=== PATIENT | male | born 1940 | race Caucasian/White ===

== ENCOUNTER 2017-12-05 06:29 | Inpatient (IN) ==
--- NOTE | 2017-12-05 07:31 | Emergency Department Note ---
Syncope HPI - General Chief Complaint: Syncope Stated Complaint: syncopal episode Time Seen by Provider: 12/05/17 07:30 Source: patient Mode of arrival: ambulatory Limitations: no limitations - History of Present Illness HPI Narrative: This patient is very hard to evaluate because he seems so sleepy. Apparently he is fallen at home a few times. He thought he may have hit his head. He is not on any blood thinners. - Related Data Home Medications Medication Instructions Recorded Confirmed FLUoxetine HCL [PROzac] 40 mg PO DAILY 08/05/15 09/21/17 Potassium Citrate [Potassium 40 meq PO TID 08/05/15 09/21/17 Citrate ER] Pramipexole [Mirapex] 1.5 mg PO HS 08/05/15 09/21/17 Albuterol Sulfate [Ventolin] 1 puff NEB Q4-6HP PRN 02/01/16 09/21/17 Fluticasone/Salmeterol [Advair 1 puff INH DAILY 03/17/16 09/21/17 100-50 Diskus] ipratropium-albuterol 0.5 mg-3 3 ml INHALATION BID ml 04/25/16 09/21/17 mg(2.5 mg base)/3 mL nebulization soln Gabapentin [Gralise] 600 mg PO TID 08/04/16 09/21/17 furosemide 20 mg tablet 20 mg PO DAILY tab 07/15/17 09/21/17 Previous Rx's Medication Instructions Recorded tamsulosin 0.4 mg capsule 0.4 mg PO BID #60 cap 10/15/15 [place] 1 each 5XD #1 each 08/08/16 finasteride 5 mg tablet 5 mg PO QDAY #30 tab 07/15/17 Docusate Sodium [Colace] 100 mg PO BID #30 cap 09/17/17 HYDROcodone/APAP 5/325MG [[place] 1 tab PO Q4HP PRN #20 tab 09/17/17 5/325Mg] Methocarbamol [Robaxin] 500 mg PO QIDP #30 tab 09/17/17 HYDROcodone/APAP 5/325MG [[place] 1 tab PO Q4HP PRN #10 tab 09/19/17 5/325Mg] Allergies Allergy/AdvReac Type Severity Reaction Status Date / Time No Known Drug Allergies Allergy Verified 09/21/17 09:46 Review of Systems All systems ED: reviewed and negative except as stated. Past Medical History - Past Medical History [facility] Narrative: Medical History (This Medical Record has been edited. Action required.) Weakness generalized (Acute) BPH loc w urin obs/LUTS (Acute) Rib contusion (Acute) Skin tear of left upper extremity (Acute) Closed head injury (Acute) Scalp contusion (Acute) Concussion without loss of consciousness (Acute) BPH (benign prostatic hyperplasia) (Acute) Fall (Acute) Contusion, knee (Acute) Rib fractures (Acute) Urethritis (Acute) Thoracic back pain (Acute) Knee pain, right (Acute) Constipation (Acute) Kidney stone (Acute) Vertigo (Acute) GERD (gastroesophageal reflux disease) (Acute) CHF exacerbation (Acute) Edema extremities (Acute) Vertigo (Acute) Bronchitis (Acute) Sinusitis (Acute) Rib contusion (Acute) Syncope (Acute) Primary atypical pneumonia (Acute) Acute exacerbation of chronic obstructive airways disease (Acute) NAJERA (dyspnea on exertion) (Acute) Venous (peripheral) insufficiency (Acute) Acute retention of urine (Acute) UTI (urinary tract infection) (Acute) [place] catheter problem (Acute) Cellulitis, penis (Acute) Urinary frequency (Chronic) Generalized polyneuropathy (Chronic) Obstructive sleep apnea (Chronic) Arthralgia of knee (Chronic) Hypokalemia (Chronic) Essential hypertension (Chronic) Diabetes mellitus type 2, uncontrolled (Chronic) Depression (Chronic) Congestive heart failure (Chronic) Advanced COPD (Chronic) Asthma (Chronic) Cellulitis (Chronic) Back pain (Chronic) Past Surgical History (This Medical Record has been edited. 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 Action required.) Unknown No family history of malignant neoplasm No family history of cardiovascular disease No history of endocrine disorder No history of gastrointestinal disorder No family history of bleeding disorder No family history of kidney disease - Social History smoking status: Never smoker Physical Exam Limitations: no limitations General appearance: lethargic Head: atraumatic, normocephalic Eye: Present: normal appearance ENT: normal exam Neck: Present: normal inspection Chest: Present: normal inspection Respiratory: Present: other (Scattered rhonchi) Cardiovascular: Present: regular rate, normal rhythm, normal heart sounds Abdominal: Present: soft, tenderness. Absent: distention, guarding, rebound, rigidity Abdominal tenderness: Present: diffuse, mild Neurological: Present: alert Psychiatric: Present: flat affect Skin: Present: warm, dry, intact, other (He does have stasis changes in his lower extremities with some slight erythema and swelling.) Course Vital Signs Temperature 96.9 F L 12/05/17 06:30 Pulse Rate 66 12/05/17 06:30 Respiratory Rate 20 12/05/17 06:30 Blood Pressure 93/67 12/05/17 06:30 Pulse Oximetry (%) 97 12/05/17 06:30 Temperature 96.9 F L 12/05/17 06:30 Pulse Rate 64 12/05/17 08:12 Respiratory Rate 14 12/05/17 08:19 Blood Pressure 121/69 12/05/17 08:16 Pulse Oximetry (%) 95 12/05/17 08:12 Syncope - Lab Data Result diagrams: 12/05/17 06:55 12/05/17 06:55 Lab Results 12/05/17 12/05/17 12/05/17 Range/Units 06:55 06:55 06:55 WBC 7.6 (4.5-11.0) K/mcL RBC 4.24 L (4.50-5.90) M/mcL Hgb 12.8 L (13.5-16.5) g/dL Hct 39.2 L (41.0-55.0) % MCV 92.3 (80.0-100.0) fL MCH 30.1 (26.0-34.0) pg MCHC 32.6 (31.0-36.0) g/dL RDW 14.7 H (11.5-14.5) % Plt Count 183 (140-440) K/mcL MPV 8.5 (7.4-10.4) fL Gran % 61.1 (38.0-78.0) % Lymph % (Auto) 18.0 (15.5-49.0) % [place] % (Auto) 12.4 H (1.0-12.0) % Eos % (Auto) 8.3 H (0.0-7.0) % Baso % (Auto) 0.2 (0.0-2.0) % Gran # 4.6 (1.8-8.0) K/mcL Lymph # (Auto) 1.4 L (1.5-4.8) K/mcL [place] # (Auto) 0.9 (0.1-0.9) K/mcL Eos # (Auto) 0.6 (0.0-0.7) K/mcL Baso # (Auto) 0 (0.0-0.3) K/mcL Sodium 139 (133-145) mmol/L Potassium 3.5 (3.3-5.1) mmol/L Chloride 99 (96-108) mmol/L Carbon Dioxide 26 (22-30) mmol/L Anion Gap 14.0 (8-16) BUN 12 (8-23) mg/dl Creatinine 0.8 (0.7-1.2) mg/dl GFR Calculation 85 Glucose 98 (70-105) mg/dL Calcium 8.8 (8.6-10.4) mg/dl Total Bilirubin 0.4 (0.0-1.0) mg/dL AST 16 (0-37) U/l ALT 15 (0-40) U/l Alkaline Phosphatase 87 (39-117) U/L Troponin T < 0.01 (0-0.03) ng/ml Total Protein 6.5 (5.9-8.4) gm/dL Albumin 3.6 (3.2-5.2) gm/dL Globulin 2.9 (2.2-3.7) gm/dL Albumin/Globulin Ratio 1.2 (1.0-2.3) Disposition Pt seen by SEED PELLETER/PA only: No Referrals: No,PCP [Referring] -
[2017-12-05] MEDS ORDERED: LACTATED RINGERS 1,000 ML IV ONE (07:41)
[2017-12-05 07:47] LABS: Basophils # (Auto) 0 K/mcL (0.0-0.3); Basophils % (Auto) 0.2 % (0.0-2.0); Eosinophils # (Auto) 0.6 K/mcL (0.0-0.7); Eosinophils % (Auto) 8.3 % (0.0-7.0); Granulocytes % (Auto) 61.1 % (38.0-78.0); Lymphocytes # (Auto) 1.4 K/mcL (1.5-4.8); Mean Cell Volume 92.3 fL (80.0-100.0); Mean Corpuscular HGB Conc 32.6 g/dL (31.0-36.0); Mean Corpuscular Hemoglobin 30.1 pg (26.0-34.0); Monocytes # (Auto) 0.9 K/mcL (0.1-0.9); Monocytes % (Auto) 12.4 % (1.0-12.0); Platelet Count 183 K/mcL (140-440); RBC 4.24 M/mcL (4.50-5.90); Red Cell Distribution Width 14.7 % (11.5-14.5)
[2017-12-05 08:07] LABS: ALT/SGPT 15 U/l (0-40); Albumin 3.6 gm/dL (3.2-5.2); Albumin/Globulin Ratio 1.2 (1.0-2.3); Alkaline Phosphatase 87 U/L (39-117); Blood Urea Nitrogen 12 mg/dl (8-23)
[2017-12-05] MEDS ORDERED: NALOXONE HCL 0.4 MG/ML VIAL ONE (08:52)
--- NOTE | 2017-12-05 08:52 | Cat Scan Report ---
CLINICAL INFORMATION: Head injury COMPARISON: None. TECHNIQUE: Axial noncontrast-enhanced images through the brain. FINDINGS: No acute intracranial hemorrhage. No subdural or epidural hematoma. No subarachnoid hemorrhage No intra-axial hematoma. No acute focal attenuation abnormality or localized mass effect. No midline shift. There is cerebral atrophy. There is white matter abnormality consistent with small vessel ischemic change. Brainstem and cerebellum are negative. No calvarial fracture. Inflammatory disease of the paranasal sinuses. The left globe is abnormal. There is increased density with in the left globe. This is in the posterior chamber. Appearance is not typical of a prosthetic globe. Etiology and chronicity not certain. Clinical correlation necessary. IMPRESSION: 1. No acute intracranial posttraumatic abnormality 2. Cerebral atrophy and white matter abnormality as above 3. Abnormal left globe The exam was performed using radiation dose optimization techniques including, but not limited to, automated exposure control, adjustment of the mA and/or kV according to patient size and use of iterative reconstruction technique. Interpreted and Authenticated by: Delfino Aguilar 12/05/17
[2017-12-05] MEDS: NALOXONE HCL 0.4 MG/ML VIAL IV PRN ×2 (08:54→08:56)
--- NOTE | 2017-12-05 08:56 | XRay Report ---
INDICATION: Fall. TECHNIQUE: AP chest x-ray,portable COMPARISON: None FINDINGS:Lungs are negative. No parenchymal infiltrate or mass. Heart size and vascularity are normal. Stacy and mediastinum are negative. No pleural fluid IMPRESSION: No acute abnormality. Interpreted and Authenticated by: Delfino Aguilar 12/05/17
[2017-12-05] MEDS ORDERED: IPRATROPIUM/ALBUTEROL 3 ML AMPUL.NEB NEB ONE ×2 (09:10)
[2017-12-05] MEDS ORDERED: methylPREDNISolone SOD SUCC 125 MG/2 ML VIAL IV ONE (09:10)
--- NOTE | 2017-12-05 09:11 | Emergency Department Note ---
Syncope HPI - General Chief Complaint: Syncope Stated Complaint: syncopal episode Time Seen by Provider: 12/05/17 07:30 Source: patient Mode of arrival: ambulatory Limitations: no limitations - Related Data Home Medications Medication Instructions Recorded Confirmed FLUoxetine HCL [PROzac] 40 mg PO DAILY 08/05/15 12/05/17 Pramipexole [Mirapex] 1.5 mg PO HS 08/05/15 12/05/17 Fluticasone/Salmeterol [Advair 1 puff INH DAILY 03/17/16 09/21/17 100-50 Diskus] ipratropium-albuterol 0.5 mg-3 3 ml INHALATION BID ml 04/25/16 09/21/17 mg(2.5 mg base)/3 mL nebulization soln Gabapentin [Gralise] 600 mg PO TID 08/04/16 12/05/17 furosemide 20 mg tablet 20 mg PO DAILY tab 07/15/17 12/05/17 Potassium Chloride [Kdur] 40 meq PO BIDCC 12/05/17 12/05/17 Previous Rx's Medication Instructions Recorded tamsulosin 0.4 mg capsule 0.4 mg PO BID #60 cap 10/15/15 finasteride 5 mg tablet 5 mg PO QDAY #30 tab 07/15/17 Docusate Sodium [Colace] 100 mg PO BID #30 cap 09/17/17 Allergies Allergy/AdvReac Type Severity Reaction Status Date / Time No Known Drug Allergies Allergy Verified 09/21/17 09:46 Past Medical History - Past Medical History Medical history: Reports: asthma, CHF, COPD, DM (With neuropathy), hypertension , kidney stones, other (ADA on CPAP, BPH) Psychiatric history: Reports: depression Surgical history ED: Reports: appendectomy, herniorrhaphy, knee replacement, orthopedic, other (Lumbar, right shoulder replacement) - Social History smoking status: Never smoker Alcohol use: Reports: Occasionally Drug use: Reports: none Physical Exam Limitations: no limitations General appearance: lethargic Course - Reevaluation(s) Reevaluation #1: Please see history and physical as dictated by Dr. peralta. On laboratory review his white blood cell count is normal, his flu test is negative. His chest x-ray is negative however he is still quite wheezy and retaining CO2. He is too weak to go home, he does have cellulitis to both lower extremities and urinalysis is pending at this time. We will try Solu-Medrol and breathing treatments for his respiratory wheezing and see if he improves that way. Vital Signs Temperature 96.9 F L 12/05/17 06:30 Pulse Rate 66 12/05/17 06:30 Respiratory Rate 20 12/05/17 06:30 Blood Pressure 93/67 12/05/17 06:30 Pulse Oximetry (%) 97 12/05/17 06:30 Temperature 97.9 F 12/05/17 09:18 Pulse Rate 69 12/05/17 10:24 Respiratory Rate 15 12/05/17 10:24 Blood Pressure 114/72 12/05/17 10:16 Pulse Oximetry (%) 99 12/05/17 10:24 Syncope - [facility] Narrative Medical decision making narrative: Labs reviewed, he still somnolent without apparent reason except that he has COPD exacerbation. Final diagnosis is COPD exacerbation with CO2 retention. Plan is hospital admission, discussed with our hospitalist - Lab Data Result diagrams: 12/05/17 06:55 12/05/17 06:55 Lab Results 12/05/17 12/05/17 12/05/17 Range/Units 06:55 06:55 06:55 WBC 7.6 (4.5-11.0) K/mcL RBC 4.24 L (4.50-5.90) M/mcL Hgb 12.8 L (13.5-16.5) g/dL Hct 39.2 L (41.0-55.0) % MCV 92.3 (80.0-100.0) fL MCH 30.1 (26.0-34.0) pg MCHC 32.6 (31.0-36.0) g/dL RDW 14.7 H (11.5-14.5) % Plt Count 183 (140-440) K/mcL MPV 8.5 (7.4-10.4) fL Gran % 61.1 (38.0-78.0) % Lymph % (Auto) 18.0 (15.5-49.0) % [place] % (Auto) 12.4 H (1.0-12.0) % Eos % (Auto) 8.3 H (0.0-7.0) % Baso % (Auto) 0.2 (0.0-2.0) % Gran # 4.6 (1.8-8.0) K/mcL Lymph # (Auto) 1.4 L (1.5-4.8) K/mcL [place] # (Auto) 0.9 (0.1-0.9) K/mcL Eos # (Auto) 0.6 (0.0-0.7) K/mcL Baso # (Auto) 0 (0.0-0.3) K/mcL ESR (0-15) mm/hr VBG Lactic Acid (0.5-2.2) mmol/L Carbon Monoxide Screen (0.0-1.5) % Sodium 139 (133-145) mmol/L Potassium 3.5 (3.3-5.1) mmol/L Chloride 99 (96-108) mmol/L Carbon Dioxide 26 (22-30) mmol/L Anion Gap 14.0 (8-16) BUN 12 (8-23) mg/dl Creatinine 0.8 (0.7-1.2) mg/dl GFR Calculation 85 Glucose 98 (70-105) mg/dL Calcium 8.8 (8.6-10.4) mg/dl Total Bilirubin 0.4 (0.0-1.0) mg/dL AST 16 (0-37) U/l ALT 15 (0-40) U/l Alkaline Phosphatase 87 (39-117) U/L Troponin T < 0.01 (0-0.03) ng/ml NT-Pro-B Natriuret Pep (0-450) pg/ml Total Protein 6.5 (5.9-8.4) gm/dL Albumin 3.6 (3.2-5.2) gm/dL Globulin 2.9 (2.2-3.7) gm/dL Albumin/Globulin Ratio 1.2 (1.0-2.3) TSH (0.27-5.01) uIU/ml Free T4 (0.7-1.7) ng/dl Urine Color Urine Appearance Urine pH (5.0-9.0) Ur Specific [place] (1.000-1.035) Urine Protein (NEG) mg/dL Urine Glucose (UA) (NEG) mg/dL Urine Ketones (NEG) mg/dL Urine Occult Blood (<0.03) mg/dL Urine Nitrate (NEG) Urine Bilirubin (NEG) mg/dL Urine Urobilinogen (NEG) mg/dL Ur Leukocyte Esterase (NEG) /uL Ur Culture Indicated? Urine Opiates Screen (NONDETECTED) Ur Oxycodone Screen (NONDETECTED) Urine Methadone Screen (NONDETECTED) Ur Barbiturates Screen (NONDETECTED) Ur Phencyclidine Scrn (NONDETECTED) Ur Amphetamines Screen (NONDETECTED) U Benzodiazepines Scrn (NONDETECTED) Urine Cocaine Screen (NONDETECTED) U Marijuana (THC) Screen (NONDETECTED) 12/05/17 12/05/17 12/05/17 Range/Units 06:55 06:55 06:55 WBC (4.5-11.0) K/mcL RBC (4.50-5.90) M/mcL Hgb (13.5-16.5) g/dL Hct (41.0-55.0) % MCV (80.0-100.0) fL MCH (26.0-34.0) pg MCHC (31.0-36.0) g/dL RDW (11.5-14.5) % Plt Count (140-440) K/mcL MPV (7.4-10.4) fL Gran % (38.0-78.0) % Lymph % (Auto) (15.5-49.0) % [place] % (Auto) (1.0-12.0) % Eos % (Auto) (0.0-7.0) % Baso % (Auto) (0.0-2.0) % Gran # (1.8-8.0) K/mcL Lymph # (Auto) (1.5-4.8) K/mcL [place] # (Auto) (0.1-0.9) K/mcL Eos # (Auto) (0.0-0.7) K/mcL Baso # (Auto) (0.0-0.3) K/mcL ESR 29 H (0-15) mm/hr VBG Lactic Acid (0.5-2.2) mmol/L Carbon Monoxide Screen 3.1 H (0.0-1.5) % Sodium (133-145) mmol/L Potassium (3.3-5.1) mmol/L Chloride (96-108) mmol/L Carbon Dioxide (22-30) mmol/L Anion Gap (8-16) BUN (8-23) mg/dl Creatinine (0.7-1.2) mg/dl GFR Calculation Glucose (70-105) mg/dL Calcium (8.6-10.4) mg/dl Total Bilirubin (0.0-1.0) mg/dL AST (0-37) U/l ALT (0-40) U/l Alkaline Phosphatase (39-117) U/L Troponin T (0-0.03) ng/ml NT-Pro-B Natriuret Pep 141.8 (0-450) pg/ml Total Protein (5.9-8.4) gm/dL Albumin (3.2-5.2) gm/dL Globulin (2.2-3.7) gm/dL Albumin/Globulin Ratio (1.0-2.3) TSH 1.87 (0.27-5.01) uIU/ml Free T4 1.49 (0.7-1.7) ng/dl Urine Color Urine Appearance Urine pH (5.0-9.0) Ur Specific [place] (1.000-1.035) Urine Protein (NEG) mg/dL Urine Glucose (UA) (NEG) mg/dL Urine Ketones (NEG) mg/dL Urine Occult Blood (<0.03) mg/dL Urine Nitrate (NEG) Urine Bilirubin (NEG) mg/dL Urine Urobilinogen (NEG) mg/dL Ur Leukocyte Esterase (NEG) /uL Ur Culture Indicated? Urine Opiates Screen (NONDETECTED) Ur Oxycodone Screen (NONDETECTED) Urine Methadone Screen (NONDETECTED) Ur Barbiturates Screen (NONDETECTED) Ur Phencyclidine Scrn (NONDETECTED) Ur Amphetamines Screen (NONDETECTED) U Benzodiazepines Scrn (NONDETECTED) Urine Cocaine Screen (NONDETECTED) U Marijuana (THC) Screen (NONDETECTED) 12/05/17 12/05/17 12/05/17 Range/Units 08:12 09:47 09:47 WBC (4.5-11.0) K/mcL RBC (4.50-5.90) M/mcL Hgb (13.5-16.5) g/dL Hct (41.0-55.0) % MCV (80.0-100.0) fL MCH (26.0-34.0) pg MCHC (31.0-36.0) g/dL RDW (11.5-14.5) % Plt Count (140-440) K/mcL MPV (7.4-10.4) fL Gran % (38.0-78.0) % Lymph % (Auto) (15.5-49.0) % [place] % (Auto) (1.0-12.0) % Eos % (Auto) (0.0-7.0) % Baso % (Auto) (0.0-2.0) % Gran # (1.8-8.0) K/mcL Lymph # (Auto) (1.5-4.8) K/mcL [place] # (Auto) (0.1-0.9) K/mcL Eos # (Auto) (0.0-0.7) K/mcL Baso # (Auto) (0.0-0.3) K/mcL ESR (0-15) mm/hr VBG Lactic Acid 1.0 (0.5-2.2) mmol/L Carbon Monoxide Screen (0.0-1.5) % Sodium (133-145) mmol/L Potassium (3.3-5.1) mmol/L Chloride (96-108) mmol/L Carbon Dioxide (22-30) mmol/L Anion Gap (8-16) BUN (8-23) mg/dl Creatinine (0.7-1.2) mg/dl GFR Calculation Glucose (70-105) mg/dL Calcium (8.6-10.4) mg/dl Total Bilirubin (0.0-1.0) mg/dL AST (0-37) U/l ALT (0-40) U/l Alkaline Phosphatase (39-117) U/L Troponin T (0-0.03) ng/ml NT-Pro-B Natriuret Pep (0-450) pg/ml Total Protein (5.9-8.4) gm/dL Albumin (3.2-5.2) gm/dL Globulin (2.2-3.7) gm/dL Albumin/Globulin Ratio (1.0-2.3) TSH (0.27-5.01) uIU/ml Free T4 (0.7-1.7) ng/dl Urine Color Yellow Urine Appearance Clear Urine pH 5.0 (5.0-9.0) Ur Specific [place] 1.009 (1.000-1.035) Urine Protein Neg (NEG) mg/dL Urine Glucose (UA) Negative (NEG) mg/dL Urine Ketones Neg (NEG) mg/dL Urine Occult Blood Neg (<0.03) mg/dL Urine Nitrate Neg (NEG) Urine Bilirubin Neg (NEG) mg/dL Urine Urobilinogen Neg (NEG) mg/dL Ur Leukocyte Esterase Neg (NEG) /uL Ur Culture Indicated? No Urine Opiates Screen None detected (NONDETECTED) Ur Oxycodone Screen None detected (NONDETECTED) Urine Methadone Screen None detected (NONDETECTED) Ur Barbiturates Screen None detected (NONDETECTED) Ur Phencyclidine Scrn None detected (NONDETECTED) Ur Amphetamines Screen None detected (NONDETECTED) U Benzodiazepines Scrn None detected (NONDETECTED) Urine Cocaine Screen None detected (NONDETECTED) U Marijuana (THC) Screen None detected (NONDETECTED) Disposition Pt seen by REEL WORKER/PA only: No Clinical Impression: COPD exacerbation Disposition: Xfer As Inpt ([facility]) Condition: Fair Referrals: No,PCP [Referring] -
[2017-12-05] MEDS ORDERED: 0.9 % SODIUM CHLORIDE 1,000 ML IV ONE (09:35)
[2017-12-05 09:45] LABS: Free T4 (Free Thyroxine) 1.49 ng/dl (0.7-1.7); proBNP 141.8 pg/ml (0-450)
[2017-12-05 10:31] LABS: Appearance,Urine CLEAR; Bilirubin,Urine NEG (NEG); Color,Urine YELLOW; Glucose,Urine (UA) NEGATIVE (NEG); Leukocyte Esterase,Urine NEG /uL (NEG); Nitrate,Urine NEG (NEG); Protein,Urine NEG (NEG); Specific Gravity,Urine 1.009 (1.000-1.035); Urine Blood NEG mg/dL (<0.03); Urobilinogen,Urine NEG (NEG)
[2017-12-05 10:34] LABS: Amphetamine Screen,Urine NONE DETECTED (NONDETECTED); Benzodiazepines Screen,Urine NONE DETECTED (NONDETECTED); Cocaine Screen,Urine NONE DETECTED (NONDETECTED); Opiate Screen,Urine NONE DETECTED (NONDETECTED); Oxycodone, Urine Screen NONE DETECTED (NONDETECTED)
--- NOTE | 2017-12-05 12:01 | Internal Med History&Physical ---
Medical - H&P: [facility] Patient information: Note initiated : 12/05/17 at 11:39 am Service Date, if different from initiated Date: [] Patient: Abelardo Chambers 77 y/o M admitted on for syncopal episode. Chief complaint: AMS History of present illness: Chief Complaint: 77-YEAR-OLD MALE, WITH MULTIPLE MEDICAL PROBLEMS, PRESENTED TO THE ED WITH AMS. HE WAS DESCRIBED OBTUNDED UPON ARRIVAL TO THE ED. PATIENT WAS FOUND ON THE FLOOR. HE APPARENTLY PRESSED THE [place]IFELINE BUTTON TO ALERT EMS. BY THE TIME, I SAW PATIENT, HE WAS AROUSABLE ON VERBAL STIMULI AND ABLE TO ANSWER SIMPLE QUESTIONS. STATED HE IS UNABLE TO REMEMBER WHAT HAPPENED. DENIED HEADACHE, CP, PALPITATIONS OR ANY PAIN. HE ALSO DENIED BEING SOB, BUT HAD AUDIBLE WHEEZING. ADMITTED TO HAVING COPD AND BEING A SMOKER IN REMOTE PAST. ED COURSE: NO EFFECT AFTER ADMINISTRATION OF NARCAN INSERTION OF GLASS CATH YIELDED 700 ML URINE HAD DUONEB FOR WHEEZING AND RHONCHI W/U INCLUDED CT-HEAD, LAB, CXR, CO LEVEL, TOX SCREEN: NO OBVIOUS ETIOLOGY FOR AMS ROS unobtainable: due to mental status Medical - H&P: PMH Medical history: Medical History (This Medical Record has been edited. Action required.) Weakness generalized (Acute) COPD exacerbation (Acute) BPH loc w urin obs/LUTS (Acute) Rib contusion (Acute) Skin tear of left upper extremity (Acute) Closed head injury (Acute) Scalp contusion (Acute) Concussion without loss of consciousness (Acute) BPH (benign prostatic hyperplasia) (Acute) Fall (Acute) Contusion, knee (Acute) Rib fractures (Acute) Urethritis (Acute) Thoracic back pain (Acute) Knee pain, right (Acute) Constipation (Acute) Kidney stone (Acute) Vertigo (Acute) GERD (gastroesophageal reflux disease) (Acute) CHF exacerbation (Acute) Edema extremities (Acute) Vertigo (Acute) Bronchitis (Acute) Sinusitis (Acute) Rib contusion (Acute) Syncope (Acute) Primary atypical pneumonia (Acute) Acute exacerbation of chronic obstructive airways disease (Acute) NAJERA (dyspnea on exertion) (Acute) Venous (peripheral) insufficiency (Acute) Acute retention of urine (Acute) UTI (urinary tract infection) (Acute) Glass catheter problem (Acute) Cellulitis, penis (Acute) Urinary frequency (Chronic) Generalized polyneuropathy (Chronic) Obstructive sleep apnea (Chronic) Arthralgia of knee (Chronic) Hypokalemia (Chronic) Essential hypertension (Chronic) Diabetes mellitus type 2, uncontrolled (Chronic) Depression (Chronic) Congestive heart failure (Chronic) Advanced COPD (Chronic) Asthma (Chronic) Cellulitis (Chronic) Back pain (Chronic) Surgical history: Past Surgical History (This Medical Record has been edited. 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) History of lumbar laminectomy (Chronic) Hx of arthroscopic knee surgery (Chronic) Hx of appendectomy (Chronic) History of hernia repair (Chronic 05/02/16) Smoking status: Former smoker Medical - H&P: Meds Home Medications Medication Instructions Recorded Confirmed Type FLUoxetine HCL [PROzac] 40 mg PO DAILY 08/05/15 12/05/17 History Pramipexole [Mirapex] 1.5 mg PO HS 08/05/15 12/05/17 History tamsulosin 0.4 mg capsule 0.4 mg PO BID #60 cap 10/15/15 12/05/17 Rx Fluticasone/Salmeterol [Advair 1 puff INH DAILY 03/17/16 09/21/17 History 100-50 Diskus] ipratropium-albuterol 0.5 mg-3 3 ml INHALATION BID ml 04/25/16 09/21/17 History mg(2.5 mg base)/3 mL nebulization soln Gabapentin [Gralise] 600 mg PO TID 08/04/16 12/05/17 History finasteride 5 mg tablet 5 mg PO QDAY #30 tab 07/15/17 12/05/17 Rx furosemide 20 mg tablet 20 mg PO DAILY tab 07/15/17 12/05/17 History Docusate Sodium [Colace] 100 mg PO BID #30 cap 09/17/17 09/21/17 Rx Potassium Chloride [Kdur] 40 meq PO BIDCC 12/05/17 12/05/17 History Allergies Allergy/AdvReac Type Severity Reaction Status Date / Time No Known Drug Allergies Allergy Verified 09/21/17 09:46 Medical - H&P: Exam - Constitutional Vitals: Temp Pulse Resp BP Pulse Ox 97.9 F 79 17 140/75 99 12/05/17 09:18 12/05/17 11:03 12/05/17 10:46 12/05/17 11:02 12/05/17 11:03 General appearance: average body habitus, mild distress - Head Head exam: Present: normal inspection - Eye Eye exam: Present: EOMI, PERRL - Respiratory Respiratory exam: Present: prolonged expiratory phase, rhonchi, wheezes - Cardiovascular Cardiovascular exam: Present: normal rate and rhythm, bradycardia - GI/Abdominal GI/Abdominal exam: Present: normal bowel sounds, soft - Extremities Exam Extremities exam: Present: pedal edema Additional comments: CHRONIC VENOUS STASIS DERMATITIS Medical - H&P: Reslt - Labs CBC & Chem 7: 12/05/17 06:55 12/05/17 06:55 Labs: Short CBC 12/05/17 Range/Units 06:55 WBC 7.6 (4.5-11.0) K/mcL Hgb 12.8 L (13.5-16.5) g/dL Hct 39.2 L (41.0-55.0) % Plt Count 183 (140-440) K/mcL BMP 12/05/17 06:55 Sodium 139 Potassium 3.5 Chloride 99 Carbon Dioxide 26 BUN 12 Creatinine 0.8 Glucose 98 Calcium 8.8 Cardiac Enzymes 12/05/17 Range/Units 06:55 Troponin T < 0.01 (0-0.03) ng/ml Liver Function 12/05/17 Range/Units 06:55 Total Bilirubin 0.4 (0.0-1.0) mg/dL AST 16 (0-37) U/l ALT 15 (0-40) U/l Alkaline Phosphatase 87 (39-117) U/L Albumin 3.6 (3.2-5.2) gm/dL Urine 12/05/17 Range/Units 09:47 Urine Color Yellow Urine Appearance Clear Urine pH 5.0 (5.0-9.0) Ur Specific [place] 1.009 (1.000-1.035) Urine Protein Neg (NEG) mg/dL Urine Glucose (UA) Negative (NEG) mg/dL - ABG Interpretation Interpretation: abnormal Medical - H&P: A/P - Narrative A/P Narrative: 77-YEAR-OLD MALE, WITH MULTIPLE MEDICAL PROBLEMS, PRESENTED TO THE ED WITH AMS. HE WAS DESCRIBED OBTUNDED UPON ARRIVAL TO THE ED. PATIENT WAS FOUND ON THE FLOOR. HE APPARENTLY PRESSED THE LIFELINE BUTTON TO [facility]. BY THE TIME, I SAW PATIENT, HE WAS AROUSABLE ON VERBAL STIMULI AND ABLE TO ANSWER SIMPLE QUESTIONS. STATED HE IS UNABLE TO REMEMBER WHAT HAPPENED. DENIED HEADACHE, CP, PALPITATIONS OR ANY PAIN. HE ALSO DENIED BEING SOB, BUT HAD AUDIBLE WHEEZING. ADMITTED TO HAVING COPD AND BEING A SMOKER IN REMOTE PAST. PROBLEMS: + AMS Obtunded upon arrival to ED, and overal several hours became more responsive. However, at time of H/P still unable to provide HPI. Unclear etiology: no response to Narcan, neg tox screen. W/U in ED non- revealing. 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
[2017-12-05] MEDS ORDERED: MAGNESIUM HYDROXIDE 30 ML ORAL.SUSP PO PRN (13:03)
[2017-12-05] MEDS ORDERED: ONDANSETRON 4 MG/2 ML VIAL IV PRN (13:03)
[2017-12-05] MEDS ORDERED: LEVALBUTEROL 0.63 MG/3 ML AMPUL.NEB NEB PRN (13:03)
[2017-12-05] MEDS ORDERED: ACETAMINOPHEN 325 MG TABLET PO PRN (13:03)
[2017-12-05] MEDS ORDERED: POTASSIUM CHLORIDE 40 MEQ in 0.9 % SODIUM CHLORIDE 500 ML IV ONE (13:30)
[2017-12-05] MEDS: IPRATROPIUM/ALBUTEROL 3 ML AMPUL.NEB NEB SCH ×2 (13:33→19:28)
[2017-12-05] MEDS: PRAMIPEXOLE 1 MG TABLET PO SCH (19:58)
[2017-12-05] MEDS: DOCUSATE SODIUM 100 MG CAPSULE PO SCH (19:58)
[2017-12-05] MEDS: TAMSULOSIN 0.4 MG CAPSULE PO SCH (19:58)
[2017-12-06] MEDS: IPRATROPIUM/ALBUTEROL 3 ML AMPUL.NEB NEB SCH ×4 (01:21→19:25)
[2017-12-06] MEDS: 0.9 % SODIUM CHLORIDE 10 ML SYRINGE IV SCH ×3 (05:52→22:00)
[2017-12-06 08:27] LABS: ALT/SGPT 13 U/l (0-40); Albumin 3.6 gm/dL (3.2-5.2); Albumin/Globulin Ratio 1.3 (1.0-2.3); Alkaline Phosphatase 83 U/L (39-117); Blood Urea Nitrogen 13 mg/dl (8-23)
--- NOTE | 2017-12-06 08:29 | Internal Med Progress Note ---
Medical - PN: Subj Patient information: Note initiated : 12/06/17 at 8:14 am Service Date, if different from initiated Date: [] Patient: Abelardo Chambers 77 y/o M admitted on 12/05/17 for AMS Chief Complaint: 77-YEAR-OLD MALE, WITH MULTIPLE MEDICAL PROBLEMS, PRESENTED TO THE ED WITH AMS. HE WAS DESCRIBED OBTUNDED UPON ARRIVAL TO THE ED. PATIENT WAS FOUND ON THE FLOOR. HE APPARENTLY PRESSED THE LIFELINE BUTTON TO ALERT EMS. BY THE TIME, I SAW PATIENT, HE WAS AROUSABLE ON VERBAL STIMULI AND ABLE TO ANSWER SIMPLE QUESTIONS. STATED HE IS UNABLE TO REMEMBER WHAT HAPPENED. DENIED HEADACHE, CP, PALPITATIONS OR ANY PAIN. HE ALSO DENIED BEING SOB, BUT HAD AUDIBLE WHEEZING. ADMITTED TO HAVING COPD AND BEING A SMOKER IN REMOTE PAST. ED COURSE: NO EFFECT AFTER ADMINISTRATION OF NARCAN INSERTION OF GLASS CATH YIELDED 700 ML URINE HAD DUONEB FOR WHEEZING AND RHONCHI W/U INCLUDED CT-HEAD, LAB, CXR, CO LEVEL, TOX SCREEN: NO OBVIOUS ETIOLOGY FOR AMS Interval history: 12/05: Admitted for history of passing out a/w falls. Yesterday, pressed the lifeline button. Was found obtunded by EMS. Remained altered/decreased mentation for several hours. In ICU was unresponsive upon arrival, but improved gradually. Cardiac monitoring: rate 60's. 12/06: This am alert and oriented. Has been up in chair since 3 am. States has been having episodes of 'passing out' and falling. Yesterday x 2. No prodromes. Has history of falling asleep while talking or at desk. Has ADA and has been using CPAP HS. Has had no neurology referral. On Neurontin XR 600 TID for many years. DD: narcolepsy, epilepsy, neurotin related Will change to short acting neurontin, CPAP tonight, trial with Modafinil - Constitutional Vitals: Vital Signs Temp Pulse Resp BP Pulse Ox 97.4 F 61 16 116/78 96 12/06/17 07:14 12/06/17 07:10 12/06/17 07:14 12/06/17 07:14 12/06/17 07:14 Period Temp Pulse Resp BP Sys/Aaron Pulse Ox Last 24 Hr 97.4 F-99.8 F 56-86 13-23 87-147/60-96 88-100 Intake and Output 12/05/17 12/06/17 12/06/17 21:59 05:59 13:59 Intake Total 1100 / 1100 230 / 230 180 / 180 Output Total 1625 / 1625 600 / 600 Balance -525 / -525 -370 / -370 180 / 180 Weight 237 lb 9.6 oz Intake & Output: Intake & Output 12/05/17 12/06/17 12/06/17 21:59 05:59 13:59 Intake Total 1100 / 1100 230 / 230 180 / 180 Output Total 1625 / 1625 600 / 600 Balance -525 / -525 -370 / -370 180 / 180 Weight 237 lb 9.6 oz Intake: IV 520 / 520 Potassium Chloride 40 Meq In 520 / 520 Sodium Chloride 0.9% 500 ml @ 130 mls/hr IV ONCE ONE Rx#: [id number] Oral 580 / 580 230 / 230 180 / 180 Output: Void Amount 1625 / 1625 600 / 600 Other: Meal Dinner Percent of Meal Consumed 100% Feeding Ability Independent # Bowel Movements 0 General appearance: no acute distress - Head Head exam: Present: normal inspection - Eye Eye exam: Present: EOMI, PERRL - Respiratory Respiratory exam: Present: normal respiratory exam - Cardiovascular Cardiovascular exam: Present: normal rate and rhythm - GI/Abdominal GI/Abdominal exam: Present: normal bowel sounds, soft - Extremities Exam Extremities exam: Present: normal inspection. Absent: pedal edema Medical - PN: Obj Da - Labs CBC & Chem 7: 12/05/17 06:55 12/05/17 06:55 Labs: Abnormal Lab Results 12/05/17 12/05/17 12/05/17 06:55 06:55 06:55 RBC 4.24 L Hgb 12.8 L Hct 39.2 L RDW 14.7 H [place] % (Auto) 12.4 H Eos % (Auto) 8.3 H Lymph # (Auto) 1.4 L ESR 29 H Carbon Monoxide Screen 3.1 H Meds: Medications Acetaminophen (Tylenol) 650 mg PO Q6HP PRN PRN Reason: PAIN/FEVER > 101 Albuterol/Ipratropium (Duoneb) 3 ml NEB Q6HRT [facility] Last Admin: 12/06/17 07:12 Dose: 3 ml Docusate Sodium (Colace) 100 mg PO BID [facility] Last Admin: 12/05/17 19:58 Dose: 100 mg Enoxaparin Sodium (Lovenox) 40 mg SQ DAILY [facility] Finasteride (Proscar) 5 mg PO QDAY [facility] Fluoxetine HCl (Prozac) 40 mg PO DAILY [facility] Gabapentin (Neurontin) 300 mg PO Q12 [facility] Levalbuterol HCl (Xopenex) 0.63 mg NEB Q4HP PRN PRN Reason: Wheezing Magnesium Hydroxide (Milk Of Magnesia) 30 ml PO DAILYP PRN PRN Reason: Constipation Modafinil (Provigil) 200 mg PO DAILY [facility] Stop: 12/13/17 09:01 Ondansetron HCl (Zofran) 4 mg IV Q4HP PRN PRN Reason: Nausea And Vomiting Pramipexole Dihydrochloride (Mirapex) 1.5 mg PO HS [facility] Last Admin: 12/05/17 19:58 Dose: 1.5 mg Fluticasone/Salmeterol (Advair 100-50 Diskus) 1 puff INH DAILY [facility] Sodium Chloride (Saline Flush) 10 ml IV Q8 [facility] Last Admin: 12/06/17 05:52 Dose: 10 ml Tamsulosin HCl (Flomax) 0.4 mg PO BID [facility] Last Admin: 12/05/17 19:58 Dose: 0.4 mg Medical - PN: A/P - Time Spent With Patient Total time spent is greater than 50% in coordination of care (as documented) at patient's floor/unit and/or counseling patient: 15 - 24 minutes - Narrative A/P Narrative: 77-YEAR-OLD MALE, WITH MULTIPLE MEDICAL PROBLEMS, PRESENTED TO THE ED WITH AMS. HE WAS DESCRIBED OBTUNDED UPON ARRIVAL TO THE ED. PATIENT WAS FOUND ON THE FLOOR. HE APPARENTLY PRESSED THE [employer]IFELINE BUTTON TO ALERT EMS. BY THE TIME, I SAW PATIENT, HE WAS AROUSABLE ON VERBAL STIMULI AND ABLE TO ANSWER SIMPLE QUESTIONS. STATED HE IS UNABLE TO REMEMBER WHAT HAPPENED. DENIED HEADACHE, CP, PALPITATIONS OR ANY PAIN. HE ALSO DENIED BEING SOB, BUT HAD AUDIBLE WHEEZING. ADMITTED TO HAVING COPD AND BEING A SMOKER IN REMOTE PAST. PROBLEMS: + AMS 12/05: Obtunded upon arrival to ED, at time of H/P still unable to provide HPI. Unclear etiology: no response to Narcan, neg tox screen. W/U in ED non- revealing. 12/06: resolved. A/O x 3 C/O of 'passing out' and falling. Hx of suddenly falling asleep. On Neurontin XR 600 mg TID Has known ADA, on CPAP DD: narcolepsy, seizure ds, adverse reaction to Neurontin Plan: CPAP for ADA, adjust Neurontin dosing, trial with Modafinil + COPD Exacerbation with wheezes and rhonchi ABG suggests chronic respiratory insufficiency: pH 7.4 pCO2 52 pO2 63 12/06: much improved BS. 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 Hx of suddenly falling asleep. On Neurontin XR 600 mg TID Has known ADA, on CPAP DD: narcolepsy, seizure ds, adverse reaction to Neurontin Plan: CPAP for ADA, adjust Neurontin dosing, trial with Modafinil Medical - PN: Qual - Stroke Symptom Onset Unknown: No - VTE Deep Vein Thrombosis/Pulmonary Embolism Present on Admission: No
[2017-12-06] MEDS: GABAPENTIN 300 MG CAPSULE PO SCH ×3 (08:43→23:31)
[2017-12-06] MEDS: FLUoxetine HCL 20 MG CAPSULE PO SCH (08:43)
[2017-12-06] MEDS: TAMSULOSIN 0.4 MG CAPSULE PO SCH ×3 (08:44→21:00)
[2017-12-06] MEDS: FINASTERIDE 5 MG TABLET PO SCH (08:44)
[2017-12-06] MEDS: DOCUSATE SODIUM 100 MG CAPSULE PO SCH ×3 (08:44→21:00)
[2017-12-06] MEDS: ENOXAPARIN 40 MG/0.4 ML SYRINGE SQ SCH (08:44)
[2017-12-06] MEDS: FLUTICASONE/SALMETEROL 50/100 INHALER #14 INH SCH (10:09)
[2017-12-06] MEDS: MODAFINIL 200 MG TABLET PO SCH (11:16)
[2017-12-06] MEDS: PRAMIPEXOLE 1 MG TABLET PO SCH ×2 (18:54→21:00)
[2017-12-06] MEDS ORDERED: traZODone HCL 50 MG TABLET ONE (23:52)
[2017-12-07] MEDS: IPRATROPIUM/ALBUTEROL 3 ML AMPUL.NEB NEB SCH ×4 (01:33→19:24)
[2017-12-07] MEDS ORDERED: LORazepam 2 MG/ML VIAL IV ONE (02:38)
[2017-12-07] MEDS ORDERED: LORazepam 2 MG/ML VIAL ONE (02:50)
[2017-12-07 06:02] LABS: Basophils # (Auto) 0 K/mcL (0.0-0.3); Basophils % (Auto) 0.3 % (0.0-2.0); Eosinophils # (Auto) 0.4 K/mcL (0.0-0.7); Eosinophils % (Auto) 5.6 % (0.0-7.0); Granulocytes % (Auto) 62.2 % (38.0-78.0); Lymphocytes # (Auto) 1.4 K/mcL (1.5-4.8); Lymphocytes % (Auto) 19.1 % (15.5-49.0); Mean Cell Volume 91.1 fL (80.0-100.0); Mean Corpuscular HGB Conc 33.1 g/dL (31.0-36.0); Mean Corpuscular Hemoglobin 30.2 pg (26.0-34.0); Monocytes # (Auto) 0.9 K/mcL (0.1-0.9); Monocytes % (Auto) 12.8 % (1.0-12.0); Platelet Count 184 K/mcL (140-440); RBC 3.93 M/mcL (4.50-5.90); Red Cell Distribution Width 14.8 % (11.5-14.5)
[2017-12-07 06:41] LABS: ALT/SGPT 11 U/l (0-40); Albumin 3.6 gm/dL (3.2-5.2); Albumin/Globulin Ratio 1.6 (1.0-2.3); Alkaline Phosphatase 75 U/L (39-117); Bilirubin,Direct < 0.2 mg/dL (0.0-0.3); Blood Urea Nitrogen 17 mg/dl (8-23); Gamma Glutamyl Transpeptidase 11 U/L (8-61); Uric Acid 3.9 mg/dL (2.5-8.0)
[2017-12-07] MEDS: 0.9 % SODIUM CHLORIDE 10 ML SYRINGE IV SCH ×3 (07:57→22:00)
--- NOTE | 2017-12-07 11:11 | Internal Med Progress Note ---
Medical - PN: Subj Patient information: Note initiated : 12/07/17 at 10:46 am Service Date, if different from initiated Date: [] Patient: Abelardo Chambers 77 y/o M admitted on 12/05/17 for syncopal episode. Chief Complaint: [] Interval history: 12/05: Admitted for history of passing out a/w falls. Yesterday, pressed the lifeline button. Was found obtunded by EMS. Remained altered/decreased mentation for several hours. In ICU was unresponsive upon arrival, but improved gradually. Cardiac monitoring: rate 60's. 12/06: This am alert and oriented. Has been up in chair since 3 am. States has been having episodes of 'passing out' and falling. Yesterday x 2. No prodromes. Has history of falling asleep while talking or at desk. Has ADA and has been using CPAP HS. Has had no neurology referral. On Neurontin XR 600 TID for many years. DD: narcolepsy, epilepsy, neurotin related Will change to short acting neurontin, CPAP tonight, trial with Modafinil 12/07- patient had a horrible nightwith anxiety hallucination and psychosis likely secondary to lack of sleep. Eventually slept wrong 5 this morning 60ohafter receiving trazodone/Ativan/morphine to counter agitation. however no fever. goals for today would be to continue physical therapy/MRI brain - Constitutional Vitals: Vital Signs Temp Pulse Resp BP Pulse Ox 98.6 F 76 16 102/62 95 12/07/17 08:00 12/07/17 07:38 12/07/17 10:00 12/07/17 10:00 12/07/17 10:00 Period Temp Pulse Resp BP Sys/Aaron Pulse Ox Last 24 Hr 97.8 F-99.1 F 76-99 16-20 102-126/57-68 88-95 Intake and Output 12/06/17 12/07/17 12/07/17 21:59 05:59 13:59 Intake Total 700 / 700 100 / 100 Output Total 2000 1450 / 1450 325 / 325 Balance -1301 / -1301 -1350 / -1350 -325 / -325 Weight 240 lb 1.6 oz Intake & Output: Intake & Output 12/06/17 12/07/17 12/07/17 21:59 05:59 13:59 Intake Total 700 / 700 100 / 100 Output Total 2000 1450 / 1450 325 / 325 Balance -1301 / -1301 -1350 / -1350 -325 / -325 Weight 240 lb 1.6 oz Intake: Oral 700 / 700 100 / 100 Output: Void Amount 1999 1450 / 1450 325 / 325 # of times incontinent of urine Other: Meal Dinner Percent of Meal Consumed 100% Feeding Ability Independent # Bowel Movements 1 Exam: Resting comfortably nonlabored breathing no telemetry events nondistended abdomen Medical - PN: Obj Da - Labs CBC & Chem 7: 12/07/17 05:00 12/07/17 05:00 Labs: Abnormal Lab Results 12/07/17 12/07/17 12/06/17 05:00 05:00 03:40 RBC 3.93 L Hgb 11.9 L Hct 35.8 L RDW 14.8 H [place] % (Auto) 12.8 H Eos % (Auto) Lymph # (Auto) 1.4 L ESR Carbon Monoxide Screen Glucose 106 H Calcium 8.4 L 12/05/17 12/05/17 12/05/17 06:55 06:55 06:55 RBC 4.24 L Hgb 12.8 L Hct 39.2 L RDW 14.7 H [place] % (Auto) 12.4 H Eos % (Auto) 8.3 H Lymph # (Auto) 1.4 L ESR 29 H Carbon Monoxide Screen 3.1 H Glucose Calcium Meds: Medications Acetaminophen (Tylenol) 650 mg PO Q6HP PRN PRN Reason: PAIN/FEVER > 101 Albuterol/Ipratropium (Duoneb) 3 ml NEB Q6HRT [facility] Last Admin: 12/07/17 07:00 Dose: Not Given Docusate Sodium (Colace) 100 mg PO BID [facility] Last Admin: 12/06/17 21:00 Dose: Not Given Enoxaparin Sodium (Lovenox) 40 mg SQ DAILY [facility] Last Admin: 12/06/17 08:44 Dose: 40 mg Finasteride (Proscar) 5 mg PO QDAY [facility] Last Admin: 12/06/17 08:44 Dose: 5 mg Fluoxetine HCl (Prozac) 40 mg PO DAILY [facility] Last Admin: 12/06/17 08:43 Dose: 40 mg Gabapentin (Neurontin) 300 mg PO Q12 [facility] Last Admin: 12/06/17 23:31 Dose: Not Given Levalbuterol HCl (Xopenex) 0.63 mg NEB Q4HP PRN PRN Reason: Wheezing Magnesium Hydroxide (Milk Of Magnesia) 30 ml PO DAILYP PRN PRN Reason: Constipation Modafinil (Provigil) 200 mg PO DAILY [facility] Stop: 12/13/17 09:01 Last Admin: 12/06/17 11:16 Dose: Not Given Ondansetron HCl (Zofran) 4 mg IV Q4HP PRN PRN Reason: Nausea And Vomiting Pramipexole Dihydrochloride (Mirapex) 1.5 mg PO HS [facility] Last Admin: 12/06/17 21:00 Dose: Not Given Fluticasone/Salmeterol (Advair 100-50 Diskus) 1 puff INH DAILY [facility] Last Admin: 12/06/17 10:09 Dose: Not Given Sodium Chloride (Saline Flush) 10 ml IV Q8 [facility] Last Admin: 12/07/17 07:57 Dose: 10 ml Tamsulosin HCl (Flomax) 0.4 mg PO BID [facility] Last Admin: 12/06/17 21:00 Dose: Not Given Trazodone HCl (Desyrel) 100 mg PO [facility] Medical - PN: A/P - Time Spent With Patient Total time spent is greater than 50% in coordination of care (as documented) at patient's floor/unit and/or counseling patient: 15 - 24 minutes - Narrative A/P Narrative: 77-YEAR-OLD MALE, WITH MULTIPLE MEDICAL PROBLEMS, PRESENTED TO THE ED WITH AMS. HE WAS DESCRIBED OBTUNDED UPON ARRIVAL TO THE ED. PATIENT WAS FOUND ON THE FLOOR. HE APPARENTLY PRESSED THE [employer]IFELINE BUTTON TO ALERT EMS. * acute change in mental status- clinically improved however sundowning noted last night. * history of COPD continue bronchodilators * history of BPH-follows up with Dr. Wood. continue tamsulosin * restless leg syndrome and pramipexole * \Anxiety disorder on paroxetine * neuropathy on gabapentin * Hyperlipemia and statin * DVT prophylaxis on Lovenox * history of vertigo/syncope/falls-Neurontin dose adjustment/PT OT and gait training plan * Case management to arrange discharge planning/SNF * close monitoring Medical - PN: Qual - Stroke Symptom Onset Unknown: No - VTE Deep Vein Thrombosis/Pulmonary Embolism Present on Admission: No
[2017-12-07] MEDS: FLUoxetine HCL 20 MG CAPSULE PO SCH (11:29)
[2017-12-07] MEDS: TAMSULOSIN 0.4 MG CAPSULE PO SCH ×2 (11:29→19:01)
[2017-12-07] MEDS: DOCUSATE SODIUM 100 MG CAPSULE PO SCH ×2 (11:29→19:01)
[2017-12-07] MEDS: GABAPENTIN 300 MG CAPSULE PO SCH ×3 (11:29→19:29)
[2017-12-07] MEDS: MODAFINIL 200 MG TABLET PO SCH (11:30)
[2017-12-07] MEDS: ENOXAPARIN 40 MG/0.4 ML SYRINGE SQ SCH (11:30)
[2017-12-07] MEDS: FINASTERIDE 5 MG TABLET PO SCH (11:33)
[2017-12-07] MEDS: FLUTICASONE/SALMETEROL 50/100 INHALER #14 INH SCH (11:37)
[2017-12-07] MEDS: traZODone HCL 50 MG TABLET PO SCH ×2 (18:53→20:20)
[2017-12-07] MEDS: PRAMIPEXOLE 1 MG TABLET PO SCH (19:00)
--- NOTE | 2017-12-07 19:14 | Magnetic Resonance Report ---
CLINICAL INFORMATION: Altered mental status. Syncope. TECHNIQUE: Sagittal, axial, coronal images. Scans performed before and after intravenous contrast administration. 10 mL gadolinium administered COMPARISON: Previous MRI scan dated [address]. Previous CT scan dated 12/05/2017 FINDINGS: Suboptimal evaluation due to patient motion. No restricted diffusion. No acute infarction. Susceptibility images are negative. No hemorrhagic abnormality. There is cerebral atrophy with enlarged official subarachnoid spaces and ventricles. There is white matter abnormality. Findings are most consistent with small vessel ischemic change in this 77-year-old patient. No well-defined focal intra-axial signal abnormality. No localized mass effect. No pathologic contrast enhancement. Brainstem is abnormal. There is white matter signal abnormality in the emilia. This is also consistent with small vessel ischemic change. Cerebellum is negative. No extra-axial, intracranial abnormalities. Normal flow void within vessels at the base of the brain. No pathologic leptomeningeal or dural enhancement There is sinusitis. There is fluid within the right maxillary sinus and mild mucosal thickening in the left maxillary sinus. There is signal abnormality within the mastoid air cells bilaterally. Patient has a history of chronic left retinal detachment. IMPRESSION: 1. No restricted diffusion. No acute infarction. 2. No enhancing lesions 3. Cerebral atrophy and extensive white matter abnormality. White matter disease is most consistent with small vessel ischemic change Interpreted and Authenticated by: Delfino Aguilar 12/07/17
[2017-12-07] MEDS ORDERED: LORazepam 2 MG/ML VIAL IV PRN (19:24)
[2017-12-08] MEDS: IPRATROPIUM/ALBUTEROL 3 ML AMPUL.NEB NEB SCH ×4 (01:23→19:33)
[2017-12-08] MEDS: 0.9 % SODIUM CHLORIDE 10 ML SYRINGE IV SCH ×3 (05:27→20:31)
[2017-12-08 06:12] LABS: Basophils # (Auto) 0 K/mcL (0.0-0.3); Basophils % (Auto) 0.4 % (0.0-2.0); Eosinophils # (Auto) 0.6 K/mcL (0.0-0.7); Eosinophils % (Auto) 10.8 % (0.0-7.0); Granulocytes % (Auto) 47.1 % (38.0-78.0); Lymphocytes # (Auto) 1.5 K/mcL (1.5-4.8); Lymphocytes % (Auto) 27.7 % (15.5-49.0); Mean Cell Volume 92.4 fL (80.0-100.0); Mean Corpuscular HGB Conc 32.9 g/dL (31.0-36.0); Mean Corpuscular Hemoglobin 30.4 pg (26.0-34.0); Monocytes # (Auto) 0.8 K/mcL (0.1-0.9); Platelet Count 176 K/mcL (140-440); RBC 3.76 M/mcL (4.50-5.90)
[2017-12-08 06:37] LABS: ALT/SGPT 9 U/l (0-40); Albumin 3.1 gm/dL (3.2-5.2); Albumin/Globulin Ratio 1.3 (1.0-2.3); Alkaline Phosphatase 71 U/L (39-117); Bilirubin,Direct < 0.2 mg/dL (0.0-0.3); Blood Urea Nitrogen 17 mg/dl (8-23); Gamma Glutamyl Transpeptidase 10 U/L (8-61); Magnesium 2.1 mg/dL (1.6-2.5); Uric Acid 4.1 mg/dL (2.5-8.0)
[2017-12-08] MEDS: FINASTERIDE 5 MG TABLET PO SCH (10:25)
[2017-12-08] MEDS: DOCUSATE SODIUM 100 MG CAPSULE PO SCH ×2 (10:25→20:25)
[2017-12-08] MEDS: TAMSULOSIN 0.4 MG CAPSULE PO SCH ×2 (10:25→20:25)
[2017-12-08] MEDS: GABAPENTIN 300 MG CAPSULE PO SCH ×2 (10:25→20:25)
[2017-12-08] MEDS: FLUoxetine HCL 20 MG CAPSULE PO SCH (10:25)
[2017-12-08] MEDS: ENOXAPARIN 40 MG/0.4 ML SYRINGE SQ SCH (10:25)
[2017-12-08] MEDS: MODAFINIL 200 MG TABLET PO SCH (10:30)
[2017-12-08] MEDS ORDERED: LEVALBUTEROL 0.63 MG/3 ML AMPUL.NEB NEB PRN (10:36)
[2017-12-08] MEDS ORDERED: ACETAMINOPHEN 325 MG TABLET PO PRN (10:36)
[2017-12-08] MEDS ORDERED: MAGNESIUM HYDROXIDE 30 ML ORAL.SUSP PO PRN (10:36)
[2017-12-08] MEDS ORDERED: ONDANSETRON 4 MG/2 ML VIAL IV PRN (10:36)
[2017-12-08] MEDS ORDERED: LORazepam 2 MG/ML VIAL IV PRN (10:36)
--- NOTE | 2017-12-08 13:47 | Internal Med Progress Note ---
Medical - PN: Subj Patient information: Note initiated : 12/08/17 at 1:39 pm Service Date, if different from initiated Date: [] Patient: Abelardo Chambers 77 y/o M admitted on 12/05/17 for syncopal episode. Chief Complaint: [] Interval history: 12/05: Admitted for history of passing out a/w falls. Yesterday, pressed the lifeline button. Was found obtunded by EMS. Remained altered/decreased mentation for several hours. In ICU was unresponsive upon arrival, but improved gradually. Cardiac monitoring: rate 60's. 12/06: This am alert and oriented. Has been up in chair since 3 am. States has been having episodes of 'passing out' and falling. Yesterday x 2. No prodromes. Has history of falling asleep while talking or at desk. Has ADA and has been using CPAP HS. Has had no neurology referral. On Neurontin XR 600 TID for many years. DD: narcolepsy, epilepsy, neurotin related Will change to short acting neurontin, CPAP tonight, trial with Modafinil 12/07- patient had a horrible night with anxiety hallucination and psychosis likely secondary to lack of sleep. Eventually slept around 5 this morning after receiving trazodone/Ativan/morphine to counter agitation. however no fever. goals for today would be to continue physical therapy/MRI brain 12/08- MRI brain age appropriate with no acute process. Delirium fully resolved. Patient hemodynamic stable. No further episodes of syncope. Ambulating tolerating diet ongoing physical therapy. anticipate [facility] 24 hours f clinically improved. no overnight fever chills chest pain or shortness of breath. - Constitutional Vitals: Vital Signs Temp Pulse Resp BP Pulse Ox 98.4 F 54 L 16 118/73 97 12/08/17 12:00 12/08/17 07:50 12/08/17 12:00 12/08/17 12:00 12/08/17 12:00 Period Temp Pulse Resp BP Sys/Aaron Pulse Ox Last 24 Hr 97.4 F-98.4 F 54-78 14-20 102-136/58-77 93-98 Intake and Output 12/07/17 12/08/17 12/08/17 21:59 05:59 13:59 Intake Total 1200 / 1200 0 / 0 Output Total 851 / 851 Balance 349 / 349 0 / 0 Weight 234 lb 1.6 oz Intake & Output: Intake & Output 12/07/17 12/08/17 12/08/17 21:59 05:59 13:59 Intake Total 1200 / 1200 0 / 0 Output Total 851 / 851 Balance 349 / 349 0 / 0 Weight 234 lb 1.6 oz Intake: Oral 1200 / 1200 0 / 0 Output: Void Amount 850 / 850 # of times incontinent of urine Other: Meal Dinner Breakfast Percent of Meal Consumed 100% 100% Feeding Ability Independent # Voids 1 General appearance: no acute distress, obese Exam: Nonlabored breathing alert but weak and lethargic ondistended abdomen,Colostomy drainingmelenic stool Able to transfer to chair no telemetry events Medical - PN: Obj Da - Labs CBC & Chem 7: 12/08/17 04:22 12/08/17 04:22 Labs: Abnormal Lab Results 12/08/17 12/08/17 12/07/17 04:22 04:22 05:00 RBC 3.76 L 3.93 L Hgb 11.4 L 11.9 L Hct 34.8 L 35.8 L RDW 15.0 H 14.8 H [place] % (Auto) 14.0 H 12.8 H Eos % (Auto) 10.8 H Lymph # (Auto) 1.4 L Glucose Calcium 8.3 L Total Protein 5.4 L Albumin 3.1 L 12/07/17 12/06/17 05:00 03:40 RBC Hgb Hct RDW [place] % (Auto) Eos % (Auto) Lymph # (Auto) Glucose 106 H Calcium 8.4 L Total Protein Albumin Meds: Medications Acetaminophen (Tylenol) 650 mg PO Q6HP PRN PRN Reason: PAIN/FEVER > 101 Albuterol/Ipratropium (Duoneb) 3 ml NEB Q6HRT [facility] Docusate Sodium (Colace) 100 mg PO BID [facility] Enoxaparin Sodium (Lovenox) 40 mg SQ DAILY [facility] Finasteride (Proscar) 5 mg PO QDAY [facility] Fluoxetine HCl (Prozac) 40 mg PO DAILY [facility] Gabapentin (Neurontin) 300 mg PO Q12 [facility] Levalbuterol HCl (Xopenex) 0.63 mg NEB Q4HP PRN PRN Reason: Wheezing Lorazepam (Ativan) 0.5 mg IV Q4-6HP PRN PRN Reason: ANXIETY/SEDATION Magnesium Hydroxide (Milk Of Magnesia) 30 ml PO DAILYP PRN PRN Reason: Constipation Modafinil (Provigil) 200 mg PO DAILY [facility] Stop: 12/11/17 09:01 Morphine Sulfate (Morphine) 2 mg IV Q4HP PRN PRN Reason: PAIN LEVEL > 6 Ondansetron HCl (Zofran) 4 mg IV Q4HP PRN PRN Reason: Nausea And Vomiting Pramipexole Dihydrochloride (Mirapex) 1.5 mg PO HS [facility] Fluticasone/Salmeterol (Advair 100-50 Diskus) 1 puff INH DAILY [facility] Sodium Chloride (Saline Flush) 10 ml IV Q8 [facility] Tamsulosin HCl (Flomax) 0.4 mg PO BID [facility] Trazodone HCl (Desyrel) 100 mg PO HS [facility] Medical - PN: A/P - Time Spent With Patient Total time spent is greater than 50% in coordination of care (as documented) at patient's floor/unit and/or counseling patient: 15 - 24 minutes - Narrative A/P Narrative: 77-YEAR-OLD MALE, WITH MULTIPLE MEDICAL PROBLEMS, PRESENTED TO THE ED WITH AMS. HE WAS DESCRIBED OBTUNDED UPON ARRIVAL TO THE ED. PATIENT WAS FOUND ON THE FLOOR. HE APPARENTLY PRESSED THE LIFELINE BUTTON TO ALERT EMS. * Acute change in mental status- clinically resolved. * history of COPD continue bronchodilators.stable * history of BPH-follows up with Dr. Wood. continue tamsulosin * restless leg syndrome and pramipexole * Anxiety disorder on paroxetine * neuropathy stable on gabapentin * Hyperlipemia on statin * DVT prophylaxis on Lovenox * history of vertigo/syncope/falls-no further syncopal episode.Neurontin dose adjustment/PT OT and gait training plan * SNF transfer in a.m. * physical therapy * pre-existing medical condition management as above Medical - PN: Qual - Stroke Symptom Onset Unknown: No - VTE Deep Vein Thrombosis/Pulmonary Embolism Present on Admission: No
[2017-12-08] MEDS: FLUTICASONE/SALMETEROL 50/100 INHALER #14 INH SCH (18:31)
[2017-12-08] MEDS ORDERED: traZODone HCL 50 MG TABLET PO SCH (21:00)
[2017-12-08] MEDS ORDERED: PRAMIPEXOLE 1 MG TABLET PO SCH (21:00)
[2017-12-09] MEDS: IPRATROPIUM/ALBUTEROL 3 ML AMPUL.NEB NEB SCH ×2 (01:21→07:18)
[2017-12-09] MEDS: 0.9 % SODIUM CHLORIDE 10 ML SYRINGE IV SCH (04:48)
[2017-12-09] MEDS ORDERED: FLUTICASONE/SALMETEROL 50/100 INHALER #14 INH SCH (09:00)
[2017-12-09] MEDS ORDERED: ENOXAPARIN 40 MG/0.4 ML SYRINGE SQ SCH (09:00)
[2017-12-09] MEDS ORDERED: MODAFINIL 200 MG TABLET PO SCH (09:00)
[2017-12-09] MEDS ORDERED: FINASTERIDE 5 MG TABLET PO SCH (09:00)
[2017-12-09] MEDS ORDERED: FLUoxetine HCL 20 MG CAPSULE PO SCH (09:00)
[2017-12-09] MEDS: GABAPENTIN 300 MG CAPSULE PO SCH (10:08)
[2017-12-09] MEDS: TAMSULOSIN 0.4 MG CAPSULE PO SCH (10:08)
[2017-12-09] MEDS: DOCUSATE SODIUM 100 MG CAPSULE PO SCH (10:08)
--- NOTE | 2017-12-09 10:08 | Discharge Summary ---
Medical - DS: Prov Patient information: Note initiated : 12/09/17 at 10:05 am Service Date, if different from initiated Date: [] Patient: Abelardo Chambers 77 y/o M admitted on 12/05/17 for syncopal episode. Chief Complaint: [] Date of admission: 12/05/17 12:30 Discharge date: 12/09/17 Consults: 12/05/17 10:29 Consult to Physician [CONS] Stat Comment: Consulting Provider: Gabriela Woods Reason For Exam: Physician to Consult Medical - DS: Meds - Discharge Medications Active and Home Medications: Home Medications FLUoxetine HCL [Prozac] 40 mg PO DAILY 08/05/15 [History Confirmed 12/05/17 Last Taken Unknown] Pramipexole [Mirapex] 1.5 mg PO HS 08/05/15 [History Confirmed 12/05/17 Last Taken 06/22/17] tamsulosin 0.4 mg capsule 0.4 mg PO BID #60 cap 10/15/15 [Rx Confirmed 12/05/17 Last Taken 06/23/17] Fluticasone/Salmeterol [Advair 100-50 Diskus] 1 puff INH DAILY 03/17/16 [ History Confirmed 12/05/17 Last Taken 12/03/17 06:00] ipratropium-albuterol 0.5 mg-3 mg(2.5 mg base)/3 mL nebulization soln 3 ml INHALATION BID ml 04/25/16 [History Confirmed 12/05/17 Last Taken 12/03/17 06: 00] Gabapentin [Gralise] 600 mg PO TID 08/04/16 [History Confirmed 12/05/17 Last Taken Unknown] finasteride 5 mg tablet 5 mg PO QDAY #30 tab 07/15/17 [Rx Confirmed 12/05/17 Last Taken Unknown] furosemide 20 mg tablet 20 mg PO DAILY tab 07/15/17 [History Confirmed Last Taken Unknown] Docusate Sodium [Colace] 100 mg PO BID #30 cap 09/17/17 [Rx Confirmed 12/05/17 Last Taken 11/28/17 06:00] Potassium Chloride [Kdur] 40 meq PO BIDCC 12/05/17 [History Confirmed 12/05/17 Last Taken Unknown] Medical - DS: Hosp Hospital course: DISCHARGE DIAGNOSIS 77-YEAR-OLD MALE, WITH MULTIPLE MEDICAL PROBLEMS, PRESENTED TO THE ED WITH AMS. HE WAS DESCRIBED OBTUNDED UPON ARRIVAL TO THE ED. PATIENT WAS FOUND ON THE FLOOR. HE APPARENTLY PRESSED THE [place] BUTTON TO ALERT EMS. * Acute change in mental status- clinically resolved. * history of COPD continue bronchodilators.stable * history of BPH-follows up with Dr. Wood. continue tamsulosin * restless leg syndrome and pramipexole * Anxiety disorder on paroxetine * neuropathy stable on gabapentin * Hyperlipemia on statin * DVT prophylaxis on Lovenox * history of vertigo/syncope/falls-no further syncopal episode.Neurontin dose adjustment/PT OT and gait training BRIEF HOSPITAL COURSE 12/05: Admitted for history of passing out a/w falls. Yesterday, pressed the lifeline button. Was found obtunded by EMS. Remained altered/decreased mentation for several hours. In ICU was unresponsive upon arrival, but improved gradually. Cardiac monitoring: rate 60's. 12/06: This am alert and oriented. Has been up in chair since 3 am. States has been having episodes of 'passing out' and falling. Yesterday x 2. No prodromes. Has history of falling asleep while talking or at desk. Has ADA and has been using CPAP HS. Has had no neurology referral. On Neurontin XR 600 TID for many years. 12/07- patient had a horrible night with anxiety hallucination and psychosis likely secondary to lack of sleep. Eventually slept around 5 this morning after receiving trazodone/Ativan/morphine to counter agitation. however no fever. goals for today would be to continue physical therapy/MRI brain 12/08- MRI brain age appropriate with no acute process. Delirium fully resolved. Patient hemodynamic stable. No further episodes of syncope. Ambulating tolerating diet ongoing physical therapy. anticipate discharge to [facility] emergency department in 24 hours f clinically improved. no overnight fever chills chest pain or shortness of breath. 12/09- patient doing well. No overnight events. No concerns per staff. No fever chills nausea vomiting or mental status change. Discharging today to SNF. Continue physical therapy. Discharge diagnosis: . - Time Spent with Patient Total time spent providing and/or coordinating discharge services: Medical - DS: Exam - Constitutional Vitals: Vital Signs Temp Pulse Pulse Resp BP BP Pulse Ox 12/09/17 08:30 74 16 93 12/09/17 08:28 76 16 12/09/17 07:04 97.7 F 18 102/66 98 12/09/17 03:51 97.7 F 88 18 125/74 95 12/08/17 22:44 97.5 F 80 16 146/80 91 12/08/17 19:37 93 H 16 12/08/17 19:20 97.5 F 91 H 18 104/65 93 12/08/17 13:58 86 16 12/08/17 13:54 97 12/08/17 12:00 98.4 F 16 118/73 97 Intake and Output 12/08/17 12/09/17 12/09/17 21:59 05:59 13:59 Intake Total 675 / 675 Output Total 800 / 800 1030 / 1030 Balance -800 / -800 -355 / -355 Intake: Oral 675 / 675 Output: Void Amount 800 / 800 1030 / 1030 Other: Meal Lunch Percent of Meal Consumed 100% # Voids 1 Weight 231 lb 8 oz Medical - DS: A/P - Patient/Caregiver Discharge Instructions Activity: as per physical therapy, increase activity as tolerated, other (CPAP) Diet: Regular Diet Additional Instructions: Follow-up PCP in 5 days I recommend SNF physician to check CBC BMP UA as a posthospital follow-up CPAP at home settings Continue fall precautions Continue aggressive PT OT evaluation and treatment at SNF. ST eval and treatment if indicated All meals on chair sitting upright at 90 degrees to prevent aspiration Return to ER if worsening fever chills shortness of breath, yncopal episodes Continue diet and activity as advised Discussed importance of medication adherence Please review medication list with patient prior to discharge Please schedule follow-up with PCP/Providers prior to discharge and provide printouts Portions of this chart may have been created with [employer] voice recognition software. Occasional wrong-word or ?sound-like? substitutions may have occurred due to the inherent limitations of voice recognition software. Please read the chart carefully and recognize, using context, where the substitutions have occurred. CC- PCP - Follow up Plan Follow up with: No,PCP [Referring] - Disposition: [facility] Prognosis: Fair Rehab Potential: Fair I certify that the patient requires SNF services: Yes Overall status at discharge: patient is progressing back to baseline Medical - DS: Qual - VTE Deep Vein Thrombosis/Pulmonary Embolism Present on Admission: No
== END 2017-12-09 11:12 | DRG 948 ==
LOC: MERGE 06:29 → ED 06:29 → ICU 12:30 → MEDSUR 12-08 09:39
PROVIDERS: ADMIT Specialist; ATTEND Internal Medicine

== ENCOUNTER 2017-12-17 18:54 | Observation (INO) ==
[2017-12-17] MEDS ORDERED: 0.9 % SODIUM CHLORIDE 1,000 ML IV ONE (19:13)
[2017-12-17] MEDS ORDERED: IPRATROPIUM/ALBUTEROL 3 ML AMPUL.NEB NEB ONE ×3 (19:15→20:09)
--- NOTE | 2017-12-17 19:23 | Emergency Department Note ---
SOB HPI - General Chief Complaint: Shortness of Breath/Dyspnea Stated Complaint: shortness of breath Time Seen by Provider: 12/17/17 19:02 Source: patient Mode of arrival: EMS Limitations: no limitations - History of Present Illness Complaining of increased shortness of breath with wheezing. Does have a history of severe COPD. Has been running temperatures temperatures 100.8. His influenza test is negative at this time. Was recently admitted on 12/05/17 for similar problem prior he was obtunded and audible wheezing at that time. Has CPAP at home CPAP dependent.Discharge on 12/09. A history of heavy tobacco usage in the past but has quit as any chest pain sore throat or nasal congestion patient states c-pap ok but DNI. - Related Data Home Medications Medication Instructions Recorded Confirmed FLUoxetine HCL [Prozac] 40 mg PO DAILY 08/05/15 12/17/17 Pramipexole [Mirapex] 1.5 mg PO HS 08/05/15 12/17/17 Fluticasone/Salmeterol [Advair 1 puff INH DAILY 03/17/16 12/17/17 100-50 Diskus] ipratropium-albuterol 0.5 mg-3 3 ml INHALATION BID ml 04/25/16 12/17/17 mg(2.5 mg base)/3 mL nebulization soln Gabapentin [Gralise] 600 mg PO TID 08/04/16 12/17/17 furosemide 20 mg tablet 20 mg PO DAILY tab 07/15/17 12/17/17 Potassium Chloride [Kdur] 40 meq PO BIDCC 12/05/17 12/17/17 Gabapentin [Neurontin] 2 tab PO TID 12/17/17 12/17/17 Nystatin [Nyata] 100,000 unit TOPICAL BID 12/17/17 12/17/17 Sulfamethoxazole/Trimethoprim 1 tab PO BID 12/17/17 12/17/17 [Bactrim Ds] Previous Rx's Medication Instructions Recorded tamsulosin 0.4 mg capsule 0.4 mg PO BID #60 cap 10/15/15 finasteride 5 mg tablet 5 mg PO QDAY #30 tab 07/15/17 Docusate Sodium [Colace] 100 mg PO BID #30 cap 09/17/17 Allergies Allergy/AdvReac Type Severity Reaction Status Date / Time No Known Drug Allergies Allergy Verified 12/10/17 15:11 Review of Systems All systems ED: reviewed and negative except as stated. Constitutional: Reports: fever, chills Eyes: Denies: eye pain ENT ED: Denies: ear pain, throat pain Cardiovascular: Reports: chest pain. Denies: palpitations Respiratory: Reports: as per HPI, shortness of breath, cough, wheezes Gastrointestinal: Reports: abdominal pain Genitourinary: Reports: dysuria, frequency Musculoskeletal: Reports: back pain, joint swelling Integumentary: Reports: rash, lesions Neurological: Reports: headache, weakness Psychiatric: Reports: anxiety, depression Endocrine: Reports: fatigue Hematological/Lymphatic: Reports: easy bleeding Allergic/Immunologic: Reports: facial swelling Past Medical History - Past Medical History Medical history: Reports: asthma, CHF, COPD, DM (With neuropathy), hypertension , kidney stones, other (ADA on CPAP, BPH) Psychiatric history: Reports: depression Surgical history ED: Reports: appendectomy, herniorrhaphy, knee replacement, orthopedic, other (Lumbar, right shoulder replacement) - Social History smoking status: Former smoker Alcohol use: Reports: Occasionally Drug use: Reports: none Physical Exam Limitations: no limitations General appearance: lethargic Head: atraumatic Eye: Present: normal appearance, PERRL ENT: normal exam, normal oropharynx, mucous membranes moist Neck: Present: normal inspection, full ROM Chest: Present: normal inspection, symmetric chest wall rise Respiratory: Present: wheezes. Absent: stridor Cardiovascular: Present: regular rate, normal rhythm Abdominal: Present: soft, distention, tenderness Extremities: Present: normal inspection, full ROM. Absent: tenderness Back: Present: normal inspection, full ROM. Absent: tenderness, CVA tenderness (R), CVA tenderness (L) Neurological: Present: alert, oriented X3, CN II-XII intact Psychiatric: Present: normal affect, normal mood Skin: Present: warm, dry, intact Course Vital Signs Temperature 100.8 F H 12/17/17 18:56 Pulse Rate 100 H 12/17/17 18:56 Respiratory Rate 32 H 12/17/17 18:56 Pulse Oximetry (%) 91 12/17/17 18:56 Temperature 99.0 F H 12/17/17 21:53 Pulse Rate 82 12/17/17 21:53 Respiratory Rate 16 12/17/17 21:53 Blood Pressure 105/60 12/17/17 21:53 Pulse Oximetry (%) 91 12/17/17 21:53 Shortness of Breath/Dyspnea - [facility] Narrative Medical decision making narrative: Given Tylenol suppository 650 mg per rectum high fever. Given 2 DuoNeb's ABGs on room air reveal a CO2 of only 58 the lactic was 0.6 - Lab Data Result diagrams: 12/17/17 19:30 Lab Results 12/17/17 12/17/17 12/17/17 Range/Units 19:30 19:30 19:30 WBC 6.9 (4.5-11.0) K/mcL RBC 4.01 L (4.50-5.90) M/mcL Hgb 12.1 L (13.5-16.5) g/dL Hct 36.5 L (41.0-55.0) % POC Hct 35.0 L (41.0-55.0) % MCV 91.1 (80.0-100.0) fL MCH 30.0 (26.0-34.0) pg MCHC 33.0 (31.0-36.0) g/dL RDW 13.9 (11.5-14.5) % Plt Count 298 (140-440) K/mcL MPV 7.8 (7.4-10.4) fL Gran % 68.5 (38.0-78.0) % Lymph % (Auto) 14.5 L (15.5-49.0) % [place] % (Auto) 11.7 (1.0-12.0) % Eos % (Auto) 4.9 (0.0-7.0) % Baso % (Auto) 0.4 (0.0-2.0) % Gran # 4.7 (1.8-8.0) K/mcL Lymph # (Auto) 1.0 L (1.5-4.8) K/mcL [place] # (Auto) 0.8 (0.1-0.9) K/mcL Eos # (Auto) 0.3 (0.0-0.7) K/mcL Baso # (Auto) 0 (0.0-0.3) K/mcL Total Counted 100 Seg Neutrophils % 59 (38-78) % Band Neutrophils % 2 (0-10) % Lymphocytes % 20 (15-49) % Monocytes % (Manual) 14 H (1-12) % Eosinophils % (Manual) 5 (0-7) % Platelet Estimate Normal (NORMAL) RBC Morphology Normal (NORMAL) VBG Lactic Acid 0.9 (0.5-2.2) mmol/L POC Sodium 139 (133-145) mmol/L POC Potassium 4.3 (3.3-5.1) mmol/L POC Chloride 99 (96-108) mmol/L POC Total CO2 28 (22-30) mmol/L POC BUN 15 (8-23) mg/dl POC Creatinine 1.2 (0.7-1.2) mg/dl POC Glucose 132 H (70-105) mg/dL POC WB Ioniz Calcium 1.10 L (1.16-1.32) mmol/L Urine Color Urine Appearance Urine pH (5.0-9.0) Ur Specific [place] (1.000-1.035) Urine Protein (NEG) mg/dL Urine Glucose (UA) (NEG) mg/dL Urine Ketones (NEG) mg/dL Urine Occult Blood (<0.03) mg/dL Urine Nitrate (NEG) Urine Bilirubin (NEG) mg/dL Urine Urobilinogen (NEG) mg/dL Ur Leukocyte Esterase (NEG) /uL Urine RBC (0-1) /hpf Urine WBC (0-4) /hpf Ur Squamous Epith Cells (0-4) /hpf Ur Transition Epith Cell (0-2) /hpf Urine Bacteria (0) /hpf Hyaline Casts (0-2) /lpf Urine Mucus (0) /hpf Ur Culture Indicated? Urine Opiates Screen (NONDETECTED) Ur Oxycodone Screen (NONDETECTED) Urine Methadone Screen (NONDETECTED) Ur Barbiturates Screen (NONDETECTED) Ur Phencyclidine Scrn (NONDETECTED) Ur Amphetamines Screen (NONDETECTED) U Benzodiazepines Scrn (NONDETECTED) Urine Cocaine Screen (NONDETECTED) U Marijuana (THC) Screen (NONDETECTED) 12/17/17 12/17/17 Range/Units 20:42 20:42 WBC (4.5-11.0) K/mcL RBC (4.50-5.90) M/mcL Hgb (13.5-16.5) g/dL Hct (41.0-55.0) % POC Hct (41.0-55.0) % MCV (80.0-100.0) fL MCH (26.0-34.0) pg MCHC (31.0-36.0) g/dL RDW (11.5-14.5) % Plt Count (140-440) K/mcL MPV (7.4-10.4) fL Gran % (38.0-78.0) % Lymph % (Auto) (15.5-49.0) % [place] % (Auto) (1.0-12.0) % Eos % (Auto) (0.0-7.0) % Baso % (Auto) (0.0-2.0) % Gran # (1.8-8.0) K/mcL Lymph # (Auto) (1.5-4.8) K/mcL [place] # (Auto) (0.1-0.9) K/mcL Eos # (Auto) (0.0-0.7) K/mcL Baso # (Auto) (0.0-0.3) K/mcL Total Counted Seg Neutrophils % (38-78) % Band Neutrophils % (0-10) % Lymphocytes % (15-49) % Monocytes % (Manual) (1-12) % Eosinophils % (Manual) (0-7) % Platelet Estimate (NORMAL) RBC Morphology (NORMAL) VBG Lactic Acid (0.5-2.2) mmol/L POC Sodium (133-145) mmol/L POC Potassium (3.3-5.1) mmol/L POC Chloride (96-108) mmol/L POC Total CO2 (22-30) mmol/L POC BUN (8-23) mg/dl POC Creatinine (0.7-1.2) mg/dl POC Glucose (70-105) mg/dL POC WB Ioniz Calcium (1.16-1.32) mmol/L Urine Color Yellow Urine Appearance Clear Urine pH 5.0 (5.0-9.0) Ur Specific [place] 1.016 (1.000-1.035) Urine Protein Neg (NEG) mg/dL Urine Glucose (UA) Negative (NEG) mg/dL Urine Ketones Neg (NEG) mg/dL Urine Occult Blood Neg (<0.03) mg/dL Urine Nitrate Neg (NEG) Urine Bilirubin Neg (NEG) mg/dL Urine Urobilinogen Neg (NEG) mg/dL Ur Leukocyte Esterase Neg (NEG) /uL Urine RBC 1 (0-1) /hpf Urine WBC 2 (0-4) /hpf Ur Squamous Epith Cells 0 (0-4) /hpf Ur Transition Epith Cell < 1 (0-2) /hpf Urine Bacteria 0 (0) /hpf Hyaline Casts 2 (0-2) /lpf Urine Mucus Few (0) /hpf Ur Culture Indicated? No Urine Opiates Screen None detected (NONDETECTED) Ur Oxycodone Screen None detected (NONDETECTED) Urine Methadone Screen None detected (NONDETECTED) Ur Barbiturates Screen None detected (NONDETECTED) Ur Phencyclidine Scrn None detected (NONDETECTED) Ur Amphetamines Screen None detected (NONDETECTED) U Benzodiazepines Scrn None detected (NONDETECTED) Urine Cocaine Screen None detected (NONDETECTED) U Marijuana (THC) Screen None detected (NONDETECTED) Disposition Pt seen by RHEOLOGIST/PA only: No Clinical Impression: Pneumonia Disposition: Xfer As Inpt ([facility]) Condition: Fair
[2017-12-17] MEDS ORDERED: methylPREDNISolone SOD SUCC 125 MG/2 ML VIAL IV ONE (19:24)
[2017-12-17] MEDS ORDERED: LEVOFLOXACIN 500 MG/100 ML BAG IV ONE (19:50)
[2017-12-17] MEDS ORDERED: cefTRIAXone 1 GM VIAL IV ONE (19:51)
[2017-12-17] MEDS ORDERED: ACETAMINOPHEN 650 MG SUPP.RECT ONE (20:09)
[2017-12-17 20:13] LABS: Basophils # (Auto) 0 K/mcL (0.0-0.3); Basophils % (Auto) 0.4 % (0.0-2.0); Eosinophils # (Auto) 0.3 K/mcL (0.0-0.7); Eosinophils % (Auto) 4.9 % (0.0-7.0); Granulocytes % (Auto) 68.5 % (38.0-78.0); Lymphocytes % (Auto) 14.5 % (15.5-49.0); Mean Cell Volume 91.1 fL (80.0-100.0); Monocytes # (Auto) 0.8 K/mcL (0.1-0.9); Monocytes % (Auto) 11.7 % (1.0-12.0); Platelet Count 298 K/mcL (140-440); RBC 4.01 M/mcL (4.50-5.90); Red Cell Distribution Width 13.9 % (11.5-14.5)
[2017-12-17] MEDS ORDERED: ACETAMINOPHEN 650 MG SUPP.RECT PR ONE (20:23)
[2017-12-17 20:43] LABS: Band Neutrophils % 2 % (0-10); Eosinophils % (Manual) 5 % (0-7); Lymphocytes % 20 % (15-49); Monocytes % (Manual) 14 % (1-12); Platelet Estimate NORMAL (NORMAL); RBC Morphology NORMAL (NORMAL); Segmented Neutrophils % 59 % (38-78)
[2017-12-17] MEDS ORDERED: CEFEPIME 1 GM VIAL IV ONE (20:52)
[2017-12-17] MEDS ORDERED: VANCOMYCIN 1,000 MG in 0.9 % SODIUM CHLORIDE 250 ML IV ONE (20:52)
[2017-12-17 21:15] LABS: Appearance,Urine CLEAR; Bacteria,Urine 0 /hpf (0); Bilirubin,Urine NEG (NEG); Color,Urine YELLOW; Glucose,Urine (UA) NEGATIVE (NEG); Leukocyte Esterase,Urine NEG /uL (NEG); Mucus,Urine FEW /hpf (0); Protein,Urine NEG (NEG); Specific Gravity,Urine 1.016 (1.000-1.035); Urine Blood NEG mg/dL (<0.03); Urine Hyaline Cast 2 /lpf (0-2); Urine RBC 1 /hpf (0-1); Urine Squamous Epithelial Cell 0 /hpf (0-4); Urine Transitional Epi Cells < 1 /hpf (0-2); Urine WBC 2 /hpf (0-4); Urobilinogen,Urine NEG (NEG)
[2017-12-17] MEDS ORDERED: CEFEPIME 1 GM VIAL ONE (21:28)
[2017-12-17] MEDS ORDERED: BUDESONIDE 0.5 MG/2 ML AMPUL.NEB NEB SCH (23:24)
[2017-12-17] MEDS ORDERED: ONDANSETRON 4 MG/2 ML VIAL IV PRN (23:24)
[2017-12-17] MEDS ORDERED: IPRATROPIUM/ALBUTEROL 3 ML AMPUL.NEB NEB PRN (23:24)
[2017-12-17] MEDS ORDERED: SENNOSIDES/DOCUSATE SODIUM 1 TAB TABLET PO SCH (23:24)
[2017-12-17] MEDS ORDERED: CEFEPIME 2 GM in DEXTROSE 5% IN WATER 50 ML IV SCH (23:24)
[2017-12-17] MEDS ORDERED: 0.9 % SODIUM CHLORIDE 1,000 ML IV SCH (23:24)
[2017-12-17] MEDS ORDERED: VANCOMYCIN PER PHARMACY IV ONE (23:24)
[2017-12-17] MEDS ORDERED: MAGNESIUM SULFATE 2 GM/50 ML BAG IV PRN (23:24)
[2017-12-17] MEDS ORDERED: ACETAMINOPHEN 325 MG TABLET PO PRN (23:24)
--- NOTE | 2017-12-18 | History and Physical Report ---
DATE OF ADMISSION: 12/17/2017 DATE OF ADMISSION: 12/17/2017 REASON FOR ADMISSION: Shortness of breath. HISTORY OF CHIEF COMPLAINT: The patient is a 77-year-old who was recently discharged on the ; after he was admitted with mental status change, confusion, and no clear etiology was ever defined; however, patient did show improvement in his mental status after 3 days of hospitalization. He was subsequently discharged to a snf home. He was directed to the ER today after he was found minimally responsive, short of breath, along with fever of 101, confused and agitated. Most of the history was obtained from review of medical records as the patient is a near obtunded state. No review of systems could be performed. Initial workup was significant for chest imaging with interstitial infiltrates. The patient was tachycardic along with fever of 100.8. Minimally responsive. Initial flu swab was negative. Given recent hospitalization, the patient was started on empiric nosocomial pathogen coverage with cefepime, vancomycin, and subsequently Hospitalist Service was consulted. At the time of examination, the patient is totally unresponsive. No family members are present. Most of the history was obtained from review of medical records, prior admission, ER physician, and clinic notes. PAST MEDICAL HISTORY: 1. History of COPD. 2. Recent hip fracture from multiple falls. 3. BPH. 4. History of congestive heart failure. 5. Neuropathy. 6. Anxiety disorder. PAST SURGICAL HISTORY: 1. Appendectomy. 2. Arthroscopic knee surgery. 3. Lumbar laminectomy. 4. History of right shoulder replacement. 5. Hernia repair. CURRENT MEDICATIONS: 1. Fluoxetine 40 mg. 2. Pramipexole 1.5 at bedtime. 3. Tamsulosin 0.4 twice a day. 4. Advair inhaled daily. 5. DuoNeb inhaled twice a day. 6. Gabapentin 600 3 times a day. 7. Finasteride 5 every day. 8. Furosemide 20 daily. 9. Docusate 100 mg twice a day. 10. Potassium 40. ALLERGIES: NONE SIGNIFICANT. SOCIAL HISTORY: Currently residing at care center. Former smoker. No history of alcoholism. PHYSICAL EXAMINATION: GENERAL: The patient is unresponsive. BMI 36. Height 5 feet 8 inches. VITAL SIGNS: Blood pressure 104/55, respiration rate 70, temperature 100.8, pulse 88, sats 91 percent on 2 liters of oxygen. HEENT: Pupils symmetric, sluggish response. Eye movements could not be checked. Doll's eye positive. Oral cavity dry. Head is normocephalic. NECK: No lymphadenopathy. HEART: S1, S2, occasionally irregular, systolic murmur grade 1. CHEST: Diminished breath sounds at bases with bilateral late inspiratory crackles and coarse expiratory rhonchi. ABDOMEN: Soft and nontender. LOWER EXTREMITIES: Areas of bruising but no cyanosis or clubbing. Minimal lymphedema, no joint swelling or erythema. SKIN: No suspicious lesions. PSYCHIATRIC: Unresponsive state, but no agitation. NEURO: Could not be performed. Moves all 4 extremities to sternal rub and pain stimulus. LABS AND IMAGING: White count 6.9, hemoglobin 12.1, platelets 298. Lactic acid 0.9. Sodium 139, potassium 4.3, creatinine 1.2, BUN 15. UA unremarkable. X-ray chest: Bilateral infiltrates /pulmonary congestion/CHF. ASSESSMENT AND PLAN: A 77-year-old admitted with altered mental status, fever, likely influenza; however, high probability nosocomial pneumonia given recent hospitalization. 1. Likely nosocomial pneumonia. Continue empiric antibiotic coverage. Await cultures. Continue pulmonary toilet. 2. Mental status change. CURB-65 score of 3 with likely etiology pneumonia and possible underlying viral component even though patient's influenza swab is negative. Continue with close monitoring. Check B12. Recent neuro imaging unremarkable. Also polypharmacy might be contributing. At this time we will hold all home medication including gabapentin and avoid sedatives, hypnotics, and opioids. 3. Mild CHF on chest imaging. no clinical signs of acute decompensation. 4. Other prior medical issues. All existing medications will be held until patient is more lucid and following commands and hemodynamically stable. At this time we will admit patient in telemetry. PLAN FOR TONIGHT: 1. Admit as inpatient. 2. Telemetry monitoring. 3. B12 level. 4. Neuro imaging if persistent mental status change. 5. Nosocomial pathogen coverage. Overall high complexity admit, meriting at least a minimum of 2 midnight stay. AA:toro Job ID: [id number] Doc ID: [id number] Reginaldo JESUS
[2017-12-18 00:08] LABS: Amphetamine Screen,Urine NONE DETECTED (NONDETECTED); Benzodiazepines Screen,Urine NONE DETECTED (NONDETECTED); Cocaine Screen,Urine NONE DETECTED (NONDETECTED); Opiate Screen,Urine NONE DETECTED (NONDETECTED); Oxycodone, Urine Screen NONE DETECTED (NONDETECTED)
[2017-12-18] MEDS: 0.9 % SODIUM CHLORIDE 10 ML SYRINGE IV SCH ×2 (00:15→05:49)
[2017-12-18] MEDS ORDERED: VANCOMYCIN 500 MG in 0.9 % SODIUM CHLORIDE 100 ML IV ONE (00:25)
[2017-12-18] MEDS ORDERED: CEFEPIME 1 GM VIAL ONE (00:27)
[2017-12-18] MEDS: DOCUSATE SODIUM 100 MG CAPSULE PO SCH ×2 (00:38→09:48)
[2017-12-18 00:39] LABS: C-Reactive Protein 1.2 mg/dl (0.0-0.8)
[2017-12-18] MEDS ORDERED: HEPARIN 5,000 UNIT/ML VIAL ONE (00:53)
[2017-12-18] MEDS ORDERED: BUDESONIDE 0.5 MG/2 ML AMPUL.NEB NEB ONE (00:53)
[2017-12-18] MEDS: HEPARIN 5,000 UNIT/ML VIAL SQ SCH ×2 (01:03→09:48)
--- NOTE | 2017-12-18 05:56 | XRay Report ---
CLINICAL INFORMATION: Shortness of breath COMPARISON: 12/10/2017 and 11/11/2017 baseline study FINDINGS: The heart is markedly enlarged - slightly increased. Mediastinum is accentuated by right rotation and within normal limits. Pulmonary vessels are mildly distended and there is interstitial edema throughout both lungs. Small bilateral pleural effusions noted IMPRESSION: Moderate CHF Interpreted and Authenticated by: Delfino Simmons 12/18/17
[2017-12-18 06:00] LABS: ALT/SGPT 20 U/l (0-40); Albumin 3.4 gm/dL (3.2-5.2); Albumin/Globulin Ratio 1.4 (1.0-2.3); Alkaline Phosphatase 80 U/L (39-117); Bilirubin,Direct < 0.2 mg/dL (0.0-0.3); Blood Urea Nitrogen 15 mg/dl (8-23); Gamma Glutamyl Transpeptidase 11 U/L (8-61); Uric Acid 3.2 mg/dL (2.5-8.0)
[2017-12-18] MEDS ORDERED: VANCOMYCIN PER PHARMACY IV SCH (06:45)
[2017-12-18] MEDS ORDERED: THIAMINE 100 MG in 0.9 % SODIUM CHLORIDE 50 ML IV SCH (09:00)
[2017-12-18] MEDS ORDERED: MULTIVIT,THER IRON,CA,FA & MIN 1 TABLET PO SCH (09:00)
[2017-12-18] MEDS ORDERED: FINASTERIDE 5 MG TABLET PO SCH (09:00)
[2017-12-18] MEDS ORDERED: CEFEPIME 2 GM VIAL IV SCH (09:00)
[2017-12-18] MEDS ORDERED: FLUTICASONE/SALMETEROL 50/100 INHALER #14 INH SCH (09:00)
[2017-12-18] MEDS ORDERED: TAMSULOSIN 0.4 MG CAPSULE PO SCH (09:00)
[2017-12-18] MEDS ORDERED: NYSTATIN POWDER BOTTLE 15GM TOPICAL SCH (09:00)
[2017-12-18] MEDS ORDERED: VANCOMYCIN 1,500 MG in 0.9 % SODIUM CHLORIDE 500 ML IV SCH (10:00)
--- NOTE | 2017-12-18 10:14 | Discharge Summary ---
Medical - DS: Prov Patient information: Note initiated : 12/18/17 at 10:11 am Service Date, if different from initiated Date: [] Patient: Abelardo Chambers 77 y/o M admitted on 12/17/17 for SOB/Altered Mental Status, Pneumonia. Chief Complaint: [] Date of admission: 12/17/17 23:10 Discharge date: 12/18/17 Primary care physician: Conrad Matson Medical - DS: Meds - Discharge Medications Prescriptions: Gabapentin [Neurontin] 1 tab PO TID #30 cap Active and Home Medications: Home Medications FLUoxetine HCL [Prozac] 40 mg PO DAILY 08/05/15 [History Confirmed 12/17/17 Last Taken Unknown] Pramipexole [Mirapex] 1.5 mg PO HS 08/05/15 [History Confirmed 12/17/17 Last Taken 06/22/17] tamsulosin 0.4 mg capsule 0.4 mg PO BID #60 cap 10/15/15 [Rx Confirmed 12/17/17 Last Taken 06/23/17] Fluticasone/Salmeterol [Advair 100-50 Diskus] 1 puff INH DAILY 03/17/16 [ History Confirmed 12/17/17 Last Taken 12/03/17 06:00] ipratropium-albuterol 0.5 mg-3 mg(2.5 mg base)/3 mL nebulization soln 3 ml INHALATION BID ml 04/25/16 [History Confirmed 12/17/17 Last Taken 12/03/17 06: 00] finasteride 5 mg tablet 5 mg PO QDAY #30 tab 07/15/17 [Rx Confirmed 12/17/17 Last Taken Unknown] furosemide 20 mg tablet 20 mg PO DAILY tab 07/15/17 [History Confirmed Last Taken Unknown] Docusate Sodium [Colace] 100 mg PO BID #30 cap 09/17/17 [Rx Confirmed 12/17/17 Last Taken 11/28/17 06:00] Potassium Chloride [Kdur] 40 meq PO BIDCC 12/05/17 [History Confirmed 12/17/17 Last Taken Unknown] Gabapentin [Neurontin] 1 tab PO TID 12/17/17 [History Confirmed 12/17/17 Last Taken Unknown] Nystatin [Nyata] 100,000 unit TOPICAL BID 12/17/17 [History Confirmed 12/17/17 Last Taken Unknown] Medical - DS: Hosp Hospital course: Discharge diagnosis * acute change in mental status-possibly from polypharmacy. During overnight stay patient became remarkably better and back to baseline by morning. Gabapentin dose reduced from 600 3 times a day to 300 3 times a day. * Mild CHF on chest imaging. Clinically no signs of decompensation * Mild infiltrates but no evidence of pneumonia. Initially empirically started on nosocomial coverage which was discontinued within 24 hours. Patient discharging back to SNF * Pre-existing medical conditions includinghistory of BPH/CHF/COPD/anxiety. Managed on home medications including DuoNeb/Advair/tamsulosin/finasteride/ pramipexole/fluoxetine. BRIEF HOSPITAL COURSE Mr. Chambers is a 77 year old M as admitted with acute mental status change likely secondary to polypharmacy. Initially managed on antibiotics for presumed nosocomial pneumonia coverage however patient dramatically improved within 12 hours of hospitalization back to his baseline. Please discharge in stable state. Antibiotics were discontinued. Gabapentin dose was reduced from 600 3 times a day to 300 3 times a day. SNF physician to continue follow-up. Instructions as below Discharge diagnosis: . - Time Spent with Patient Total time spent providing and/or coordinating discharge services: Greater than 30 minutes Medical - DS: Exam - Constitutional Vitals: Vital Signs Temp Pulse Pulse Resp BP BP Pulse Ox 12/18/17 07:54 96.7 F L 125/81 96 12/18/17 06:02 96.8 F L 64 113/69 97 12/18/17 05:02 97.1 F 72 104/64 95 12/18/17 04:02 97.3 F 67 102/65 96 12/18/17 03:02 97.4 F 78 114/75 95 12/18/17 02:02 97.6 F 73 117/73 96 12/18/17 01:17 97.9 F 75 121/70 98 12/18/17 01:05 97.9 F 77 123/73 94 12/17/17 23:24 98.2 F 91 H 24 H 108/66 91 12/17/17 23:20 104/59 12/17/17 23:02 98.5 F 78 17 104/59 92 12/17/17 22:32 98.7 F 80 17 113/58 92 12/17/17 22:02 98.9 F 81 18 107/59 91 12/17/17 21:53 99.0 F H 82 16 105/60 91 12/17/17 21:32 99.2 F H 84 16 105/60 91 12/17/17 21:02 99.5 F H 86 16 107/59 91 12/17/17 20:32 99.7 F H 88 17 104/55 91 12/17/17 20:24 100.8 F H 12/17/17 19:35 98 H 25 H 133/70 95 12/17/17 18:56 100.8 F H 100 H 32 H 91 Intake and Output 12/17/17 12/18/17 12/18/17 21:59 05:59 13:59 Intake Total 100 / 100 1350 / 1350 Output Total 750 / 750 Balance 100 / 100 1350 / 1350 -750 / -750 Intake: IV 100 / 100 1350 / 1350 Sodium Chloride 0.9% 1,000 ml @ 1000 / 1000 Wide Open IV BOLUS ONE Rx#: [id number] Vancomycin 500 mg In Sodium 100 / 100 Chloride 0.9% 100 ml @ 100 mls/ hr IV ONCE ONE Rx#:[id number] Vancomycin 1,000 mg In Sodium 250 / 250 Chloride 0.9% 250 ml @ 250 mls/ hr IV ONCE ONE Rx#:[id number] Output: Urine Catheter Amount 750 / 750 Other: Weight 240 lb 231 lb 1.6 oz Medical - DS: Data Labs on day of discharge: Labs from last 24 hours 12/18/17 12/17/17 12/17/17 03:55 23:35 23:35 WBC RBC Hgb Hct POC Hct MCV MCH MCHC RDW Plt Count MPV Gran % Lymph % (Auto) [place] % (Auto) Eos % (Auto) Baso % (Auto) Gran # Lymph # (Auto) [place] # (Auto) Eos # (Auto) Baso # (Auto) Total Counted Seg Neutrophils % Band Neutrophils % Lymphocytes % Monocytes % (Manual) Eosinophils % (Manual) Platelet Estimate RBC Morphology ESR 35 H VBG Lactic Acid POC Sodium Sodium 138 POC Potassium Potassium 4.4 POC Chloride Chloride 103 Carbon Dioxide 24 POC Total CO2 Anion Gap 11.0 POC BUN BUN 15 Creatinine 0.9 POC Creatinine GFR Calculation 81 Glucose 175 H POC Glucose Uric Acid 3.2 Calcium 8.0 L POC WB Ioniz Calcium Phosphorus 4.3 Magnesium 2.2 Total Bilirubin 0.2 Direct Bilirubin < 0.2 GGT 11 AST 14 ALT 20 Alkaline Phosphatase 80 Lactate Dehydrogenase 216 C-Reactive Protein 1.2 H Total Protein 5.8 L Albumin 3.4 Globulin 2.4 Albumin/Globulin Ratio 1.4 Triglycerides 38 Procalcitonin Urine Color Urine Appearance Urine pH Ur Specific [place] Urine Protein Urine Glucose (UA) Urine Ketones Urine Occult Blood Urine Nitrate Urine Bilirubin Urine Urobilinogen Ur Leukocyte Esterase Urine RBC Urine WBC Ur Squamous Epith Cells Ur Transition Epith Cell Urine Bacteria Hyaline Casts Urine Mucus Ur Culture Indicated? Urine Opiates Screen Ur Opiates Confirm Ur Oxycodone Screen Urine Methadone Screen Ur Methadone Confirm Ur Barbiturates Screen Ur Barbiturate Confirm Ur Phencyclidine Scrn Urine PCP Confirm Ur Amphetamines Screen U Methamphetamin GC/MS U Methamphetamin-MDMA Ur MDA Confirmation Urine MDEA U Benzodiazepines Scrn U Benzodiazepine Confm Urine Cocaine Screen Urine Cocaine Confirm U Cannabinoids Confirm U Marijuana (THC) Screen Confirmation (GC/MS) 12/17/17 12/17/17 12/17/17 23:35 20:42 20:42 WBC RBC Hgb Hct POC Hct MCV MCH MCHC RDW Plt Count MPV Gran % Lymph % (Auto) [place] % (Auto) Eos % (Auto) Baso % (Auto) Gran # Lymph # (Auto) [place] # (Auto) Eos # (Auto) Baso # (Auto) Total Counted Seg Neutrophils % Band Neutrophils % Lymphocytes % Monocytes % (Manual) Eosinophils % (Manual) Platelet Estimate RBC Morphology ESR VBG Lactic Acid POC Sodium Sodium POC Potassium Potassium POC Chloride Chloride Carbon Dioxide POC Total CO2 Anion Gap POC BUN BUN Creatinine POC Creatinine GFR Calculation Glucose POC Glucose Uric Acid Calcium POC WB Ioniz Calcium Phosphorus Magnesium Total Bilirubin Direct Bilirubin GGT AST ALT Alkaline Phosphatase Lactate Dehydrogenase C-Reactive Protein Total Protein Albumin Globulin Albumin/Globulin Ratio Triglycerides Procalcitonin < 0.05 Urine Color Yellow Urine Appearance Clear Urine pH 5.0 Ur Specific [place] 1.016 Urine Protein Neg Urine Glucose (UA) Negative Urine Ketones Neg Urine Occult Blood Neg Urine Nitrate Neg Urine Bilirubin Neg Urine Urobilinogen Neg Ur Leukocyte Esterase Neg Urine RBC 1 Urine WBC 2 Ur Squamous Epith Cells 0 Ur Transition Epith Cell < 1 Urine Bacteria 0 Hyaline Casts 2 Urine Mucus Few Ur Culture Indicated? No Urine Opiates Screen None detected Ur Opiates Confirm Not Reportable Ur Oxycodone Screen None detected Urine Methadone Screen None detected Ur Methadone Confirm Not Reportable Ur Barbiturates Screen None detected Ur Barbiturate Confirm Not Reportable Ur Phencyclidine Scrn None detected Urine PCP Confirm Not Reportable Ur Amphetamines Screen None detected U Methamphetamin GC/MS Pending U Methamphetamin-MDMA Pending Ur MDA Confirmation Pending Urine MDEA Pending U Benzodiazepines Scrn None detected U Benzodiazepine Confm Not Reportable Urine Cocaine Screen None detected Urine Cocaine Confirm Not Reportable U Cannabinoids Confirm Not Reportable U Marijuana (THC) Screen None detected Confirmation (GC/MS) Pending 12/17/17 12/17/17 12/17/17 19:30 19:30 19:30 WBC 6.9 RBC 4.01 L Hgb 12.1 L Hct 36.5 L POC Hct 35.0 L MCV 91.1 MCH 30.0 MCHC 33.0 RDW 13.9 Plt Count 298 MPV 7.8 Gran % 68.5 Lymph % (Auto) 14.5 L [place] % (Auto) 11.7 Eos % (Auto) 4.9 Baso % (Auto) 0.4 Gran # 4.7 Lymph # (Auto) 1.0 L [place] # (Auto) 0.8 Eos # (Auto) 0.3 Baso # (Auto) 0 Total Counted 100 Seg Neutrophils % 59 Band Neutrophils % 2 Lymphocytes % 20 Monocytes % (Manual) 14 H Eosinophils % (Manual) 5 Platelet Estimate Normal RBC Morphology Normal ESR VBG Lactic Acid 0.9 POC Sodium 139 Sodium POC Potassium 4.3 Potassium POC Chloride 99 Chloride Carbon Dioxide POC Total CO2 28 Anion Gap POC BUN 15 BUN Creatinine POC Creatinine 1.2 GFR Calculation Glucose POC Glucose 132 H Uric Acid Calcium POC WB Ioniz Calcium 1.10 L Phosphorus Magnesium Total Bilirubin Direct Bilirubin GGT AST ALT Alkaline Phosphatase Lactate Dehydrogenase C-Reactive Protein Total Protein Albumin Globulin Albumin/Globulin Ratio Triglycerides Procalcitonin Urine Color Urine Appearance Urine pH Ur Specific [place] Urine Protein Urine Glucose (UA) Urine Ketones Urine Occult Blood Urine Nitrate Urine Bilirubin Urine Urobilinogen Ur Leukocyte Esterase Urine RBC Urine WBC Ur Squamous Epith Cells Ur Transition Epith Cell Urine Bacteria Hyaline Casts Urine Mucus Ur Culture Indicated? Urine Opiates Screen Ur Opiates Confirm Ur Oxycodone Screen Urine Methadone Screen Ur Methadone Confirm Ur Barbiturates Screen Ur Barbiturate Confirm Ur Phencyclidine Scrn Urine PCP Confirm Ur Amphetamines Screen U Methamphetamin GC/MS U Methamphetamin-MDMA Ur MDA Confirmation Urine MDEA U Benzodiazepines Scrn U Benzodiazepine Confm Urine Cocaine Screen Urine Cocaine Confirm U Cannabinoids Confirm U Marijuana (THC) Screen Confirmation (GC/MS) Medical - DS: A/P - Patient/Caregiver Discharge Instructions Activity: as per physical therapy, increase activity as tolerated Diet: Regular Diet Additional Instructions: Follow-up PCP in 5 days I recommend SNF physician to check CBC BMP UA as a posthospital follow-up and Chest x-ray in 1 week. Continue aggressive bowel regimen to prevent constipation Continue fall precautions Lower gabapentin dose to 300 3 times a day in light of recurrent mental status change and possible gabapentin toxicity Continue aggressive PT OT evaluation and treatment at SNF. ST eval and treatment if indicated All meals on chair sitting upright at 90 degrees to prevent aspiration Return to ER if worsening mental status change Continue diet and activity as advised Discussed importance of medication adherence Please review medication list with patient prior to discharge Please schedule follow-up with PCP/Providers prior to discharge and provide printouts Portions of this chart may have been created with [employer] voice recognition software. Occasional wrong-word or ?sound-like? substitutions may have occurred due to the inherent limitations of voice recognition software. Please read the chart carefully and recognize, using context, where the substitutions have occurred. CC- PCP Prescriptions: Gabapentin [Neurontin] 1 tab PO TID #30 cap - Follow up Plan Follow up with: Conrad Matson MD [Primary Care Provider] - Disposition: Xfer [facility] Prognosis: Fair Rehab Potential: Fair I certify that the patient requires SNF services: Yes Overall status at discharge: patient is progressing back to baseline Medical - DS: Qual - VTE Deep Vein Thrombosis/Pulmonary Embolism Present on Admission: No
[2017-12-18] MEDS ORDERED: PRAMIPEXOLE 1 MG TABLET PO SCH (21:00)
== END 2017-12-18 13:10 ==
LOC: ED 18:54 → INTOOBSV 23:10 → MEDSUR 23:10 → ICU 12-18 00:53
PROVIDERS: ADMIT Internal Medicine; ATTEND Internal Medicine

== ENCOUNTER 2018-11-08 03:52 | Inpatient (IN) ==
[2018-11-08] MEDS ORDERED: IPRATROPIUM/ALBUTEROL 3 ML AMPUL.NEB NEB ONE (04:24)
[2018-11-08] MEDS ORDERED: LEVOFLOXACIN 750 MG/150 ML BAG IV ONE (04:32)
[2018-11-08] MEDS ORDERED: cefTRIAXone 1 GM VIAL IV ONE (04:32)
[2018-11-08 04:41] LABS: Mean Corpuscular Hemoglobin 30.4 pg (26.0-34.0); Platelet Count 200 K/mcL (140-440); RBC 4.47 M/mcL (4.50-5.90); Red Cell Distribution Width 13.3 % (11.5-14.5)
[2018-11-08 04:54] LABS: ALT/SGPT 12 U/l (0-40); Albumin 3.9 gm/dL (3.2-5.2); Albumin/Globulin Ratio 1.5 (1.0-2.3); Alkaline Phosphatase 77 U/L (39-117); Blood Urea Nitrogen 12 mg/dl (8-23)
[2018-11-08 05:21] LABS: Appearance,Urine CLEAR; Bacteria,Urine 0 /hpf (0); Bilirubin,Urine NEG (NEG); Color,Urine YELLOW; Glucose,Urine (UA) NEGATIVE (NEG); Leukocyte Esterase,Urine NEG /uL (NEG); Mucus,Urine FEW /hpf (0); Protein,Urine NEG (NEG); Specific Gravity,Urine 1.017 (1.000-1.035); Urine Blood NEG mg/dL (<0.03); Urine RBC 2 /hpf (0-1); Urine Squamous Epithelial Cell 0 /hpf (0-4); Urine WBC 3 /hpf (0-4); Urobilinogen,Urine NEG (NEG)
[2018-11-08 05:27] LABS: Lymphocytes % 11 % (15-49); Monocytes % (Manual) 9 % (1-12); Platelet Estimate NORMAL (NORMAL); RBC Morphology NORMAL (NORMAL); Segmented Neutrophils % 80 % (38-78)
[2018-11-08] MEDS: 0.9 % SODIUM CHLORIDE 1,000 ML IV SCH ×4 (05:30→20:01)
--- NOTE | 2018-11-08 05:50 | XRay Report ---
INDICATION: Fever. Smoking history. TECHNIQUE: AP chest x-ray, portable semiupright COMPARISON: 04/26/0802/29/2020 04/01/2018, 03/02/2018. FINDINGS: Focal right basilar infiltrate consistent with pneumonia. Follow-up radiographs recommended. There is mild cardiomegaly. Pulmonary vascularity is prominent consistent with pulmonary congestion. No definite pulmonary edema. Clinical correlation follow-up radiograph is recommended. Patient has undergone previous right total shoulder arthroplasty. IMPRESSION: 1. Right basilar infiltrate consistent with pneumonia 2. Appearance consistent with pulmonary congestion. No definite pulmonary edema Interpreted and Authenticated by: Dlefino Aguilar 11/08/18
--- NOTE | 2018-11-08 06:36 | Emergency Department Note ---
General Adult HPI - General Chief complaint: Weakness Stated complaint: weakness Time Seen by Provider: 11/08/18 04:31 Source: patient Mode of arrival: ambulatory Limitations: no limitations - History of Present Illness HPI Narrative: This patient lives at [facility] and was brought in today because he was coughing weak and could not get out of bed. O2 saturation is 88% with EMS. He was given a DuoNeb treatment here in the emergency room and feels better. However he has a right-sided pneumonia on his chest x-ray. This patient does take Zithromax 250 mg daily since April and is not entirely clear why. - Related Data Home Medications Medication Instructions Recorded Confirmed FLUoxetine HCL [Prozac] 20 mg PO DAILY 08/05/15 11/08/18 furosemide 20 mg tablet 20 mg PO DAILY tab 07/15/17 11/08/18 Potassium Chloride [Kdur] 20 meq PO BIDCC 12/05/17 11/08/18 Nystatin [Nyata] 100,000 unit TOPICAL BID 12/17/17 11/08/18 Acetaminophen [Tylenol] 325 mg PO Q6HP PRN 11/08/18 11/08/18 Albuterol Sulfate 0.63 mg INH Q6 11/08/18 11/08/18 Albuterol Sulfate [Ventolin] 90 mcg INH Q4 PRN 11/08/18 11/08/18 Azithromycin [Zithromax] 250 mg PO DAILY 11/08/18 11/08/18 Dorzolamide HCl/Timolol Maleat 0.15 gtt BOTH EYES BID 11/08/18 11/08/18 [Cosopt Eye Drops] Glycopyrrolate/Formoterol Fum 4.8 mcg BID 11/08/18 11/08/18 [Bevespi Aerosphere Inhaler] Pramipexole [Mirapex] 0.5 mg PO HS 11/08/18 11/08/18 Qvar 40 80 mcg INH BID 11/08/18 11/08/18 Previous Rx's Medication Instructions Recorded tamsulosin 0.4 mg capsule 0.4 mg PO BID #60 cap 10/15/15 finasteride 5 mg tablet 5 mg PO QDAY #30 tab 07/15/17 Docusate Sodium [Colace] 100 mg PO BID #30 cap 09/17/17 Allergies Allergy/AdvReac Type Severity Reaction Status Date / Time No Known Drug Allergies Allergy Verified 12/10/17 15:11 Review of Systems All systems ED: reviewed and negative except as stated. Past Medical History - Past Medical History [facility] Narrative: Medical History (This Medical Record has been edited. Action required.) Rib contusion (Acute) Vertigo (Acute) GERD (gastroesophageal reflux disease) (Acute) CHF exacerbation (Acute) Edema extremities (Acute) Vertigo (Acute) Bronchitis (Acute) Sinusitis (Acute) Rib contusion (Acute) Syncope (Acute) Primary atypical pneumonia (Acute) Acute exacerbation of chronic obstructive airways disease (Acute) NAJERA (dyspnea on exertion) (Acute) Venous (peripheral) insufficiency (Acute) Acute retention of urine (Acute) UTI (urinary tract infection) (Acute) Batista catheter problem (Acute) Cellulitis, penis (Acute) Urinary frequency (Chronic) Generalized polyneuropathy (Chronic) Obstructive sleep apnea (Chronic) Arthralgia of knee (Chronic) Hypokalemia (Chronic) Essential hypertension (Chronic) Diabetes mellitus type 2, uncontrolled (Chronic) Depression (Chronic) Congestive heart failure (Chronic) Advanced COPD (Chronic) Asthma (Chronic) Cellulitis (Chronic) Back pain (Chronic) Past Surgical History (This Medical Record has been edited. 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 Action required.) Unknown No family history of malignant neoplasm No family history of cardiovascular disease No history of endocrine disorder No history of gastrointestinal disorder No family history of bleeding disorder No family history of kidney disease Medical history: Reports: asthma, CHF, COPD, DM (With neuropathy), hypertension , kidney stones, other (ADA on CPAP, BPH) Psychiatric history: Reports: depression Surgical history ED: Reports: appendectomy, herniorrhaphy, knee replacement, orthopedic, other (Lumbar, right shoulder replacement) - Social History smoking status: Former smoker Alcohol use: Reports: Occasionally Drug use: Reports: none Physical Exam Limitations: no limitations General appearance: alert Head: atraumatic Eye: Present: normal appearance ENT: normal exam Neck: Present: normal inspection Chest: Present: normal inspection Respiratory: Present: rales/crackles, wheezes Cardiovascular: Present: regular rate, normal rhythm, normal heart sounds Abdominal: Present: soft. Absent: distention, tenderness Neurological: Present: alert Psychiatric: Present: normal affect, normal mood Skin: Present: warm, dry Course Vital Signs Temperature 99.2 F H 11/08/18 03:53 Pulse Rate 79 11/08/18 03:53 Respiratory Rate 20 11/08/18 03:53 Blood Pressure 112/65 11/08/18 03:53 Pulse Oximetry (%) 94 11/08/18 03:53 Temperature 99.2 F H 11/08/18 03:53 Pulse Rate 75 11/08/18 06:31 Respiratory Rate 20 11/08/18 06:08 Blood Pressure 99/68 11/08/18 06:31 Pulse Oximetry (%) 92 11/08/18 06:31 Medical Decision Making - MDM Narrative Medical decision making narrative: This patient has a right-sided pneumonia and will be admitted by the hospitalist service Dr. Paredes. - Lab Data Lab results reviewed: Yes I reviewed the patient's lab results. Result diagrams: 11/08/18 04:05 11/08/18 04:05 Lab Results 11/08/18 11/08/18 11/08/18 Range/Units 04:05 04:05 04:10 WBC 12.3 H (4.5-11.0) K/mcL RBC 4.47 L (4.50-5.90) M/mcL Hgb 13.6 (13.5-16.5) g/dL Hct 41.1 (41.0-55.0) % MCV 92.0 (80.0-100.0) fL MCH 30.4 (26.0-34.0) pg MCHC 33.0 (31.0-36.0) g/dL RDW 13.3 (11.5-14.5) % Plt Count 200 (140-440) K/mcL MPV 8.3 (7.4-10.4) fL Total Counted 100 Seg Neutrophils % 80 H (38-78) % Band Neutrophils % Not Reportable Lymphocytes % 11 L (15-49) % Monocytes % (Manual) 9 (1-12) % Platelet Estimate Normal (NORMAL) RBC Morphology Normal (NORMAL) VBG Lactic Acid 1.1 (0.5-2.0) mmol/L Sodium 138 (133-145) mmol/L Potassium 3.8 (3.3-5.1) mmol/L Chloride 99 (96-108) mmol/L Carbon Dioxide 26 (22-30) mmol/L Anion Gap 13.0 (8-16) BUN 12 (8-23) mg/dl Creatinine 0.8 (0.7-1.2) mg/dl GFR Calculation 84 Glucose 127 H (70-105) mg/dL Calcium 8.7 (8.6-10.4) mg/dl Total Bilirubin 0.7 (0.0-1.0) mg/dL AST 14 (0-37) U/l ALT 12 (0-40) U/l Alkaline Phosphatase 77 (39-117) U/L Total Protein 6.5 (5.9-8.4) gm/dL Albumin 3.9 (3.2-5.2) gm/dL Globulin 2.6 (2.2-3.7) gm/dL Albumin/Globulin Ratio 1.5 (1.0-2.3) Urine Color Urine Appearance Urine pH (5.0-9.0) Ur Specific [place] (1.000-1.035) Urine Protein (NEG) mg/dL Urine Glucose (UA) (NEG) mg/dL Urine Ketones (NEG) mg/dL Urine Occult Blood (<0.03) mg/dL Urine Nitrate (NEG) Urine Bilirubin (NEG) mg/dL Urine Urobilinogen (NEG) mg/dL Ur Leukocyte Esterase (NEG) /uL Urine RBC (0-1) /hpf Urine WBC (0-4) /hpf Ur Squamous Epith Cells (0-4) /hpf Urine Bacteria (0) /hpf Urine Mucus (0) /hpf Ur Culture Indicated? 11/08/18 Range/Units 04:50 WBC (4.5-11.0) K/mcL RBC (4.50-5.90) M/mcL Hgb (13.5-16.5) g/dL Hct (41.0-55.0) % MCV (80.0-100.0) fL MCH (26.0-34.0) pg MCHC (31.0-36.0) g/dL RDW (11.5-14.5) % Plt Count (140-440) K/mcL MPV (7.4-10.4) fL Total Counted Seg Neutrophils % (38-78) % Band Neutrophils % Lymphocytes % (15-49) % Monocytes % (Manual) (1-12) % Platelet Estimate (NORMAL) RBC Morphology (NORMAL) VBG Lactic Acid (0.5-2.0) mmol/L Sodium (133-145) mmol/L Potassium (3.3-5.1) mmol/L Chloride (96-108) mmol/L Carbon Dioxide (22-30) mmol/L Anion Gap (8-16) BUN (8-23) mg/dl Creatinine (0.7-1.2) mg/dl GFR Calculation Glucose (70-105) mg/dL Calcium (8.6-10.4) mg/dl Total Bilirubin (0.0-1.0) mg/dL AST (0-37) U/l ALT (0-40) U/l Alkaline Phosphatase (39-117) U/L Total Protein (5.9-8.4) gm/dL Albumin (3.2-5.2) gm/dL Globulin (2.2-3.7) gm/dL Albumin/Globulin Ratio (1.0-2.3) Urine Color Yellow Urine Appearance Clear Urine pH 7.0 (5.0-9.0) Ur Specific [place] 1.017 (1.000-1.035) Urine Protein Neg (NEG) mg/dL Urine Glucose (UA) Negative (NEG) mg/dL Urine Ketones Neg (NEG) mg/dL Urine Occult Blood Neg (<0.03) mg/dL Urine Nitrate Neg (NEG) Urine Bilirubin Neg (NEG) mg/dL Urine Urobilinogen Neg (NEG) mg/dL Ur Leukocyte Esterase Neg (NEG) /uL Urine RBC 2 H (0-1) /hpf Urine WBC 3 (0-4) /hpf Ur Squamous Epith Cells 0 (0-4) /hpf Urine Bacteria 0 (0) /hpf Urine Mucus Few (0) /hpf Ur Culture Indicated? No - Radiology Data Radiology results reviewed: Yes I reviewed the patient's radiology results. Disposition Pt seen by [employer] [facility]/PA only: No Clinical Impression: Pneumonia Disposition: Xfer As Inpt ([facility]) Condition: Fair Referrals: Lakeshia Martin MD [Primary Care Provider] - Time of Disposition: 06:50
[2018-11-08] MEDS ORDERED: ONDANSETRON 4 MG/2 ML VIAL IV PRN (10:16)
[2018-11-08] MEDS ORDERED: ACETAMINOPHEN 325 MG TABLET PO PRN (10:16)
[2018-11-08] MEDS ORDERED: IPRATROPIUM/ALBUTEROL 3 ML AMPUL.NEB NEB PRN (10:16)
--- NOTE | 2018-11-08 10:25 | Internal Med History&Physical ---
Medical - H&P: HPI Patient information: Note initiated : 11/08/18 at 10:22 am Service Date, if different from initiated Date: [] Patient: Abelardo Chambers 78 y/o M admitted on 11/08/18 for Weakness. Chief Complaint: [] History of present illness: Mr. Chambers is a 78 year old M Who was brought in from [facility] after feeling very weak this morning. He did have acute on chronic back pain which is better now. When evaluated by EMS he was found to have a fever and oxygen saturations at 88% on room air. Speak with the patient he does admit to fever and chills. He does feel that his chronic cough is little worse lately with more production of a white clear sometimes brown in the morning. Says the shortness of breath is normal not particularly worse. Denies any chest pain. Does admit to coughing some with food and drink which he states is worse than a year ago. In the ER was evaluated and found to have right lower lobe pneumonia mild leukocytosis diagnosed. He was also given a breathing treatment in the ER with some improvement. Review of Systems: Worsening of chronic cough. Productive cough. Chronic shortness of breath. Fever chills. Denies headache/nausea/vomiting/chest or abdominal pain/ diarrhea. Remaining 10 point review of systems reviewed negative Medical - H&P: PMH Medical history: Medical History (This Medical Record has been edited. Action required.) Rib contusion (Acute) Vertigo (Acute) GERD (gastroesophageal reflux disease) (Acute) CHF exacerbation (Acute) Edema extremities (Acute) Vertigo (Acute) Bronchitis (Acute) Sinusitis (Acute) Rib contusion (Acute) Syncope (Acute) Primary atypical pneumonia (Acute) Acute exacerbation of chronic obstructive airways disease (Acute) NAJERA (dyspnea on exertion) (Acute) Venous (peripheral) insufficiency (Acute) Acute retention of urine (Acute) UTI (urinary tract infection) (Acute) Batista catheter problem (Acute) Cellulitis, penis (Acute) Urinary frequency (Chronic) Generalized polyneuropathy (Chronic) Obstructive sleep apnea (Chronic) Arthralgia of knee (Chronic) Hypokalemia (Chronic) Essential hypertension (Chronic) Diabetes mellitus type 2, uncontrolled (Chronic) Depression (Chronic) Congestive heart failure (Chronic) Advanced COPD (Chronic) Asthma (Chronic) Cellulitis (Chronic) Back pain (Chronic) Past Surgical History (This Medical Record has been edited. 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 Action required.) Unknown No family history of malignant neoplasm No family history of cardiovascular disease No history of endocrine disorder No history of gastrointestinal disorder No family history of bleeding disorder No family history of kidney disease States parents are both healthy Social History (This Medical Record has been edited. Action required.) Patient quit smoking 95 Drinks alcohol rarely Embolus with a cane Resides at [facility] Medical - H&P: Meds Home Medications Medication Instructions Recorded Confirmed Type FLUoxetine HCL [Prozac] 20 mg PO DAILY 08/05/15 11/08/18 History tamsulosin 0.4 mg capsule 0.4 mg PO BID #60 cap 10/15/15 11/08/18 Rx finasteride 5 mg tablet 5 mg PO QDAY #30 tab 07/15/17 11/08/18 Rx furosemide 20 mg tablet 20 mg PO DAILY tab 07/15/17 11/08/18 History Docusate Sodium [Colace] 100 mg PO BID #30 cap 09/17/17 11/08/18 Rx Potassium Chloride [Kdur] 20 meq PO BIDCC 12/05/17 11/08/18 History Nystatin [Nyata] 100,000 unit TOPICAL BID 12/17/17 11/08/18 History Acetaminophen [Tylenol] 325 mg PO Q6HP PRN 11/08/18 11/08/18 History Albuterol Sulfate 0.63 mg INH Q6 18 11/08/18 History Albuterol Sulfate [Ventolin] 90 mcg INH Q4 PRN 11/08/18 11/08/18 History Azithromycin [Zithromax] 250 mg PO DAILY 11/08/18 11/08/18 History Dorzolamide HCl/Timolol Maleat 0.15 gtt BOTH EYES BID 11/08/18 11/08/18 History [Cosopt Eye Drops] Glycopyrrolate/Formoterol Fum 4.8 mcg BID 11/08/18 11/08/18 History [Bevespi Aerosphere Inhaler] Pramipexole [Mirapex] 0.5 mg PO HS 11/08/18 11/08/18 History Qvar 40 80 mcg INH BID 11/08/18 11/08/18 History Allergies Allergy/AdvReac Type Severity Reaction Status Date / Time No Known Drug Allergies Allergy Verified 12/10/17 15:11 Medical - H&P: Exam - Constitutional Vitals: Temp Pulse Resp BP Pulse Ox 98.6 F 68 20 112/70 98 11/08/18 07:51 11/08/18 07:51 11/08/18 07:51 11/08/18 07:51 11/08/18 07:51 Exam: General: Alert, Awake, No acute Distress, obese Eyes/N/T: EOMI, PEERL, DMM Head/Neck: neck supple, normocephalic atraumatic CV: RRR, No murmurs, normal s1/s2 Pulm: b/l rhonchi, no wheezes at this time Abd: soft, nontender, +BS x4 Ext: no clubbing/cyanosis, 2+ chronic b/l LE edema Neuro: Alert, no focal deficits, moves all extremities, CN 2-12 grossly intact, symmetrical strength b/l upper/lower, sensations intact b/l upper/lower Skin: warm/dry Medical - H&P: Reslt - Labs CBC & Chem 7: 11/08/18 04:05 11/08/18 04:05 Labs: Short CBC 11/08/18 Range/Units 04:05 WBC 12.3 H (4.5-11.0) K/mcL Hgb 13.6 (13.5-16.5) g/dL Hct 41.1 (41.0-55.0) % Plt Count 200 (140-440) K/mcL [facility] 11/08/18 04:05 Sodium 138 Potassium 3.8 Chloride 99 Carbon Dioxide 26 BUN 12 Creatinine 0.8 Glucose 127 H Calcium 8.7 Liver Function 11/08/18 Range/Units 04:05 Total Bilirubin 0.7 (0.0-1.0) mg/dL AST 14 (0-37) U/l ALT 12 (0-40) U/l Alkaline Phosphatase 77 (39-117) U/L Albumin 3.9 (3.2-5.2) gm/dL Urine 11/08/18 Range/Units 04:50 Urine Color Yellow Urine Appearance Clear Urine pH 7.0 (5.0-9.0) Ur Specific [place] 1.017 (1.000-1.035) Urine Protein Neg (NEG) mg/dL Urine Glucose (UA) Negative (NEG) mg/dL - Impressions Chest x-ray with right lower lobe infiltrate urinalysis unremarkable Medical - H&P: A/P - Narrative A/P Narrative: A: *Pneumonia: Suspect aspiration and also risk for gram-negative bacillus given [facility] patient *Hypoxic respiratory failure acute: *COPD with possible mild exacerbation (not on home O2): *Depression * * P: -Zosyn -Pending blood and sputum cultures -Speech therapy evaluation -Prednisone 40mg x5 days -Respiratory panel -IS/Acapella/RT -pt/ot - -ppx: lovenox Medical - H&P: Qual - Stroke Symptom Onset Unknown: No - VTE Deep Vein Thrombosis/Pulmonary Embolism Present on Admission: No
[2018-11-08] MEDS: predniSONE 20 MG TABLET PO SCH (10:57)
[2018-11-08] MEDS: PIPERACILLIN SODIUM/TAZOBACTAM 3.375 GM in DEXTROSE 5% IN WATER 50 ML IV SCH ×2 (12:31→17:42)
[2018-11-08] MEDS: 0.9 % SODIUM CHLORIDE 10 ML SYRINGE IV SCH ×2 (13:45→21:08)
[2018-11-08] MEDS: IPRATROPIUM/ALBUTEROL 3 ML AMPUL.NEB NEB SCH ×2 (13:52→19:10)
[2018-11-08] MEDS: FAMOTIDINE 20 MG TABLET PO SCH (21:07)
[2018-11-08] MEDS: DOCUSATE SODIUM 100 MG CAPSULE PO SCH (21:07)
[2018-11-08] MEDS: PRAMIPEXOLE 0.25 MG TABLET PO SCH (21:08)
[2018-11-08] MEDS: SENNOSIDES 1 TABLET PO SCH (21:08)
[2018-11-09] MEDS: PIPERACILLIN SODIUM/TAZOBACTAM 3.375 GM in DEXTROSE 5% IN WATER 50 ML IV SCH ×5 (00:04→23:51)
[2018-11-09] MEDS: 0.9 % SODIUM CHLORIDE 1,000 ML IV SCH (02:52)
[2018-11-09] MEDS: IPRATROPIUM/ALBUTEROL 3 ML AMPUL.NEB NEB SCH ×5 (03:22→23:51)
[2018-11-09] MEDS: 0.9 % SODIUM CHLORIDE 10 ML SYRINGE IV SCH ×3 (06:09→22:00)
[2018-11-09 06:51] LABS: Basophils # (Auto) 0 K/mcL (0.0-0.3); Basophils % (Auto) 0.2 % (0.0-2.0); Eosinophils # (Auto) 0.1 K/mcL (0.0-0.7); Eosinophils % (Auto) 1.5 % (0.0-7.0); Granulocytes % (Auto) 64.6 % (38.0-78.0); Lymphocytes # (Auto) 1.6 K/mcL (1.5-4.8); Lymphocytes % (Auto) 21.8 % (15.5-49.0); Mean Cell Volume 93.6 fL (80.0-100.0); Mean Corpuscular HGB Conc 33.1 g/dL (31.0-36.0); Monocytes # (Auto) 0.9 K/mcL (0.1-0.9); Monocytes % (Auto) 11.9 % (1.0-12.0); Platelet Count 172 K/mcL (140-440); RBC 3.98 M/mcL (4.50-5.90); Red Cell Distribution Width 13.2 % (11.5-14.5)
[2018-11-09 07:14] LABS: ALT/SGPT 12 U/l (0-40); Albumin 3.2 gm/dL (3.2-5.2); Albumin/Globulin Ratio 1.2 (1.0-2.3); Alkaline Phosphatase 62 U/L (39-117); Bilirubin,Direct < 0.2 mg/dL (0.0-0.3); Blood Urea Nitrogen 12 mg/dl (8-23); Gamma Glutamyl Transpeptidase 8 U/L (8-61); Uric Acid 2.3 mg/dL (2.5-8.0)
--- NOTE | 2018-11-09 07:38 | Internal Med Progress Note ---
Medical - PN: Subj Patient information: Note initiated : 11/09/18 at 7:35 am Service Date, if different from initiated Date: [] Patient: Abelardo Chambers 78 y/o M admitted on 11/08/18 for Weakness. Chief Complaint: [] Interval history: Mr. Chambers is a 78 year old M Who [facility] after feeling very weak this morning. He did have acute on chronic back pain which is better now. When evaluated by EMS he was found to have a fever and oxygen saturations at 88% on room air. Speak with the patient he does admit to fever and chills. He does feel that his chronic cough is little worse lately with more production of a white clear sometimes brown in the morning. Says the shortness of breath is normal not particularly worse. Denies any chest pain. Does admit to coughing some with food and drink which he states is worse than a year ago. In the ER was evaluated and found to have right lower lobe pneumonia mild leukocytosis diagnosed. He was also given a breathing treatment in the ER with some improvement. 11/09 Continues to feel better. Coughing is less productive. And breathing is much easier. Tolerating dysphagia diet. Review of Systems: denies headache/fever/chills/nausea/vomiting/chest or abdominal pain/diarrhea. Otherwise see above. - Constitutional Vitals: Vital Signs Temp Pulse Resp BP Pulse Ox 97.2 F 67 16 138/80 90 11/09/18 07:03 11/09/18 07:03 11/09/18 07:03 11/09/18 07:03 11/09/18 07:03 Period Temp Pulse Resp BP Sys/Aaron Pulse Ox Last 24 Hr 97.2 F-98.8 F 63-78 16-20 108-138/62-80 90-98 Intake and Output 11/08/18 11/09/18 11/09/18 21:59 05:59 13:59 Intake Total 333 / 333 580 / 580 Balance 333 / 333 580 / 580 Weight 109.769 kg Intake & Output: Intake & Output 11/08/18 11/09/18 11/09/18 21:59 05:59 13:59 Intake Total 333 / 333 580 / 580 Balance 333 / 333 580 / 580 Weight 109.769 kg Intake: IV 333 / 333 100 / 100 Sodium Chloride 0.9% 1,000 ml @ 283 / 283 0 / 0 250 mls/hr IV .Q4H [facility] Rx#: [id number] Zosyn 3.375 gm In Dextrose 5% 50 / 50 100 / 100 in Water 50 ml @ 100 mls/hr IV Q6H [facility] Rx#:[id number] Oral 480 / 480 Other: Meal Lunch Percent of Meal Consumed 75% Feeding Ability Independent Stool Size Small Stool Color Brown Stool Consistency Soft # Voids 1 1 Exam: General: Alert, Awake, No acute Distress, obese Eyes/N/T: EOMI, Head/Neck: neck supple, CV: RRR, 1/6 SM, normal s1/s2 Pulm: decreasing b/l rhonchi, no wheezes at this time Abd: soft, nontender, +BS x4 Ext: no clubbing/cyanosis, 2+ chronic b/l LE edema Neuro: Alert, no focal deficits, moves all extremities, Skin: warm/dry Medical - PN: Obj Da - Labs CBC & Chem 7: 11/09/18 04:36 11/09/18 04:36 Labs: Abnormal Lab Results 11/09/18 11/09/18 11/08/18 04:36 04:36 04:50 WBC RBC 3.98 L Hgb 12.3 L Hct 37.2 L Seg Neutrophils % Lymphocytes % Glucose Uric Acid 2.3 L Calcium 8.4 L Lactate Dehydrogenase 260 H Urine RBC 2 H 11/08/18 11/08/18 04:05 04:05 WBC 12.3 H RBC 4.47 L Hgb Hct Seg Neutrophils % 80 H Lymphocytes % 11 L Glucose 127 H Uric Acid Calcium Lactate Dehydrogenase Urine RBC Meds: Medications Acetaminophen (Tylenol) 650 mg PO Q6HP PRN PRN Reason: PAIN/FEVER > 101 Last Admin: 11/08/18 13:35 Dose: 650 mg Albuterol/Ipratropium (Duoneb) 3 ml NEB Q6HRT [facility] Last Admin: 11/09/18 03:22 Dose: 3 ml Albuterol/Ipratropium (Duoneb) 3 ml NEB Q6HRT PRN PRN Reason: Bronchospasm Docusate Sodium (Colace) 100 mg PO BID [facility] Last Admin: 11/08/18 21:07 Dose: 100 mg Enoxaparin Sodium (Lovenox) 40 mg SQ DAILY [facility] Famotidine (Pepcid) 20 mg PO BID [facility] Last Admin: 11/08/18 21:07 Dose: 20 mg Piperacillin Sod/Tazobactam (Sod 3.375 gm/ Dextrose) 50 mls @ 100 mls/hr IV Q6H [facility] Last Admin: 11/09/18 05:45 Dose: 100 mls/hr Ondansetron HCl (Zofran) 4 mg IV Q6HP PRN PRN Reason: Nausea And Vomiting Pramipexole Dihydrochloride (Mirapex) 1.5 mg PO [facility] Last Admin: 11/08/18 21:08 Dose: 1.5 mg Prednisone (Prednisone) 40 mg PO [facility] Stop: 11/12/18 08:01 Last Admin: 11/08/18 10:57 Dose: 40 mg Senna (Senokot) 2 tab PO [facility] Last Admin: 11/08/18 21:08 Dose: 2 tab Sodium Chloride (Saline Flush) 10 ml IV Q8 [facility] Last Admin: 11/09/18 06:09 Dose: 10 ml Medical - PN: A/P - Time Spent With Patient Total time spent is greater than 50% in coordination of care (as documented) at patient's floor/unit and/or counseling patient: - Narrative A/P Narrative: A: *Pneumonia: Suspect aspiration and also risk for gram-negative bacillus given senior care patient -leukocytosis resolved *Hypoxic respiratory failure acute: 2/2 above -no on room air *COPD w/ mild exacerbation (not on home O2): *Depression *Mild Oropharyngeal dysphagia P: -Zosyn -Pending blood and sputum cultures -Prednisone 40mg x5 days -IS/Acapella/RT -pt/ot -diet per ST -ppx: lovenox Medical - PN: Qual - Stroke Symptom Onset Unknown: No - VTE Deep Vein Thrombosis/Pulmonary Embolism Present on Admission: No
--- NOTE | 2018-11-09 08:10 | XRay Report ---
INDICATION: Follow-up, probable pneumonia TECHNIQUE: PA and lateral upright chest x-ray COMPARISON: Previous examination dated 11/08/2018. Prior examinations dated 04/26/2018, 04/01/2018 FINDINGS:Pulmonary vascularity is improved. No definite pulmonary edema. Bibasilar parenchymal infiltrates are also improved. Findings may be due to benign volume loss. Improving pneumonia is possible. No significant pleural effusion. There is a mid thoracic compression deformity. This is unchanged since 04/01/2018 IMPRESSION: 1. Improved pulmonary vascularity 2. Mild bibasilar parenchymal density. Appearance is consistent with improved pneumonia or bilateral volume loss Interpreted and Authenticated by: Delfino Aguilar 11/09/18
[2018-11-09] MEDS: predniSONE 20 MG TABLET PO SCH (08:19)
[2018-11-09] MEDS: ENOXAPARIN 40 MG/0.4 ML SYRINGE SQ SCH (08:20)
[2018-11-09] MEDS: DOCUSATE SODIUM 100 MG CAPSULE PO SCH ×2 (08:20→19:13)
[2018-11-09] MEDS: FAMOTIDINE 20 MG TABLET PO SCH ×2 (08:20→19:14)
--- NOTE | 2018-11-09 10:35 | Discharge Summary ---
Medical - DS: Prov Patient information: Note initiated : 11/09/18 at 10:32 am Service Date, if different from initiated Date: [] Patient: Abelardo Chambers 78 y/o M admitted on 11/08/18 for Weakness. Chief Complaint: [] Date of admission: 11/08/18 07:51 Discharge date: 11/11/18 Primary care physician: Lakeshia Maritn Medical - DS: Meds - Discharge Medications Prescriptions: Amoxicillin/Potassium Clav [Augmentin] 875 mg PO BIDCC #8 tab predniSONE [Prednisone] 40 mg PO QAMCC #3 tab Active and Home Medications: Home Medications FLUoxetine HCL [Prozac] 20 mg PO DAILY 08/05/15 [History Confirmed 11/08/18 Last Taken 11/07/18 07:30] tamsulosin 0.4 mg capsule 0.4 mg PO BID #60 cap 10/15/15 [Rx Confirmed 11/08/18 Last Taken 11/07/18 17:00] finasteride 5 mg tablet 5 mg PO QDAY #30 tab 07/15/17 [Rx Confirmed 11/08/18 Last Taken 11/07/18 07:30] furosemide 20 mg tablet 40 mg PO DAILY tab 07/15/17 [History Confirmed Last Taken 11/07/18 07:30] Docusate Sodium [Colace] 100 mg PO BID #30 cap 09/17/17 [Rx Confirmed 11/08/18 Last Taken 11/07/18 16:00] Potassium Chloride [Kdur] 20 meq PO BIDCC 12/05/17 [History Confirmed 11/08/18 Last Taken 11/07/18 07:30] Nystatin [Nyata] 100,000 unit TOPICAL BID 12/17/17 [History Confirmed 11/08/18 Last Taken 11/06/18 21:15] Acetaminophen [Tylenol] 325 mg PO Q6HP PRN 11/08/18 [History Confirmed 11/08/18 Last Taken 11/08/18 01:00] Albuterol Sulfate 0.63 mg INH Q6 11/08/18 [History Confirmed 11/08/18 Last Taken 11/07/18 16:00] Albuterol Sulfate [Ventolin] 90 mcg INH Q4 PRN 11/08/18 [History Confirmed 11/08 Last Taken 10/13/18] Azithromycin [Zithromax] 250 mg PO DAILY 11/08/18 [History Confirmed 11/08/18 Last Taken 11/07/18 16:00] Brimonidine 0.15%-Dorzolam 2% 1 gtt LEFT EYE BID 11/08/18 [History Confirmed Last Taken Unknown] Dorzolamide HCl/Timolol Maleat [Cosopt Eye Drops] 0.15 gtt BOTH EYES BID [History Confirmed 11/08/18 Last Taken 11/07/18 16:00] Glycopyrrolate/Formoterol Fum [Bevespi Aerosphere Inhaler] 4.8 mcg BID 11/08/18 [History Confirmed 11/08/18 Last Taken 11/07/18 16:00] Pramipexole [Mirapex] 1.5 mg PO HS 11/08/18 [History Confirmed 11/08/18 Last Taken 11/06/18 20:00] Qvar 40 80 mcg INH BID 11/08/18 [History Confirmed 11/08/18 Last Taken 11/07/18 16:00] Home Medications FLUoxetine HCL [Prozac] 20 mg PO DAILY 08/05/15 [History Confirmed 11/08/18 Last Taken 11/07/18 07:30] tamsulosin 0.4 mg capsule 0.4 mg PO BID #60 cap 10/15/15 [Rx Confirmed 11/08/18 Last Taken 11/07/18 17:00] finasteride 5 mg tablet 5 mg PO QDAY #30 tab 07/15/17 [Rx Confirmed 11/08/18 Last Taken 11/07/18 07:30] furosemide 20 mg tablet 40 mg PO DAILY tab 07/15/17 [History Confirmed Last Taken 11/07/18 07:30] Docusate Sodium [Colace] 100 mg PO BID #30 cap 09/17/17 [Rx Confirmed 11/08/18 Last Taken 11/07/18 16:00] Potassium Chloride [Kdur] 20 meq PO BIDCC 12/05/17 [History Confirmed 11/08/18 Last Taken 11/07/18 07:30] Nystatin [Nyata] 100,000 unit TOPICAL BID 12/17/17 [History Confirmed 11/08/18 Last Taken 11/06/18 21:15] Acetaminophen [Tylenol] 325 mg PO Q6HP PRN 11/08/18 [History Confirmed 11/08/18 Last Taken 11/08/18 01:00] Albuterol Sulfate 0.63 mg INH Q6 11/08/18 [History Confirmed 11/08/18 Last Taken 11/07/18 16:00] Albuterol Sulfate [Ventolin] 90 mcg INH Q4 PRN 11/08/18 [History Confirmed 11/08 Last Taken 10/13/18] Azithromycin [Zithromax] 250 mg PO DAILY 11/08/18 [History Confirmed 11/08/18 Last Taken 11/07/18 16:00] Brimonidine 0.15%-Dorzolam 2% 1 gtt LEFT EYE BID 11/08/18 [History Confirmed Last Taken Unknown] Dorzolamide HCl/Timolol Maleat [Cosopt Eye Drops] 0.15 gtt BOTH EYES BID [History Confirmed 11/08/18 Last Taken 11/07/18 16:00] Glycopyrrolate/Formoterol Fum [Bevespi Aerosphere Inhaler] 4.8 mcg BID 11/08/18 [History Confirmed 11/08/18 Last Taken 11/07/18 16:00] Pramipexole [Mirapex] 1.5 mg PO HS 11/08/18 [History Confirmed 11/08/18 Last Taken 11/06/18 20:00] Qvar 40 80 mcg INH BID 11/08/18 [History Confirmed 11/08/18 Last Taken 11/07/18 16:00] predniSONE [Prednisone] 40 mg PO QAMCC #3 tab 11/09/18 [Rx Last Taken Unknown] Amoxicillin/Potassium Clav [Augmentin] 875 mg PO BIDCC #8 tab 11/11/18 [Rx Last Taken Unknown] Medical - DS: Hosp Hospital course: Mr. Chambers is a 78 year old M Mr. Chambers is a 78 year old M Who was brought in from [facility] after feeling very weak this morning. He did have acute on chronic back pain which is better now. When evaluated by EMS he was found to have a fever and oxygen saturations at 88% on room air. Speak with the patient he does admit to fever and chills. He does feel that his chronic cough is little worse lately with more production of a white clear sometimes brown in the morning. Says the shortness of breath is normal not particularly worse. Denies any chest pain. Does admit to coughing some with food and drink which he states is worse than a year ago. In the ER was evaluated and found to have right lower lobe pneumonia mild leukocytosis diagnosed. He was also given a breathing treatment in the ER with some improvement. 11/09 Continues to feel better. Coughing is less productive. And breathing is much easier. Tolerating dysphagia diet. 11/10 continues to improve. Coughing is less. Breathing is almost back to normal. No overnight events 11/11 Overnight events doing well. Stable for discharge Discharge diagnosis: Aspirate pneumonitis pneumonia hypoxic respiratory failure COPD dysphasia - Time Spent with Patient Total time spent providing and/or coordinating discharge services: Greater than 30 minutes Medical - DS: Exam - Constitutional Vitals: Vital Signs Temp Pulse Pulse Resp BP Pulse Ox 11/09/18 07:44 60 18 11/09/18 07:03 97.2 F 67 16 138/80 90 11/09/18 04:00 97.5 F 63 18 128/76 91 11/09/18 00:00 98.2 F 67 18 110/64 95 11/08/18 19:36 98.1 F 68 20 108/62 94 11/08/18 19:00 78 18 11/08/18 16:00 98.8 F 20 127/69 94 11/08/18 14:55 70 93 11/08/18 13:38 63 96 11/08/18 13:30 72 18 11/08/18 13:26 98.6 F 11/08/18 12:45 68 97 Intake and Output 11/08/18 11/09/18 11/09/18 21:59 05:59 13:59 Intake Total 333 / 333 580 / 580 410 / 410 Balance 333 / 333 580 / 580 410 / 410 Intake: IV 333 / 333 100 / 100 50 / 50 Sodium Chloride 0.9% 1,000 ml @ 283 / 283 0 / 0 250 mls/hr IV .Q4H [facility] Rx#: [id number] Zosyn 3.375 gm In Dextrose 5% 50 / 50 100 / 100 50 / 50 in Water 50 ml @ 100 mls/hr IV Q6H [facility] Rx#:[id number] Oral 480 / 480 360 / 360 Other: Meal Lunch Breakfast Percent of Meal Consumed 75% 100% Feeding Ability Independent Assist with Tray Set Up Stool Size Small Stool Color Brown Stool Consistency Soft # Voids 1 1 Weight 109.769 kg Medical - DS: Data Labs on day of discharge: Labs from last 24 hours 11/09/18 11/09/18 04:36 04:36 WBC 7.4 RBC 3.98 L Hgb 12.3 L Hct 37.2 L MCV 93.6 MCH 31.0 MCHC 33.1 RDW 13.2 Plt Count 172 MPV 8.4 Gran % 64.6 Lymph % (Auto) 21.8 Haines % (Auto) 11.9 Eos % (Auto) 1.5 Baso % (Auto) 0.2 Gran # 4.8 Lymph # (Auto) 1.6 [place] # (Auto) 0.9 Eos # (Auto) 0.1 Baso # (Auto) 0 Sodium 139 Potassium 3.7 Chloride 104 Carbon Dioxide 23 Anion Gap 12.0 BUN 12 Creatinine 0.8 GFR Calculation 84 Glucose 93 Uric Acid 2.3 L Calcium 8.4 L Phosphorus 3.2 Magnesium 2.1 Total Bilirubin 0.5 Direct Bilirubin < 0.2 GGT 8 AST 18 ALT 12 Alkaline Phosphatase 62 Lactate Dehydrogenase 260 H Total Protein 5.9 Albumin 3.2 Globulin 2.7 Albumin/Globulin Ratio 1.2 Triglycerides 38 Preliminary micro results at discharge 11/08/18 05:00 Blood Culture - Preliminary Blood 11/08/18 04:50 Blood Culture - Preliminary Blood Medical - DS: A/P - Patient/Caregiver Discharge Instructions Activity: increase activity as tolerated Diet: Dysphagia Advanced Prescriptions: Amoxicillin/Potassium Clav [Augmentin] 875 mg PO BIDCC #8 tab predniSONE [Prednisone] 40 mg PO QAMCC #3 tab - Follow up Plan Follow up with: Lakeshia Martin MD [Primary Care Provider] - Disposition: Xfer SNF Prognosis: Fair Rehab Potential: Fair I certify that the patient requires SNF services: Yes Overall status at discharge: patient is back to baseline Medical - DS: Qual - VTE Deep Vein Thrombosis/Pulmonary Embolism Present on Admission: No
[2018-11-09] MEDS: PRAMIPEXOLE 0.25 MG TABLET PO SCH (19:12)
[2018-11-09] MEDS: SENNOSIDES 1 TABLET PO SCH (19:13)
[2018-11-10] MEDS: PIPERACILLIN SODIUM/TAZOBACTAM 3.375 GM in DEXTROSE 5% IN WATER 50 ML IV SCH ×2 (05:45→11:45)
[2018-11-10] MEDS: 0.9 % SODIUM CHLORIDE 10 ML SYRINGE IV SCH ×3 (06:20→20:38)
[2018-11-10] MEDS: IPRATROPIUM/ALBUTEROL 3 ML AMPUL.NEB NEB SCH ×3 (07:00→18:37)
--- NOTE | 2018-11-10 07:25 | Internal Med Progress Note ---
Medical - PN: Subj Patient information: Note initiated : 11/10/18 at 7:23 am Service Date, if different from initiated Date: [] Patient: Abelardo hCambers 78 y/o M admitted on 11/08/18 for Weakness. Chief Complaint: [] Interval history: Mr. Chambers is a 78 year old M Who was brought in from [facility] after feeling very weak this morning. He did have acute on chronic back pain which is better now. When evaluated by EMS he was found to have a fever and oxygen saturations at 88% on room air. Speak with the patient he does admit to fever and chills. He does feel that his chronic cough is little worse lately with more production of a white clear sometimes brown in the morning. Says the shortness of breath is normal not particularly worse. Denies any chest pain. Does admit to coughing some with food and drink which he states is worse than a year ago. In the ER was evaluated and found to have right lower lobe pneumonia mild leukocytosis diagnosed. He was also given a breathing treatment in the ER with some improvement. 11/09 Continues to feel better. Coughing is less productive. And breathing is much easier. Tolerating dysphagia diet. 11/10 Tinged improved. Cough eating less. Breathing is almost back to normal. No overnight events Review of Systems: denies headache/fever/chills/nausea/vomiting/chest or abdominal pain/diarrhea. Otherwise see above. - Constitutional Vitals: Vital Signs Temp Pulse Resp BP Pulse Ox 97.6 F 76 16 150/90 94 11/10/18 03:18 11/10/18 07:00 11/10/18 07:00 11/10/18 03:18 11/10/18 07:03 Period Temp Pulse Resp BP Sys/Aaron Pulse Ox Last 24 Hr 97.4 F-97.8 F 60-76 16-18 126-150/72-90 91-94 Intake and Output 11/09/18 11/10/18 11/10/18 21:59 05:59 13:59 Intake Total 290 / 290 290 / 290 50 / 50 Balance 290 / 290 290 / 290 50 / 50 Weight 111.13 kg Intake & Output: Intake & Output 11/09/18 11/10/18 11/10/18 21:59 05:59 13:59 Intake Total 290 / 290 290 / 290 50 / 50 Balance 290 / 290 290 / 290 50 / 50 Weight 111.13 kg Intake: IV 50 / 50 50 / 50 50 / 50 Zosyn 3.375 gm In Dextrose 5% 50 / 50 50 / 50 50 / 50 in Water 50 ml @ 100 mls/hr IV Q6H [facility] Rx#:[id number] Oral 240 / 240 240 / 240 Other: Meal Dinner Percent of Meal Consumed 90 Feeding Ability Independent # Voids 1 Exam: General: Alert, Awake, No acute Distress, obese Eyes/N/T: EOMI, Head/Neck: neck supple, CV: RRR, 1/6 SM, normal s1/s2 Pulm: minimal b/l rhonchi, occasional exp wheezes Abd: soft, nontender, +BS x4 Ext: no clubbing/cyanosis, 2+ chronic b/l LE edema Neuro: Alert, no focal deficits, moves all extremities, Skin: warm/dry Medical - PN: Obj Da - Labs CBC & Chem 7: 11/09/18 04:36 11/09/18 04:36 Labs: Abnormal Lab Results 11/09/18 11/09/18 11/08/18 04:36 04:36 04:50 WBC RBC 3.98 L Hgb 12.3 L Hct 37.2 L Seg Neutrophils % Lymphocytes % Glucose Uric Acid 2.3 L Calcium 8.4 L Lactate Dehydrogenase 260 H Urine RBC 2 H 11/08/18 11/08/18 04:05 04:05 WBC 12.3 H RBC 4.47 L Hgb Hct Seg Neutrophils % 80 H Lymphocytes % 11 L Glucose 127 H Uric Acid Calcium Lactate Dehydrogenase Urine RBC Meds: Medications Acetaminophen (Tylenol) 650 mg PO Q6HP PRN PRN Reason: PAIN/FEVER > 101 Last Admin: 11/08/18 13:35 Dose: 650 mg Albuterol/Ipratropium (Duoneb) 3 ml NEB Q6HRT [facility] Last Admin: 11/10/18 07:00 Dose: 3 ml Albuterol/Ipratropium (Duoneb) 3 ml NEB Q6HRT PRN PRN Reason: Bronchospasm Docusate Sodium (Colace) 100 mg PO BID [facility] Last Admin: 11/09/18 19:13 Dose: 100 mg Enoxaparin Sodium (Lovenox) 40 mg SQ DAILY [facility] Last Admin: 11/09/18 08:20 Dose: 40 mg Famotidine (Pepcid) 20 mg PO BID [facility] Last Admin: 11/09/18 19:14 Dose: 20 mg Piperacillin Sod/Tazobactam (Sod 3.375 gm/ Dextrose) 50 mls @ 100 mls/hr IV Q6H [facility] Last Infusion: 11/10/18 06:42 Dose: Infused Ondansetron HCl (Zofran) 4 mg IV Q6HP PRN PRN Reason: Nausea And Vomiting Pramipexole Dihydrochloride (Mirapex) 1.5 mg PO HS [facility] Last Admin: 11/09/18 19:12 Dose: 1.5 mg Prednisone (Prednisone) 40 mg PO [facility] Stop: 11/12/18 08:01 Last Admin: 11/09/18 08:19 Dose: 40 mg Senna (Senokot) 2 tab PO HS [facility] Last Admin: 11/09/18 19:13 Dose: 2 tab Sodium Chloride (Saline Flush) 10 ml IV Q8 [facility] Last Admin: 11/10/18 06:20 Dose: 10 ml Medical - PN: A/P - Time Spent With Patient Total time spent is greater than 50% in coordination of care (as documented) at patient's floor/unit and/or counseling patient: - Narrative A/P Narrative: A: *Aspiration Pneumonitis/PNA: also risk for gram-negative bacillus given long-term patient -leukocytosis resolved, resp panel neg, BC neg *Hypoxic respiratory failure acute: 2/2 above -no on room air *COPD w/ mild exacerbation (not on home O2): *Depression *Mild Oropharyngeal dysphagia P: -Zosyn deescalate -Prednisone 40mg x5 days -nebs -IS/Acapella/RT -pt/ot -diet per ST -ppx: lovenox d/c planning in AM back to SNF Medical - PN: Qual - Stroke Symptom Onset Unknown: No - VTE Deep Vein Thrombosis/Pulmonary Embolism Present on Admission: No
[2018-11-10] MEDS: predniSONE 20 MG TABLET PO SCH (08:00)
[2018-11-10] MEDS: FAMOTIDINE 20 MG TABLET PO SCH ×2 (08:56→20:35)
[2018-11-10] MEDS: ENOXAPARIN 40 MG/0.4 ML SYRINGE SQ SCH (08:56)
[2018-11-10] MEDS: DOCUSATE SODIUM 100 MG CAPSULE PO SCH ×2 (08:56→20:37)
[2018-11-10] MEDS ORDERED: POLYETHYLENE GLYCOL 3350 17 GM PACKET PO ONE (09:09)
[2018-11-10] MEDS: AMOXICILLIN/POTASSIUM CLAV 875 MG TABLET PO SCH (17:16)
[2018-11-10] MEDS: PRAMIPEXOLE 0.25 MG TABLET PO SCH (20:33)
[2018-11-10] MEDS: SENNOSIDES 1 TABLET PO SCH (20:37)
[2018-11-11] MEDS: IPRATROPIUM/ALBUTEROL 3 ML AMPUL.NEB NEB SCH ×2 (01:27→08:16)
[2018-11-11] MEDS: AMOXICILLIN/POTASSIUM CLAV 875 MG TABLET PO SCH (07:43)
[2018-11-11] MEDS: predniSONE 20 MG TABLET PO SCH (07:43)
[2018-11-11] MEDS: FAMOTIDINE 20 MG TABLET PO SCH (07:44)
[2018-11-11] MEDS: DOCUSATE SODIUM 100 MG CAPSULE PO SCH (07:44)
[2018-11-11] MEDS: ENOXAPARIN 40 MG/0.4 ML SYRINGE SQ SCH (07:44)
== END 2018-11-11 10:40 | DRG 177 ==
LOC: ED 03:52 → MEDSUR 07:51
PROVIDERS: ADMIT Internal Medicine; ATTEND Internal Medicine
CPT/HCPCS: 84145; 87632; 97161; 97167; 99231; G8996; G8997; G8998; J0696; J1650; J1956; J2543; J7030; J7060; J7620; J7620-GY

== ENCOUNTER 2019-03-09 20:57 | Inpatient (IN) ==
[2019-03-09] MEDS ORDERED: PIPERACILLIN SODIUM/TAZOBACTAM 3.375 GM in DEXTROSE 5% IN WATER 50 ML IV ONE (21:09)
--- NOTE | 2019-03-09 21:11 | Emergency Department Note ---
SOB HPI - General Chief Complaint: Shortness of Breath/Dyspnea Stated Complaint: Shortness of breath Time Seen by Provider: 03/09/19 21:00 Source: EMS Mode of arrival: EMS Limitations: no limitations - History of Present Illness Patient brought in by EMT from [facility] which patient was more obtunded than normal and having low saturations this evening. Patient was admitted on by the hospitalist and treated for aspiration pneumonia. He was treated with Zosyn at the time. Treated outpatient with Augmentin.His current vital signs currently temperature is 98.3 the pulse is 94 respirations are 18 blood pressure 117/64 he is on 4 L l of oxygen by nasal cannula. Patient is a DNR and DNI and comfort care. when questioned however he states that antibiotics and IV fluids would be okay. Patient denies any chest pain. He said no fevers or chills. No nasal congestion or sore throat. - Related Data Home Medications Medication Instructions Recorded Confirmed FLUoxetine HCL [Prozac] 20 mg PO DAILY 08/05/15 11/08/18 furosemide 20 mg tablet 40 mg PO DAILY tab 07/15/17 11/08/18 Potassium Chloride [Kdur] 20 meq PO BIDCC 12/05/17 11/08/18 Nystatin [Nyata] 100,000 unit TOPICAL BID 12/17/17 11/08/18 Acetaminophen [Tylenol] 325 mg PO Q6HP PRN 11/08/18 11/08/18 Albuterol Sulfate 0.63 mg INH Q6 11/08/18 11/08/18 Albuterol Sulfate [Ventolin] 90 mcg INH Q4 PRN 11/08/18 11/08/18 Azithromycin [Zithromax] 250 mg PO DAILY 11/08/18 11/08/18 Brimonidine 0.15%-Dorzolam 2% 1 gtt LEFT EYE BID 11/08/18 11/08/18 Dorzolamide HCl/Timolol Maleat 0.15 gtt BOTH EYES BID 11/08/18 11/08/18 [Cosopt Eye Drops] Glycopyrrolate/Formoterol Fum 4.8 mcg BID 11/08/18 11/08/18 [Bevespi Aerosphere Inhaler] Pramipexole [Mirapex] 1.5 mg PO HS 12/17/18 12/17/18 Qvar 40 80 mcg INH BID 11/08/18 11/08/18 Previous Rx's Medication Instructions Recorded tamsulosin 0.4 mg capsule 0.4 mg PO BID #60 cap 10/15/15 finasteride 5 mg tablet 5 mg PO QDAY #30 tab 07/15/17 Docusate Sodium [Colace] 100 mg PO BID #30 cap 09/17/17 predniSONE [Prednisone] 40 mg PO QAC #3 tab 11/09/18 Amoxicillin/Potassium Clav 875 mg PO BIDCC #8 tab 11/11/18 [Augmentin] predniSONE [Prednisone] 20 mg PO DAILY #23 tab 02/22/19 Allergies Allergy/AdvReac Type Severity Reaction Status Date / Time No Known Drug Allergies Allergy Verified 02/22/19 21:49 Review of Systems All systems ED: reviewed and negative except as stated. Constitutional: Denies: fever, chills Respiratory: Reports: shortness of breath, cough. Denies: wheezes Gastrointestinal: Denies: abdominal pain Past Medical History - Past Medical History PMFSH Narrative: All Active Problems (This Medical Record has been edited. Action required.) Weakness generalized (Acute) COPD exacerbation (Acute) Stasis dermatitis (Acute) Pneumonia (Acute) Confusion (Acute) Confusion state (Acute) Acute bronchitis (Acute) Conjunctivitis (Acute) Hypernatremia (Acute) BPH loc w urin obs/LUTS (Acute) Rib contusion (Acute) Skin tear of left upper extremity (Acute) Closed head injury (Acute) Scalp contusion (Acute) Concussion without loss of consciousness (Acute) BPH (benign prostatic hyperplasia) (Acute) Fall (Acute) Contusion, knee (Acute) Rib fractures (Acute) Urethritis (Acute) Thoracic back pain (Acute) Knee pain, right (Acute) Constipation (Acute) Kidney stone (Acute) Vertigo (Acute) GERD (gastroesophageal reflux disease) (Acute) CHF exacerbation (Acute) Edema extremities (Acute) Vertigo (Acute) Bronchitis (Acute) Sinusitis (Acute) Rib contusion (Acute) Syncope (Acute) Primary atypical pneumonia (Acute) Acute exacerbation of chronic obstructive airways disease (Acute) NAJERA (dyspnea on exertion) (Acute) Venous (peripheral) insufficiency (Acute) Acute retention of urine (Acute) UTI (urinary tract infection) (Acute) Batista catheter problem (Acute) Cellulitis, penis (Acute) 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 Action required.) Unknown No family history of malignant neoplasm No family history of cardiovascular disease No history of endocrine disorder No history of gastrointestinal disorder No family history of bleeding disorder No family history of kidney disease Medical history: Reports: asthma, CHF, COPD, DM (With neuropathy), hypertension, kidney stones, other (ADA on CPAP, BPH) Psychiatric history: Reports: depression Surgical history ED: Reports: appendectomy, herniorrhaphy, knee replacement, orthopedic, other (Lumbar, right shoulder replacement) - Social History smoking status: Former smoker Alcohol use: Reports: Occasionally Drug use: Reports: none Physical Exam Limitations: no limitations Head: atraumatic, normocephalic Eye: Present: normal appearance ENT: normal exam Neck: Present: normal inspection, full ROM Chest: Present: normal inspection Respiratory: Present: wheezes Cardiovascular: Present: regular rate, normal rhythm Abdominal: Present: soft, normal bowel sounds. Absent: distention, tenderness, guarding, rebound, rigidity Extremities: Present: normal inspection, full ROM. Absent: tenderness Back: Present: normal inspection, full ROM. Absent: tenderness Neurological: Present: alert, oriented X3, CN II-XII intact Course Vital Signs Temperature 98.3 F 03/09/19 20:58 Pulse Rate 94 H 03/09/19 20:58 Respiratory Rate 18 03/09/19 20:58 Blood Pressure 117/64 03/09/19 20:58 Pulse Oximetry (%) 94 03/09/19 20:58 Temperature 98.3 F 03/09/19 20:58 Pulse Rate 74 03/09/19 23:31 Respiratory Rate 17 03/09/19 23:16 Blood Pressure 106/73 03/09/19 23:31 Pulse Oximetry (%) 95 03/09/19 23:31 Shortness of Breath/Dyspnea - [facility] Narrative Medical decision making narrative: ABG showed a pH of 7.25, PCO2 of 80, PO2 of 72.WBC is 6700 to hemoglobin 12.7 hematocrit 39.2 lactic is 1.2 sodium is 141 potassium 3.7 CO2 is 32 glucose is 180 troponin less than 0.01 BNP is 99.8. Patient is a DNR/DNI/however patient states that CPAP is okay to use as well as antibiotics and IV fluids as necessary. Chest x-ray reveals right infiltrate. Dr Paredes consulted and pt to be admitted to PCU on Bipap - Lab Data Result diagrams: 03/09/19 21:00 Lab Results 03/09/19 03/09/19 03/09/19 Range/Units 21:00 21:00 21:00 WBC 6.7 (4.5-11.0) K/mcL RBC 4.33 L (4.50-5.90) M/mcL Hgb 12.7 L (13.5-16.5) g/dL Hct 39.2 L (41.0-55.0) % POC Hct 40.0 L (41.0-55.0) % MCV 90.6 (80.0-100.0) fL MCH 29.4 (26.0-34.0) pg MCHC 32.5 (31.0-36.0) g/dL RDW 13.1 (11.5-14.5) % Plt Count 231 (140-440) K/mcL MPV 8.3 (7.4-10.4) fL Gran % 67.2 (38.0-78.0) % Lymph % (Auto) 17.0 (15.5-49.0) % Bullitt % (Auto) 11.2 (1.0-12.0) % Eos % (Auto) 4.2 (0.0-7.0) % Baso % (Auto) 0.4 (0.0-2.0) % Gran # 4.5 (1.8-8.0) K/mcL Lymph # (Auto) 1.1 L (1.5-4.8) K/mcL Bullitt # (Auto) 0.8 (0.1-0.9) K/mcL Eos # (Auto) 0.3 (0.0-0.7) K/mcL Baso # (Auto) 0 (0.0-0.3) K/mcL VBG Lactic Acid 1.2 (0.5-2.0) mmol/L POC Sodium 141 (133-145) mmol/L POC Potassium 3.7 (3.3-5.1) mmol/L POC Chloride 98 (96-108) mmol/L POC Total CO2 32 H (22-30) mmol/L POC BUN 15 (8-23) mg/dl POC Creatinine 0.8 (0.7-1.2) mg/dl POC Glucose 180 H (70-105) mg/dL POC WB Ioniz Calcium 1.12 L (1.16-1.32) mmol/L Total Creatine Kinase 53 (24-195) IU/L CK-MB (CK-2) 1.8 (0-4.9) ng/ml Troponin T (0-0.03) ng/ml NT-Pro-B Natriuret Pep 99.8 (0-450) pg/ml 03/09/19 Range/Units 21:00 WBC (4.5-11.0) K/mcL RBC (4.50-5.90) M/mcL Hgb (13.5-16.5) g/dL Hct (41.0-55.0) % POC Hct (41.0-55.0) % MCV (80.0-100.0) fL MCH (26.0-34.0) pg MCHC (31.0-36.0) g/dL RDW (11.5-14.5) % Plt Count (140-440) K/mcL MPV (7.4-10.4) fL Gran % (38.0-78.0) % Lymph % (Auto) (15.5-49.0) % Bullitt % (Auto) (1.0-12.0) % Eos % (Auto) (0.0-7.0) % Baso % (Auto) (0.0-2.0) % Gran # (1.8-8.0) K/mcL Lymph # (Auto) (1.5-4.8) K/mcL Bullitt # (Auto) (0.1-0.9) K/mcL Eos # (Auto) (0.0-0.7) K/mcL Baso # (Auto) (0.0-0.3) K/mcL VBG Lactic Acid (0.5-2.0) mmol/L POC Sodium (133-145) mmol/L POC Potassium (3.3-5.1) mmol/L POC Chloride (96-108) mmol/L POC Total CO2 (22-30) mmol/L POC BUN (8-23) mg/dl POC Creatinine (0.7-1.2) mg/dl POC Glucose (70-105) mg/dL POC WB Ioniz Calcium (1.16-1.32) mmol/L Total Creatine Kinase (24-195) IU/L CK-MB (CK-2) (0-4.9) ng/ml Troponin T < 0.01 (0-0.03) ng/ml NT-Pro-B Natriuret Pep (0-450) pg/ml Disposition Pt seen by [employer]/PA only: No Clinical Impression: Aspiration pneumonia Qualifiers: Aspiration pneumonia type: unspecified Laterality: right Disposition: Xfer As Inpt ([facility]) Condition: Fair Referrals: Lakeshia Martin MD [Primary Care Provider] -
[2019-03-09] MEDS ORDERED: 0.9 % SODIUM CHLORIDE 1,000 ML IV ONE (21:22)
[2019-03-09] MEDS ORDERED: IPRATROPIUM/ALBUTEROL 3 ML AMPUL.NEB NEB ONE (21:23)
[2019-03-09 22:01] LABS: Basophils # (Auto) 0 K/mcL (0.0-0.3); Basophils % (Auto) 0.4 % (0.0-2.0); Eosinophils # (Auto) 0.3 K/mcL (0.0-0.7); Eosinophils % (Auto) 4.2 % (0.0-7.0); Granulocytes % (Auto) 67.2 % (38.0-78.0); Lymphocytes # (Auto) 1.1 K/mcL (1.5-4.8); Mean Cell Volume 90.6 fL (80.0-100.0); Mean Corpuscular HGB Conc 32.5 g/dL (31.0-36.0); Monocytes # (Auto) 0.8 K/mcL (0.1-0.9); Monocytes % (Auto) 11.2 % (1.0-12.0); Platelet Count 231 K/mcL (140-440); RBC 4.33 M/mcL (4.50-5.90); Red Cell Distribution Width 13.1 % (11.5-14.5)
[2019-03-09 22:13] LABS: Creatine Kinase 53 IU/L (24-195); Creatine Kinase MB 1.8 ng/ml (0-4.9); proBNP 99.8 pg/ml (0-450)
[2019-03-09] MEDS ORDERED: 0.9 % SODIUM CHLORIDE 1,000 ML IV SCH (23:45)
--- NOTE | 2019-03-10 04:28 | XRay Report ---
CLINICAL INFORMATION: dyspnea COMPARISON: 02/22/2019 FINDINGS: Cardiomediastinal silhouette is accentuated right rotation and suboptimal inspiratory respiratory result. Ectatic thoracic aorta seen - as before. Pulmonary vessels are normal. Minimal stranding airspace disease in the right mid and both lung bases should represent subsegmental atelectasis. No definite effusions IMPRESSION: Mild bilateral subsegmental atelectasis Moderate stable cardiomegaly - no evidence of CHF Interpreted and Authenticated by: Delfino Simmons 03/10/19
[2019-03-10] MEDS: PIPERACILLIN SODIUM/TAZOBACTAM 3.375 GM in DEXTROSE 5% IN WATER 50 ML IV SCH ×4 (05:47→17:45)
--- NOTE | 2019-03-10 07:53 | Internal Med History&Physical ---
Medical - H&P: [facility] Patient information: Note initiated : 03/10/19 at 7:48 am Service Date, if different from initiated Date: [] Patient: Abelardo Chambers 78 y/o M admitted on 03/10/19 for Shortness of breath. Chief Complaint: [] History of present illness: Mr. Chambers is a 78 year old M Resents from custodial facility with shortness of breath and decreased LOC the patient was alert and oriented in the ED. he was found to have low saturations at the facility as well. He was recently admitted in October for aspiration pneumonia at that time. States he was feeling fine yesterday morning. Does not remember much last night other than being helped up into a chair. Trying to ascertain if this was after dinner or later in the evening. Has bit of a headache had some shortness of breath last night but but better today is his chronic cough. No chest pain In the ED he was hypercapnic and acidotic and was placed on BiPAP given steroids. Review of Systems: Pertinent positives as above. Denies fever/chills/nausea/vomiting/chest or abdominal pain/diarrhea. Remaining 10 point review of systems reviewed negative Medical - H&P: PMH Medical history: Medical History (This Medical Record has been edited. Action required.) Rib contusion (Acute) Vertigo (Acute) GERD (gastroesophageal reflux disease) (Acute) CHF exacerbation (Acute) Edema extremities (Acute) Vertigo (Acute) Bronchitis (Acute) Sinusitis (Acute) Rib contusion (Acute) Syncope (Acute) Primary atypical pneumonia (Acute) Acute exacerbation of chronic obstructive airways disease (Acute) NAJERA (dyspnea on exertion) (Acute) Venous (peripheral) insufficiency (Acute) Acute retention of urine (Acute) UTI (urinary tract infection) (Acute) Batista catheter problem (Acute) Cellulitis, penis (Acute) Urinary frequency (Chronic) Generalized polyneuropathy (Chronic) Obstructive sleep apnea (Chronic) Arthralgia of knee (Chronic) Hypokalemia (Chronic) Essential hypertension (Chronic) Diabetes mellitus type 2, uncontrolled (Chronic) Depression (Chronic) Congestive heart failure (Chronic) Advanced COPD (Chronic) Asthma (Chronic) Cellulitis (Chronic) Back pain (Chronic) Past Surgical History (This Medical Record has been edited. 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 Action required.) Unknown No family history of malignant neoplasm No family history of cardiovascular disease No history of endocrine disorder No history of gastrointestinal disorder No family history of bleeding disorder No family history of kidney disease Social History (This Medical Record has been edited. Action required.) Patient quit smoking 95 Drinks alcohol rarely Ambulates with a cane Resides at [facility] Medical - H&P: Meds Home Medications Medication Instructions Recorded Confirmed Type tamsulosin 0.4 mg capsule 0.4 mg PO BID #60 cap 10/15/15 03/10/19 Rx finasteride 5 mg tablet 5 mg PO QDAY #30 tab 07/15/17 03/10/19 Rx furosemide 20 mg tablet 40 mg PO DAILY tab 07/15/17 03/10/19 History Docusate Sodium [Colace] 100 mg PO BID #30 cap 09/17/17 03/10/19 Rx Potassium Chloride [Kdur] 20 meq PO DAILY 12/05/17 03/10/19 History Nystatin [Nyata] 100,000 unit TOPICAL BID 12/17/17 03/10/19 History Acetaminophen [Tylenol] 325 mg PO Q6HP PRN 11/08/18 03/10/19 History Albuterol Sulfate 0.63 mg INH Q6 11/08/18 03/10/19 History Albuterol Sulfate [Ventolin] 90 mcg INH Q4 PRN 11/08/18 03/10/19 History Brimonidine 0.15%-Dorzolam 2% 1 gtt LEFT EYE BID 11/08/18 03/10/19 History Dorzolamide HCl/Timolol Maleat 1 gtt LEFT EYE BID 11/08/18 03/10/19 History [Cosopt Eye Drops] Glycopyrrolate/Formoterol Fum 1 each PO BID 11/08/18 03/10/19 History [Bevespi Aerosphere Inhaler] Pramipexole [Mirapex] 1.5 mg PO HS 11/08/18 03/10/19 History Qvar 40 80 mcg INH BID 11/08/18 03/10/19 History Gabapentin [Neurontin] 100 mg PO BID 03/10/19 03/10/19 History Ondansetron [Zofran ODT] 4 mg SL Q4HP PRN 03/10/19 03/10/19 History Sertraline [Zoloft] 25 mg PO DAILY 03/10/19 03/10/19 History Allergies Allergy/AdvReac Type Severity Reaction Status Date / Time No Known Drug Allergies Allergy Verified 02/22/19 21:49 Medical - H&P: Exam - Constitutional Vitals: Temp Pulse Resp BP Pulse Ox 98.6 F 72 17 110/68 98 03/10/19 07:41 03/10/19 07:41 03/10/19 07:41 03/10/19 07:01 03/10/19 07:41 Exam: General: Alert, Awake, No acute Distress, obese Eyes/N/T: EOMI, PEERL, Head/Neck: neck supple, normocephalic atraumatic CV: RRR, No murmurs, normal s1/s2 Pulm: Diminished bilaterally, expiratory wheezing bilaterally abd: soft, nontender, +BS x4 Ext: no clubbing/cyanosis, 3+ bilateral lower extremity edema Neuro: Alert, no focal deficits, moves all extremities, CN 2-12 grossly intact, symmetrical strength b/l upper/lower, sensations intact b/l upper/lower Skin: warm/dry Medical - H&P: Reslt - Labs CBC & Chem 7: 03/09/19 21:00 Labs: Short CBC 03/09/19 Range/Units 21:00 WBC 6.7 (4.5-11.0) K/mcL Hgb 12.7 L (13.5-16.5) g/dL Hct 39.2 L (41.0-55.0) % Plt Count 231 (140-440) K/mcL Cardiac Enzymes 03/09/19 03/09/19 Range/Units 21:00 21:00 Total Creatine Kinase 53 (24-195) IU/L CK-MB (CK-2) 1.8 (0-4.9) ng/ml Troponin T < 0.01 (0-0.03) ng/ml Medical - H&P: A/P - Narrative A/P Narrative: A: *Acute on chronic hypoxic/hypercapnic respiratory failure: -Requiring BiPAP *AECOPD(does not use oxygen at home): 2/2 above *?Aspiration pneumonitis: *Chronic back pain: *Depression: *Obesity: * P: -Wean off BiPAP, follow-up ABG -Zosyn -Pending SC/BC -Steroids (wean) -Nebs, IS/Acapella -ST eval and dysphagia diet -Respiratory viral panel -lymph wraps, lasix - -PT/OT -ppx: Lovenox No code Medical - H&P: Qual - VTE Deep Vein Thrombosis/Pulmonary Embolism Present on Admission: No
[2019-03-10] MEDS ORDERED: ALBUMIN HUMAN 12.5 GM/50 ML BAG IV ONE ×2 (08:19→08:37)
[2019-03-10] MEDS ORDERED: FUROSEMIDE 40 MG/4 ML VIAL IV ONE ×2 (08:19→08:37)
[2019-03-10] MEDS ORDERED: LACTULOSE 20 GM/30 ML ORAL.SOL PO PRN (08:37)
[2019-03-10] MEDS ORDERED: ONDANSETRON 4 MG/2 ML VIAL IV PRN (08:37)
[2019-03-10] MEDS ORDERED: POLYETHYLENE GLYCOL 3350 17 GM PACKET PO PRN (08:37)
[2019-03-10] MEDS ORDERED: MAGNESIUM SULFATE 2 GM/50 ML BAG IV PRN (08:37)
[2019-03-10] MEDS ORDERED: POTASSIUM CHLORIDE 40 MEQ in DEXTROSE 5% IN WATER 500 ML IV PRN (08:37)
[2019-03-10] MEDS ORDERED: SENNOSIDES 1 TABLET PO PRN (08:37)
[2019-03-10] MEDS ORDERED: PROMETHAZINE 25 MG TABLET PO PRN (08:37)
[2019-03-10] MEDS ORDERED: POTASSIUM CHLORIDE 20 MEQ TABLET PO PRN ×2 (08:37)
[2019-03-10] MEDS ORDERED: methylPREDNISolone SOD SUCC 125 MG/2 ML VIAL IV ONE (08:37)
[2019-03-10] MEDS ORDERED: ONDANSETRON 4 MG ODT TABLET SL PRN (08:37)
[2019-03-10] MEDS ORDERED: DOCUSATE SODIUM 100 MG CAPSULE PO SCH (09:00)
[2019-03-10] MEDS: IPRATROPIUM/ALBUTEROL 3 ML AMPUL.NEB NEB SCH ×3 (09:19→18:53)
--- NOTE | 2019-03-10 09:19 | XRay Report ---
CLINICAL INFORMATION: COPD COMPARISON: 03/09/2019 FINDINGS: Moderate cardiomegaly is unchanged. Mediastinum is unremarkable. Pulmonary vessels are mildly distended. No definite edema. Minor bibasilar atelectasis noted IMPRESSION: Mild CHF Interpreted and Authenticated by: Delfino Simmons 03/10/19
[2019-03-10 09:33] LABS: Mean Cell Volume 93.3 fL (80.0-100.0); Mean Corpuscular HGB Conc 32.3 g/dL (31.0-36.0); Platelet Count 192 K/mcL (140-440)
[2019-03-10] MEDS: DORZOLAMIDE 2% LEFT EYE SCH ×2 (09:48→19:38)
[2019-03-10] MEDS: BECLOMETHASONE DIPROPIONATE 80MCG INHALER INH SCH ×2 (09:48→19:38)
[2019-03-10] MEDS: BRIMONIDINE 0.15% LEFT EYE SCH ×2 (09:48→19:38)
[2019-03-10] MEDS: TIMOLOL LEFT EYE SCH ×2 (09:49→19:38)
[2019-03-10] MEDS: FORMOTEROL FUM INH SCH ×2 (09:49→19:39)
[2019-03-10] MEDS: DORZOLAMIDE LEFT EYE SCH ×2 (09:49→19:38)
[2019-03-10] MEDS: GLYCOPYRROLATE INH SCH ×2 (09:49→19:39)
[2019-03-10 09:54] LABS: ALT/SGPT 21 U/l (0-40); Albumin 3.3 gm/dL (3.2-5.2); Albumin/Globulin Ratio 1.3 (1.0-2.3); Alkaline Phosphatase 64 U/L (39-117); Bilirubin,Direct < 0.2 mg/dL (0.0-0.3); Blood Urea Nitrogen 12 mg/dl (8-23); Gamma Glutamyl Transpeptidase 10 U/L (8-61); Uric Acid 2.3 mg/dL (2.5-8.0)
[2019-03-10] MEDS: ACETAMINOPHEN 325 MG TABLET PO PRN ×2 (10:08→20:22)
[2019-03-10] MEDS: TAMSULOSIN 0.4 MG CAPSULE PO SCH ×2 (10:09→19:37)
[2019-03-10] MEDS: SERTRALINE 50 MG TABLET PO SCH (10:10)
[2019-03-10] MEDS: GABAPENTIN 100 MG CAPSULE PO SCH ×2 (10:10→19:37)
[2019-03-10] MEDS: DOCUSATE SODIUM 100 MG CAPSULE PO SCH ×2 (10:10→19:37)
[2019-03-10] MEDS: POTASSIUM CHLORIDE 20 MEQ TABLET PO SCH (10:11)
[2019-03-10] MEDS: ENOXAPARIN 40 MG/0.4 ML SYRINGE SQ SCH (10:11)
[2019-03-10] MEDS: NYSTATIN POWDER BOTTLE 15GM TOPICAL SCH ×2 (10:12→19:37)
[2019-03-10] MEDS: FINASTERIDE 5 MG TABLET PO SCH (10:15)
[2019-03-10 10:19] LABS: Eosinophils % (Manual) 2 % (0-7); Lymphocytes % 8 % (15-49); Monocytes % (Manual) 6 % (1-12); Platelet Estimate NORMAL (NORMAL); RBC Morphology NORMAL (NORMAL); Segmented Neutrophils % 84 % (38-78)
[2019-03-10 11:48] LABS: Appearance,Urine HAZY; Bilirubin,Urine NEG (NEG); Color,Urine YELLOW; Glucose,Urine (UA) NEGATIVE (NEG); Leukocyte Esterase,Urine NEG /uL (NEG); Protein,Urine NEG (NEG); Specific Gravity,Urine 1.021 (1.000-1.035); Urine Blood NEG mg/dL (<0.03); Urobilinogen,Urine NEG (NEG)
[2019-03-10] MEDS ORDERED: OSELTAMIVIR PHOSPHATE 75 MG CAPSULE PO ONE (14:00)
[2019-03-10] MEDS: 0.9 % SODIUM CHLORIDE 10 ML SYRINGE IV SCH ×2 (14:37→21:32)
[2019-03-10] MEDS: methylPREDNISolone SOD SUCC 40 MG/ML VIAL IV SCH ×2 (14:37→21:32)
[2019-03-10] MEDS ORDERED: PRAMIPEXOLE 1 MG TABLET PO SCH (21:00)
[2019-03-11] MEDS: PIPERACILLIN SODIUM/TAZOBACTAM 3.375 GM in DEXTROSE 5% IN WATER 50 ML IV SCH ×3 (00:03→11:44)
[2019-03-11] MEDS: IPRATROPIUM/ALBUTEROL 3 ML AMPUL.NEB NEB SCH ×3 (00:37→13:34)
[2019-03-11] MEDS: 0.9 % SODIUM CHLORIDE 10 ML SYRINGE IV SCH (05:42)
[2019-03-11] MEDS: methylPREDNISolone SOD SUCC 40 MG/ML VIAL IV SCH (05:42)
[2019-03-11 06:04] LABS: Basophils # (Auto) 0 K/mcL (0.0-0.3); Basophils % (Auto) 0 % (0.0-2.0); Eosinophils # (Auto) 0 K/mcL (0.0-0.7); Eosinophils % (Auto) 0 % (0.0-7.0); Granulocytes % (Auto) 91.2 % (38.0-78.0); Lymphocytes # (Auto) 0.7 K/mcL (1.5-4.8); Lymphocytes % (Auto) 6.8 % (15.5-49.0); Mean Cell Volume 93.2 fL (80.0-100.0); Mean Corpuscular HGB Conc 32.3 g/dL (31.0-36.0); Monocytes # (Auto) 0.2 K/mcL (0.1-0.9); Platelet Count 198 K/mcL (140-440); RBC 4.07 M/mcL (4.50-5.90); Red Cell Distribution Width 13.5 % (11.5-14.5)
[2019-03-11 06:08] LABS: ALT/SGPT 19 U/l (0-40); Albumin 3.3 gm/dL (3.2-5.2); Albumin/Globulin Ratio 1.2 (1.0-2.3); Alkaline Phosphatase 59 U/L (39-117); Bilirubin,Direct < 0.2 mg/dL (0.0-0.3); Blood Urea Nitrogen 16 mg/dl (8-23); Gamma Glutamyl Transpeptidase 9 U/L (8-61)
--- NOTE | 2019-03-11 07:29 | Internal Med Progress Note ---
Medical - PN: Subj Patient information: Note initiated : 03/11/19 at 7:24 am Service Date, if different from initiated Date: [] Patient: Abelardo Chambers 78 y/o M admitted on 03/10/19 for Shortness of breath. Chief Complaint: [] Interval history: Mr. Chambers is a 78 year old M Resents from alf facility with shortness of breath and decreased LOC the patient was alert and oriented in the ED. he was found to have low saturations at the facility as well. He was recently admitted in October for aspiration pneumonia at that time. States he was feeling fine yesterday morning. Does not remember much last night other than being helped up into a chair. Trying to ascertain if this was after dinner or later in the evening. Has bit of a headache had some shortness of breath last night but but better tod ay is his chronic cough. No chest pain In the ED he was hypercapnic and acidotic and was placed on BiPAP given steroids. 03/11 No overnight events. Patient doing well. Has productive cough still white sputum. Some shortness of breath but much improved. Review of Systems: denies headache/fever/chills/nausea/vomiting/chest or abdominal pain/diarrhea. Otherwise see above. - Constitutional Vitals: Vital Signs Temp Pulse Resp BP Pulse Ox 98.2 F 57 L 16 96/65 99 03/11/19 07:01 03/11/19 07:19 03/11/19 07:19 03/11/19 07:01 03/11/19 07:19 Period Temp Pulse Resp BP Sys/Aaron Pulse Ox Last 24 Hr 97.7 F-98.6 F 53-97 12-27 96-137/58-106 91-99 Intake and Output 03/10/19 03/11/19 03/11/19 21:59 05:59 13:59 Intake Total 450 370 50 Output Total 275 851 Balance 175 -481 50 Weight 117.254 kg Intake & Output: Intake & Output 03/10/19 03/11/19 03/11/19 21:59 05:59 13:59 Intake Total 450 370 50 Output Total 275 851 Balance 175 -481 50 Weight 117.254 kg Intake: IV 200 50 50 Zosyn 3.375 gm In Dextrose 5% 100 50 50 in Water 50 ml @ 100 mls/hr IV Q6H [facility] Rx#:[id number] Oral 250 320 Output: Void Amount 275 850 # of times incontinent of urine 1 Other: Urine Appearance Clear Urine Color Pale Dark Yellow Urine Odor Strong # Voids 1 Exam: General: Alert, Awake, No acute Distress, obese Eyes/N/T: EOMI, Head/Neck: neck supple, CV: RRR, No murmurs, Pulm: Mildly diminished much better aeration, no wheezing abd: soft, nontender, +BS x4 Ext: no clubbing/cyanosis, 1-2+ bilateral lower extremity edema improved Neuro: Alert, no focal deficits, moves all extremities, Skin: warm/dry Medical - PN: Obj Da - Labs CBC & Chem 7: 03/11/19 03:50 03/11/19 03:50 Labs: Abnormal Lab Results 03/11/19 03/11/19 03/10/19 03:50 03:50 09:00 RBC 4.07 L Hgb 12.3 L Hct 37.9 L POC Hct Gran % 91.2 H Lymph % (Auto) 6.8 L Gran # 9.2 H Lymph # (Auto) 0.7 L Seg Neutrophils % Lymphocytes % POC Total CO2 Glucose 168 H POC Glucose Uric Acid 2.0 L 2.3 L Calcium 8.2 L 8.0 L POC WB Ioniz Calcium 03/10/19 03/09/19 03/09/19 09:00 21:00 21:00 RBC 4.20 L 4.33 L Hgb 12.6 L 12.7 L Hct 39.2 L 39.2 L POC Hct 40.0 L Gran % Lymph % (Auto) Gran # Lymph # (Auto) 1.1 L Seg Neutrophils % 84 H Lymphocytes % 8 L POC Total CO2 32 H Glucose POC Glucose 180 H Uric Acid Calcium POC WB Ioniz Calcium 1.12 L Meds: Medications Acetaminophen (Tylenol) 650 mg PO Q6HP PRN PRN Reason: PAIN/FEVER > 101 Last Admin: 03/10/19 20:22 Dose: 650 mg Documented by: Albuterol/Ipratropium (Duoneb) 3 ml NEB Q6HRT [facility] Last Admin: 03/11/19 07:09 Dose: 3 ml Documented by: Docusate Sodium (Colace) 100 mg PO BID [facility] Last Admin: 04/18/19 19:37 Dose: Not Given Documented by: Enoxaparin Sodium (Lovenox) 40 mg SQ DAILY [facility] Last Admin: 03/10/19 10:11 Dose: 40 mg Documented by: Finasteride (Proscar) 5 mg PO QDAY [facility] Last Admin: 03/10/19 10:15 Dose: 5 mg Documented by: Gabapentin (Neurontin) 100 mg PO BID [facility] Last Admin: 03/10/19 19:37 Dose: 100 mg Documented by: Piperacillin Sod/Tazobactam (Sod 3.375 gm/ Dextrose) 50 mls @ 100 mls/hr IV Q6H [facility]; Protocol Last Infusion: 03/11/19 06:20 Dose: Infused Documented by: Potassium Chloride 40 meq/ (Dextrose) 520 mls @ 130 mls/hr IV UD PRN PRN Reason: Potassium < 3 Magnesium Sulfate (Magnesium Sulfate) 2 gm in 50 mls @ 50 mls/hr IV UD PRN PRN Reason: Magnesium </= 1.6 Lactulose (Cephulac) 10 gm PO DAILYP PRN PRN Reason: Constipation Methylprednisolone Sodium Succinate (Solu-Medrol) 40 mg IV Q8 [facility] Last Admin: 03/11/19 05:42 Dose: 40 mg Documented by: Nystatin (Nystatin) 1 dose TOPICAL BID [facility] Last Admin: 03/10/19 19:37 Dose: 1 dose Documented by: Ondansetron HCl (Zofran Odt) 4 mg SL Q4HP PRN PRN Reason: Nausea And Vomiting Ondansetron HCl (Zofran) 4 mg IV Q4HP PRN PRN Reason: Nausea And Vomiting Oseltamivir Phosphate (Tamiflu) 75 mg PO BID [facility] Brimonidine 0.15%- Dorzolam 2% Eye Drops 1 dose LEFT EYE BID [facility] Last Admin: 03/10/19 19:38 Dose: Not Given Documented by: Dorzolamide Hcl/Timolol Maleat [ Cosopt] Eye Drops 1 dose LEFT EYE BID [facility] Last Admin: 03/10/19 19:38 Dose: Not Given Documented by: Glycopyrrolate/Formoterol Fum [ Bevespi Aerosphere] Inhaler 1 dose INH BID [facility] Last Admin: 03/10/19 19:39 Dose: Not Given Documented by: Beclomethasone Dipropionate 80mcg Inhaler 1 dose INH BID [facility] Last Admin: 03/10/19 19:38 Dose: Not Given Documented by: Polyethylene Glycol (Miralax) 17 gm PO DAILYP PRN PRN Reason: Constipation Potassium Chloride (Kdur) 20 meq PO DAILY [facility] Last Admin: 03/10/19 10:11 Dose: 20 meq Documented by: Potassium Chloride (Kdur) 40 meq PO UD PRN PRN Reason: Potssium is 3-3.5 Potassium Chloride (Kdur) 40 meq PO UD PRN PRN Reason: Potassium < 3 Pramipexole Dihydrochloride (Mirapex) 1.5 mg PO HS [facility] Last Admin: 03/10/19 19:36 Dose: 1.5 mg Documented by: Promethazine HCl (Phenergan) 0 mg PO Q6HP PRN PRN Reason: Nausea And Vomiting Senna (Senokot) 2 tab PO HSP PRN PRN Reason: Constipation Sertraline HCl (Zoloft) 25 mg PO DAILY [facility] Last Admin: 03/10/19 10:10 Dose: 25 mg Documented by: Sodium Chloride (Saline Flush) 10 ml IV Q8 [facility] Last Admin: 03/11/19 05:42 Dose: 10 ml Documented by: Tamsulosin HCl (Flomax) 0.4 mg PO BID [facility] Last Admin: 03/10/19 19:37 Dose: 0.4 mg Documented by: Medical - PN: A/P - Time Spent With Patient Total time spent is greater than 50% in coordination of care (as documented) at patient's floor/unit and/or counseling patient: - Narrative A/P Narrative: A: *Influenza A PNA: *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
[2019-03-11] MEDS ORDERED: FUROSEMIDE 40 MG/4 ML VIAL IV ONE (08:21)
[2019-03-11] MEDS: TAMSULOSIN 0.4 MG CAPSULE PO SCH (08:26)
[2019-03-11] MEDS: FINASTERIDE 5 MG TABLET PO SCH (08:27)
[2019-03-11] MEDS: POTASSIUM CHLORIDE 20 MEQ TABLET PO SCH (08:28)
[2019-03-11] MEDS: DOCUSATE SODIUM 100 MG CAPSULE PO SCH (08:28)
[2019-03-11] MEDS: NYSTATIN POWDER BOTTLE 15GM TOPICAL SCH (08:29)
[2019-03-11] MEDS: ENOXAPARIN 40 MG/0.4 ML SYRINGE SQ SCH (08:29)
[2019-03-11] MEDS: SERTRALINE 50 MG TABLET PO SCH (08:30)
[2019-03-11] MEDS: GLYCOPYRROLATE INH SCH (08:30)
[2019-03-11] MEDS: DORZOLAMIDE LEFT EYE SCH (08:30)
[2019-03-11] MEDS: BECLOMETHASONE DIPROPIONATE 80MCG INHALER INH SCH (08:30)
[2019-03-11] MEDS: BRIMONIDINE 0.15% LEFT EYE SCH (08:30)
[2019-03-11] MEDS: TIMOLOL LEFT EYE SCH (08:30)
[2019-03-11] MEDS: FORMOTEROL FUM INH SCH (08:30)
[2019-03-11] MEDS: DORZOLAMIDE 2% LEFT EYE SCH (08:30)
[2019-03-11] MEDS ORDERED: OSELTAMIVIR PHOSPHATE 75 MG CAPSULE PO SCH (09:00)
--- NOTE | 2019-03-11 09:17 | Discharge Summary ---
Medical - DS: Prov Patient information: Note initiated : 03/11/19 at 9:13 am Service Date, if different from initiated Date: [] Patient: Abelardo Chambers 78 y/o M admitted on 03/10/19 for Shortness of breath. Chief Complaint: [] Date of admission: 03/10/19 00:35 Discharge date: 03/12/19 Primary care physician: Lakeshia Martin Consults: 03/09/19 Consult to Physician [CONS] Stat Comment: Consulting Provider: Daryl Paredes Reason For Exam: Physician to Consult Medical - DS: Meds - Discharge Medications Prescriptions: Oseltamivir Phosphate [Tamiflu] 75 mg PO BID #6 cap predniSONE [Prednisone] 40 mg PO ONCE #1 tab Active and Home Medications: Home Medications tamsulosin 0.4 mg capsule 0.4 mg PO BID #60 cap 10/15/15 [Rx Confirmed 03/10/19 Last Taken 03/09/19 17:00] finasteride 5 mg tablet 5 mg PO QDAY #30 tab 07/15/17 [Rx Confirmed 03/10/19 Last Taken 03/09/19 12:00] furosemide 20 mg tablet 40 mg PO DAILY tab 07/15/17 [History Confirmed 03/10/19 Last Taken 03/09/19 12:00] Docusate Sodium [Colace] 100 mg PO BID #30 cap 09/17/17 [Rx Confirmed 03/10/19 Last Taken 03/09/19 17:00] Potassium Chloride [Kdur] 20 meq PO DAILY 12/05/17 [History Confirmed 03/10/19 Last Taken 03/09/19 12:00] Nystatin [Nyata] 100,000 unit TOPICAL BID 12/17/17 [History Confirmed 03/10/19 Last Taken 03/09/19 18:10] Acetaminophen [Tylenol] 325 mg PO Q6HP PRN 11/08/18 [History Confirmed 03/10/19 Last Taken 03/07/19 09:40] Albuterol Sulfate 0.63 mg INH Q6 11/08/18 [History Confirmed 03/10/19 Last Taken 03/09/19 19:25] Albuterol Sulfate [Ventolin] 90 mcg INH Q4 PRN 11/08/18 [History Confirmed 03/10/19 Last Taken 02/22/19 20:00] Brimonidine 0.15%-Dorzolam 2% 1 gtt LEFT EYE BID 11/08/18 [History Confirmed 03/10/19 Last Taken 03/09/19 17:00] Dorzolamide HCl/Timolol Maleat [Cosopt Eye Drops] 1 gtt LEFT EYE BID 11/08/18 [History Confirmed 03/10/19 Last Taken 03/09/19 17:00] Glycopyrrolate/Formoterol Fum [Bevespi Aerosphere Inhaler] 1 each PO BID 11/08/18 [History Confirmed 03/10/19 Last Taken 03/09/19 17:00] Pramipexole [Mirapex] 1.5 mg PO HS 11/08/18 [History Confirmed 03/10/19 Last Taken 03/09/19 17:30] Qvar 40 80 mcg INH BID 11/08/18 [History Confirmed 03/10/19 Last Taken 03/09/19 17:00] Gabapentin [Neurontin] 100 mg PO BID 03/10/19 [History Confirmed 03/10/19 Last Taken 03/09/19 17:00] Ondansetron [Zofran ODT] 4 mg SL Q4HP PRN 03/10/19 [History Confirmed 03/10/19 Last Taken 03/07/19 07:30] Sertraline [Zoloft] 25 mg PO DAILY 03/10/19 [History Confirmed 03/10/19 Last Taken 03/09/19 12:00] Medical - DS: Hosp Hospital course: Mr. Chambers is a 78 year old M Mr. Chambers is a 78 year old M Resents from group home facility with shortness of breath and decreased LOC the patient was alert and oriented in the ED. he was found to have low saturations at the facility as well. He was recently admitted in October for aspiration pneumonia at that time. States he was feeling fine yesterday morning. Does not remember much last night other than being helped up into a chair. Trying to ascertain if this was after dinner or later in the evening. Has bit of a headache had some shortness of breath last night but but better today is his chronic cough. No chest pain In the ED he was hypercapnic and acidotic and was placed on BiPAP given steroids. 03/11 No overnight events. Patient doing well. Has productive cough still white sputum. Some shortness of breath but much improved. Possible discharge in the morning pending oxygen requirement, hopefully wean off today. Discharge diagnosis: Influenza A pneumonia acute exacerbation COPD hypoxic resp failure Secondary discharge diagnosis: Chronic back pain depression obesity mild oral pharyngeal dysphasia - Time Spent with Patient Total time spent providing and/or coordinating discharge services: Greater than 30 minutes Medical - DS: Exam - Constitutional Vitals: Vital Signs Temp Pulse Resp BP Pulse Ox 03/11/19 07:27 65 14 03/11/19 07:19 57 L 16 99 03/11/19 07:01 98.2 F 53 L 24 H 96/65 94 03/11/19 06:02 61 20 95 03/11/19 06:01 59 L 19 112/74 95 03/11/19 05:11 60 16 94 03/11/19 05:01 57 L 17 103/67 95 03/11/19 04:04 54 L 19 92 03/11/19 04:02 98.1 F 55 L 16 103/71 93 03/11/19 03:05 63 20 94 03/11/19 03:00 63 14 128/79 96 03/11/19 02:14 58 L 16 93 03/11/19 02:01 64 14 113/71 94 03/11/19 02:00 93 03/11/19 01:39 65 14 91 03/11/19 01:06 69 15 115/68 95 03/11/19 00:16 59 L 16 93 03/11/19 00:01 98.2 F 82 22 127/58 92 03/10/19 23:06 58 L 15 91 03/10/19 23:01 53 L 14 103/76 94 03/10/19 22:10 66 21 95 03/10/19 22:01 74 14 115/71 94 03/10/19 21:30 73 17 94 03/10/19 21:01 77 15 116/70 95 03/10/19 20:09 75 16 94 03/10/19 20:01 82 17 135/77 96 03/10/19 20:00 95 03/10/19 19:01 86 15 118/68 98 03/10/19 18:55 86 18 03/10/19 18:08 97 H 18 92 03/10/19 18:01 93 H 16 118/61 92 03/10/19 17:36 26 H 03/10/19 17:01 88 13 122/80 92 03/10/19 16:24 87 21 91 03/10/19 16:01 90 19 118/74 92 03/10/19 15:25 90 15 137/73 94 03/10/19 15:01 89 22 119/106 94 03/10/19 14:08 85 19 93 03/10/19 14:01 86 20 135/73 93 03/10/19 14:00 96 03/10/19 13:26 14 128/74 03/10/19 13:24 27 H 03/10/19 12:21 72 15 92 03/10/19 12:01 76 12 123/80 95 03/10/19 12:00 97.7 F 03/10/19 11:13 69 16 94 03/10/19 11:01 17 116/69 03/10/19 10:01 66 17 115/75 93 03/10/19 09:20 76 19 Intake and Output 03/10/19 03/11/19 03/11/19 21:59 05:59 13:59 Intake Total 450 370 50 Output Total 275 851 Balance 175 -481 50 Intake: IV 200 50 50 Zosyn 3.375 gm In Dextrose 5% 100 50 50 in Water 50 ml @ 100 mls/hr IV Q6H [facility] Rx#:[id number] Oral 250 320 Output: Void Amount 275 850 # of times incontinent of urine 1 Other: Urine Appearance Clear Urine Color Pale Dark Yellow Urine Odor Strong # Voids 1 Weight 117.254 kg Medical - DS: Data Labs on day of discharge: Labs from last 24 hours 03/11/19 03/11/19 03/10/19 03:50 03:50 09:00 WBC 10.1 RBC 4.07 L Hgb 12.3 L Hct 37.9 L MCV 93.2 MCH 30.1 MCHC 32.3 RDW 13.5 Plt Count 198 MPV 8.4 Gran % 91.2 H Lymph % (Auto) 6.8 L Dodge % (Auto) 2.0 Eos % (Auto) 0 Baso % (Auto) 0 Gran # 9.2 H Lymph # (Auto) 0.7 L Dodge # (Auto) 0.2 Eos # (Auto) 0 Baso # (Auto) 0 Total Counted Seg Neutrophils % Lymphocytes % Monocytes % (Manual) Eosinophils % (Manual) Platelet Estimate RBC Morphology Sodium 142 142 Potassium 4.0 4.0 Chloride 102 105 Carbon Dioxide 28 29 Anion Gap 12.0 8.0 BUN 16 12 Creatinine 0.7 0.7 GFR Calculation 89 89 Glucose 168 H 100 Uric Acid 2.0 L 2.3 L Calcium 8.2 L 8.0 L Phosphorus 2.8 3.1 Magnesium 2.1 2.1 Total Bilirubin 0.3 0.5 Direct Bilirubin < 0.2 < 0.2 GGT 9 10 AST 12 11 ALT 19 21 Alkaline Phosphatase 59 64 Lactate Dehydrogenase 238 191 Total Protein 6.0 5.9 Albumin 3.3 3.3 Globulin 2.7 2.6 Albumin/Globulin Ratio 1.2 1.3 Triglycerides 70 35 Urine Color Urine Appearance Urine pH Ur Specific [place] Urine Protein Urine Glucose (UA) Urine Ketones Urine Occult Blood Urine Nitrate Urine Bilirubin Urine Urobilinogen Ur Leukocyte Esterase Ur Culture Indicated? 03/10/19 03/09/19 09:00 11:05 WBC 10.3 RBC 4.20 L Hgb 12.6 L Hct 39.2 L MCV 93.3 MCH 30.1 MCHC 32.3 RDW 14.0 Plt Count 192 MPV 7.8 Gran % Lymph % (Auto) Dodge % (Auto) Eos % (Auto) Baso % (Auto) Gran # Lymph # (Auto) Dodge # (Auto) Eos # (Auto) Baso # (Auto) Total Counted 100 Seg Neutrophils % 84 H Lymphocytes % 8 L Monocytes % (Manual) 6 Eosinophils % (Manual) 2 Platelet Estimate Normal RBC Morphology Normal Sodium Potassium Chloride Carbon Dioxide Anion Gap BUN Creatinine GFR Calculation Glucose Uric Acid Calcium Phosphorus Magnesium Total Bilirubin Direct Bilirubin GGT AST ALT Alkaline Phosphatase Lactate Dehydrogenase Total Protein Albumin Globulin Albumin/Globulin Ratio Triglycerides Urine Color Yellow Urine Appearance Hazy Urine pH 5.0 Ur Specific [place] 1.021 Urine Protein Neg Urine Glucose (UA) Negative Urine Ketones Neg Urine Occult Blood Neg Urine Nitrate Neg Urine Bilirubin Neg Urine Urobilinogen Neg Ur Leukocyte Esterase Neg Ur Culture Indicated? No Preliminary micro results at discharge 03/09/19 21:00 Blood Culture - Preliminary Blood 03/09/19 21:05 Blood Culture - Preliminary Blood Medical - DS: A/P - Patient/Caregiver Discharge Instructions Activity: increase activity as tolerated Diet: Cardiac - Follow up Plan Follow up with: Lakeshia Martin MD [Primary Care Provider] - Disposition: Xfer SNF Prognosis: Fair Rehab Potential: Fair I certify that the patient requires SNF services: Yes Overall status at discharge: patient is progressing back to baseline Medical - DS: Qual - VTE Deep Vein Thrombosis/Pulmonary Embolism Present on Admission: No
[2019-03-11] MEDS ORDERED: predniSONE 20 MG TABLET PO SCH (17:30)
[2019-03-11] MEDS ORDERED: PRAMIPEXOLE 1 MG TABLET PO SCH (18:00)
[2019-03-11] MEDS ORDERED: GABAPENTIN 100 MG CAPSULE PO SCH (18:00)
[2019-03-12] MEDS ORDERED: FUROSEMIDE 40 MG TABLET PO SCH (09:00)
== END 2019-03-11 14:41 | DRG 193 ==
LOC: ED 20:57 → ICU 03-10 00:35
PROVIDERS: ADMIT Internal Medicine; ATTEND Internal Medicine

== ENCOUNTER 2019-05-06 01:32 | Inpatient (IN) ==
[2019-05-06] MEDS ORDERED: PIPERACILLIN SODIUM/TAZOBACTAM 3.375 GM in DEXTROSE 5% IN WATER 50 ML IV ONE (02:09)
[2019-05-06] MEDS ORDERED: IPRATROPIUM/ALBUTEROL 3 ML AMPUL.NEB NEB ONE (02:10)
[2019-05-06] MEDS ORDERED: VANCOMYCIN 1,000 MG in 0.9 % SODIUM CHLORIDE 250 ML IV ONE (02:10)
[2019-05-06] MEDS ORDERED: FUROSEMIDE 20 MG/2 ML VIAL IV ONE (02:10)
--- NOTE | 2019-05-06 02:11 | Emergency Department Note ---
SOB HPI - General Chief Complaint: Shortness of Breath/Dyspnea Stated Complaint: shortness of breah, dizziness Time Seen by Provider: 05/06/19 01:44 Source: patient, EMS Mode of arrival: EMS Limitations: no limitations - History of Present Illness this 79-year-old male lives at [facility] over this last 1+ year where he has had to be because of weakness and falling. He is sent here via EMS because of shortness of breath, temperature, saturations recorded at 66% there. He has had somewhat of a wet cough. He is felt dizzy for a couple of days. He feels like this is similar to previous pneumonia. He has had some chills but no sweats. REVIEW OF SYSTEMS: No chest pain. Some wheezing and phlegm worse than usual. No abdominal pain or vomiting but some nausea and recent diarrhea. Headache this morning as well as some dizziness. - Related Data Home Medications Medication Instructions Recorded Confirmed furosemide 20 mg tablet 120 mg PO DAILY tab 07/15/17 05/06/19 Potassium Chloride [Kdur] 20 meq PO QID 12/05/17 05/06/19 Acetaminophen [Tylenol] 325 mg PO Q6HP PRN 11/08/18 05/06/19 Albuterol Sulfate 0.63 mg INH Q6 11/08/18 05/06/19 Albuterol Sulfate [Ventolin] 90 mcg INH Q4 PRN 11/08/18 05/06/19 Brimonidine 0.15%-Dorzolam 2% 1 gtt LEFT EYE BID 11/08/18 05/06/19 Dorzolamide HCl/Timolol Maleat 1 gtt LEFT EYE BID 11/08/18 05/06/19 [Cosopt Eye Drops] Glycopyrrolate/Formoterol Fum 1 each PO BID 11/08/18 05/06/19 [Bevespi Aerosphere Inhaler] Pramipexole [Mirapex] 1.5 mg PO HS 11/08/18 05/06/19 Qvar 40 80 mcg INH BID 11/08/18 05/06/19 Gabapentin [Neurontin] 200 mg PO BID 03/10/19 05/06/19 Ondansetron [Zofran ODT] 4 mg SL Q4HP PRN 03/10/19 05/06/19 Sertraline [Zoloft] 25 mg PO DAILY 03/10/19 05/06/19 Budesonide [Pulmicort] 0.5 mg NEB BID 05/06/19 05/06/19 FLUoxetine HCL [PROzac] 20 mg PO DAILY 05/06/19 05/06/19 Glucagon,Human Recombinant 1 mg IJ PRN PRN 05/06/19 05/06/19 [Glucagon Emergency Kit] Ipratropium/Albuterol [Duoneb] 3 ml NEB DAILY 05/06/19 05/06/19 LORazepam [Ativan] 0.5 mg PO Q8HP PRN 05/06/19 05/06/19 Loperamide HCl [Loperamide] 4 mg PO PRN PRN 05/06/19 05/06/19 Magnesium Hydroxide [Milk of 400 mg PO PRN PRN 05/06/19 05/06/19 Magnesia] Metolazone [Zaroxolyn] 2.5 mg PO WEEKLY 05/06/19 05/06/19 Polyethylene Glycol 3350 [Miralax] 17 gm PO DAILY 05/06/19 05/06/19 Spironolactone [Aldactone] 12.5 mg PO ONCE 05/06/19 05/06/19 morphine 5 mg PO Q4HP PRN 05/06/19 05/06/19 Previous Rx's Medication Instructions Recorded tamsulosin 0.4 mg capsule 0.4 mg PO BID #60 cap 10/15/15 finasteride 5 mg tablet 5 mg PO QDAY #30 tab 07/15/17 Docusate Sodium [Colace] 100 mg PO BID #30 cap 09/17/17 Allergies Allergy/AdvReac Type Severity Reaction Status Date / Time No Known Drug Allergies Allergy Verified 05/06/19 01:38 Past Medical History - Past Medical History [facility]LY [facility] Narrative: Medical History (This Medical Record has been edited. Action required.) Diabetes mellitus type 2, uncontrolled (Chronic) Congestive heart failure (Chronic) Essential hypertension (Chronic) Obstructive sleep apnea (Chronic) Advanced COPD (Chronic) Stasis dermatitis (Chronic) Aspiration pneumonia (Resolved) BPH loc w urin obs/LUTS (Chronic) BPH (benign prostatic hyperplasia) (Chronic) GERD (gastroesophageal reflux disease) (Chronic) Edema extremities (Chronic) Syncope (Resolved) Venous (peripheral) insufficiency (Chronic) Urinary frequency (Chronic) Generalized polyneuropathy (Chronic) Arthralgia of knee (Chronic) Depression (Chronic) Asthma (Chronic) Back pain (Chronic) Acute exacerbation of chronic obstructive airways disease (Resolved) Acute retention of urine (Resolved) Bronchitis (Resolved) CHF exacerbation (Resolved) COPD exacerbation (Resolved) Cellulitis (Resolved) Cellulitis, penis (Resolved) Closed head injury (Resolved) Concussion without loss of consciousness (Resolved) Confusion (Resolved) Confusion state (Resolved) NAJERA (dyspnea on exertion) (Resolved) Fall (Resolved) Batista catheter problem (Resolved) Hypernatremia (Resolved) Hypokalemia (Resolved) Kidney stone (Resolved) Knee pain, right (Resolved) Mild congestive heart failure (Resolved) Pneumonia (Resolved) Primary atypical pneumonia (Resolved) Rib contusion (Resolved) Rib fractures (Resolved) Shortness of breath (Resolved) Sinusitis (Resolved) Thoracic back pain (Resolved) UTI (urinary tract infection) (Resolved) Urethritis (Resolved) Vertigo (Resolved) Vertigo (Resolved) Past Surgical History (This Medical Record has been edited. 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 Action required.) Unknown No family history of malignant neoplasm No family history of cardiovascular disease No history of endocrine disorder No history of gastrointestinal disorder No family history of bleeding disorder No family history of kidney disease Medical history: Reports: asthma, CHF, COPD, DM (With neuropathy), hypertension, kidney stones, other (ADA on CPAP, BPH). Denies: myocardial infarction Psychiatric history: Reports: depression Surgical history ED: Reports: appendectomy, herniorrhaphy, knee replacement, orthopedic, other (Lumbar, right shoulder replacement) - Social History smoking status: Former smoker Alcohol use: Reports: Occasionally Drug use: Reports: none Physical Exam Initial vitals included respiratory rate 26 and 87% on room air. Pulse was 107 and temperature was 100.0. Limitations: no limitations General appearance: alert, in no apparent distress, malaise (mild), sleepy Head: atraumatic, normocephalic Eye: Present: EOMI Neck: Present: trachea midline. Absent: lymphadenopathy, thyromegaly Chest: Present: symmetric chest wall rise Respiratory: Present: normal lung sounds bilaterally, wheezes (Mild expiratory heard throughout the posterior corcoran in expiration.). Absent: respiratory distress, stridor, accessory muscle use, prolonged expiratory phase Cardiovascular: Present: regular rate, normal rhythm, tachycardia. Absent: systolic murmur, diastolic murmur Abdominal: Present: soft. Absent: distention, tenderness, guarding, rebound, rigidity, organomegaly, mass Extremities: Present: pedal edema, pretibial edema (Pitting to/for all the way up into the thighs bilaterally.), other (Severe color change to brownness and purple and red, stasis dermatitis, and markedly warm and inflamed from most of the way between the knees and the.). Absent: calf tenderness Neurological: Present: alert, CN II-XII intact Psychiatric: Present: normal affect, serious Skin: Present: warm, dry Course Vital Signs Temperature 100.0 F H 05/06/19 01:33 Pulse Rate 107 H 05/06/19 01:33 Respiratory Rate 26 H 05/06/19 01:33 Blood Pressure 133/70 05/06/19 01:33 Pulse Oximetry (%) 87 L 05/06/19 01:33 Temperature 98.0 F 05/06/19 05:38 Pulse Rate 77 05/06/19 11:03 Respiratory Rate 15 05/06/19 11:03 Blood Pressure 109/71 05/06/19 11:03 Pulse Oximetry (%) 98 05/06/19 11:03 Shortness of Breath/Dyspnea - [facility] Narrative Medical decision making narrative: This pleasant gentleman comes in by EMS with a history of multiple pneumonias of the past with low-grade fever and possible low saturations although we did not get nearly at low (87%) We will do multiple labs, chest x-ray, EKG, cardiac work-up, pneumonia work-up. After cultures were drawn, antibiotics (Zosyn, vancomycin)were started right away because of above and because of the hot red appearance of both lower extremity areas. Labs returned with a normal white count, mild anemia fairly unremarkable CMP. Lactic acid was only 1.6. Procalcitonin was less than 0.05. Chest x-ray: Furosemide 20 mg was given around 2:30 AM - with limited output of 350 approximately cc on the bladder scan. Patient given an additional dose of 40 mg. 7 AM - patient has had 1100 cc out with just even recent urination after the 40 mg. 7:20 AM - describes some discomfort and pain to the left ear asking for Tylenol. Will do an EKG and repeat troponin. Saturations are dipping frequently into the 85 to 87% range on room air. We will add back oxygen via nasal cannula. 7:30 AM - repeat EKG again without any acute ACS findings. - Lab Data Lab results reviewed: Yes I reviewed the patient's lab results. Result diagrams: 05/06/19 01:50 05/06/19 01:50 Lab Results 05/06/19 05/06/19 05/06/19 Range/Units 01:50 01:50 01:50 WBC 6.8 (4.5-11.0) K/mcL RBC 4.19 L (4.50-5.90) M/mcL Hgb 12.4 L (13.5-16.5) g/dL Hct 38.7 L (41.0-55.0) % MCV 92.3 (80.0-100.0) fL MCH 29.6 (26.0-34.0) pg MCHC 32.1 (31.0-36.0) g/dL RDW 13.7 (11.5-14.5) % Plt Count 245 (140-440) K/mcL MPV 8.1 (7.4-10.4) fL Gran % 75.9 (38.0-78.0) % Lymph % (Auto) 12.9 L (15.5-49.0) % [place] % (Auto) 9.0 (1.0-12.0) % Eos % (Auto) 2.1 (0.0-7.0) % Baso % (Auto) 0.1 (0.0-2.0) % Gran # 5.2 (1.8-8.0) K/mcL Lymph # (Auto) 0.9 L (1.5-4.8) K/mcL [place] # (Auto) 0.6 (0.1-0.9) K/mcL Eos # (Auto) 0.1 (0.0-0.7) K/mcL Baso # (Auto) 0 (0.0-0.3) K/mcL Band Neutrophils % VBG Lactic Acid 1.6 (0.5-2.0) mmol/L Sodium 140 (133-145) mmol/L Potassium 5.0 (3.3-5.1) mmol/L Chloride 99 (96-108) mmol/L Carbon Dioxide 30 (22-30) mmol/L Anion Gap 11.0 (8-16) BUN 16 (8-23) mg/dl Creatinine 1.0 (0.7-1.2) mg/dl GFR Calculation 70 Glucose 118 H (70-105) mg/dL Calcium 8.5 L (8.6-10.4) mg/dl Total Bilirubin 0.3 (0.0-1.0) mg/dL AST 13 (0-37) U/l ALT 13 (0-40) U/l Alkaline Phosphatase 80 (39-117) U/L Troponin T (0-0.03) ng/ml NT-Pro-B Natriuret Pep (0-450) pg/ml Total Protein 6.4 (5.9-8.4) gm/dL Albumin 3.7 (3.2-5.2) gm/dL Globulin 2.7 (2.2-3.7) gm/dL Albumin/Globulin Ratio 1.4 (1.0-2.3) Procalcitonin (<0.10) ng/mL 05/06/19 05/06/19 05/06/19 Range/Units 01:50 01:50 01:50 WBC (4.5-11.0) K/mcL RBC (4.50-5.90) M/mcL Hgb (13.5-16.5) g/dL Hct (41.0-55.0) % MCV (80.0-100.0) fL MCH (26.0-34.0) pg MCHC (31.0-36.0) g/dL RDW (11.5-14.5) % Plt Count (140-440) K/mcL MPV (7.4-10.4) fL Gran % (38.0-78.0) % Lymph % (Auto) (15.5-49.0) % [place] % (Auto) (1.0-12.0) % Eos % (Auto) (0.0-7.0) % Baso % (Auto) (0.0-2.0) % Gran # (1.8-8.0) K/mcL Lymph # (Auto) (1.5-4.8) K/mcL [place] # (Auto) (0.1-0.9) K/mcL Eos # (Auto) (0.0-0.7) K/mcL Baso # (Auto) (0.0-0.3) K/mcL Band Neutrophils % VBG Lactic Acid (0.5-2.0) mmol/L Sodium (133-145) mmol/L Potassium (3.3-5.1) mmol/L Chloride (96-108) mmol/L Carbon Dioxide (22-30) mmol/L Anion Gap (8-16) BUN (8-23) mg/dl Creatinine (0.7-1.2) mg/dl GFR Calculation Glucose (70-105) mg/dL Calcium (8.6-10.4) mg/dl Total Bilirubin (0.0-1.0) mg/dL AST (0-37) U/l ALT (0-40) U/l Alkaline Phosphatase (39-117) U/L Troponin T < 0.01 (0-0.03) ng/ml NT-Pro-B Natriuret Pep 153.7 (0-450) pg/ml Total Protein (5.9-8.4) gm/dL Albumin (3.2-5.2) gm/dL Globulin (2.2-3.7) gm/dL Albumin/Globulin Ratio (1.0-2.3) Procalcitonin < 0.05 (<0.10) ng/mL 05/06/19 05/06/19 Range/Units 01:50 07:42 WBC (4.5-11.0) K/mcL RBC (4.50-5.90) M/mcL Hgb (13.5-16.5) g/dL Hct (41.0-55.0) % MCV (80.0-100.0) fL MCH (26.0-34.0) pg MCHC (31.0-36.0) g/dL RDW (11.5-14.5) % Plt Count (140-440) K/mcL MPV (7.4-10.4) fL Gran % (38.0-78.0) % Lymph % (Auto) (15.5-49.0) % [place] % (Auto) (1.0-12.0) % Eos % (Auto) (0.0-7.0) % Baso % (Auto) (0.0-2.0) % Gran # (1.8-8.0) K/mcL Lymph # (Auto) (1.5-4.8) K/mcL [place] # (Auto) (0.1-0.9) K/mcL Eos # (Auto) (0.0-0.7) K/mcL Baso # (Auto) (0.0-0.3) K/mcL Band Neutrophils % Not Reportable VBG Lactic Acid (0.5-2.0) mmol/L Sodium (133-145) mmol/L Potassium (3.3-5.1) mmol/L Chloride (96-108) mmol/L Carbon Dioxide (22-30) mmol/L Anion Gap (8-16) BUN (8-23) mg/dl Creatinine (0.7-1.2) mg/dl GFR Calculation Glucose (70-105) mg/dL Calcium (8.6-10.4) mg/dl Total Bilirubin (0.0-1.0) mg/dL AST (0-37) U/l ALT (0-40) U/l Alkaline Phosphatase (39-117) U/L Troponin T < 0.01 (0-0.03) ng/ml NT-Pro-B Natriuret Pep (0-450) pg/ml Total Protein (5.9-8.4) gm/dL Albumin (3.2-5.2) gm/dL Globulin (2.2-3.7) gm/dL Albumin/Globulin Ratio (1.0-2.3) Procalcitonin (<0.10) ng/mL - Radiology Data Radiology results reviewed: Yes I reviewed the patient's radiology results. - EKG Data EKG results narrative: No acute coronary syndrome findings. This ECG will be read by a funeral home makeup artist. Disposition Pt seen by AGENT TELEGRAPHER/PA only: No Clinical Impression: Hypoxia, Cellulitis of both lower extremities CHF, acute on chronic Qualifiers: Heart failure type: unspecified Qualified Code(s): I50.9 - Heart failure, unspecified Summary: Because of his hypoxia, probable CHF component with the severe edema and chest x-ray appearance, and hardly inflamed anterior tibial areas, I felt that hospitalization was appropriate and warranted. I discussed his care with Dr. Daryl Paredes, hospitalist, who kindly accepted his care. Disposition: Xfer As Inpt ([facility]) Condition: Fair Referrals: Conrad Matson MD [Primary Care Provider] -
[2019-05-06 02:50] LABS: Basophils # (Auto) 0 K/mcL (0.0-0.3); Basophils % (Auto) 0.1 % (0.0-2.0); Eosinophils # (Auto) 0.1 K/mcL (0.0-0.7); Eosinophils % (Auto) 2.1 % (0.0-7.0); Granulocytes % (Auto) 75.9 % (38.0-78.0); Hematocrit 38.7 % (41.0-55.0); Hemoglobin 12.4 g/dL (13.5-16.5); Lymphocytes # (Auto) 0.9 K/mcL (1.5-4.8); Lymphocytes % (Auto) 12.9 % (15.5-49.0); Mean Cell Volume 92.3 fL (80.0-100.0); Mean Corpuscular HGB Conc 32.1 g/dL (31.0-36.0); Mean Platelet Volume 8.1 fL (7.4-10.4); Monocytes # (Auto) 0.6 K/mcL (0.1-0.9); Platelet Count 245 K/mcL (140-440); RBC 4.19 M/mcL (4.50-5.90); Red Cell Distribution Width 13.7 % (11.5-14.5); WBC 6.8 K/mcL (4.5-11.0)
[2019-05-06 03:06] LABS: ALT/SGPT 13 U/l (0-40); AST/SGOT 13 U/l (0-37); Albumin 3.7 gm/dL (3.2-5.2); Albumin/Globulin Ratio 1.4 (1.0-2.3); Alkaline Phosphatase 80 U/L (39-117); Bilirubin,Total 0.3 mg/dL (0.0-1.0); Blood Urea Nitrogen 16 mg/dl (8-23); Calcium 8.5 mg/dl (8.6-10.4); Carbon Dioxide 30 mmol/L (22-30); Chloride 99 mmol/L (96-108); Globulin 2.7 gm/dL (2.2-3.7); Glomerular Filtration Rate 70; Glucose 118 mg/dL (70-105); Sodium 140 mmol/L (133-145)
[2019-05-06] MEDS ORDERED: FUROSEMIDE 40 MG/4 ML VIAL IV ONE (03:47)
--- NOTE | 2019-05-06 05:39 | XRay Report ---
CLINICAL INFORMATION: SOB COMPARISON: 04/28/2019 FINDINGS: Film taken with suboptimal inspiratory result, right rotation, lordotic positioning and portable technique accentuates the heart which is only mildly enlarged. Mediastinum is unremarkable. Pulmonary vessels are slightly distended. Mild bibasilar airspace disease is likely atelectasis. No effusions. IMPRESSION: Mild CHF. Mild bibasilar airspace disease - likely atelectasis. If patient can tolerate, suggest two view upright chest x-ray for better evaluation Interpreted and Authenticated by: Delfino Simmons 05/06/19
[2019-05-06] MEDS ORDERED: ACETAMINOPHEN 325 MG TABLET PO ONE (08:02)
--- NOTE | 2019-05-06 10:41 | Internal Med History&Physical ---
Medical - H&P: [facility] Patient information: Note initiated : 05/06/19 at 10:38 am Service Date, if different from initiated Date: [] Patient: Abelardo Chambers 79 y/o M admitted on for shortness of breah, dizziness. Chief Complaint: [] History of present illness: Mr. Chambers is a 79 year old M Who was sent in from [facility] for weakness. Is reported the nursing facility had oxygen saturation of 66%, however in the ED was 87%. But he did have some sats 85%. Patient reports that he does have productive cough of clear sputum but this is normal for him and his cough has not changed. He did note some shortness of breath this morning, however, he has shortness of breath on occasion and this was not abnormal for him. Did feel little fevers this morning as well as having a headache and some nausea. Denies chest pain or stomach pain to me. Does feel wheezy but that is normal for him again. He also reports swelling in his legs for the past month or 2. They are mildly tender to walk on but fine when he is resting. In the ER was given breathing treatments as well as Lasix with a good urine output. Chest x-ray with some mildly distended pulmonary vessels and some bibasilar airspace disease thought to be atelectasis, with some mild CHF. Patient patient improved oxygenation but still desaturating on room air and thus admission requested. Review of Systems: Pertinent positives as above. Denies chills/vomiting/chest or abdominal pain/cough/dyspnea/diarrhea. Remaining 10 point review of system reviewed negative Medical - H&P: H Medical history: Medical History (This Medical Record has been edited. Action required.) Rib contusion (Acute) Vertigo (Acute) GERD (gastroesophageal reflux disease) (Acute) CHF exacerbation (Acute) Edema extremities (Acute) Vertigo (Acute) Bronchitis (Acute) Sinusitis (Acute) Rib contusion (Acute) Syncope (Acute) Primary atypical pneumonia (Acute) Acute exacerbation of chronic obstructive airways disease (Acute) NAJERA (dyspnea on exertion) (Acute) Venous (peripheral) insufficiency (Acute) Acute retention of urine (Acute) UTI (urinary tract infection) (Acute) Batista catheter problem (Acute) Cellulitis, penis (Acute) Urinary frequency (Chronic) Generalized polyneuropathy (Chronic) Obstructive sleep apnea (Chronic) Arthralgia of knee (Chronic) Hypokalemia (Chronic) Essential hypertension (Chronic) Diabetes mellitus type 2, uncontrolled (Chronic) Depression (Chronic) Congestive heart failure (Chronic) Advanced COPD (Chronic) Asthma (Chronic) Cellulitis (Chronic) Back pain (Chronic) Past Surgical History (This Medical Record has been edited. 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 Action required.) Unknown No family history of malignant neoplasm No family history of cardiovascular disease No history of endocrine disorder No history of gastrointestinal disorder No family history of bleeding disorder No family history of kidney disease Social History (This Medical Record has been edited. Action required.) Patient quit smoking 95 Drinks alcohol rarely Ambulates with a cane Resides at [facility] Medical - H&P: Meds Home Medications Medication Instructions Recorded Confirmed Type tamsulosin 0.4 mg capsule 0.4 mg PO BID #60 cap 10/15/15 05/06/19 Rx finasteride 5 mg tablet 5 mg PO QDAY #30 tab 07/15/17 05/06/19 Rx furosemide 20 mg tablet 120 mg PO DAILY tab 07/15/17 05/06/19 History Docusate Sodium [Colace] 100 mg PO BID #30 cap 09/17/17 05/06/19 Rx Potassium Chloride [Kdur] 20 meq PO QID 12/05/17 05/06/19 History Acetaminophen [Tylenol] 325 mg PO Q6HP PRN 11/08/18 05/06/19 History Albuterol Sulfate 0.63 mg INH Q6 11/08/18 05/06/19 History Albuterol Sulfate [Ventolin] 90 mcg INH Q4 PRN 11/08/18 05/06/19 History Brimonidine 0.15%-Dorzolam 2% 1 gtt LEFT EYE BID 11/08/18 05/06/19 History Dorzolamide HCl/Timolol Maleat 1 gtt LEFT EYE BID 11/08/18 05/06/19 History [Cosopt Eye Drops] Glycopyrrolate/Formoterol Fum 1 each PO BID 11/08/18 05/06/19 History [Bevespi Aerosphere Inhaler] Pramipexole [Mirapex] 1.5 mg PO HS 11/08/18 05/06/19 History Qvar 40 80 mcg INH BID 11/08/18 05/06/19 History Gabapentin [Neurontin] 200 mg PO BID 03/10/19 05/06/19 History Ondansetron [Zofran ODT] 4 mg SL Q4HP PRN 03/10/19 05/06/19 History Sertraline [Zoloft] 25 mg PO DAILY 03/10/19 05/06/19 History Budesonide [Pulmicort] 0.5 mg NEB BID 05/06/19 05/06/19 History FLUoxetine HCL [PROzac] 20 mg PO DAILY 05/06/19 05/06/19 History Glucagon,Human Recombinant 1 mg IJ PRN PRN 05/06/19 05/06/19 History [Glucagon Emergency Kit] Ipratropium/Albuterol [Duoneb] 3 ml NEB DAILY 05/06/19 05/06/19 History LORazepam [Ativan] 0.5 mg PO Q8HP PRN 05/06/19 05/06/19 History Loperamide HCl [Loperamide] 4 mg PO PRN PRN 05/06/19 05/06/19 History Magnesium Hydroxide [Milk of 400 mg PO PRN PRN 05/06/19 05/06/19 History Magnesia] Metolazone [Zaroxolyn] 2.5 mg PO WEEKLY 05/06/19 05/06/19 History Polyethylene Glycol 3350 [Miralax] 17 gm PO DAILY 05/06/19 05/06/19 History Spironolactone [Aldactone] 12.5 mg PO ONCE 05/06/19 05/06/19 History morphine 5 mg PO Q4HP PRN 05/06/19 05/06/19 History Allergies Allergy/AdvReac Type Severity Reaction Status Date / Time No Known Drug Allergies Allergy Verified 05/06/19 01:38 Medical - H&P: Exam - Constitutional Vitals: Temp Pulse Resp BP Pulse Ox 98.0 F 78 19 102/76 100 05/06/19 05:38 05/06/19 10:26 05/06/19 10:26 05/06/19 10:15 05/06/19 10:26 Exam: General: Alert, Awake, No acute Distress, obese Eyes/N/T: EOMI, PEERL, DMM Head/Neck: neck supple, normocephalic atraumatic CV: RRR, No murmurs, normal s1/s2 Pulm: Diminished bilaterally, expiratory wheezing bilaterally mild abd: soft, nontender, +BS x4 Ext: no clubbing/cyanosis, 2-3+ bilateral lower extremity edema chronic, venous stasis dermatitis Neuro: Alert, no focal deficits, moves all extremities, CN 2-12 grossly intact, symmetrical strength b/l upper/lower, sensations intact b/l upper/lower Skin: warm/dry Medical - H&P: Reslt - Labs CBC & Chem 7: 05/06/19 01:50 05/06/19 01:50 Labs: Short CBC 05/06/19 Range/Units 01:50 WBC 6.8 (4.5-11.0) K/mcL Hgb 12.4 L (13.5-16.5) g/dL Hct 38.7 L (41.0-55.0) % Plt Count 245 (140-440) K/mcL BMP 05/06/19 01:50 Sodium 140 Potassium 5.0 Chloride 99 Carbon Dioxide 30 BUN 16 Creatinine 1.0 Glucose 118 H Calcium 8.5 L Cardiac Enzymes 05/06/19 05/06/19 Range/Units 01:50 07:42 Troponin T < 0.01 < 0.01 (0-0.03) ng/ml Liver Function 05/06/19 Range/Units 01:50 Total Bilirubin 0.3 (0.0-1.0) mg/dL AST 13 (0-37) U/l ALT 13 (0-40) U/l Alkaline Phosphatase 80 (39-117) U/L Albumin 3.7 (3.2-5.2) gm/dL - Impressions Chest x-ray with mild edema atelectasis Medical - H&P: A/P - Narrative A/P Narrative: A: *Acute on chronic hypoxic respiratory failure: -on 2L NC *AECOPD(does not use oxygen at home): 2/2 above *?Aspiration pneumonitis: *?cardiac component *Venous stasis dermatitis: *Chronic back pain: *Depression/Anxiety: *Obesity: * P: -Supplemental oxygen and wean -check follow-up AB -[facility] -Steroids (wean) -Nebs, IS/Acapella -ST eval and dysphagia diet -echo -lymph wraps, lasix - -PT/OT -ppx: Lovenox No code
[2019-05-06] MEDS ORDERED: predniSONE 20 MG TABLET PO ONE ×2 (10:46→12:46)
[2019-05-06] MEDS ORDERED: AZITHROMYCIN 500 MG in DEXTROSE 5% IN WATER 250 ML IV SCH (11:00)
[2019-05-06 11:42] LABS: Band Neutrophils % 1 % (0-10); Eosinophils % (Manual) 5 % (0-7); Lymphocytes % 15 % (15-49); Monocytes % (Manual) 7 % (1-12); Ovalocytes OCC (NONE SEEN); Platelet Estimate NORMAL (NORMAL); Polychromasia 1+ (NONE SEEN); RBC Morphology ABNORM (NORMAL); Reactive Lymphocytes 1 % (0-2); Segmented Neutrophils % 71 % (38-78)
[2019-05-06] MEDS ORDERED: ONDANSETRON 4 MG/2 ML VIAL IV PRN (12:46)
[2019-05-06] MEDS ORDERED: MAGNESIUM HYDROXIDE 30 ML ORAL.SUSP PO PRN (12:46)
[2019-05-06] MEDS ORDERED: ACETAMINOPHEN 325 MG TABLET PO PRN (12:46)
[2019-05-06] MEDS ORDERED: LORazepam 0.5 MG TABLET PO PRN (12:46)
[2019-05-06] MEDS ORDERED: FLEETS ADULT ENEMA PR PRN (12:46)
[2019-05-06] MEDS ORDERED: morphine 20 MG/ML ORAL.CONC PO PRN (12:46)
[2019-05-06] MEDS ORDERED: LOPERAMIDE 2 MG CAPSULE PO PRN (12:55)
[2019-05-06] MEDS: IPRATROPIUM/ALBUTEROL 3 ML AMPUL.NEB NEB SCH ×2 (12:58→19:32)
[2019-05-06] MEDS: AZITHROMYCIN 500 MG in DEXTROSE 5% IN WATER 250 ML IV SCH (13:52)
[2019-05-06] MEDS: 0.9 % SODIUM CHLORIDE 10 ML SYRINGE IV SCH ×2 (15:00→21:32)
[2019-05-06] MEDS ORDERED: HYDROCHLOROTHIAZIDE 12.5 MG CAPSULE PO ONE ×2 (16:00)
[2019-05-06] MEDS: FUROSEMIDE 40 MG/4 ML VIAL IV SCH (16:40)
[2019-05-06] MEDS: POTASSIUM CHLORIDE 20 MEQ TABLET PO SCH ×2 (17:50→20:42)
[2019-05-06] MEDS: predniSONE 20 MG TABLET PO SCH (17:50)
[2019-05-06] MEDS: BUDESONIDE 0.5 MG/2 ML AMPUL.NEB NEB SCH (19:32)
[2019-05-06] MEDS: DOCUSATE SODIUM 100 MG CAPSULE PO SCH (20:42)
[2019-05-06] MEDS: GABAPENTIN 100 MG CAPSULE PO SCH (20:42)
[2019-05-06] MEDS: TAMSULOSIN 0.4 MG CAPSULE PO SCH (20:43)
[2019-05-06] MEDS: GLYCOPYRROLATE PO SCH (20:47)
[2019-05-06] MEDS: BECLOMETHASONE DIPROPIONATE 40MCG INHALER INH SCH (20:47)
[2019-05-06] MEDS: Dorzolamide Hcl/Timolol Maleat [Cosopt Eye Drops] LEFT EYE SCH (20:47)
[2019-05-06] MEDS: FORMOTEROL FUM PO SCH (20:47)
[2019-05-06] MEDS ORDERED: PRAMIPEXOLE 1 MG TABLET PO SCH (21:00)
[2019-05-07] MEDS: IPRATROPIUM/ALBUTEROL 3 ML AMPUL.NEB NEB SCH ×4 (01:03→20:58)
[2019-05-07 06:23] LABS: Basophils # (Auto) 0 K/mcL (0.0-0.3); Basophils % (Auto) 0.2 % (0.0-2.0); Eosinophils # (Auto) 0 K/mcL (0.0-0.7); Eosinophils % (Auto) 0 % (0.0-7.0); Granulocytes % (Auto) 80.7 % (38.0-78.0); Hematocrit 37.2 % (41.0-55.0); Hemoglobin 12.3 g/dL (13.5-16.5); Lymphocytes # (Auto) 0.8 K/mcL (1.5-4.8); Lymphocytes % (Auto) 12.1 % (15.5-49.0); Mean Cell Volume 91.4 fL (80.0-100.0); Mean Platelet Volume 8.1 fL (7.4-10.4); Monocytes # (Auto) 0.5 K/mcL (0.1-0.9); Platelet Count 233 K/mcL (140-440); RBC 4.06 M/mcL (4.50-5.90); Red Cell Distribution Width 13.2 % (11.5-14.5); WBC 6.7 K/mcL (4.5-11.0)
[2019-05-07 07:11] LABS: ALT/SGPT 12 U/l (0-40); AST/SGOT 14 U/l (0-37); Albumin 3.6 gm/dL (3.2-5.2); Albumin/Globulin Ratio 1.3 (1.0-2.3); Alkaline Phosphatase 74 U/L (39-117); Bilirubin,Direct < 0.2 mg/dL (0.0-0.3); Bilirubin,Total 0.2 mg/dL (0.0-1.0); Blood Urea Nitrogen 21 mg/dl (8-23); Calcium 8.4 mg/dl (8.6-10.4); Carbon Dioxide 29 mmol/L (22-30); Chloride 95 mmol/L (96-108); Globulin 2.8 gm/dL (2.2-3.7); Glomerular Filtration Rate 84; Glucose 124 mg/dL (70-105); Lactate Dehydrogenase 259 U/L (94-250); Magnesium 2.4 mg/dL (1.6-2.5); Phosphorous 2.7 mg/dL (2.7-4.5); Potassium 4.2 mmol/L (3.3-5.1); Sodium 138 mmol/L (133-145); Triglycerides 46 mg/dl (<150); Uric Acid 4.4 mg/dL (2.5-8.0)
[2019-05-07] MEDS: BUDESONIDE 0.5 MG/2 ML AMPUL.NEB NEB SCH ×2 (07:15→20:59)
--- NOTE | 2019-05-07 07:26 | Internal Med Progress Note ---
Medical - PN: Subj Patient information: Note initiated : 05/07/19 at 7:23 am Service Date, if different from initiated Date: [] Patient: Abelardo Chambers 79 y/o M admitted on 05/06/19 for shortness of breah, dizziness. Chief Complaint: [] Interval history: Mr. Chambers is a 79 year old M Who was sent in from [facility] for weakness. Is reported the nursing facility had oxygen saturation of 66%, however in the ED was 87%. But he did have some sats 85%. Patient reports that he does have productive cough of clear sputum but this is normal for him and his cough has not changed. He did note some shortness of breath this morning, however, he has shortness of breath on occasion and this was not abnormal for him. Did feel little fevers this morning as well as having a headache and some nausea. Denies chest pain or stomach pain to me. Does feel wheezy but that is normal for him again. He also reports swelling in his legs for the past month or 2. They are mildly tender to walk on but fine when he is resting. In the ER was given breathing treatments as well as Lasix with a good urine output. Chest x-ray with some mildly distended pulmonary vessels and some bibasilar airspace disease thought to be atelectasis, with some mild CHF. Patient patient improved oxygenation but still desaturating on room air and thus admission requested. 05/07 For sleep since he did not get his restless leg medication. But otherwise feeling better and doing better. He is oxygenating well on room air at rest. His swelling in his legs is improving. On IV Lasix did have some dysuria last night but no dysuria this morning. Review of Systems: denies headache/fever/chills/nausea/vomiting/chest or abdominal pain/cough/dyspnea/. Otherwise see above. - Constitutional Vitals: Vital Signs Temp Pulse Resp BP Pulse Ox 99 F 77 24 H 112/60 100 05/07/19 06:55 05/07/19 03:21 05/07/19 06:55 05/07/19 06:55 05/07/19 06:55 Period Temp Pulse Resp BP Sys/Aaron Pulse Ox Last 24 Hr 97.2 F-99 F 64-83 15-24 94-134/58-79 90-100 Intake and Output 05/06/19 05/07/19 05/07/19 21:59 05:59 13:59 Intake Total 730 760 Output Total 800 325 Balance -70 435 Weight 117.48 kg Intake & Output: Intake & Output 05/06/19 05/07/19 05/07/19 21:59 05:59 13:59 Intake Total 730 760 Output Total 800 325 Balance -70 435 Weight 117.48 kg Intake: IV 250 Zithromax 500 mg In Dextrose 5% 250 in Water 250 ml @ 250 mls/hr IV Q24H [facility] Rx#:[id number] Oral 480 760 Output: Void Amount 800 325 Other: Meal Dinner Percent of Meal Consumed 100% Feeding Ability Independent Urine Appearance Clear Urine Color Light Lety Stool Size Large Stool Color Brown Stool Consistency Formed # Bowel Movements 1 Exam: General: Alert, Awake, No acute Distress, obese Eyes/N/T: EOMI, Head/Neck: neck supple, CV: RRR, No murmurs, Pulm: Diminished bilaterally but improved from yesterday, no wheezing abd: soft, nontender, +BS x4 Ext: no clubbing/cyanosis, 2+ bilateral lower extremity edema chronic, venous stasis dermatitis Neuro: Alert, no focal deficits, moves all extremities, Skin: warm/dry Medical - PN: Obj Da - Labs CBC & Chem 7: 05/07/19 04:15 05/07/19 04:15 Labs: Abnormal Lab Results 05/07/19 05/07/19 05/06/19 04:15 04:15 01:50 RBC 4.06 L Hgb 12.3 L Hct 37.2 L Gran % 80.7 H Lymph % (Auto) 12.1 L Lymph # (Auto) 0.8 L RBC Morphology Abnorm A Polychromasia 1+ A Ovalocytes Occ A Chloride 95 L Glucose 124 H Calcium 8.4 L Lactate Dehydrogenase 259 H 05/06/19 05/06/19 01:50 01:50 RBC 4.19 L Hgb 12.4 L Hct 38.7 L Gran % Lymph % (Auto) 12.9 L Lymph # (Auto) 0.9 L RBC Morphology Polychromasia Ovalocytes Chloride Glucose 118 H Calcium 8.5 L Lactate Dehydrogenase Meds: Medications Acetaminophen (Tylenol) 650 mg PO Q6HP PRN PRN Reason: PAIN/FEVER > 101 Last Admin: 05/06/19 20:43 Dose: 650 mg Documented by: Albuterol/Ipratropium (Duoneb) 3 ml NEB Q6HRT [facility] Last Admin: 05/07/19 07:15 Dose: 3 ml Documented by: Beclomethasone Dipropionate (Qvar 40) 1 puff INH BID [facility] Last Admin: 05/06/19 20:47 Dose: Not Given Documented by: Budesonide (Pulmicort) 0.5 mg NEB BID [facility] Last Admin: 05/07/19 07:15 Dose: 0.5 mg Documented by: Docusate Sodium (Colace) 100 mg PO BID [facility] Last Admin: 05/06/19 20:42 Dose: 100 mg Documented by: Enoxaparin Sodium (Lovenox) 40 mg SQ DAILY [facility] Finasteride (Proscar) 5 mg PO QDAY [facility] Fluoxetine HCl (Prozac) 20 mg PO DAILY [facility] Furosemide (Lasix) 40 mg IV BIDD [facility] Last Admin: 05/06/19 16:40 Dose: 40 mg Documented by: Gabapentin (Neurontin) 200 mg PO BID [facility] Last Admin: 05/06/19 20:42 Dose: 200 mg Documented by: Azithromycin 500 mg/ Dextrose 250 mls @ 250 mls/hr IV Q24H [facility]; Protocol Stop: 05/08/19 14:29 Last Infusion: 05/06/19 15:00 Dose: Infused Documented by: Loperamide HCl (Imodium) 2 mg PO UD PRN PRN Reason: Diarrhea Lorazepam (Ativan) 0.5 mg PO Q8HP PRN PRN Reason: anxiety Last Admin: 05/06/19 23:48 Dose: 0.5 mg Documented by: Magnesium Hydroxide (Milk Of Magnesia) 30 ml PO DAILYP PRN PRN Reason: Constipation Last Admin: 05/06/19 20:43 Dose: 30 ml Documented by: Morphine Sulfate (Morphine) 5 mg PO Q4HP PRN PRN Reason: dyspena Last Admin: 05/07/19 01:02 Dose: 5 mg Documented by: Ondansetron HCl (Zofran) 4 mg IV Q6HP PRN PRN Reason: Nausea And Vomiting Brimonidine 0.15%- Dorzolam 2% Eye Drops 1 dose LEFT EYE BID [facility] Last Admin: 05/06/19 20:47 Dose: Not Given Documented by: Dorzolamide Hcl/Timolol Maleat [ Cosopt Eye Drops] 1 dose LEFT EYE BID [facility] Last Admin: 05/06/19 20:47 Dose: Not Given Documented by: Glycopyrrolate/Formoterol Fum [ Bevespi Aerosphere] Inhaler 1 dose PO BID [facility] Last Admin: 05/06/19 20:47 Dose: Not Given Documented by: Polyethylene Glycol (Miralax) 17 gm PO DAILY [facility] Potassium Chloride (Kdur) 20 meq PO CCHS [facility] Last Admin: 05/06/19 20:42 Dose: 20 meq Documented by: Pramipexole Dihydrochloride (Mirapex) 1.5 mg PO HS [facility] Last Admin: 05/06/19 20:46 Dose: Not Given Documented by: Prednisone (Prednisone) 40 mg PO BIDCC [facility] Last Admin: 05/06/19 17:50 Dose: 40 mg Documented by: Sertraline HCl (Zoloft) 25 mg PO DAILY [facility] Sodium Biphosphate/Sodium Phosphate (Fleets Adult) 1 dose HI Q3-4DAYS PRN PRN Reason: Constipation Sodium Chloride (Saline Flush) 10 ml IV Q8 [facility] Last Admin: 05/06/19 21:32 Dose: 10 ml Documented by: Spironolactone (Aldactone) 12.5 mg PO DAILY [facility] Tamsulosin HCl (Flomax) 0.4 mg PO BID [facility] Last Admin: 05/06/19 20:43 Dose: 0.4 mg Documented by: Medical - PN: A/P - Time Spent With Patient Total time spent is greater than 50% in coordination of care (as documented) at patient's floor/unit and/or counseling patient: - Narrative A/P Narrative: A: *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
[2019-05-07] MEDS: 0.9 % SODIUM CHLORIDE 10 ML SYRINGE IV SCH ×3 (07:30→23:30)
--- NOTE | 2019-05-07 07:59 | XRay Report ---
CLINICAL INFORMATION: ?edema or scarring, copd COMPARISON: 05/06/2019 FINDINGS: Heart is decreased in size now only mildly enlarged. Mediastinum is unremarkable. The pulmonary vessels remain slightly distended compared with baseline study 01/20/2018. Mild interstitial disease throughout both lungs is likely fibrosis seen on multiple previous study. No definite edema or effusion IMPRESSION: Borderline CHF has improved. COPD changes and interstitial fibrosis. Interpreted and Authenticated by: Delfino Simmons 05/07/19
[2019-05-07] MEDS: predniSONE 20 MG TABLET PO SCH ×2 (08:23→17:50)
[2019-05-07] MEDS: POTASSIUM CHLORIDE 20 MEQ TABLET PO SCH ×4 (08:23→23:29)
[2019-05-07] MEDS: FUROSEMIDE 40 MG/4 ML VIAL IV SCH ×2 (08:23→16:18)
[2019-05-07] MEDS: FINASTERIDE 5 MG TABLET PO SCH (08:35)
[2019-05-07] MEDS: SPIRONOLACTONE 25 MG TABLET PO SCH (08:35)
[2019-05-07] MEDS: FLUoxetine HCL 20 MG CAPSULE PO SCH (08:35)
[2019-05-07] MEDS: GABAPENTIN 100 MG CAPSULE PO SCH ×2 (08:36→23:29)
[2019-05-07] MEDS: TAMSULOSIN 0.4 MG CAPSULE PO SCH ×2 (08:36→23:29)
[2019-05-07] MEDS: SERTRALINE 50 MG TABLET PO SCH (08:36)
[2019-05-07] MEDS: POLYETHYLENE GLYCOL 3350 17 GM PACKET PO SCH (08:46)
[2019-05-07] MEDS: DOCUSATE SODIUM 100 MG CAPSULE PO SCH (08:46)
[2019-05-07] MEDS: ENOXAPARIN 40 MG/0.4 ML SYRINGE SQ SCH (08:46)
[2019-05-07] MEDS: AZITHROMYCIN 500 MG in DEXTROSE 5% IN WATER 250 ML IV SCH (08:47)
[2019-05-07] MEDS ORDERED: diphenhydrAMINE 25 MG CAPSULE PO ONE (09:41)
--- NOTE | 2019-05-07 10:15 | Discharge Summary ---
Medical - DS: Prov Patient information: Note initiated : 05/07/19 at 10:12 am Service Date, if different from initiated Date: [] Patient: Abelardo Chambers 79 y/o M admitted on 05/06/19 for shortness of breah, dizziness. Chief Complaint: [] Date of admission: 05/06/19 12:03 Discharge date: 05/09/19 Primary care physician: Conrad Matson Consults: 05/06/19 Consult to Physician [CONS] Stat Comment: Consulting Provider: Daryl Paredes Reason For Exam: Physician to Consult Medical - DS: Meds - Discharge Medications Prescriptions: predniSONE [Prednisone] 30 mg PO [facility] #1 tab Active and Home Medications: Home Medications tamsulosin 0.4 mg capsule 0.4 mg PO BID #60 cap 10/15/15 [Rx Confirmed 05/06/19 Last Taken 03/09/19 17:00] finasteride 5 mg tablet 5 mg PO QDAY #30 tab 07/15/17 [Rx Confirmed 05/06/19 Last Taken 05/05/19 09:00] furosemide 20 mg tablet mg PO DAILY tab 07/15/17 [History Confirmed 03/10/19 Last Taken 04/22/19 07:30] Docusate Sodium [Colace] 100 mg PO BID #30 cap 09/17/17 [Rx Confirmed 05/06/19 Last Taken 05/05/19 16:00] Potassium Chloride [Kdur] 20 meq PO QID 12/05/17 [History Confirmed 05/06/19 Last Taken 05/05/19 19:00] Acetaminophen [Tylenol] 325 mg PO Q6HP PRN 11/08/18 [History Confirmed 05/06/19 Last Taken 05/03/19 08:15] Albuterol Sulfate 0.63 mg INH Q6 11/08/18 [History Confirmed 05/06/19 Last Taken 05/02/19 16:30] Albuterol Sulfate [Ventolin] 90 mcg INH Q4 PRN 11/08/18 [History Confirmed 05/06/19 Last Taken 05/04/19 20:00] Brimonidine 0.15%-Dorzolam 2% 1 gtt LEFT EYE BID 11/08/18 [History Confirmed 05/06/19 Last Taken 04/20/19 17:30] Dorzolamide HCl/Timolol Maleat [Cosopt Eye Drops] 1 gtt LEFT EYE BID 11/08/18 [History Confirmed 05/06/19 Last Taken 03/09/19 17:00] Glycopyrrolate/Formoterol Fum [Bevespi Aerosphere Inhaler] 1 each INH BID 11/08/18 [History Confirmed 05/06/19 Last Taken 05/01/19 15:20] Pramipexole [Mirapex] 1.5 mg PO HS 11/08/18 [History Confirmed 05/06/19 Last Taken 05/05/19 17:40] Qvar 40 80 mcg INH BID 11/08/18 [History Confirmed 05/06/19 Last Taken 04/14/19 09:30] Gabapentin [Neurontin] 200 mg PO BID 03/10/19 [History Confirmed 05/06/19 Last Taken 05/05/19 16:00] Ondansetron [Zofran ODT] 4 mg SL Q4HP PRN 03/10/19 [History Confirmed 05/06/19 Last Taken 05/05/19 14:00] Sertraline [Zoloft] 25 mg PO DAILY 03/10/19 [History Confirmed 05/06/19 Last Taken 04/20/19 07:30] Budesonide [Pulmicort] 0.5 mg NEB BID 05/06/19 [History Confirmed 05/06/19 Last Taken 05/05/19 16:00] FLUoxetine HCL [PROzac] 20 mg PO DAILY 05/06/19 [History Confirmed 05/06/19 Last Taken 05/05/19 09:00] Glucagon,Human Recombinant [Glucagon Emergency Kit] 1 mg IJ PRN PRN 05/06/19 [History Confirmed 05/06/19 Last Taken Unknown] Ipratropium/Albuterol [Duoneb] 3 ml NEB 5XD 05/06/19 [History Confirmed 05/06/19 Last Taken 05/05/19 23:30] LORazepam [Ativan] 0.5 mg PO Q8HP PRN 05/06/19 [History Confirmed 05/06/19 Last Taken Unknown] Loperamide HCl [Loperamide] 4 mg PO PRN PRN 05/06/19 [History Confirmed 05/06/19 Last Taken Unknown] Magnesium Hydroxide [Milk of Magnesia] 400 mg PO PRN PRN 05/06/19 [History Confirmed 05/06/19 Last Taken Unknown] Metolazone [Zaroxolyn] 2.5 mg PO WEEKLY 05/06/19 [History Confirmed 05/06/19 Last Taken Unknown] Polyethylene Glycol 3350 [Miralax] 17 gm PO DAILY 05/06/19 [History Confirmed 05/06/19 Last Taken 05/05/19 09:20] Spironolactone [Aldactone] 12.5 mg PO ONCE 05/06/19 [History Confirmed 05/06/19 Last Taken 05/05/19 09:00] morphine 5 mg PO Q4HP PRN 05/06/19 [History Confirmed 05/06/19 Last Taken Unknown] Medical - DS: Hosp Hospital course: Mr. Chambers is a 79 year old M Mr. Chambers is a 79 year old M Who was sent in from [facility] for weakness. Is reported the nursing facility had oxygen saturation of 66%, however in the ED was 87%. But he did have some sats 85%. Patient reports that he does have productive cough of clear sputum but this is normal for him and his cough has not changed. He did note some shortness of breath this morning, however, he has shortness of breath on occasion and this was not abnormal for him. Did feel little fevers this morning as well as having a headache and some nausea. Denies chest pain or stomach pain to me. Does feel wheezy but that is normal for him again. He also reports swelling in his legs for the past month or 2. They are mildly tender to walk on but fine when he is resting. In the ER was given breathing treatments as well as Lasix with a good urine output. Chest x-ray with some mildly distended pulmonary vessels and some bibasilar airspace disease thought to be atelectasis, with some mild CHF. Patient patient improved oxygenation but still desaturating on room air and thus admission requested. 05/07 For sleep since he did not get his restless leg medication. But otherwise feeling better and doing better. He is oxygenating well on room air at rest. His swelling in his legs is improving. On IV Lasix did have some dysuria last night but no dysuria this morning. 05/08 No overnight events. Feeling better. Slept well. Swelling in legs improving. 05/09 Patient doing well and stable for discharge. Discharge diagnosis: AECOPD venous stasis dermatitis aspiration - Time Spent with Patient Total time spent providing and/or coordinating discharge services: Greater than 30 minutes Medical - DS: Exam - Constitutional Vitals: Vital Signs Temp Pulse Pulse Resp BP BP Pulse Ox 05/07/19 07:32 72 16 05/07/19 06:55 99 F 24 H 112/60 100 05/07/19 03:21 98.0 F 77 22 123/67 91 05/07/19 01:09 80 20 05/06/19 23:27 98.2 F 80 20 114/66 91 05/06/19 21:58 70 20 91 05/06/19 20:00 97.2 F 78 20 112/74 90 05/06/19 19:35 69 20 05/06/19 16:00 98.1 F 20 134/78 94 05/06/19 13:20 71 20 97 05/06/19 13:16 74 20 05/06/19 12:24 98.5 F 16 116/74 98 05/06/19 12:14 98.0 F 77 15 109/71 98 05/06/19 12:03 98 05/06/19 11:03 77 15 109/71 98 05/06/19 11:00 79 17 109/71 97 05/06/19 10:45 64 16 112/70 96 05/06/19 10:30 73 15 119/70 96 05/06/19 10:26 78 19 100 05/06/19 10:15 76 23 H 102/76 94 Intake and Output 05/06/19 05/07/19 05/07/19 21:59 05:59 13:59 Intake Total 730 760 Output Total 800 325 800 Balance -70 435 -800 Intake: IV 250 Zithromax 500 mg In Dextrose 5% 250 in Water 250 ml @ 250 mls/hr IV Q24H [facility] Rx#:[id number] Oral 480 760 Output: Void Amount 800 325 800 # of times incontinent of urine 0 Other: Meal Dinner Percent of Meal Consumed 100% Feeding Ability Independent Urine Appearance Clear Clear Urine Color Light Lety Bright Yellow Urine Odor Normal Stool Size Large Stool Color Brown Stool Consistency Formed # Voids 0 # Bowel Movements 1 Weight 117.48 kg Medical - DS: Data Labs on day of discharge: Labs from last 24 hours 05/07/19 05/07/19 05/06/19 04:15 04:15 01:50 WBC 6.7 RBC 4.06 L Hgb 12.3 L Hct 37.2 L MCV 91.4 MCH 30.2 MCHC 33.0 RDW 13.2 Plt Count 233 MPV 8.1 Gran % 80.7 H Lymph % (Auto) 12.1 L Ponce % (Auto) 7.0 Eos % (Auto) 0 Baso % (Auto) 0.2 Gran # 5.4 Lymph # (Auto) 0.8 L Ponce # (Auto) 0.5 Eos # (Auto) 0 Baso # (Auto) 0 Total Counted 100 Seg Neutrophils % 71 Band Neutrophils % 1 Lymphocytes % 15 Monocytes % (Manual) 7 Eosinophils % (Manual) 5 Reactive Lymphocytes 1 Platelet Estimate Normal RBC Morphology Abnorm A Polychromasia 1+ A Ovalocytes Occ A Sodium 138 Potassium 4.2 Chloride 95 L Carbon Dioxide 29 Anion Gap 14.0 BUN 21 Creatinine 0.8 GFR Calculation 84 Glucose 124 H Uric Acid 4.4 Calcium 8.4 L Phosphorus 2.7 Magnesium 2.4 Total Bilirubin 0.2 Direct Bilirubin < 0.2 GGT 12 AST 14 ALT 12 Alkaline Phosphatase 74 Lactate Dehydrogenase 259 H Total Protein 6.4 Albumin 3.6 Globulin 2.8 Albumin/Globulin Ratio 1.3 Triglycerides 46 Preliminary micro results at discharge 05/06/19 01:50 Blood Culture - Preliminary Blood 05/06/19 01:55 Blood Culture - Preliminary Blood Medical - DS: A/P - Patient/Caregiver Discharge Instructions Activity: as per physical therapy Diet: Dysphagia Pureed Additional Instructions: Lymphedema wraps to legs with lotion, elevate above heart while in bed Prescriptions: predniSONE [Prednisone] 30 mg PO [facility] #1 tab - Follow up Plan Follow up with: Conrad Matson MD [Primary Care Provider] - Disposition: Xfer SNF Prognosis: Fair Rehab Potential: Fair I certify that the patient requires SNF services: Yes Overall status at discharge: patient is progressing back to baseline
[2019-05-07 10:57] LABS: Appearance,Urine CLEAR; Bilirubin,Urine NEG (NEG); Color,Urine COLORLESS; Culture Indicated,Urine NO; Glucose,Urine (UA) NEGATIVE (NEG); Ketones,Urine NEG (NEG); Leukocyte Esterase,Urine NEG /uL (NEG); Nitrate,Urine NEG (NEG); Protein,Urine NEG (NEG); Specific Gravity,Urine 1.006 (1.000-1.035); Urine Blood NEG mg/dL (<0.03); Urobilinogen,Urine NEG (NEG)
[2019-05-07] MEDS: BECLOMETHASONE DIPROPIONATE 40MCG INHALER INH SCH ×2 (12:40→23:30)
[2019-05-07] MEDS ORDERED: LORazepam 2 MG/ML VIAL IV ONE (15:33)
[2019-05-07] MEDS: Dorzolamide Hcl/Timolol Maleat [Cosopt Eye Drops] LEFT EYE SCH ×2 (16:19→23:30)
[2019-05-07] MEDS: FORMOTEROL FUM PO SCH ×2 (16:20→23:30)
[2019-05-07] MEDS: GLYCOPYRROLATE PO SCH ×2 (16:20→23:30)
[2019-05-07] MEDS: PRAMIPEXOLE 1.5 MG TABLET PO SCH (17:51)
[2019-05-07] MEDS ORDERED: PRAMIPEXOLE 1.5 MG TABLET PO SCH (21:00)
[2019-05-08] MEDS: IPRATROPIUM/ALBUTEROL 3 ML AMPUL.NEB NEB SCH ×5 (01:27→21:11)
[2019-05-08] MEDS: 0.9 % SODIUM CHLORIDE 10 ML SYRINGE IV SCH ×3 (05:51→21:52)
[2019-05-08 06:35] LABS: ALT/SGPT 11 U/l (0-40); AST/SGOT 16 U/l (0-37); Albumin 3.7 gm/dL (3.2-5.2); Albumin/Globulin Ratio 1.3 (1.0-2.3); Alkaline Phosphatase 72 U/L (39-117); Bilirubin,Direct < 0.2 mg/dL (0.0-0.3); Bilirubin,Total 0.3 mg/dL (0.0-1.0); Blood Urea Nitrogen 22 mg/dl (8-23); Calcium 8.7 mg/dl (8.6-10.4); Carbon Dioxide 33 mmol/L (22-30); Chloride 95 mmol/L (96-108); Globulin 2.8 gm/dL (2.2-3.7); Glomerular Filtration Rate 80; Glucose 142 mg/dL (70-105); Lactate Dehydrogenase 254 U/L (94-250); Magnesium 2.6 mg/dL (1.6-2.5); Phosphorous 3.3 mg/dL (2.7-4.5); Potassium 3.9 mmol/L (3.3-5.1); Sodium 139 mmol/L (133-145); Triglycerides 71 mg/dl (<150); Uric Acid 4.6 mg/dL (2.5-8.0)
[2019-05-08] MEDS: BUDESONIDE 0.5 MG/2 ML AMPUL.NEB NEB SCH ×3 (07:42→21:11)
[2019-05-08] MEDS: SPIRONOLACTONE 25 MG TABLET PO SCH (08:38)
[2019-05-08] MEDS: FLUoxetine HCL 20 MG CAPSULE PO SCH (08:38)
[2019-05-08] MEDS: POTASSIUM CHLORIDE 20 MEQ TABLET PO SCH ×4 (08:38→21:51)
[2019-05-08] MEDS: FINASTERIDE 5 MG TABLET PO SCH (08:39)
[2019-05-08] MEDS: predniSONE 20 MG TABLET PO SCH (08:39)
[2019-05-08] MEDS: ENOXAPARIN 40 MG/0.4 ML SYRINGE SQ SCH (08:39)
[2019-05-08] MEDS: GABAPENTIN 100 MG CAPSULE PO SCH ×2 (08:39→21:51)
[2019-05-08] MEDS: TAMSULOSIN 0.4 MG CAPSULE PO SCH ×2 (08:39→21:50)
[2019-05-08] MEDS: SERTRALINE 50 MG TABLET PO SCH (08:39)
[2019-05-08] MEDS: AZITHROMYCIN 500 MG in DEXTROSE 5% IN WATER 250 ML IV SCH (08:40)
[2019-05-08] MEDS: FUROSEMIDE 40 MG/4 ML VIAL IV SCH (08:40)
[2019-05-08] MEDS: POLYETHYLENE GLYCOL 3350 17 GM PACKET PO SCH (08:41)
[2019-05-08] MEDS: Dorzolamide Hcl/Timolol Maleat [Cosopt Eye Drops] LEFT EYE SCH ×2 (08:41→21:51)
--- NOTE | 2019-05-08 08:53 | Internal Med Progress Note ---
Medical - PN: Subj Patient information: Note initiated : 05/08/19 at 8:49 am Service Date, if different from initiated Date: [] Patient: Abelardo Chambers 79 y/o M admitted on 05/06/19 for shortness of breah, dizziness. Chief Complaint: [] Interval history: Mr. Chambers is a 79 year old M Who was sent in from [facility] for weakness. Is reported the nursing facility had oxygen saturation of 66%, however in the ED was 87%. But he did have some sats 85%. Patient reports that he does have productive cough of clear sputum but this is normal for him and his cough has not changed. He did note some shortness of breath this morning, however, he has shortness of breath on occasion and this was not abnormal for him. Did feel little fevers this morning as well as having a headache and some nausea. Denies chest pain or stomach pain to me. Does feel wheezy but that is normal for him again. He also reports swelling in his legs for the past month or 2. They are mildly tender to walk on but fine when he is resting. In the ER was given breathing treatments as well as Lasix with a good urine output. Chest x-ray with some mildly distended pulmonary vessels and some bibasilar airspace disease thought to be atelectasis, with some mild CHF. Patient patient improved oxygenation but still desaturating on room air and thus admission requested. 05/07 For sleep since he did not get his restless leg medication. But otherwise feeling better and doing better. He is oxygenating well on room air at rest. His swelling in his legs is improving. On IV Lasix did have some dysuria last night but no dysuria this morning. 05/08 No overnight events. Feeling better. Slept well. Swelling in legs improving. Review of Systems: denies headache/fever/chills/nausea/vomiting/chest or abdominal pain/coug h/dyspnea/. Otherwise see above. - Constitutional Vitals: Vital Signs Temp Pulse Resp BP Pulse Ox 97.7 F 74 18 140/77 94 05/08/19 06:47 05/08/19 07:43 05/08/19 07:43 05/08/19 06:47 05/08/19 07:43 Period Temp Pulse Resp BP Sys/Aaron Pulse Ox Last 24 Hr 97.4 F-98 F 70-81 16-20 116-140/67-78 91-95 Intake and Output 05/07/19 05/08/19 05/08/19 21:59 05:59 13:59 Intake Total 120 240 Output Total 1001 603 Balance -881 -363 Weight 112.491 kg Intake & Output: Intake & Output 05/07/19 05/08/19 05/08/19 21:59 05:59 13:59 Intake Total 120 240 Output Total 1001 603 Balance -881 -363 Weight 112.491 kg Intake: Oral 120 240 Output: Void Amount 1000 600 # of times incontinent of urine 1 3 Other: Meal Dinner egg sandwich,peaches,milk Percent of Meal Consumed 0% 100% Feeding Ability Assist with Tray Set Up Independent Urine Appearance Clear Urine Color Pale Bright Yellow Urine Odor Normal Normal # Voids 1 Exam: General: Alert, Awake, No acute Distress, obese Eyes/N/T: EOMI, Head/Neck: neck supple, CV: RRR, No murmurs, Pulm: better aeration, no rhonchi/wheezing abd: soft, nontender, +BS x4 Ext: no clubbing/cyanosis, 2+ bilateral lower extremity edema chronic improving, venous stasis dermatitis Neuro: Alert, no focal deficits, moves all extremities, Skin: warm/dry Medical - PN: Obj Da - Labs CBC & Chem 7: 05/07/19 04:15 05/08/19 04:00 Labs: Abnormal Lab Results 05/08/19 05/07/19 05/07/19 04:00 04:15 04:15 RBC 4.06 L Hgb 12.3 L Hct 37.2 L Gran % 80.7 H Lymph % (Auto) 12.1 L Lymph # (Auto) 0.8 L RBC Morphology Polychromasia Ovalocytes Chloride 95 L 95 L Carbon Dioxide 33 H Glucose 142 H 124 H Calcium 8.4 L Magnesium 2.6 H Lactate Dehydrogenase 254 H 259 H 05/06/19 05/06/19 05/06/19 01:50 01:50 01:50 RBC 4.19 L Hgb 12.4 L Hct 38.7 L Gran % Lymph % (Auto) 12.9 L Lymph # (Auto) 0.9 L RBC Morphology Abnorm A Polychromasia 1+ A Ovalocytes Occ A Chloride Carbon Dioxide Glucose 118 H Calcium 8.5 L Magnesium Lactate Dehydrogenase Meds: Medications Acetaminophen (Tylenol) 650 mg PO Q6HP PRN PRN Reason: PAIN/FEVER > 101 Last Admin: 05/06/19 20:43 Dose: 650 mg Documented by: Albuterol/Ipratropium (Duoneb) 3 ml NEB Q6HRT [facility] Last Admin: 05/08/19 07:42 Dose: 3 ml Documented by: Beclomethasone Dipropionate (Qvar 40) 1 puff INH BID [facility] Last Admin: 05/07/19 23:30 Dose: Not Given Documented by: Budesonide (Pulmicort) 0.5 mg NEB BID [facility] Last Admin: 05/08/19 07:42 Dose: 0.5 mg Documented by: Enoxaparin Sodium (Lovenox) 40 mg SQ DAILY [facility] Last Admin: 05/08/19 08:39 Dose: 40 mg Documented by: Finasteride (Proscar) 5 mg PO QDAY [facility] Last Admin: 05/08/19 08:39 Dose: 5 mg Documented by: Fluoxetine HCl (Prozac) 20 mg PO DAILY [facility] Last Admin: 05/08/19 08:38 Dose: 20 mg Documented by: Furosemide (Lasix) 40 mg IV BIDD [facility] Last Admin: 05/08/19 08:40 Dose: 40 mg Documented by: Gabapentin (Neurontin) 200 mg PO BID [facility] Last Admin: 05/08/19 08:39 Dose: 200 mg Documented by: Azithromycin 500 mg/ Dextrose 250 mls @ 250 mls/hr IV Q24H [facility]; Protocol Stop: 05/08/19 14:29 Last Admin: 05/08/19 08:40 Dose: 250 mls/hr Documented by: Loperamide HCl (Imodium) 2 mg PO UD PRN PRN Reason: Diarrhea Lorazepam (Ativan) 0.5 mg PO Q8HP PRN PRN Reason: anxiety Last Admin: 05/06/19 23:48 Dose: 0.5 mg Documented by: Magnesium Hydroxide (Milk Of Magnesia) 30 ml PO DAILYP PRN PRN Reason: Constipation Last Admin: 05/06/19 20:43 Dose: 30 ml Documented by: Morphine Sulfate (Morphine) 5 mg PO Q4HP PRN PRN Reason: dyspena Last Admin: 05/07/19 01:02 Dose: 5 mg Documented by: Ondansetron HCl (Zofran) 4 mg IV Q6HP PRN PRN Reason: Nausea And Vomiting Brimonidine 0.2% Eye (Drops) 1 dose LEFT EYE BID [facility] Last Admin: 05/08/19 08:41 Dose: 1 dose Documented by: Dorzolamide Hcl/Timolol Maleat [ Cosopt Eye Drops] 1 dose LEFT EYE BID [facility] Last Admin: 05/08/19 08:41 Dose: 1 dose Documented by: Glycopyrrolate/Formoterol Fum [ Bevespi Aerosphere] Inhaler 1 dose PO BID [facility] Last Admin: 05/07/19 23:30 Dose: Not Given Documented by: Pramipexole 1.5 Mg (Tablet) 1 dose PO DAILY@1800 [facility] Last Admin: 05/07/19 17:51 Dose: 1 dose Documented by: Polyethylene Glycol (Miralax) 17 gm PO DAILY [facility] Last Admin: 05/08/19 08:41 Dose: 17 gm Documented by: Potassium Chloride (Kdur) 20 meq PO CCHS [facility] Last Admin: 05/08/19 08:38 Dose: 20 meq Documented by: Prednisone (Prednisone) 40 mg PO BIDCC [facility] Last Admin: 05/08/19 08:39 Dose: 40 mg Documented by: Sertraline HCl (Zoloft) 25 mg PO DAILY [facility] Last Admin: 05/08/19 08:39 Dose: 25 mg Documented by: Sodium Biphosphate/Sodium Phosphate (Fleets Adult) 1 dose [place] Q3-4DAYS PRN PRN Reason: Constipation Sodium Chloride (Saline Flush) 10 ml IV Q8 [facility] Last Admin: 05/08/19 05:51 Dose: Not Given Documented by: Spironolactone (Aldactone) 12.5 mg PO DAILY [facility] Last Admin: 05/08/19 08:38 Dose: 12.5 mg Documented by: Tamsulosin HCl (Flomax) 0.4 mg PO BID [facility] Last Admin: 05/08/19 08:39 Dose: 0.4 mg Documented by: Medical - PN: A/P - Time Spent With Patient Total time spent is greater than 50% in coordination of care (as documented) at patient's floor/unit and/or counseling patient: - Narrative A/P Narrative: A: *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
[2019-05-08] MEDS: FORMOTEROL FUM PO SCH ×2 (09:04→21:52)
[2019-05-08] MEDS: BECLOMETHASONE DIPROPIONATE 40MCG INHALER INH SCH ×2 (09:04→21:52)
[2019-05-08] MEDS: GLYCOPYRROLATE PO SCH ×2 (09:04→21:52)
[2019-05-08] MEDS ORDERED: acetaZOLAMIDE SOD 500 MG VIAL IV ONE (16:00)
[2019-05-08] MEDS: PRAMIPEXOLE 1.5 MG TABLET PO SCH (17:44)
[2019-05-09] MEDS: IPRATROPIUM/ALBUTEROL 3 ML AMPUL.NEB NEB SCH ×2 (01:49→06:49)
[2019-05-09] MEDS: 0.9 % SODIUM CHLORIDE 10 ML SYRINGE IV SCH (05:33)
[2019-05-09] MEDS: BUDESONIDE 0.5 MG/2 ML AMPUL.NEB NEB SCH ×2 (06:48→10:25)
[2019-05-09] MEDS ORDERED: predniSONE 20 MG TABLET PO SCH (08:00)
[2019-05-09] MEDS: POTASSIUM CHLORIDE 20 MEQ TABLET PO SCH (08:52)
[2019-05-09] MEDS: FLUoxetine HCL 20 MG CAPSULE PO SCH (08:52)
[2019-05-09] MEDS: GABAPENTIN 100 MG CAPSULE PO SCH (08:52)
[2019-05-09] MEDS: ENOXAPARIN 40 MG/0.4 ML SYRINGE SQ SCH (08:52)
[2019-05-09] MEDS: TAMSULOSIN 0.4 MG CAPSULE PO SCH (08:53)
[2019-05-09] MEDS: SERTRALINE 50 MG TABLET PO SCH (08:53)
[2019-05-09] MEDS: FINASTERIDE 5 MG TABLET PO SCH (08:53)
[2019-05-09] MEDS: SPIRONOLACTONE 25 MG TABLET PO SCH (08:53)
[2019-05-09] MEDS: FORMOTEROL FUM PO SCH (08:54)
[2019-05-09] MEDS: GLYCOPYRROLATE PO SCH (08:54)
[2019-05-09] MEDS: POLYETHYLENE GLYCOL 3350 17 GM PACKET PO SCH (08:54)
[2019-05-09] MEDS: BECLOMETHASONE DIPROPIONATE 40MCG INHALER INH SCH (08:54)
[2019-05-09] MEDS ORDERED: FUROSEMIDE 20 MG TABLET PO SCH (09:00)
[2019-05-09] MEDS: Dorzolamide Hcl/Timolol Maleat [Cosopt Eye Drops] LEFT EYE SCH (09:03)
[2019-05-09] MEDS ORDERED: IPRATROPIUM/ALBUTEROL 3 ML AMPUL.NEB NEB ONE ×2 (11:05→11:06)
== END 2019-05-09 11:18 | DRG 190 ==
LOC: ED 01:32 → MEDSUR 12:03
PROVIDERS: ADMIT Internal Medicine; ATTEND Internal Medicine

== ENCOUNTER 2020-09-19 15:51 | Inpatient (IN) ==
[2020-09-19] MEDS ORDERED: 0.9 % SODIUM CHLORIDE 1,000 ML IV ONE (16:27)
--- NOTE | 2020-09-19 16:55 | Emergency Department Note ---
HPI General Chief complaint: Fall Stated complaint: fall Time Seen by Provider: 09/19/20 16:05 Source: EMS Mode of arrival: EMS Limitations: no limitations and language barrier History of Present Illness HPI Narrative: Narrative: 80-year-old male patient referred to the emergency department from [facility]), via ambulance, after falling at their facility. Upon arrival to our facility he is noted to be profoundly hypoxic with an SPO2 of 82% on room air. He was started on nasal cannula oxygen and his SPO2 increased to 96%. He is mentating well throughout this time. He mentions he has been feeling unsteady over the last month or so. He has been talking to his primary care provider about this. He was standing from his wheelchair turn to sit down in a lounge chair. During this time he became unsteady and fell backwards. He struck his head on what he thinks was the rolling table or perhaps a chair. He did not lose consciousness. He does complain of pain initially to the middle of his shoulder blades radiated anteriorly. However, upon further questioning patient describes it as a centralized chest pain that developed since being in the emergency department. He describes as a sharp, sta bbing type chest pain. He denies previous AL. Patient has longstanding history of COPD but denies acute shortness of breath this time. Patient mentions chronic nonhealing wound to his left foot. He has been seen by the wound care clinic in the past. He resides in a facility has had a considerable amount of Covid cases in the past. He mentions being recently swabbed for Covid this morning. ROS: Denies systemic illness, fever, sweats, chills. Admits to chronic decreased vision to the left eye associated with macular degeneration. Denies headaches or tinnitus. Admits to chronic runny nose. Denies sinus congestion or cough Denies shortness of breath. Denies palpitations. Denies abdominal pain, nausea, vomiting, or diarrhea. Denies dysuria, hematuria, urinary frequency, or urinary urgency. Admits to chronic right-sided focal weakness. Related Data Home Medications Medication Instructions Recorded Confirmed furosemide 20 mg tablet 80 mg PO DAILY tab 07/15/17 05/07/19 potassium chloride [Klor-Con M20] 20 meq PO QID 12/05/17 05/06/19 Albuterol Sulfate 0.63 mg INH Q6 11/08/18 05/06/19 acetaminophen [Tylenol] 325 mg PO Q6HP PRN 11/08/18 05/06/19 dorzolamide-timolol [Cosopt] 1 gtt LEFT EYE BID 11/08/18 05/07/19 pramipexole 1.5 mg PO HS 11/08/18 05/06/19 gabapentin 200 mg PO BID 03/10/19 05/06/19 ondansetron 4 mg SL Q4HP PRN 03/10/19 05/06/19 budesonide 0.5 mg NEB BID 05/06/19 05/06/19 fluoxetine 20 mg PO DAILY 05/06/19 05/06/19 glucagon (human recombinant) 1 mg IJ PRN PRN 05/06/19 05/06/19 loperamide 4 mg PO PRN PRN 05/06/19 05/06/19 magnesium hydroxide 400 mg PO PRN PRN 05/06/19 05/06/19 polyethylene glycol 3350 17 gm PO DAILY 05/06/19 05/06/19 spironolactone 12.5 mg PO ONCE 05/06/19 05/06/19 brimonidine 1 gtt OU TID 07/10/19 07/10/19 ipratropium-albuterol 2.5 mg NEB Q4HP PRN 07/10/19 07/10/19 Previous Rx's Medication Instructions Recorded tamsulosin 0.4 mg capsule 0.4 mg PO BID #60 cap 10/15/15 finasteride 5 mg tablet 5 mg PO QDAY #30 tab 07/15/17 docusate sodium 100 mg PO BID #30 cap 09/17/17 morphine 5 mg PO Q4HP PRN #5 tab 05/09/19 Allergies Allergy/AdvReac Type Severity Reaction Status Date / Time No Known Drug Allergies Allergy Verified 09/03/20 08:10 Review of Systems ROS ROS Narrative: Narrative: All systems ED: reviewed and negative except as stated. [facility] Narrative Patient History Narrative: Narrative: Medical/Surgical/Family History All Active Problems (Updated 09/19/20 @ 20:39 by Fernie Dawson PA-C) Hypoxia (Acute) CHF, acute on chronic (Acute) Cellulitis of both lower extremities (Acute) COPD exacerbation (Acute) Respiratory failure (Acute) Respiratory acidosis (Acute) Cholecystitis (Acute) Pancreatitis (Acute) Cellulitis of left leg (Acute) Diabetes type 2, controlled (Acute) COPD (chronic obstructive pulmonary disease) (Acute) Dementia (Acute) CHF (congestive heart failure) (Acute) Peripheral vascular disease (Acute) Obstructive sleep apnea (Acute) Hyperlipidemia (Acute) Diabetes mellitus type 2, uncontrolled (Chronic) Congestive heart failure (Chronic) Essential hypertension (Chronic) Obstructive sleep apnea (Chronic) Advanced COPD (Chronic) Obesity (BMI 30-39.9) (Chronic) Anemia, normocytic normochromic (Chronic) Stasis dermatitis (Chronic) BPH loc w urin obs/LUTS (Chronic) BPH (benign prostatic hyperplasia) (Chronic) GERD (gastroesophageal reflux disease) (Chronic) Edema extremities (Chronic) Venous (peripheral) insufficiency (Chronic) Urinary frequency (Chronic) Generalized polyneuropathy (Chronic) Arthralgia of knee (Chronic) Depression (Chronic) Asthma (Chronic) Back pain (Chronic) Medical History Acute exacerbation of chronic obstructive airways disease (Resolved) Acute retention of urine (Resolved) Advanced COPD (Chronic) Anemia, normocytic normochromic (Chronic) Arthralgia of knee (Chronic) Aspiration pneumonia (Resolved) Asthma (Chronic) Back pain (Chronic) BPH (benign prostatic hyperplasia) (Chronic) BPH loc w urin obs/LUTS (Chronic) Bronchitis (Resolved) Cellulitis (Resolved) Cellulitis, penis (Resolved) CHF exacerbation (Resolved) Closed head injury (Resolved) Concussion without loss of consciousness (Resolved) Confusion (Resolved) Confusion state (Resolved) Congestive heart failure (Chronic) COPD exacerbation (Resolved) Depression (Chronic) Diabetes mellitus type 2, uncontrolled (Chronic) NAJERA (dyspnea on exertion) (Resolved) Edema extremities (Chronic) Essential hypertension (Chronic) Fall (Resolved) Batista catheter problem (Resolved) Generalized polyneuropathy (Chronic) GERD (gastroesophageal reflux disease) (Chronic) History of kidney stones (Acute) Hypernatremia (Resolved) Hypokalemia (Resolved) Kidney stone (Resolved) Knee pain, right (Resolved) Mild congestive heart failure (Resolved) Obesity (BMI 30-39.9) (Chronic) 38.4 BMi 6-13-19 Obstructive sleep apnea (Chronic) on bipap Pneumonia (Resolved) Primary atypical pneumonia (Resolved) Rib contusion (Resolved) Rib fractures (Resolved) Shortness of breath (Resolved) Sinusitis (Resolved) Stasis dermatitis (Chronic) Syncope (Resolved) Thoracic back pain (Resolved) Urethritis (Resolved) Urinary frequency (Chronic) UTI (urinary tract infection) (Resolved) Venous (peripheral) insufficiency (Chronic) Vertigo (Resolved) Vertigo (Resolved) Surgical History History of hernia repair (Chronic 05/02/16) History of knee surgery (Acute) History of lumbar laminectomy (Resolved) History of right shoulder replacement (Resolved 09/12/13) total reverse right shoulder replacement History of shoulder surgery (Acute) Hx of appendectomy (Resolved) Hx of arthroscopic knee surgery (Resolved) Family History Unknown No family history of malignant neoplasm No family history of cardiovascular disease No history of endocrine disorder No history of gastrointestinal disorder No family history of bleeding disorder No family history of kidney disease Social History Smoking Status: Never smoker Alcohol Intake Frequency: does not drink Substance Use: does not use Exam Narrative Narrative: Narrative: General Limitations: no limitations and language barrier General appearance: Present other (Well-developed, well-nourished, chronically ill-appearing, morbidly obese 80-year-old male patient laying semirecumbent on the emergency room gurney. He is in no acute respiratory distress. He is speaking in complete sentences. No nasal flaring. No accessory muscle use. SPO2 is now 96% on 2 L of oxygen via nasal cannula. He is afebrile his other vital signs are normal.) Expanded Head Head physical: Present abrasion (Abrasion to the crown of the head noted. No active bleeding.); Absent raccoon eyes and Quiñonez's sign Eye Eye: Present PERRL and EOMI; Absent normal appearance (Lateral deviation noted to the left.) and scleral icterus ENT ENT: Present normal oropharynx and mucous membranes moist Neck Neck: Present trachea midline; Absent lymphadenopathy Chest Chest: Present symmetric chest wall rise and tenderness (Mild tenderness palpation to the left sternal border.) Respiratory Respiratory: Present wheezes (Expiratory wheezing heard throughout the chest.), prolonged expiratory phase and decreased breath sounds (Poor inspiratory effort noted.); Absent normal lung sounds bilaterally, respiratory distress, rales/crackles, stridor and accessory muscle use Cardiovascular Cardiovascular: Present regular rate and normal rhythm; Absent systolic murmur and diastolic murmur Adbominal Abdominal: Present soft, normal bowel sounds and other; Absent distention, tenderness, guarding, rebound, rigidity, organomegaly and mass Extremities Extremities: Present tenderness and pedal edema; Absent normal inspection (Bronzing noted to both lower extremities. Left lower extremity erythematous throughout foot extending up to just below knee. Skin is scaly. No obvious skin ulceration noted. No streaking. Foul smell noted. No drainage.), full ROM and normal capillary refill Expanded Lower Extremity Lower leg: Present erythema; Absent normal inspection Ankle: Present erythema; Absent normal inspection Foot/toe: Present swelling; Absent normal inspection and erythema Neurovascular/Tendon: Absent pulse deficit (Pedal pulses present and bounding bilateral.) and sensory deficit Back Back: Present normal inspection and full ROM Neurological Neurological: Present alert Expanded Neurological Patient oriented to: Present person and place; Absent time Speech: Present fluid speech Motor strength - LUE: 5/5 Motor strength - RUE: 5/5 Motor strength - LLE: 5/5 Motor strength - RLE: 5/5 SENSORY EXAM UPPER EXTREMITY: Normal: light touch SENSORY EXAM LOWER EXTREMITY: Normal: light touch Coma Scale Eye Opening: Spontaneous Coma Scale Motor Response: Obeys Commands Coma Scale Verbal Response: Oriented Coma Scale Total: 15 Psychiatric Psychiatric: Present normal affect and normal mood Skin Skin: Present warm (WNL), dry and normal color Course Course Course Narrative: Differential diagnosis of life-threatening causes of chest pain in the adult patient include the following: - Acute coronary syndrome. - Aortic dissection - Pulmonary embolism - Tension pneumothorax - Pericardial tamponade - Esophageal rupture. Other causes of chest pain in adult patient include the following: Acute heart failure, pneumonia, bronchitis, acid reflux, Kawasaki's disease, esophageal spasm, odontogenic infections, rib contusions/fractures, and costochondritis. Patient had a fall with the SNF that he resides at. He mentions to me has had a general decline in his overall health over the last month. He appears to have had a fall from a standing position earlier today and struck his head on a rolling table. While performing ROS patient did complain of chest pain. We are going to order EKG, portable chest x-ray, laboratory studies including ACS, and a noncontrast head CT scan. Patient was profoundly hypoxic upon presentation. However nursing staff said this is somewhat of his baseline. 2 L of nasal cannula oxygen has increased his SPO2 up to 96%. Patient was provided normal saline 1000 mL as a bolus. Patient was given 2 g Rocephin IVP for the developing cellulitis of the left lower extremity. Reevaluation(s) Reevaluation #1: A review of his diagnostics of the following: CBC WBC 9.0, RBC 4.33, hemoglobin 12.5, mag 40.4, platelets 225. Lactic acid 0.7. CMP potassium 5.2, chloride 92, BUN 41, creatinine 1.4, all others normal limits. Troponin less than 0.01. Procalcitonin 0.10. UA pending. Noncontrast head CT scan read by the radiologist as no acute intracranial hemorrhage or interval change. Portable chest x-ray read as mild bibasilar parenchymal density. Radiologist mentions these findings are consistent with atelectasis or pneumonia. After reviewing all the data I discussed these findings my collaborating physician (Dr. Jenkins). At this time patient does continue to require oxygen to keep his SPO2 above 90%. My collaborating physician recommended an ABG be drawn. I am going to provide him Solu-Medrol 62.5 mg IV for procedure COPD exacerbation. We are still waiting on the D-dimer. Time: 19:30 Reevaluation #2: Unfortunately D-dimer coagulated twice with draw. With this in mind a CT angiogram of the chest was ordered. Unfortunately, patient's renal functions would not tolerate contrast so a noncontrast CT scan of the chest was ordered and is placed. CT scan results showed compression fractures to T2 and T3 with moderate to severe compression fracture of T6 and T8. There was mild emphysema with bibasilar atelectasis. No maikel infiltrates were noted. ABG did show hypoxia with hypercapnia. After reviewing this additional data I discussed these findings once again with my collaborating physician. At this time patient is suffering COPD exacerbation with hypoxia/hypercapnia and acute respiratory failure. Patient also has developing cellulitis left lower extremity. Seems warranted that the patient be admitted to the hospital for miguel oing care. With this in mind I reached out to our hospitalist (Dr. Ramirez) and discussed the case with him. Time: 21:54 Reevaluation #3: At this time Dr. Ramirez is excepted to admit the patient here to our facility. All further treatment decisions, modalities, and ultimate patient disposition be carried out by Dr. Ramirez. Time: 22:15 Vital Signs Vital signs: Vital Signs Temperature 98.7 F 09/19/20 15:52 Pulse Rate 78 09/19/20 15:52 Respiratory Rate 16 09/19/20 15:52 Blood Pressure 108/61 09/19/20 15:52 Pulse Oximetry (%) 82 L 09/19/20 15:52 Temperature 98.7 F 09/19/20 15:52 Pulse Rate 93 H 09/19/20 20:47 Respiratory Rate 16 09/19/20 15:52 Blood Pressure 99/66 09/19/20 20:47 Pulse Oximetry (%) 96 09/19/20 20:47 MDM MDM Narrative Medical decision making narrative: Narrative: Lab Data Lab results reviewed: Yes I reviewed the patient's lab results. Result diagrams: 09/19/20 17:00 09/19/20 17:00 Labs: Lab Results 09/19/20 09/19/20 09/19/20 Range/Units 17:00 17:00 17:00 WBC 9.0 (4.5-11.0) K/mcL RBC 4.33 L (4.50-5.90) M/mcL Hgb 12.5 L (13.5-16.5) g/dL Hct 40.4 L (41.0-55.0) % MCV 93.3 (80.0-100.0) fL MCH 28.9 (26.0-34.0) pg MCHC 30.9 L (31.0-36.0) g/dL RDW 13.0 (11.5-14.5) % Plt Count 225 (140-440) K/mcL MPV 9.7 (7.4-10.4) fL Neut % (Auto) 80.3 H (38.0-78.0) % Lymph % (Auto) 9.9 L (15.0-49.0) % Furnas % (Auto) 7.4 (1.0-12.0) % Eos % (Auto) 2.1 (0.0-7.0) % Baso % (Auto) 0.3 (0.0-2.0) % Lymph # (Auto) 0.89 L (1.50-4.80) K/mcL Furnas # (Auto) 0.67 (0.10-0.90) K/mcL Eos # (Auto) 0.19 (0.00-0.70) K/mcL Baso # (Auto) 0.03 (0.00-0.20) K/mcL Absolute Neutrophils 7.25 (1.80-8.00) K/mcL D-Dimer TNP VBG Lactic Acid (0.5-2.0) mmol/L Sodium 134 (133-145) mmol/L Potassium 5.2 H (3.3-5.1) mmol/L Chloride 92 L (96-108) mmol/L Carbon Dioxide 30 (22-30) mmol/L Anion Gap 12.0 (8.0-16.0) BUN 41 H (8-23) mg/dL Creatinine 1.4 H (0.7-1.2) mg/dL GFR Calculation 46 Glucose 101 (70-105) mg/dL Calcium 9.1 (8.6-10.4) mg/dL Total Bilirubin 0.4 (0.1-1.0) mg/dL AST 22 (<40) U/L ALT 17 (<40) U/L Alkaline Phosphatase 76 (39-117) U/L Troponin T (<0.03) ng/mL Total Protein 6.4 (5.9-8.4) gm/dL Albumin 3.7 (3.2-5.2) gm/dL Globulin 2.7 (2.2-3.7) gm/dL Albumin/Globulin Ratio 1.4 (1.0-2.3) Procalcitonin (<0.10) ng/mL Urine Color Urine Appearance (Clear) Urine pH (5.0-9.0) Ur Specific Rembrandt (1.000-1.035) Urine Protein (Negative) mg/dL Urine Glucose (UA) (Negative) mg/dL Urine Ketones (Negative) mg/dL Urine Occult Blood (Negative) mg/dL Urine Nitrate (Negative) Urine Bilirubin (Negative) mg/dL Urine Urobilinogen mg/dL Ur Leukocyte Esterase (Negative) /ug Urine RBC (0-1) /hpf Urine WBC (0-4) /hpf Ur Squamous Epith Cells (0-4) /hpf Urine Bacteria (0) /hpf Hyaline Casts (0-2) /lph Urine Mucus (None) /hpf Ur Culture Indicated? 09/19/20 09/19/20 09/19/20 Range/Units 17:00 17:00 17:00 WBC (4.5-11.0) K/mcL RBC (4.50-5.90) M/mcL Hgb (13.5-16.5) g/dL Hct (41.0-55.0) % MCV (80.0-100.0) fL MCH (26.0-34.0) pg MCHC (31.0-36.0) g/dL RDW (11.5-14.5) % Plt Count (140-440) K/mcL MPV (7.4-10.4) fL Neut % (Auto) (38.0-78.0) % Lymph % (Auto) (15.0-49.0) % Furnas % (Auto) (1.0-12.0) % Eos % (Auto) (0.0-7.0) % Baso % (Auto) (0.0-2.0) % Lymph # (Auto) (1.50-4.80) K/mcL Furnas # (Auto) (0.10-0.90) K/mcL Eos # (Auto) (0.00-0.70) K/mcL Baso # (Auto) (0.00-0.20) K/mcL Absolute Neutrophils (1.80-8.00) K/mcL D-Dimer VBG Lactic Acid 0.7 (0.5-2.0) mmol/L Sodium (133-145) mmol/L Potassium (3.3-5.1) mmol/L Chloride (96-108) mmol/L Carbon Dioxide (22-30) mmol/L Anion Gap (8.0-16.0) BUN (8-23) mg/dL Creatinine (0.7-1.2) mg/dL GFR Calculation Glucose (70-105) mg/dL Calcium (8.6-10.4) mg/dL Total Bilirubin (0.1-1.0) mg/dL AST (<40) U/L ALT (<40) U/L Alkaline Phosphatase (39-117) U/L Troponin T < 0.01 (<0.03) ng/mL Total Protein (5.9-8.4) gm/dL Albumin (3.2-5.2) gm/dL Globulin (2.2-3.7) gm/dL Albumin/Globulin Ratio (1.0-2.3) Procalcitonin 0.10 H (<0.10) ng/mL Urine Color Urine Appearance (Clear) Urine pH (5.0-9.0) Ur Specific Rembrandt (1.000-1.035) Urine Protein (Negative) mg/dL Urine Glucose (UA) (Negative) mg/dL Urine Ketones (Negative) mg/dL Urine Occult Blood (Negative) mg/dL Urine Nitrate (Negative) Urine Bilirubin (Negative) mg/dL Urine Urobilinogen mg/dL Ur Leukocyte Esterase (Negative) /ug Urine RBC (0-1) /hpf Urine WBC (0-4) /hpf Ur Squamous Epith Cells (0-4) /hpf Urine Bacteria (0) /hpf Hyaline Casts (0-2) /lph Urine Mucus (None) /hpf Ur Culture Indicated? 09/19/20 09/19/20 Range/Units 18:55 19:31 WBC (4.5-11.0) K/mcL RBC (4.50-5.90) M/mcL Hgb (13.5-16.5) g/dL Hct (41.0-55.0) % MCV (80.0-100.0) fL MCH (26.0-34.0) pg MCHC (31.0-36.0) g/dL RDW (11.5-14.5) % Plt Count (140-440) K/mcL MPV (7.4-10.4) fL Neut % (Auto) (38.0-78.0) % Lymph % (Auto) (15.0-49.0) % Furnas % (Auto) (1.0-12.0) % Eos % (Auto) (0.0-7.0) % Baso % (Auto) (0.0-2.0) % Lymph # (Auto) (1.50-4.80) K/mcL Furnas # (Auto) (0.10-0.90) K/mcL Eos # (Auto) (0.00-0.70) K/mcL Baso # (Auto) (0.00-0.20) K/mcL Absolute Neutrophils (1.80-8.00) K/mcL D-Dimer TNP VBG Lactic Acid (0.5-2.0) mmol/L Sodium (133-145) mmol/L Potassium (3.3-5.1) mmol/L Chloride (96-108) mmol/L Carbon Dioxide (22-30) mmol/L Anion Gap (8.0-16.0) BUN (8-23) mg/dL Creatinine (0.7-1.2) mg/dL GFR Calculation Glucose (70-105) mg/dL Calcium (8.6-10.4) mg/dL Total Bilirubin (0.1-1.0) mg/dL AST (<40) U/L ALT (<40) U/L Alkaline Phosphatase (39-117) U/L Troponin T (<0.03) ng/mL Total Protein (5.9-8.4) gm/dL Albumin (3.2-5.2) gm/dL Globulin (2.2-3.7) gm/dL Albumin/Globulin Ratio (1.0-2.3) Procalcitonin (<0.10) ng/mL Urine Color Yellow Urine Appearance Clear (Clear) Urine pH 6.0 (5.0-9.0) Ur Specific Rembrandt 1.011 (1.000-1.035) Urine Protein Negative (Negative) mg/dL Urine Glucose (UA) Negative (Negative) mg/dL Urine Ketones Negative (Negative) mg/dL Urine Occult Blood Negative (Negative) mg/dL Urine Nitrate Negative (Negative) Urine Bilirubin Negative (Negative) mg/dL Urine Urobilinogen Negative mg/dL Ur Leukocyte Esterase Negative (Negative) /ug Urine RBC 1 (0-1) /hpf Urine WBC 1 (0-4) /hpf Ur Squamous Epith Cells 0 (0-4) /hpf Urine Bacteria None (0) /hpf Hyaline Casts 3 H (0-2) /lph Urine Mucus Few A (None) /hpf Ur Culture Indicated? No Radiology Data Radiology results reviewed: Yes I reviewed the patient's radiology results. Radiology results narrative: Ordering Physician: Fernie Dawson PA-C Date of Service: 09/19/20 Procedure(s): CT head/brain wo con Accession Number(s): [id number] INDICATION: Fall today. Hit head on table. No blood thinners. COMPARISON: Previous brain CT scans dated 12/10/2017, 06/23/2017. Previous MRI scan dated 12/07/2017 TECHNIQUE: Axial noncontrast-enhanced images through the brain. Sagittally and coronally reformatted images. FINDINGS: Cerebral hemispheres:No acute intra-axial hemorrhage. No focal attenuation abnormality or localized mass effect. There is cerebral atrophy. There is white matter abnormality consistent with small vessel ischemic change. Findings are stable Brainstem and cerebellum:No intra-axial abnormality Extra-axial:No acute hemorrhage. No subdural or epidural hematoma. No subarachnoid hemorrhage. Basilar cisterns are normal Calvarial:No calvarial fracture. No lytic lesion Temporal bones are negative. No destructive lesions Soft tissue, orbits, sinuses:Orbits and visualized facial soft tissues and paranasal sinuses are negative IMPRESSION: 1. No acute intracranial hemorrhage. No interval change 2. Cerebral atrophy and white matter abnormality consistent with small vessel ischemic change The exam was performed using radiation dose optimization techniques including, but not limited to, automated exposure control, adjustment of the mA and/or kV according to patient size and use of iterative reconstruction technique. Ordering Physician: Fernie Dawson PA-C Date of Service: 09/19/20 Procedure(s): XR chest 1V portable Accession Number(s): [id number] INDICATION: Hypoxia, Hx of COPD. TECHNIQUE: AP portable chest x-ray COMPARISON: Previous chest x-rays dated 07/15/2019, 07/10/2019, 05/25/2019, 05/07/2019 FINDINGS: Lungs:Bibasilar parenchymal density may be secondary to atelectasis. Pneumonia is possible. Mid and upper lungs are negative. Heart, vascular:No significant cardiomegaly. Pulmonary vascularity is normal. No pulmonary edema or pulmonary congestion Mediastinum, romero:No mediastinal widening. No hilar mass Pleura:No pleural fluid. No pleural-based mass or calcification Skeletal:Old healed left-sided rib fractures. Previous right shoulder arthroplasty IMPRESSION: 1. Mild bibasilar parenchymal density. 2. Findings are consistent with atelectasis or pneumonia Interpreted and Authenticated by: Delfino Aguilar 09/19/[address] scan of the chest read by the radiologist from direct radiology as mild compression fracture at T2 and T3 vertebral bodies. Moderate to severe compression fracture T6 and T8 vertebral bodies. There is considered mild emphysema with bibasilar atelectasis. EKG Data EKG #1: EKG results narrative: Twelve-lead EKG obtained showing sinus rhythm at a rate of 78 bpm. No ectopy. No ST segment changes. Normal intervals. Discharge Plan Patient/Caregiver Discharge Instructions Pt seen by SUPERVISING PRODUCER/PA only: Yes Clinical Impression: Hypoxia, COPD exacerbation, Cellulitis of left leg Respiratory failure Qualifiers: Chronicity: acute on chronic Respiratory failure complication: hypoxia and hypercapnia Qualified Code(s): J96.21 - Acute and chronic respiratory failure with hypoxia Patient Disposition: Xfer As Inpt ([facility]) Condition: Fair Follow up with: Conrad Matson MD [Primary Care Provider] - Prescriptions: No Action furosemide 20 MG tablet 80 mg PO DAILY RF: 0 docusate sodium 100 MG capsule 100 mg PO BID Qty: 30 RF: 0 potassium chloride [Klor-Con M20] 20 MEQ Tablet 20 meq PO QID RF: 0 Albuterol Sulfate 0.63 mg INH Q6 RF: 0 pramipexole 1 MG Tablet 1.5 mg PO HS RF: 0 dorzolamide-timolol [Cosopt] 10 ML Drops 1 gtt LEFT EYE BID RF: 0 acetaminophen [Tylenol] 325 MG Tablet 325 mg PO Q6HP PRN (Reason: Fever) RF: 0 gabapentin 100 MG capsule 200 mg PO BID RF: 0 ondansetron 4 MG tablet 4 mg SL Q4HP PRN (Reason: Nausea And Vomiting) RF: 0 budesonide 0.5 MG/2 ML suspension for nebulization 0.5 mg NEB BID RF: 0 loperamide 2 MG tablet 4 mg PO PRN PRN (Reason: Diarrhea) RF: 0 glucagon (human recombinant) 1 MG recon soln 1 mg IJ PRN PRN (Reason: Blood Sugar - Low) RF: 0 magnesium hydroxide 400 MG/5 ML suspension 400 mg PO PRN PRN (Reason: Constipation) RF: 0 fluoxetine 20 MG capsule 20 mg PO DAILY RF: 0 spironolactone 25 MG tablet 12.5 mg PO ONCE RF: 0 polyethylene glycol 3350 17 GM powder in packet 17 gm PO DAILY RF: 0 morphine 15 MG tablet 5 mg PO Q4HP PRN (Reason: Pain) Qty: 5 RF: 0 ipratropium-albuterol 3 ML solution for nebulization 2.5 mg NEB Q4HP PRN (Reason: Shortness Of Breath) RF: 0 brimonidine 1 GTT bottle 1 gtt OU TID RF: 0 tamsulosin 0.4 mg capsule,extended release 24hr 0.4 mg PO BID Qty: 60 RF: 11 finasteride [Proscar] 5 mg tablet 5 mg PO QDAY Qty: 30 RF: 6
--- NOTE | 2020-09-19 17:33 | XRay Report ---
INDICATION: Hypoxia, Hx of COPD. TECHNIQUE: AP portable chest x-ray COMPARISON: Previous chest x-rays dated 07/15/2019, 07/10/2019, 05/25/2019, 05/07/2019 FINDINGS: Lungs:Bibasilar parenchymal density may be secondary to atelectasis. Pneumonia is possible. Mid and upper lungs are negative. Heart, vascular:No significant cardiomegaly. Pulmonary vascularity is normal. No pulmonary edema or pulmonary congestion Mediastinum, romero:No mediastinal widening. No hilar mass Pleura:No pleural fluid. No pleural-based mass or calcification Skeletal:Old healed left-sided rib fractures. Previous right shoulder arthroplasty IMPRESSION: 1. Mild bibasilar parenchymal density. 2. Findings are consistent with atelectasis or pneumonia Interpreted and Authenticated by: Delfino Aguilar 09/19/20
--- NOTE | 2020-09-19 17:36 | Cat Scan Report ---
INDICATION: Fall today. Hit head on table. No blood thinners. COMPARISON: Previous brain CT scans dated 12/10/2017, 06/23/2017. Previous MRI scan dated 12/07/2017 TECHNIQUE: Axial noncontrast-enhanced images through the brain. Sagittally and coronally reformatted images. FINDINGS: Cerebral hemispheres:No acute intra-axial hemorrhage. No focal attenuation abnormality or localized mass effect. There is cerebral atrophy. There is white matter abnormality consistent with small vessel ischemic change. Findings are stable Brainstem and cerebellum:No intra-axial abnormality Extra-axial:No acute hemorrhage. No subdural or epidural hematoma. No subarachnoid hemorrhage. Basilar cisterns are normal Calvarial:No calvarial fracture. No lytic lesion Temporal bones are negative. No destructive lesions Soft tissue, orbits, sinuses:Orbits and visualized facial soft tissues and paranasal sinuses are negative IMPRESSION: 1. No acute intracranial hemorrhage. No interval change 2. Cerebral atrophy and white matter abnormality consistent with small vessel ischemic change The exam was performed using radiation dose optimization techniques including, but not limited to, automated exposure control, adjustment of the mA and/or kV according to patient size and use of iterative reconstruction technique. Interpreted and Authenticated by: Delfino Aguilar 09/19/20
[2020-09-19 18:09] LABS: Basophils # (Auto) 0.03 K/mcL (0.00-0.20); Basophils % (Auto) 0.3 % (0.0-2.0); Eosinophils # (Auto) 0.19 K/mcL (0.00-0.70); Eosinophils % (Auto) 2.1 % (0.0-7.0); Hematocrit 40.4 % (41.0-55.0); Hemoglobin 12.5 g/dL (13.5-16.5); Lymphocytes # (Auto) 0.89 K/mcL (1.50-4.80); Lymphocytes % (Auto) 9.9 % (15.0-49.0); Mean Cell Volume 93.3 fL (80.0-100.0); Mean Corpuscular HGB Conc 30.9 g/dL (31.0-36.0); Mean Platelet Volume 9.7 fL (7.4-10.4); Monocytes # (Auto) 0.67 K/mcL (0.10-0.90); Monocytes % (Auto) 7.4 % (1.0-12.0); Neutrophils % (Auto) 80.3 % (38.0-78.0); Platelet Count 225 K/mcL (140-440); RBC 4.33 M/mcL (4.50-5.90)
[2020-09-19 18:34] LABS: ALT/SGPT 17 U/L (<40); AST/SGOT 22 U/L (<40); Albumin 3.7 gm/dL (3.2-5.2); Albumin/Globulin Ratio 1.4 (1.0-2.3); Alkaline Phosphatase 76 U/L (39-117); Bilirubin,Total 0.4 mg/dL (0.1-1.0); Blood Urea Nitrogen 41 mg/dL (8-23); Calcium 9.1 mg/dL (8.6-10.4); Carbon Dioxide 30 mmol/L (22-30); Chloride 92 mmol/L (96-108); Globulin 2.7 gm/dL (2.2-3.7); Glomerular Filtration Rate 46; Glucose 101 mg/dL (70-105)
[2020-09-19] MEDS ORDERED: methylPREDNISolone SOD SUCC 125 MG/2 ML VIAL IV ONE (19:10)
[2020-09-19] MEDS ORDERED: cefTRIAXone 2 GM in DEXTROSE 5% IN WATER 50 ML IV ONE (19:57)
[2020-09-19] MEDS ORDERED: ACETAMINOPHEN 1,000 MG/100 ML BOTTLE IV ONE (20:09)
[2020-09-19 20:34] LABS: Appearance,Urine CLEAR (Clear); Bilirubin,Urine Negative (Negative); Color,Urine YELLOW; Culture Indicated,Urine No; Glucose,Urine (UA) Negative (Negative); Ketones,Urine Negative (Negative); Leukocyte Esterase,Urine Negative /ug (Negative); Mucus,Urine FEW /hpf; Nitrate,Urine Negative (Negative); Protein,Urine Negative (Negative); Specific Gravity,Urine 1.011 (1.000-1.035); Urine Blood Negative (Negative); Urine Hyaline Cast 3 /lph (0-2); Urine RBC 1 /hpf (0-1); Urine Squamous Epithelial Cell 0 /hpf (0-4); Urine WBC 1 /hpf (0-4); Urobilinogen,Urine Negative
--- NOTE | 2020-09-19 22:17 | Internal Med History&Physical ---
HPI History of Present Illness Patient information: Note initiated : 09/19/20 at 10:16 pm Service Date, if different from initiated Date: [] Patient: Abelardo Chambers 80 y/o M admitted on for fall. Chief Complaint: Fall/weakness/shortness of breath History of present illness: Mr. Chambers is a 80 year old M resident of [facility] with a history of chronic pain/neuropathy/lower extremity lymphedema/anxiety disorder/HTN who presents to the ER following a fall this morning while he was trying to transfer out of his lounge chair. He denies any precipitating events. Initial work-up in the ER was negative with head CT however patient was profoundly hypoxic on arrival. He was requiring 2- 3 L of oxygen to maintain sats over 90. Chest imaging was consistent with basilar pneumonia. COVID-19 test was performed. Hospitalist service was consulted in light of acute hypoxic respiratory failure/possible COVID-19/COPD exacerbation At the time of my evaluation patient is on 3 L oxygen. Able to answer some of the questions. He is appears fatigued lethargic was able to participate in review of systems. He could not recollect events before this morning. He also endorses to feeling weak and fatigued over the last 1 week. He denies diarrhea, dysuria, headache endorses to left lower extremity increasing redness without pain. He denies chest palpitation/headache or photophobia Review of systems 10 point review system was performed and is negative except for ones discussed above PFSH PFSH All Active Problems (Updated 09/19/20 @ 20:39 by Fernie Dawson PA-C) Hypoxia (Acute) CHF, acute on chronic (Acute) Cellulitis of both lower extremities (Acute) COPD exacerbation (Acute) Respiratory failure (Acute) Respiratory acidosis (Acute) Cholecystitis (Acute) Pancreatitis (Acute) Cellulitis of left leg (Acute) Diabetes type 2, controlled (Acute) COPD (chronic obstructive pulmonary disease) (Acute) Dementia (Acute) CHF (congestive heart failure) (Acute) Peripheral vascular disease (Acute) Obstructive sleep apnea (Acute) Hyperlipidemia (Acute) Diabetes mellitus type 2, uncontrolled (Chronic) Congestive heart failure (Chronic) Essential hypertension (Chronic) Obstructive sleep apnea (Chronic) Advanced COPD (Chronic) Obesity (BMI 30-39.9) (Chronic) Anemia, normocytic normochromic (Chronic) Stasis dermatitis (Chronic) BPH loc w urin obs/LUTS (Chronic) BPH (benign prostatic hyperplasia) (Chronic) GERD (gastroesophageal reflux disease) (Chronic) Edema extremities (Chronic) Venous (peripheral) insufficiency (Chronic) Urinary frequency (Chronic) Generalized polyneuropathy (Chronic) Arthralgia of knee (Chronic) Depression (Chronic) Asthma (Chronic) Back pain (Chronic) Medical History Acute exacerbation of chronic obstructive airways disease (Resolved) Acute retention of urine (Resolved) Advanced COPD (Chronic) Anemia, normocytic normochromic (Chronic) Arthralgia of knee (Chronic) Aspiration pneumonia (Resolved) Asthma (Chronic) Back pain (Chronic) BPH (benign prostatic hyperplasia) (Chronic) BPH loc w urin obs/LUTS (Chronic) Bronchitis (Resolved) Cellulitis (Resolved) Cellulitis, penis (Resolved) CHF exacerbation (Resolved) Closed head injury (Resolved) Concussion without loss of consciousness (Resolved) Confusion (Resolved) Confusion state (Resolved) Congestive heart failure (Chronic) COPD exacerbation (Resolved) Depression (Chronic) Diabetes mellitus type 2, uncontrolled (Chronic) NAJERA (dyspnea on exertion) (Resolved) Edema extremities (Chronic) Essential hypertension (Chronic) Fall (Resolved) Batista catheter problem (Resolved) Generalized polyneuropathy (Chronic) GERD (gastroesophageal reflux disease) (Chronic) History of kidney stones (Acute) Hypernatremia (Resolved) Hypokalemia (Resolved) Kidney stone (Resolved) Knee pain, right (Resolved) Mild congestive heart failure (Resolved) Obesity (BMI 30-39.9) (Chronic) 38.4 BMi 6-13-19 Obstructive sleep apnea (Chronic) on bipap Pneumonia (Resolved) Primary atypical pneumonia (Resolved) Rib contusion (Resolved) Rib fractures (Resolved) Shortness of breath (Resolved) Sinusitis (Resolved) Stasis dermatitis (Chronic) Syncope (Resolved) Thoracic back pain (Resolved) Urethritis (Resolved) Urinary frequency (Chronic) UTI (urinary tract infection) (Resolved) Venous (peripheral) insufficiency (Chronic) Vertigo (Resolved) Vertigo (Resolved) Surgical History History of hernia repair (Chronic 05/02/16) History of knee surgery (Acute) History of lumbar laminectomy (Resolved) History of right shoulder replacement (Resolved 09/12/13) total reverse right shoulder replacement History of shoulder surgery (Acute) Hx of appendectomy (Resolved) Hx of arthroscopic knee surgery (Resolved) Family History Unknown No family history of malignant neoplasm No family history of cardiovascular disease No history of endocrine disorder No history of gastrointestinal disorder No family history of bleeding disorder No family history of kidney disease Social History (System 09/03/20 @ 08:10 by Gisela Patiño) smoking status: Never smoker alcohol intake frequency: does not drink substance use type: does not use MEDS/ALLERGIES Home Medications and Allergies Home Medications Medication Instructions Recorded Confirmed Type tamsulosin 0.4 mg capsule 0.4 mg PO BID #60 cap 10/15/15 09/20/20 Rx finasteride 5 mg tablet 5 mg PO QDAY #30 tab 07/15/17 09/20/20 Rx furosemide 20 mg tablet 80 mg PO BID tab 07/15/17 09/20/20 History acetaminophen [Tylenol] 650 mg PO Q6HP PRN 11/08/18 09/20/20 History dorzolamide-timolol [Cosopt] 1 gtt LEFT EYE DAILY 11/08/18 09/20/20 History pramipexole 1.5 mg PO HS 11/08/18 09/20/20 History gabapentin 100 mg PO BID 03/10/19 09/20/20 History ondansetron 4 mg SL Q4HP PRN 03/10/19 09/20/20 History budesonide 0.5 mg NEB BID 05/06/19 09/20/20 History loperamide 4 mg PO Q15M PRN 05/06/19 09/20/20 History magnesium hydroxide 30 ml PO PRN PRN 05/06/19 09/20/20 History polyethylene glycol 3350 17 gm PO DAILY 05/06/19 09/20/20 History spironolactone 25 mg PO QHS 05/06/19 09/20/20 History brimonidine 1 gtt OU BID 07/10/19 09/20/20 History ipratropium-albuterol 2.5 mg NEB Q4HP PRN 07/10/19 09/20/20 History Dulcolax (bisacodyl) 10 mg MN DAILY PRN 09/20/20 09/20/20 History Glucagon Emergency Kit (human) 1 mg IM Q15MIN PRN 09/20/20 09/20/20 History ammonium lactate 1 applic TOPICAL BID 09/20/20 09/20/20 History carboxymethylcellulose-glycern 1 drp OPHTHALMIC (EYE) PRN PRN 09/20/20 09/20/20 History ceramides 1,3,6-11 [CeraVe] 1 applic TOPICAL HS 09/20/20 09/20/20 History guaifenesin [Mucinex] 600 mg PO QHS 09/20/20 09/20/20 History ketoconazole 1 applic TOPICAL DAILY PRN 09/20/20 09/20/20 History ketorolac [Acular] 1 drp OPHTHALMIC (EYE) DAILY 09/20/20 09/20/20 History magnesium oxide 400 mg PO DAILY 09/20/20 09/20/20 History melatonin 5 mg PO HS PRN 09/20/20 09/20/20 History metolazone 2.5 mg PO 2-3XW 09/20/20 09/20/20 History mometasone 1 applic TOPICAL QDAY PRN 09/20/20 09/20/20 History potassium chloride 20 meq PO 5XD 09/20/20 09/20/20 History sertraline 100 mg PO QHS 09/20/20 09/20/20 History sodium phosphates [Fleet Enema] 118 ml MN DAILY PRN 09/20/20 09/20/20 History spironolactone 50 mg PO 2-3XW 09/20/20 09/20/20 History vitamins A,C,E-[id number] 1 tab PO DAILY 09/20/20 09/20/20 History [PreserVision AREDS] Allergies Allergy/AdvReac Type Severity Reaction Status Date / Time No Known Drug Allergies Allergy Verified 09/03/20 08:10 EXAM Constitutional Vitals: Temp Pulse Resp BP Pulse Ox 98.7 F 89 16 98/52 86 L 09/19/20 15:52 09/19/20 22:01 09/19/20 15:52 09/19/20 22:01 09/19/20 21:59 Head normocephalic Oral cavity moist No ear nose discharge Eye movement symmetrical Neck supple no lymphadenopathy S1-S2 occasionally irregular Minimally labored breathing on 3 L oxygen. Expiratory rhonchi Nondistended nontender abdomen Left lower extremity redness/skin excoriation/pitting edema , no cyanosis clubbing noted Skin no suspicious lesion Psych fatigued Neuro moving all 4 extremities DATA Data Completed and Pending Labs: Labs from last 24 hours 09/19/20 09/19/20 09/19/20 19:31 18:55 17:00 WBC RBC Hgb Hct MCV MCH MCHC RDW Plt Count MPV Neut % (Auto) Lymph % (Auto) [place] % (Auto) Eos % (Auto) Baso % (Auto) Lymph # (Auto) [place] # (Auto) Eos # (Auto) Baso # (Auto) Absolute Neutrophils D-Dimer TNP VBG Lactic Acid Sodium Potassium Chloride Carbon Dioxide Anion Gap BUN Creatinine GFR Calculation Glucose Calcium Total Bilirubin AST ALT Alkaline Phosphatase Troponin T Total Protein Albumin Globulin Albumin/Globulin Ratio Procalcitonin 0.10 H Urine Color Yellow Urine Appearance Clear Urine pH 6.0 Ur Specific [place] 1.011 Urine Protein Negative Urine Glucose (UA) Negative Urine Ketones Negative Urine Occult Blood Negative Urine Nitrate Negative Urine Bilirubin Negative Urine Urobilinogen Negative Ur Leukocyte Esterase Negative Urine RBC 1 Urine WBC 1 Ur Squamous Epith Cells 0 Urine Bacteria None Hyaline Casts 3 H Urine Mucus Few A Ur Culture Indicated? No 09/19/20 09/19/20 09/19/20 17:00 17:00 17:00 WBC RBC Hgb Hct MCV MCH MCHC RDW Plt Count MPV Neut % (Auto) Lymph % (Auto) [place] % (Auto) Eos % (Auto) Baso % (Auto) Lymph # (Auto) [place] # (Auto) Eos # (Auto) Baso # (Auto) Absolute Neutrophils D-Dimer TNP VBG Lactic Acid 0.7 Sodium Potassium Chloride Carbon Dioxide Anion Gap BUN Creatinine GFR Calculation Glucose Calcium Total Bilirubin AST ALT Alkaline Phosphatase Troponin T < 0.01 Total Protein Albumin Globulin Albumin/Globulin Ratio Procalcitonin Urine Color Urine Appearance Urine pH Ur Specific [place] Urine Protein Urine Glucose (UA) Urine Ketones Urine Occult Blood Urine Nitrate Urine Bilirubin Urine Urobilinogen Ur Leukocyte Esterase Urine RBC Urine WBC Ur Squamous Epith Cells Urine Bacteria Hyaline Casts Urine Mucus Ur Culture Indicated? 09/19/20 09/19/20 17:00 17:00 WBC 9.0 RBC 4.33 L Hgb 12.5 L Hct 40.4 L MCV 93.3 MCH 28.9 MCHC 30.9 L RDW 13.0 Plt Count 225 MPV 9.7 Neut % (Auto) 80.3 H Lymph % (Auto) 9.9 L [place] % (Auto) 7.4 Eos % (Auto) 2.1 Baso % (Auto) 0.3 Lymph # (Auto) 0.89 L [place] # (Auto) 0.67 Eos # (Auto) 0.19 Baso # (Auto) 0.03 Absolute Neutrophils 7.25 D-Dimer VBG Lactic Acid Sodium 134 Potassium 5.2 H Chloride 92 L Carbon Dioxide 30 Anion Gap 12.0 BUN 41 H Creatinine 1.4 H GFR Calculation 46 Glucose 101 Calcium 9.1 Total Bilirubin 0.4 AST 22 ALT 17 Alkaline Phosphatase 76 Troponin T Total Protein 6.4 Albumin 3.7 Globulin 2.7 Albumin/Globulin Ratio 1.4 Procalcitonin Urine Color Urine Appearance Urine pH Ur Specific [place] Urine Protein Urine Glucose (UA) Urine Ketones Urine Occult Blood Urine Nitrate Urine Bilirubin Urine Urobilinogen Ur Leukocyte Esterase Urine RBC Urine WBC Ur Squamous Epith Cells Urine Bacteria Hyaline Casts Urine Mucus Ur Culture Indicated? A/P Narrative A/P Narrative: * Acute exacerbation of COPD-bronchodilators/steroids/supplemental oxygen. ABG PaO2 53 on 3 L oxygen. * Acute hypoxic hypercapnic respiratory failure. Supplemental oxygen/noninvasive ventilation if indicated. Rule out Covid 19 * Left lower extremity erythema suspected cellulitis, empiric antibiotic coverage * History of glaucoma on dorzolamide/brimonidine * Anxiety disorder on fluoxetine * Neuropathy start gabapentin * Chronic pain on morphine * Restless leg syndrome * Hypertension on spironolactone * BPH on Flomax/finasteride * Prophylaxis heparin Plan * Inpatient PCU admission * Supplemental oxygen/noninvasive ventilation/serial imaging/blood gas * Bronchodilators/IV steroids * COVID-19 testing * Pre-existing medical condition management home meds Time Spent With Patient Time: Total time spent is greater than 50% in coordination of care (as documented) at patient's floor/unit and/or counseling patient:
[2020-09-20] MEDS ORDERED: ONDANSETRON 4 MG ODT TABLET SL PRN (00:09)
[2020-09-20] MEDS ORDERED: POLYETHYLENE GLYCOL 3350 17 GM PACKET PO PRN (00:09)
[2020-09-20] MEDS ORDERED: MELATONIN 3 MG TABLET PO PRN (00:09)
[2020-09-20] MEDS ORDERED: ACETAMINOPHEN 650 MG/65 ML BOTTLE IV PRN (00:09)
[2020-09-20] MEDS ORDERED: POTASSIUM CHLORIDE 20 MEQ PACKET PO PRN (00:09)
[2020-09-20] MEDS ORDERED: BISACODYL 10 MG SUPP.RECT PR PRN (00:09)
[2020-09-20] MEDS ORDERED: cefTRIAXone 2 GM in DEXTROSE 5% IN WATER 50 ML IV SCH (00:09)
[2020-09-20] MEDS ORDERED: ONDANSETRON 4 MG/2 ML VIAL IV PRN (00:09)
[2020-09-20] MEDS ORDERED: ACETAMINOPHEN 325 MG TABLET PO PRN (00:09)
[2020-09-20] MEDS ORDERED: MAGNESIUM SULFATE 2 GM/50 ML BAG IV PRN (00:09)
--- NOTE | 2020-09-20 06:00 | Cat Scan Report ---
INDICATION: Fall COMPARISON: Chest x-ray dated 09/19/2020. Chest CT scan dated 07/10/2019 TECHNIQUE: Axial noncontrast enhanced images through the chest. Sagittally and coronally reformatted images. MIP reformatted images. FINDINGS: Examination was initially interpreted by [facility] Lungs:Probable mild centrilobular emphysema. No pulmonary parenchymal mass. There is no consolidation. There are linear densities at the left lung base most consistent with atelectasis. Mediastinum, vascular:No pathologic mediastinal or hilar adenopathy Thoracic aorta is negative. No aneurysmal dilatation There is a small hiatal hernia Heart:No significant cardiomegaly. No pericardial effusion. There is calcific coronary artery disease Pleura:No pleural effusion. No pleural-based mass. No pleural calcification. There is no hemothorax or pneumothorax Axilla, supraclavicular regions, chest wall:No axillary or supraclavicular adenopathy. Musculoskeletal:Mild superior endplate compression at T1, T2, T3. Severe compression deformities of T6 and T8 vertebral bodies. T6 and T8 are stable since 07/10/2019 mild superior endplate compression at T1, T2, T3 appears acute. If clinically indicated MRI scan may be helpful to evaluate for bone marrow edema Sternum is negative. No sternal fracture. There are fractures of the left fourth through seventh ribs and right ninth rib. Appearance is consistent with nonacute chronic fracture. Upper Abdomen:Negative to the limits of noncontrast enhanced examination IMPRESSION: 1. Left basilar atelectasis. Mild emphysema 2. No hemothorax or pneumothorax 3. No mediastinal hematoma 4. Multiple thoracic compression deformities as above. Bilateral rib fractures appear chronic The exam was performed using radiation dose optimization techniques including, but not limited to, automated exposure control, adjustment of the mA and/or kV according to patient size and use of iterative reconstruction technique. Interpreted and Authenticated by: Delfino Aguilar 09/20/20
[2020-09-20 07:39] LABS: ALT/SGPT 14 U/L (<40); AST/SGOT 17 U/L (<40); Albumin 3.2 gm/dL (3.2-5.2); Albumin/Globulin Ratio 0.9 (1.0-2.3); Alkaline Phosphatase 71 U/L (39-117); Bilirubin,Direct < 0.2 mg/dL (<0.3); Bilirubin,Total 0.4 mg/dL (0.1-1.0); Blood Urea Nitrogen 33 mg/dL (8-23); Calcium 8.8 mg/dL (8.6-10.4); Carbon Dioxide 29 mmol/L (22-30); Chloride 94 mmol/L (96-108); Globulin 3.6 gm/dL (2.2-3.7); Glomerular Filtration Rate 56; Glucose 144 mg/dL (70-105); Lactate Dehydrogenase 246 U/L (135-225); Phosphorous 3.5 mg/dL (2.5-4.5); Triglycerides 49 mg/dL (<150); Uric Acid 7.5 mg/dL (2.5-8.0)
[2020-09-20 08:57] LABS: Band Neutrophils % 1 % (0-10); Hematocrit 38.8 % (41.0-55.0); Hemoglobin 12.3 g/dL (13.5-16.5); Lymphocytes % 4 % (15-49); Mean Cell Volume 92.4 fL (80.0-100.0); Mean Corpuscular HGB Conc 31.7 g/dL (31.0-36.0); Mean Platelet Volume 9.7 fL (7.4-10.4); Monocytes % (Manual) 1 % (1-12); Platelet Count 233 K/mcL (140-440); Platelet Estimate NORMAL (Normal); RBC Morphology NORMAL (Normal); Reactive Lymphocytes 1 % (0-2); Red Cell Distribution Width 13.1 % (11.5-14.5); Segmented Neutrophils % 93 % (38-78); WBC 7.6 K/mcL (4.5-11.0)
[2020-09-20] MEDS: HEPARIN 5,000 UNIT/ML VIAL SQ SCH ×2 (09:39→21:27)
[2020-09-20] MEDS: MULTIVIT,THER IRON,CA,FA & MIN 1 TABLET PO SCH (09:39)
[2020-09-20] MEDS: 0.9 % SODIUM CHLORIDE 10 ML SYRINGE IV SCH ×3 (09:39→21:28)
[2020-09-20] MEDS: DOCUSATE SODIUM 100 MG CAPSULE PO SCH ×2 (09:40→21:27)
[2020-09-20] MEDS: methylPREDNISolone SOD SUCC 125 MG/2 ML VIAL IV SCH ×2 (09:40→21:27)
[2020-09-20] MEDS: BUDESONIDE 1 PUFF INHALER INH SCH ×2 (09:40→21:52)
[2020-09-20] MEDS: cefTRIAXone 2 GM in DEXTROSE 5% IN WATER 50 ML IV SCH (09:40)
[2020-09-20] MEDS: TIOTROPIUM BROMIDE 18 MCG INHALANT INH SCH (09:41)
[2020-09-20] MEDS ORDERED: guaiFENesin/CODEINE 10 ML UDC PO PRN (12:55)
--- NOTE | 2020-09-20 13:18 | Internal Med Progress Note ---
SUBJECTIVE Subjective Patient information: Note initiated : 09/20/20 at 1:15 pm Service Date, if different from initiated Date: [] Patient: Abelardo Chambers 80 y/o M admitted on 09/20/20 for fall. Chief Complaint: History of present illness: Mr. Chambers is a 80 year old M resident of [facility] with a history of chronic pain/neuropathy/lower extremity lymphedema/anxiety disorder/HTN who presents to the ER following a fall this morning while he was trying to transfer out of his lounge chair. He denies any precipitating events. Initial work-up in the ER was negative with head CT however patient was profoundly hypoxic on arrival. He was requiring 2- 3 L of oxygen to maintain sats over 90. Chest imaging was consistent with basilar pneumonia. COVID-19 test was performed. Hospitalist service was consulted in light of acute hypoxic respiratory failure/possible COVID-19/COPD exacerbation At the time of my evaluation patient is on 3 L oxygen. Able to answer some of the questions. He is appears fatigued lethargic was able to participate in review of systems. He could not recollect events before this morning. He also endorses to feeling weak and fatigued over the last 1 week. He denies diarrhea, dysuria, headache endorses to left lower extremity increasing redness without pain. He denies chest palpitation/headache or photophobia 09/20-patient clinically improving. On 2 L oxygen. Improved shortness of breath. Denies fever chills, white count 7.6 potassium down to 3.9, creatinine down to 1.2. Blood pressures around 100. On crystalloids. Constitutional Vitals: Vital Signs Temp Pulse Resp BP Pulse Ox 96.9 F L 83 21 109/67 95 09/20/20 12:01 09/20/20 12:01 09/20/20 12:01 09/20/20 12:01 09/20/20 12:01 Period Temp Pulse Resp BP Sys/Aaron Pulse Ox Last 24 Hr 96.9 F-98.7 F 71-102 15-23 80-147/52-121 82-99 Intake and Output 09/19/20 09/20/20 09/20/20 21:59 05:59 13:59 Intake Total 1050 50 300 Output Total 1 201 Balance 1050 49 99 Weight 107.501 kg 107.501 kg alert oriented No anxiety Nonlabored breathing Left lower extremity redness much improved Intake & Output: Intake & Output 09/19/20 09/20/20 09/20/20 21:59 05:59 13:59 Intake Total 1050 50 300 Output Total 1 201 Balance 1050 49 99 Weight 107.501 kg 107.501 kg Intake: IV 1050 50 50 Sodium Chloride 0.9% 1,000 ml @ 1000 Wide Open IV BOLUS ONE Rx#: [id number] Rocephin 2 gm In Dextrose 5% in 50 50 Water 50 ml @ 100 mls/hr IV DAILY ALMITA Rx#:[id number] Oral 250 Output: Void Amount 200 # of times incontinent of urine 1 1 Other: Meal Breakfast Percent of Meal Consumed 50% Feeding Ability Assist with Tray Set Up Urine Appearance Clear Urine Color Pale Urine Odor Normal # Voids 1 1 OBJ DATA Labs CBC & Chem 7: 09/20/20 05:46 09/20/20 05:46 Labs: Abnormal Lab Results 09/20/20 09/20/20 09/19/20 05:46 05:46 18:55 RBC 4.20 L Hgb 12.3 L Hct 38.8 L MCHC Neut % (Auto) Lymph % (Auto) Lymph # (Auto) Seg Neutrophils % 93 H Lymphocytes % 4 L Potassium Chloride 94 L BUN 33 H Creatinine Glucose 144 H Magnesium 2.7 H Lactate Dehydrogenase 246 H Albumin/Globulin Ratio 0.9 L Procalcitonin Hyaline Casts 3 H Urine Mucus Few A 09/19/20 09/19/20 09/19/20 17:00 17:00 17:00 RBC 4.33 L Hgb 12.5 L Hct 40.4 L MCHC 30.9 L Neut % (Auto) 80.3 H Lymph % (Auto) 9.9 L Lymph # (Auto) 0.89 L Seg Neutrophils % Lymphocytes % Potassium 5.2 H Chloride 92 L BUN 41 H Creatinine 1.4 H Glucose Magnesium Lactate Dehydrogenase Albumin/Globulin Ratio Procalcitonin 0.10 H Hyaline Casts Urine Mucus Meds: Medications Acetaminophen (Tylenol) 650 mg PO Q4-6HP PRN; Protocol PRN Reason: Per Pain Protocol/Fever > 101 Bisacodyl (Dulcolax) 10 mg SC Q2-3DAYS PRN PRN Reason: Constipation Budesonide (Pulmicort) 2 puff INH BID [facility] Last Admin: 10/29/20 09:40 Dose: Not Given Documented by: Docusate Sodium (Colace) 100 mg PO BID [facility] Last Admin: 09/20/20 09:40 Dose: 100 mg Documented by: Guaifenesin/Codeine Phosphate (Robitussin Ac) 10 ml PO Q4HP PRN PRN Reason: Cough Heparin Sodium (Porcine) (Heparin) 5,000 unit SQ Q12 [facility] Last Admin: 09/20/20 09:39 Dose: 5,000 unit Documented by: Acetaminophen (Ofirmev) 650 mg in 65 mls @ 130 mls/hr IV Q6HP PRN; Protocol PRN Reason: Per Pain Protocol/Fever > 101 Magnesium Sulfate (Magnesium Sulfate) 2 gm in 50 mls @ 50 mls/hr IV UD PRN PRN Reason: MG = or < 1.7 Ceftriaxone Sodium 2 gm/ (Dextrose) 50 mls @ 100 mls/hr IV DAILY [facility]; Protocol Last Infusion: 09/20/20 10:10 Dose: Infused Documented by: Iron Carb/Multivit/Gove/Folic Acid (Multivitamin W/Minerals) 1 tab PO DAILY [facility] Last Admin: 09/20/20 09:39 Dose: 1 tab Documented by: Melatonin (Melatonin 3mg Tablet) 3 mg PO HSP PRN PRN Reason: Insomnia Methylprednisolone Sodium Succinate (Solu-Medrol) 60 mg IV Q12 [facility] Last Admin: 09/20/20 09:40 Dose: 60 mg Documented by: Ondansetron HCl (Zofran Odt) 4 mg SL Q4-6HP PRN; Protocol PRN Reason: Nausea And Vomiting Ondansetron HCl (Zofran) 4 mg IV Q4-6HP PRN; Protocol PRN Reason: Nausea And Vomiting Polyethylene Glycol (Miralax) 17 gm PO DAILYP PRN PRN Reason: Constipation Potassium Chloride (Klor-Con) 40 meq PO DAILYP PRN PRN Reason: K+ < 3.5 Senna/Docusate Sodium (Senna Plus Tablet) 1 tab PO HS [facility] Sodium Chloride (Saline Flush) 10 ml IV Q8 [facility] Last Admin: 09/20/20 13:13 Dose: 10 ml Documented by: Tiotropium [place] (Spiriva) 18 mcg INH DAILY [facility] Last Admin: 09/20/20 09:41 Dose: Not Given Documented by: A/P Narrative A/P Narrative: * Acute exacerbation of COPD-bronchodilators/steroids/supplemental oxygen. ABG PaO2 53 on 3 L oxygen. * Acute hypoxic hypercapnic respiratory failure. Supplemental oxygen/noninvasive ventilation if indicated. Rule out Covid 19 * Left lower extremity erythema suspected cellulitis, empiric antibiotic coverage * ADDIE improving-creatinine downtrending * Hyperkalemia improved down from 5.2-3.9 * History of glaucoma on dorzolamide/brimonidine * Anxiety disorder on fluoxetine * Neuropathy start gabapentin * Chronic pain on morphine * Restless leg syndrome * Hypertension on spironolactone * BPH on Flomax/finasteride * Prophylaxis heparin Plan * Continue supplemental oxygen/bronchodilators/steroids * Pre-existing medical condition management home meds * PT OT nutrition support * Discharge planning Time Spent With Patient Time: Total time spent is greater than 50% in coordination of care (as documented) at patient's floor/unit and/or counseling patient:
[2020-09-20] MEDS ORDERED: SENNOSIDES/DOCUSATE SODIUM 1 TAB TABLET PO SCH (21:00)
[2020-09-20] MEDS ORDERED: SERTRALINE 100 MG TABLET PO SCH (21:00)
[2020-09-20] MEDS ORDERED: PRAMIPEXOLE 1 MG TABLET PO SCH (21:00)
[2020-09-20] MEDS ORDERED: GABAPENTIN 100 MG CAPSULE PO ONE (22:41)
[2020-09-20] MEDS: GABAPENTIN 100 MG CAPSULE PO SCH (22:42)
[2020-09-21] MEDS ORDERED: OLANZapine 5 MG TABLET PO ONE (01:04)
[2020-09-21] MEDS ORDERED: OLANZapine 2.5 MG TABLET PO ONE (01:12)
[2020-09-21] MEDS ORDERED: OLANZapine 10 MG VIAL IM SCH (04:45)
[2020-09-21] MEDS ORDERED: OLANZapine 10 MG VIAL IM ONE (04:46)
[2020-09-21] MEDS: 0.9 % SODIUM CHLORIDE 10 ML SYRINGE IV SCH ×3 (05:28→21:13)
--- NOTE | 2020-09-21 07:06 | XRay Report ---
INDICATION: Interval Change. Fall TECHNIQUE: AP portable semiupright chest x-ray COMPARISON: Previous chest x-ray dated 09/19/2020 FINDINGS: Lungs:No focal pulmonary parenchymal infiltrate or mass. Heart, vascular:There is marked cardiomegaly. Pulmonary vascularity is prominent suggesting pulmonary congestion. No pulmonary edema Mediastinum, romero:No mediastinal widening. No hilar mass Pleura:No pleural fluid. No pleural-based mass or calcification Skeletal:Negative. IMPRESSION: 1. No acute or focal pulmonary parenchymal infiltrate 2. Mild cardiomegaly and probable pulmonary congestion. No pulmonary edema Interpreted and Authenticated by: Delfino Aguilar 09/21/20
[2020-09-21 07:27] LABS: ALT/SGPT 14 U/L (<40); AST/SGOT 19 U/L (<40); Albumin 3.2 gm/dL (3.2-5.2); Alkaline Phosphatase 64 U/L (39-117); Bilirubin,Direct < 0.2 mg/dL (<0.3); Bilirubin,Total 0.4 mg/dL (0.1-1.0); Blood Urea Nitrogen 34 mg/dL (8-23); Calcium 8.7 mg/dL (8.6-10.4); Carbon Dioxide 29 mmol/L (22-30); Chloride 98 mmol/L (96-108); Globulin 3.3 gm/dL (2.2-3.7); Glomerular Filtration Rate 56; Glucose 154 mg/dL (70-105); Lactate Dehydrogenase 278 U/L (135-225); Triglycerides 64 mg/dL (<150); Uric Acid 6.7 mg/dL (2.5-8.0)
[2020-09-21] MEDS: methylPREDNISolone SOD SUCC 125 MG/2 ML VIAL IV SCH ×2 (08:33→21:13)
[2020-09-21] MEDS: HEPARIN 5,000 UNIT/ML VIAL SQ SCH ×2 (08:33→21:11)
[2020-09-21] MEDS: TIOTROPIUM BROMIDE 18 MCG INHALANT INH SCH (08:34)
[2020-09-21] MEDS: GABAPENTIN 100 MG CAPSULE PO SCH ×2 (08:34→21:24)
[2020-09-21] MEDS: MULTIVIT,THER IRON,CA,FA & MIN 1 TABLET PO SCH (08:34)
[2020-09-21] MEDS: cefTRIAXone 2 GM in DEXTROSE 5% IN WATER 50 ML IV SCH (08:35)
[2020-09-21] MEDS: DOCUSATE SODIUM 100 MG CAPSULE PO SCH ×2 (08:45→21:28)
[2020-09-21] MEDS ORDERED: SPIRONOLACTONE 25 MG TABLET PO SCH (09:00)
[2020-09-21] MEDS: BUDESONIDE 1 PUFF INHALER INH SCH ×2 (09:28→19:13)
[2020-09-21] MEDS ORDERED: FLEETS ADULT ENEMA PR PRN ×2 (10:11→12:22)
[2020-09-21] MEDS ORDERED: KETOCONAZOLE 2% TOP CRM 15GM TUBE TOPICAL PRN (10:11)
[2020-09-21] MEDS ORDERED: CARBOXYMETHYLCELLULOSE GLYCERN OPHTHALMIC PRN (10:11)
[2020-09-21] MEDS ORDERED: IPRATROPIUM/ALBUTEROL 3 ML AMPUL.NEB NEB PRN (10:11)
[2020-09-21] MEDS ORDERED: DULCOLAX 10 MG PR PRN (10:11)
[2020-09-21] MEDS ORDERED: MAGNESIUM HYDROXIDE 30 ML ORAL.SUSP PO PRN ×3 (10:11→12:22)
[2020-09-21] MEDS ORDERED: GLUCAGON EMERGENCY 1 MG IM PRN (10:11)
[2020-09-21] MEDS ORDERED: NON FORMULARY MEDICATION 1 DOSE MISCELL (Melatonin 5 MG) PO PRN (10:11)
[2020-09-21] MEDS ORDERED: ACETAMINOPHEN (PP) 325MG TABLET (#50) PO PRN (10:11)
[2020-09-21] MEDS ORDERED: MOMETASONE TOPICAL PRN (10:11)
[2020-09-21] MEDS ORDERED: ONDANSETRON (PP) 4 MG TABLET SL PRN (10:11)
[2020-09-21] MEDS ORDERED: LOPERAMIDE 2 MG CAPSULE PO PRN ×2 (10:29→12:22)
--- NOTE | 2020-09-21 10:31 | Internal Med Progress Note ---
SUBJECTIVE Subjective Patient information: Note initiated : 09/21/20 at 10:27 am Service Date, if different from initiated Date: [] Patient: Abelardo Chambers 80 y/o M admitted on 09/20/20 for fall. Chief Complaint: [] Interval history: History of present illness: Mr. Chambers is a 80 year old M resident of [facility] with a history of chronic pain/neuropathy/lower extremity lymphedema/anxiety disorder/HTN who presents to the ER following a fall this morning while he was trying to transfer out of his lounge chair. He denies any precipitating events. Initial work-up in the ER was negative with head CT however patient was profoundly hypoxic on arrival. He was requiring 2- 3 L of oxygen to maintain sats over 90. Chest imaging was consistent with basilar pneumonia. COVID-19 test was performed. Hospitalist service was consulted in light of acute hypoxic respiratory failure/possible COVID-19/COPD exacerbation At the time of my evaluation patient is on 3 L oxygen. Able to answer some of the questions. He is appears fatigued lethargic was able to participate in review of systems. He could not recollect events before this morning. He also endorses to feeling weak and fatigued over the last 1 week. He denies diarrhea, dysuria, headache endorses to left lower extremity increasing redness without pain. He denies chest palpitation/headache or photophobia 09/20-patient clinically improving. On 2 L oxygen. Improved shortness of breath. Denies fever chills, white count 7.6 potassium down to 3.9, creatinine down to 1.2. Blood pressures around 100. On crystalloids. 09/21-patient had a horrible night with increasing confusion agitation requiring antipsychotics. Remained agitated throughout the night. However much improved this morning. Restarted on home medications. On 2 L oxygen. Labs essentially unchanged. COVID-19 test negative. X-ray chest mild pulmonary congestion. Start diuretics. DC IV fluids Constitutional Vitals: Vital Signs Temp Pulse Resp BP Pulse Ox 97.4 F 88 22 108/74 92 09/21/20 07:18 09/21/20 07:18 09/21/20 07:18 09/21/20 07:18 09/21/20 07:18 Period Temp Pulse Resp BP Sys/Aaron Pulse Ox Last 24 Hr 96.6 F-97.8 F 77-94 15-23 89-127/67-91 87-97 Intake and Output 09/20/20 09/21/20 09/21/20 21:59 05:59 13:59 Intake Total 100 Output Total 352 4 1 Gisele Saunders -4 -1 Weight 107.558 kg Anxious with intermittent agitation On 2 L oxygen Lymphedema noted Nonlabored breathing Intake & Output: Intake & Output 09/20/20 09/21/20 09/21/20 21:59 05:59 13:59 Intake Total 100 Output Total 352 4 1 Gisele Saunders -4 -1 Weight 107.558 kg Intake: Oral 100 Output: Void Amount 350 # of times incontinent of urine 2 4 1 Other: Meal Dinner Percent of Meal Consumed 75% Feeding Ability Independent Urine Appearance Clear Urine Color Dark Yellow Urine Odor Normal # Voids 1 OBJ DATA Labs CBC & Chem 7: 09/20/20 05:46 09/21/20 05:13 Labs: Abnormal Lab Results 09/21/20 09/20/20 09/20/20 05:13 05:46 05:46 RBC 4.20 L Hgb 12.3 L Hct 38.8 L MCHC Neut % (Auto) Lymph % (Auto) Lymph # (Auto) Seg Neutrophils % 93 H Lymphocytes % 4 L Potassium Chloride 94 L BUN 34 H 33 H Creatinine Glucose 154 H 144 H Magnesium 2.6 H 2.7 H Lactate Dehydrogenase 278 H 246 H Albumin/Globulin Ratio 0.9 L Procalcitonin Hyaline Casts Urine Mucus 09/19/20 09/19/20 09/19/20 18:55 17:00 17:00 RBC Hgb Hct MCHC Neut % (Auto) Lymph % (Auto) Lymph # (Auto) Seg Neutrophils % Lymphocytes % Potassium 5.2 H Chloride 92 L BUN 41 H Creatinine 1.4 H Glucose Magnesium Lactate Dehydrogenase Albumin/Globulin Ratio Procalcitonin 0.10 H Hyaline Casts 3 H Urine Mucus Few A 09/19/20 17:00 RBC 4.33 L Hgb 12.5 L Hct 40.4 L MCHC 30.9 L Neut % (Auto) 80.3 H Lymph % (Auto) 9.9 L Lymph # (Auto) 0.89 L Seg Neutrophils % Lymphocytes % Potassium Chloride BUN Creatinine Glucose Magnesium Lactate Dehydrogenase Albumin/Globulin Ratio Procalcitonin Hyaline Casts Urine Mucus Meds: Medications Acetaminophen (Tylenol) 650 mg PO Q4-6HP PRN; Protocol PRN Reason: Per Pain Protocol/Fever > 101 Albuterol/Ipratropium (Duoneb) 3 ml NEB Q4HRT [facility] Bisacodyl (Dulcolax) 10 mg LA Q2-3DAYS PRN PRN Reason: Constipation Brimonidine Tartrate (Alphagan P Ophth Drops) 1 gtt OU BID [facility] Budesonide (Pulmicort) 2 puff INH BID [facility] Last Admin: 09/21/20 09:28 Dose: Not Given Documented by: Budesonide (Pulmicort) 0.5 mg NEB BID [facility] Docusate Sodium (Colace) 100 mg PO BID [facility] Last Admin: 09/21/20 08:45 Dose: 100 mg Documented by: Finasteride (Proscar) 5 mg PO QDAY [facility] Furosemide (Lasix) 80 mg PO BID [facility] Gabapentin (Neurontin) 100 mg PO BID [facility] Last Admin: 09/21/20 08:34 Dose: 100 mg Documented by: Guaifenesin (Mucinex) 600 mg PO QHS [facility] Guaifenesin/Codeine Phosphate (Robitussin Ac) 10 ml PO Q4HP PRN PRN Reason: Cough Heparin Sodium (Porcine) (Heparin) 5,000 unit SQ Q12 [facility] Last Admin: 09/21/20 08:33 Dose: 5,000 unit Documented by: Acetaminophen (Ofirmev) 650 mg in 65 mls @ 130 mls/hr IV Q6HP PRN; Protocol PRN Reason: Per Pain Protocol/Fever > 101 Magnesium Sulfate (Magnesium Sulfate) 2 gm in 50 mls @ 50 mls/hr IV UD PRN PRN Reason: MG = or < 1.7 Ceftriaxone Sodium 2 gm/ (Dextrose) 50 mls @ 100 mls/hr IV DAILY [facility]; Protocol Last Admin: 09/21/20 08:35 Dose: 100 mls/hr Documented by: Iron Carb/Multivit/Route [address] [place]/Folic Acid (Multivitamin W/Minerals) 1 tab PO DAILY [facility] Last Admin: 09/21/20 08:34 Dose: 1 tab Documented by: Ketoconazole (Nizoral 2% Top Crm) dose TOPICAL DAILY PRN PRN Reason: Rash Ketorolac Tromethamine (Ketorolac Tromethamine) 1 ml OP DAILY [facility] Loperamide HCl (Imodium (Pp)) tab PO Q15M PRN PRN Reason: Diarrhea Magnesium Hydroxide (Milk Of Magnesia) 30 ml PO DAILYP PRN PRN Reason: Constipation Melatonin (Melatonin 3mg Tablet) 3 mg PO HSP PRN PRN Reason: Insomnia Last Admin: 09/20/20 21:36 Dose: 3 mg Documented by: Methylprednisolone Sodium Succinate (Solu-Medrol) 60 mg IV Q12 [facility] Last Admin: 09/21/20 08:33 Dose: 60 mg Documented by: Metolazone (Zaroxolyn) 2.5 mg PO MoFr@0830 [facility] Non-Formulary Medication (Dorzolamide-Timolol [Cosopt]) 1 gtt LEFT EYE DAILY [facility] Non-Formulary Medication (Magnesium Oxide) 400 mg PO DAILY [facility] Non-Formulary Medication (Melatonin) 5 mg PO HS PRN PRN Reason: Insomnia Non-Formulary Medication (Mometasone) 1 applic TOPICAL QDAY PRN PRN Reason: Ear Pain Non-Formulary Medication (Potassium Chloride) 20 meq PO 5XD [facility] Non-Formulary Medication (Spironolactone) 50 mg PO 2-3XW [facility] Non-Formulary Medication (Vitamins A,C,J-Krfv-Wfdlqj [Preservision Areds]) 1 tab PO DAILY [facility] Ondansetron HCl (Zofran Odt) 4 mg SL Q4-6HP PRN; Protocol PRN Reason: Nausea And Vomiting Ondansetron HCl (Zofran) 4 mg IV Q4-6HP PRN; Protocol PRN Reason: Nausea And Vomiting Polyethylene Glycol (Miralax) 17 gm PO DAILYP PRN PRN Reason: Constipation Polyethylene Glycol (Miralax) 17 gm PO DAILY [facility] Potassium Chloride (Klor-Con) 40 meq PO DAILYP PRN PRN Reason: K+ < 3.5 Pramipexole Dihydrochloride (Mirapex) 1.5 mg PO HS [facility] Last Admin: 09/20/20 22:42 Dose: 1.5 mg Documented by: Senna/Docusate Sodium (Senna Plus Tablet) 1 tab PO HS [facility] Last Admin: 09/20/20 21:27 Dose: 1 tab Documented by: Sertraline HCl (Zoloft) 100 mg PO HS [facility] Last Admin: 09/20/20 22:42 Dose: 100 mg Documented by: Sodium Biphosphate/Sodium Phosphate (Fleets Adult) 1 dose LA DAILYP PRN PRN Reason: Constipation Sodium Chloride (Saline Flush) 10 ml IV Q8 [facility] Last Admin: 09/21/20 05:28 Dose: 10 ml Documented by: Spironolactone (Aldactone) 25 mg PO QHS [facility] Tamsulosin HCl (Flomax) 0.4 mg PO BID [facility] Tiotropium [place] (Spiriva) 18 mcg INH DAILY [facility] Last Admin: 09/21/20 08:34 Dose: 18 mcg Documented by: A/P Narrative A/P Narrative: * Acute exacerbation of COPD-continue bronchodilators steroids/supplemental oxygen. Covid negative * Acute hypoxic hypercapnic respiratory failure. On supplemental oxygen, maintain sats around 90% * Hospital-acquired delirium-avoid sedative-hypnotics. Frequent reorientation/as needed antipsychotic * Borderline CHF start diuretics, discontinue IV fluids * Left lower extremity erythema suspected cellulitis, likely stasis change. No significant worsening noted * ADDIE improving-creatinine now at baseline * Hyperkalemia improved down from 5.2-3.9 * History of glaucoma continue home dose n dorzolamide/brimonidine * Anxiety disorder on fluoxetine * Neuropathy start gabapentin * Chronic pain on morphine * Restless leg syndrome * Hypertension on spironolactone * BPH on Flomax/finasteride * Prophylaxis heparin Plan * Continue supplemental oxygen/bronchodilators/steroids * Start diuretics and DC IV fluids * Delirium/fall watch * Pre-existing medical condition management home meds * PT OT nutrition support * Discharge planning Time Spent With Patient Time: Total time spent is greater than 50% in coordination of care (as documented) at patient's floor/unit and/or counseling patient:
[2020-09-21] MEDS ORDERED: IPRATROPIUM/ALBUTEROL 3 ML AMPUL.NEB NEB SCH (11:00)
[2020-09-21] MEDS ORDERED: POTASSIUM CHLORIDE 20 MEQ/15 ML ML PO SCH (11:00)
[2020-09-21 11:02] LABS: Eosinophils % (Manual) 1 % (0-7); Hematocrit 41.5 % (41.0-55.0); Hemoglobin 12.9 g/dL (13.5-16.5); Lymphocytes % 6 % (15-49); Mean Corpuscular HGB Conc 31.1 g/dL (31.0-36.0); Mean Platelet Volume 9.5 fL (7.4-10.4); Monocytes % (Manual) 2 % (1-12); Platelet Count 228 K/mcL (140-440); Platelet Estimate NORMAL (Normal); RBC 4.46 M/mcL (4.50-5.90); RBC Morphology NORMAL (Normal); Segmented Neutrophils % 91 % (38-78); WBC 10.5 K/mcL (4.5-11.0)
[2020-09-21] MEDS ORDERED: MELATONIN 3 MG TABLET PO PRN (12:22)
[2020-09-21] MEDS ORDERED: ONDANSETRON 4 MG ODT TABLET SL PRN (12:22)
[2020-09-21] MEDS ORDERED: guaiFENesin/CODEINE 10 ML UDC PO PRN (12:22)
[2020-09-21] MEDS ORDERED: BISACODYL 10 MG SUPP.RECT PR PRN (12:22)
[2020-09-21] MEDS ORDERED: POTASSIUM CHLORIDE 20 MEQ PACKET PO PRN (12:22)
[2020-09-21] MEDS ORDERED: POLYETHYLENE GLYCOL 3350 17 GM PACKET PO PRN (12:22)
[2020-09-21] MEDS ORDERED: ONDANSETRON 4 MG/2 ML VIAL IV PRN (12:22)
[2020-09-21] MEDS ORDERED: MAGNESIUM SULFATE 2 GM/50 ML BAG IV PRN (12:22)
[2020-09-21] MEDS ORDERED: ACETAMINOPHEN 325 MG TABLET PO PRN (12:22)
[2020-09-21] MEDS ORDERED: ACETAMINOPHEN 650 MG/65 ML BOTTLE IV PRN (12:22)
[2020-09-21] MEDS: POTASSIUM CHLORIDE 20 MEQ/15 ML ML PO SCH ×3 (14:10→21:23)
[2020-09-21] MEDS: IPRATROPIUM/ALBUTEROL 3 ML AMPUL.NEB NEB SCH ×3 (15:05→23:13)
[2020-09-21] MEDS ORDERED: SERTRALINE 100 MG TABLET PO SCH ×2 (21:00)
[2020-09-21] MEDS ORDERED: BRIMONIDINE OPHTH DROPS 1 GTT BOTTLE 5ML OU SCH (21:00)
[2020-09-21] MEDS ORDERED: TAMSULOSIN 0.4 MG CAPSULE PO SCH (21:00)
[2020-09-21] MEDS ORDERED: SENNOSIDES/DOCUSATE SODIUM 1 TAB TABLET PO SCH (21:00)
[2020-09-21] MEDS ORDERED: CERAMIDES TOPICAL SCH (21:00)
[2020-09-21] MEDS ORDERED: BUDESONIDE 0.5 MG/2 ML AMPUL.NEB NEB SCH (21:00)
[2020-09-21] MEDS ORDERED: AMMONIUM LACTATE TOPICAL SCH (21:00)
[2020-09-21] MEDS ORDERED: GABAPENTIN 100 MG CAPSULE PO SCH (21:00)
[2020-09-21] MEDS ORDERED: guaiFENesin 600 MG TAB.SR.12H PO SCH ×2 (21:00)
[2020-09-21] MEDS ORDERED: PRAMIPEXOLE 1 MG TABLET PO SCH ×2 (21:00)
[2020-09-21] MEDS ORDERED: FUROSEMIDE 20 MG TABLET PO SCH (21:00)
[2020-09-21] MEDS: FUROSEMIDE 20 MG TABLET PO SCH (21:20)
[2020-09-21] MEDS: TAMSULOSIN 0.4 MG CAPSULE PO SCH (21:28)
[2020-09-21] MEDS: BRIMONIDINE OPHTH DROPS 1 GTT BOTTLE 5ML OU SCH (21:28)
[2020-09-21] MEDS: BUDESONIDE 0.5 MG/2 ML AMPUL.NEB NEB SCH (21:46)
[2020-09-22] MEDS: IPRATROPIUM/ALBUTEROL 3 ML AMPUL.NEB NEB SCH ×5 (03:27→23:02)
[2020-09-22] MEDS ORDERED: LORazepam 2 MG/ML VIAL IV PRN ×2 (04:21→18:17)
[2020-09-22] MEDS ORDERED: OLANZapine 10 MG VIAL IM ONE (04:30)
[2020-09-22] MEDS ORDERED: OLANZapine 10 MG VIAL IM SCH ×2 (04:30→18:17)
[2020-09-22] MEDS: 0.9 % SODIUM CHLORIDE 10 ML SYRINGE IV SCH ×3 (05:09→22:00)
[2020-09-22] MEDS ORDERED: LORazepam 2 MG/ML VIAL ONE (05:13)
[2020-09-22] MEDS: POTASSIUM CHLORIDE 20 MEQ/15 ML ML PO SCH ×3 (07:50→18:13)
[2020-09-22] MEDS: DOCUSATE SODIUM 100 MG CAPSULE PO SCH (08:15)
[2020-09-22] MEDS: FUROSEMIDE 20 MG TABLET PO SCH (08:16)
[2020-09-22] MEDS: GABAPENTIN 100 MG CAPSULE PO SCH (08:17)
[2020-09-22 08:21] LABS: Hematocrit 41.9 % (41.0-55.0); Hemoglobin 13.6 g/dL (13.5-16.5); Lymphocytes % 2 % (15-49); Mean Cell Volume 91.3 fL (80.0-100.0); Mean Corpuscular HGB Conc 32.5 g/dL (31.0-36.0); Mean Platelet Volume 9.8 fL (7.4-10.4); Monocytes % (Manual) 11 % (1-12); Platelet Count 271 K/mcL (140-440); Platelet Estimate NORMAL (Normal); RBC 4.59 M/mcL (4.50-5.90); RBC Morphology NORMAL (Normal); Reactive Lymphocytes 2 % (0-2); Red Cell Distribution Width 13.2 % (11.5-14.5); Segmented Neutrophils % 85 % (38-78); WBC 12.1 K/mcL (4.5-11.0)
[2020-09-22 08:23] LABS: ALT/SGPT 17 U/L (<40); AST/SGOT 20 U/L (<40); Albumin 3.7 gm/dL (3.2-5.2); Albumin/Globulin Ratio 1.2 (1.0-2.3); Alkaline Phosphatase 66 U/L (39-117); Bilirubin,Direct < 0.2 mg/dL (<0.3); Bilirubin,Total 0.4 mg/dL (0.1-1.0); Blood Urea Nitrogen 35 mg/dL (8-23); Calcium 9.3 mg/dL (8.6-10.4); Carbon Dioxide 28 mmol/L (22-30); Chloride 102 mmol/L (96-108); Globulin 3.2 gm/dL (2.2-3.7); Glomerular Filtration Rate 51; Glucose 161 mg/dL (70-105); Lactate Dehydrogenase 333 U/L (135-225); Phosphorous 2.7 mg/dL (2.5-4.5); Triglycerides 82 mg/dL (<150); Uric Acid 6.9 mg/dL (2.5-8.0)
[2020-09-22] MEDS: BUDESONIDE 0.5 MG/2 ML AMPUL.NEB NEB SCH ×3 (08:41→20:43)
--- NOTE | 2020-09-22 08:53 | XRay Report ---
INDICATION: hypoxia TECHNIQUE: AP portable semiupright chest x-ray COMPARISON: Previous chest x-rays dated 09/21/2020, 09/19/2020 FINDINGS: Lungs:Lungs are negative. No focal pulmonary parenchymal infiltrate or mass Heart, vascular:No significant cardiomegaly. Pulmonary vascularity is normal. No pulmonary edema or pulmonary congestion Mediastinum, romero:No mediastinal widening. No hilar mass Pleura:No pleural fluid. No pleural-based mass or calcification Skeletal:Negative. IMPRESSION: No acute infiltrate. No significant interval change since 09/21/2020 Interpreted and Authenticated by: Delfino Aguilar 09/22/20
[2020-09-22] MEDS ORDERED: FINASTERIDE 5 MG TABLET PO SCH ×2 (09:00)
[2020-09-22] MEDS ORDERED: cefTRIAXone 2 GM in DEXTROSE 5% IN WATER 50 ML IV SCH (09:00)
[2020-09-22] MEDS ORDERED: POLYETHYLENE GLYCOL 3350 17 GM PACKET PO SCH ×2 (09:00)
[2020-09-22] MEDS ORDERED: TIOTROPIUM BROMIDE 18 MCG INHALANT INH SCH (09:00)
[2020-09-22] MEDS ORDERED: KETOROLAC TROMETHAMINE 3 ML DROPS OP SCH ×2 (09:00)
[2020-09-22] MEDS ORDERED: PATIENTS OWN MEDICATION 1 DOSE MISCELL PO SCH (09:00)
[2020-09-22] MEDS ORDERED: VITAMINS A C E ZINC COPPER PO SCH ×2 (09:00)
[2020-09-22] MEDS ORDERED: MAGNESIUM OXIDE 400 MG TABLET PO SCH ×2 (09:00)
[2020-09-22] MEDS ORDERED: SPIRONOLACTONE 25 MG TABLET PO SCH ×2 (09:00)
[2020-09-22] MEDS ORDERED: MULTIVIT,THER IRON,CA,FA & MIN 1 TABLET PO SCH (09:00)
--- NOTE | 2020-09-22 10:46 | Internal Med Progress Note ---
SUBJECTIVE Subjective Patient information: Note initiated : 09/22/20 at 10:41 am Service Date, if different from initiated Date: [] Patient: Abelardo Chambers a 80 y/o M admitted on 09/20/20 for fall. Chief Complaint: [] Interval history: History of present illness: Mr. Chambers is a 80 year old M resident of [facility] with a history of chronic pain/neuropathy/lower extremity lymphedema/anxiety disorder/HTN who presents to the ER following a fall this morning while he was trying to transfer out of his lounge chair. He denies any precipitating events. Initial work-up in the ER was negative with head CT however patient was profoundly hypoxic on arrival. He was requiring 2- 3 L of oxygen to maintain sats over 90. Chest imaging was consistent with basilar pneumonia. COVID-19 test was performed. Hospitalist service was consulted in light of acute hypoxic respiratory failure/possible COVID-19/COPD exacerbation At the time of my evaluation patient is on 3 L oxygen. Able to answer some of the questions. He is appears fatigued lethargic was able to participate in review of systems. He could not recollect events before this morning. He also endorses to feeling weak and fatigued over the last 1 week. He denies diarrhea, dysuria, headache endorses to left lower extremity increasing redness without pain. He denies chest palpitation/headache or photophobia 09/20-patient clinically improving. On 2 L oxygen. Improved shortness of breath. Denies fever chills, white count 7.6 potassium down to 3.9, creatinine down to 1.2. Blood pressures around 100. On crystalloids. 09/21-patient had a horrible night with increasing confusion agitation requiring antipsychotics. Remained agitated throughout the night. However much improved this morning. Restarted on home medications. On 2 L oxygen. Labs essentially unchanged. COVID-19 test negative. X-ray chest mild pulmonary congestion. Start diuretics. DC IV fluids 09/22-patient clinically deteriorating no hypoxia respiratory failure requiring 5 L oxygen. Febrile at 102.1. Confused encephalopathic agitated and delirious. White count up to 12.1. Antibiotic coverage extended to Zosyn. BiPAP as needed. Patient currently DNR. Negative interval chest imaging. Overnight very anxious agitated requiring antipsychotic. Constitutional Vitals: Vital Signs Temp Pulse Resp BP Pulse Ox 98.5 F 105 H 20 124/70 92 09/22/20 08:21 09/22/20 09:00 09/22/20 09:00 09/22/20 08:00 09/22/20 08:00 Period Temp Pulse Resp BP Sys/Aaron Pulse Ox Last 24 Hr 97.5 F-103.1 F 63-125 18-24 89-135/49-89 88-96 Intake and Output 09/21/20 09/22/20 09/22/20 21:59 05:59 13:59 Intake Total 720 50 65 Output Total 351 2 Balance 369 48 65 Weight 106.594 kg confused Drowsy Labored breathing Oral secretions being actively suctioned No lymphedema Intake & Output: Intake & Output 09/21/20 09/22/20 09/22/20 21:59 05:59 13:59 Intake Total 720 50 65 Output Total 351 2 Balance 369 48 65 Weight 106.594 kg Intake: IV 65 Oral 720 50 Output: Void Amount 350 # of times incontinent of urine 1 2 Other: Meal Nourishment/Supplement Dinner Percent of Meal Consumed 100% 75% Feeding Ability Total Assistance Total Assistance Urine Appearance Clear Urine Color Bright Yellow Urine Odor Normal # Voids 1 OBJ DATA Labs CBC & Chem 7: 09/22/20 06:14 09/22/20 06:14 Labs: Abnormal Lab Results 09/22/20 09/22/20 09/21/20 06:14 06:14 05:13 WBC 12.1 H RBC Hgb Hct MCHC Neut % (Auto) Lymph % (Auto) Lymph # (Auto) Seg Neutrophils % 85 H Lymphocytes % 2 L Potassium Chloride BUN 35 H 34 H Creatinine 1.3 H Glucose 161 H 154 H Magnesium 2.6 H Lactate Dehydrogenase 333 H 278 H Albumin/Globulin Ratio Procalcitonin Hyaline Casts Urine Mucus 09/21/20 09/20/20 09/20/20 05:13 05:46 05:46 WBC RBC 4.46 L 4.20 L Hgb 12.9 L 12.3 L Hct 38.8 L MCHC Neut % (Auto) Lymph % (Auto) Lymph # (Auto) Seg Neutrophils % 91 H 93 H Lymphocytes % 6 L 4 L Potassium Chloride 94 L BUN 33 H Creatinine Glucose 144 H Magnesium 2.7 H Lactate Dehydrogenase 246 H Albumin/Globulin Ratio 0.9 L Procalcitonin Hyaline Casts Urine Mucus 09/19/20 09/19/20 09/19/20 18:55 17:00 17:00 WBC RBC Hgb Hct MCHC Neut % (Auto) Lymph % (Auto) Lymph # (Auto) Seg Neutrophils % Lymphocytes % Potassium 5.2 H Chloride 92 L BUN 41 H Creatinine 1.4 H Glucose Magnesium Lactate Dehydrogenase Albumin/Globulin Ratio Procalcitonin 0.10 H Hyaline Casts 3 H Urine Mucus Few A 09/19/20 17:00 WBC RBC 4.33 L Hgb 12.5 L Hct 40.4 L MCHC 30.9 L Neut % (Auto) 80.3 H Lymph % (Auto) 9.9 L Lymph # (Auto) 0.89 L Seg Neutrophils % Lymphocytes % Potassium Chloride BUN Creatinine Glucose Magnesium Lactate Dehydrogenase Albumin/Globulin Ratio Procalcitonin Hyaline Casts Urine Mucus Meds: Medications Acetaminophen (Tylenol) 650 mg PO Q4-6HP PRN; Protocol PRN Reason: Per Pain Protocol/Fever > 101 Albuterol/Ipratropium (Duoneb) 3 ml NEB Q4HRT [facility] Last Admin: 09/22/20 07:00 Dose: 3 ml Documented by: Bisacodyl (Dulcolax) 10 mg SD Q2-3DAYS PRN PRN Reason: Constipation Brimonidine Tartrate (Alphagan P Ophth Drops) 1 gtt OU BID [facility] Last Admin: 09/21/20 21:28 Dose: Not Given Documented by: Budesonide (Pulmicort) 0.5 mg NEB BID [facility] Last Admin: 09/22/20 08:41 Dose: 0.5 mg Documented by: Budesonide (Pulmicort) 2 puff INH BID [facility] Last Admin: 09/21/20 19:13 Dose: Not Given Documented by: Docusate Sodium (Colace) 100 mg PO BID [facility] Last Admin: 09/22/20 08:15 Dose: Not Given Documented by: Finasteride (Proscar) 5 mg PO QDAY [facility] Last Admin: 09/22/20 08:17 Dose: Not Given Documented by: Furosemide (Lasix) 80 mg PO BID [facility] Last Admin: 09/22/20 08:16 Dose: Not Given Documented by: Gabapentin (Neurontin) 100 mg PO BID [facility] Last Admin: 09/22/20 08:17 Dose: Not Given Documented by: Guaifenesin (Mucinex) 600 mg PO QHS [facility] Last Admin: 09/21/20 21:26 Dose: 600 mg Documented by: Guaifenesin/Codeine Phosphate (Robitussin Ac) 10 ml PO Q4HP PRN PRN Reason: Cough Heparin Sodium (Porcine) (Heparin) 5,000 unit SQ Q12 [facility] Last Admin: 09/21/20 21:11 Dose: 5,000 unit Documented by: Acetaminophen (Ofirmev) 650 mg in 65 mls @ 130 mls/hr IV Q6HP PRN; Protocol PRN Reason: Per Pain Protocol/Fever > 101 Last Infusion: 09/22/20 07:49 Dose: Infused Documented by: Magnesium Sulfate (Magnesium Sulfate) 2 gm in 50 mls @ 50 mls/hr IV UD PRN PRN Reason: MG = or < 1.7 Iron Carb/Multivit/[place]/Folic Acid (Multivitamin W/Minerals) 1 tab PO DAILY [facility] Last Admin: 09/22/20 08:17 Dose: Not Given Documented by: Ketorolac Tromethamine (Ketorolac Tromethamine) 1 ml OP DAILY [facility] Loperamide HCl (Imodium) 2 mg PO UD PRN PRN Reason: Diarrhea Lorazepam (Ativan) 2 mg IV HSP PRN PRN Reason: ANXIETY/SEDATION Magnesium Hydroxide (Milk Of Magnesia) 30 ml PO DAILYP PRN PRN Reason: Constipation Magnesium Oxide (Magnesium Oxide) 400 mg PO DAILY [facility] Last Admin: 09/22/20 08:16 Dose: Not Given Documented by: Melatonin (Melatonin 3mg Tablet) 3 mg PO HSP PRN PRN Reason: Insomnia Last Admin: 09/21/20 21:22 Dose: 3 mg Documented by: Methylprednisolone Sodium Succinate (Solu-Medrol) 60 mg IV Q12 [facility] Last Admin: 09/21/20 21:13 Dose: 60 mg Documented by: Metolazone (Zaroxolyn) 2.5 mg PO MoFr@0830 [facility] Olanzapine (Zyprexa) 10 mg IM ONCE [facility] Last Admin: 09/22/20 04:28 Dose: Not Given Documented by: Ondansetron HCl (Zofran Odt) 4 mg SL Q4-6HP PRN; Protocol PRN Reason: Nausea And Vomiting Ondansetron HCl (Zofran) 4 mg IV Q4-6HP PRN; Protocol PRN Reason: Nausea And Vomiting Dorzolamide-Timolol ([Cosopt] Eye Drops) 1 dose LEFT EYE DAILY [facility] Vitamins A,C,E-Zinc -Copper [ Preservision Areds] Tab 1 dose PO DAILY [facility] Last Admin: 09/22/20 08:17 Dose: Not Given Documented by: Polyethylene Glycol (Miralax) 17 gm PO DAILY [facility] Last Admin: 09/22/20 08:16 Dose: Not Given Documented by: Potassium Chloride (Potassium Chloride) 20 meq PO 5XD [facility] Last Admin: 09/22/20 07:50 Dose: Not Given Documented by: Potassium Chloride (Klor-Con) 40 meq PO DAILYP PRN PRN Reason: K+ < 3.5 Pramipexole Dihydrochloride (Mirapex) 1.[address] [facility] Last Admin: 09/21/20 21:26 Dose: 1.5 mg Documented by: Senna/Docusate Sodium (Senna Plus Tablet) 1 [address] [facility] Last Admin: 09/21/20 21:28 Dose: 1 tab Documented by: Sertraline HCl (Zoloft) [address] [facility] Last Admin: 09/21/20 21:24 Dose: 100 mg Documented by: Sodium Biphosphate/Sodium Phosphate (Fleets Adult) 1 dose SD DAILYP PRN PRN Reason: Constipation Sodium Chloride (Saline Flush) 10 ml IV Q8 [facility] Last Admin: 09/22/20 05:09 Dose: 10 ml Documented by: Spironolactone (Aldactone) 25 mg PO Q48@0900 [facility] Last Admin: 09/22/20 08:15 Dose: Not Given Documented by: Spironolactone (Aldactone) 50 mg PO Q48@0900 [facility] Tamsulosin HCl (Flomax) 0.4 mg PO BID [facility] Last Admin: 09/21/20 21:28 Dose: 0.4 mg Documented by: Tiotropium [place] (Spiriva) 18 mcg INH DAILY [facility] A/P Narrative A/P Narrative: * Acute exacerbation of COPD-continue bronchodilators steroids/supplemental oxygen. Covid negative. * Acute hypoxic hypercapnic respiratory failure. On 5 L oxygen, BiPAP if indicated * Sepsis with worsening white count/fever and endorgan dysfunction. Management per guidelines * Hospital-acquired delirium-worsening followingbenzodiazepine. Frequent reorientation/as needed antipsychotic * Borderline CHF start diuretics, discontinue IV fluids * Left lower extremity erythema suspected cellulitis, likely stasis change. No significant worsening noted * ADDIE improving-creatinine at baseline * Hyperkalemia improved down from 5.2-3.9 * History of glaucoma continue home dose n dorzolamide/brimonidine * Anxiety disorder on fluoxetine * Neuropathy start gabapentin * Chronic pain on morphine * Restless leg syndrome * Hypertension on spironolactone * BPH on Flomax/finasteride * Prophylaxis heparin Plan * Continue supplemental oxygen/bronchodilators/steroids and noninvasive ventil ation * Delirium/fall watch * Pre-existing medical condition management home meds * PT OT nutrition support Time Spent With Patient Time: Total time spent is greater than 50% in coordination of care (as documented) at patient's floor/unit and/or counseling patient:
[2020-09-22] MEDS: BRIMONIDINE OPHTH DROPS 1 GTT BOTTLE 5ML OU SCH (11:55)
[2020-09-22] MEDS: TAMSULOSIN 0.4 MG CAPSULE PO SCH (11:55)
[2020-09-22] MEDS: methylPREDNISolone SOD SUCC 125 MG/2 ML VIAL IV SCH (12:02)
[2020-09-22] MEDS: HEPARIN 5,000 UNIT/ML VIAL SQ SCH (12:02)
[2020-09-22] MEDS: BUDESONIDE 1 PUFF INHALER INH SCH (12:07)
[2020-09-22] MEDS ORDERED: BISACODYL 10 MG SUPP.RECT PR PRN ×2 (18:17→21:04)
[2020-09-22] MEDS ORDERED: ACETAMINOPHEN 650 MG/65 ML BOTTLE IV PRN ×2 (18:17→21:04)
[2020-09-22] MEDS ORDERED: ONDANSETRON 4 MG ODT TABLET SL PRN ×2 (18:17→21:04)
[2020-09-22] MEDS ORDERED: PIPERACILLIN SODIUM/TAZOBACTAM 3.375 GM in DEXTROSE 5% IN WATER 50 ML IV SCH (18:17)
[2020-09-22] MEDS ORDERED: guaiFENesin/CODEINE 10 ML UDC PO PRN ×2 (18:17→21:04)
[2020-09-22] MEDS ORDERED: MELATONIN 3 MG TABLET PO PRN ×2 (18:17→21:04)
[2020-09-22] MEDS ORDERED: POTASSIUM CHLORIDE 20 MEQ PACKET PO PRN ×2 (18:17→21:04)
[2020-09-22] MEDS ORDERED: ACETAMINOPHEN 325 MG TABLET PO PRN (18:17)
[2020-09-22] MEDS ORDERED: LOPERAMIDE 2 MG CAPSULE PO SCH (18:17)
[2020-09-22] MEDS ORDERED: ONDANSETRON 4 MG/2 ML VIAL IV PRN ×2 (18:17→21:04)
[2020-09-22] MEDS ORDERED: FLEETS ADULT ENEMA PR PRN ×2 (18:17→21:04)
[2020-09-22] MEDS ORDERED: MAGNESIUM HYDROXIDE 30 ML ORAL.SUSP PO PRN ×2 (18:17→21:04)
[2020-09-22] MEDS ORDERED: MAGNESIUM SULFATE 2 GM/50 ML BAG IV PRN ×2 (18:17→21:04)
[2020-09-22] MEDS ORDERED: IPRATROPIUM/ALBUTEROL 3 ML AMPUL.NEB NEB ONE (18:43)
[2020-09-22] MEDS ORDERED: IPRATROPIUM/ALBUTEROL 3 ML AMPUL.NEB NEB SCH (19:00)
[2020-09-22] MEDS ORDERED: LOPERAMIDE 2 MG CAPSULE PO PRN ×2 (19:30→21:04)
[2020-09-22] MEDS ORDERED: POTASSIUM CHLORIDE 20 MEQ/15 ML ML PO SCH (20:00)
[2020-09-22] MEDS ORDERED: PRAMIPEXOLE 1 MG TABLET PO SCH (21:00)
[2020-09-22] MEDS ORDERED: TAMSULOSIN 0.4 MG CAPSULE PO SCH (21:00)
[2020-09-22] MEDS ORDERED: SENNOSIDES/DOCUSATE SODIUM 1 TAB TABLET PO SCH (21:00)
[2020-09-22] MEDS ORDERED: GABAPENTIN 100 MG CAPSULE PO SCH (21:00)
[2020-09-22] MEDS ORDERED: DOCUSATE SODIUM 100 MG CAPSULE PO SCH (21:00)
[2020-09-22] MEDS ORDERED: BRIMONIDINE OPHTH DROPS 1 GTT BOTTLE 5ML OU SCH (21:00)
[2020-09-22] MEDS ORDERED: SERTRALINE 100 MG TABLET PO SCH (21:00)
[2020-09-22] MEDS ORDERED: methylPREDNISolone SOD SUCC 125 MG/2 ML VIAL IV SCH (21:00)
[2020-09-22] MEDS ORDERED: FUROSEMIDE 20 MG TABLET PO SCH (21:00)
[2020-09-22] MEDS ORDERED: guaiFENesin 600 MG TAB.SR.12H PO SCH (21:00)
[2020-09-22] MEDS ORDERED: HEPARIN 5,000 UNIT/ML VIAL SQ SCH (21:00)
[2020-09-22] MEDS ORDERED: BUDESONIDE 1 PUFF INHALER INH SCH (21:00)
[2020-09-22] MEDS ORDERED: 0.9 % SODIUM CHLORIDE 10 ML SYRINGE IV SCH (22:00)
[2020-09-23] MEDS: PIPERACILLIN SODIUM/TAZOBACTAM 3.375 GM in DEXTROSE 5% IN WATER 50 ML IV SCH ×5 (01:31→23:29)
[2020-09-23] MEDS: IPRATROPIUM/ALBUTEROL 3 ML AMPUL.NEB NEB SCH ×6 (02:23→22:37)
[2020-09-23] MEDS: 0.9 % SODIUM CHLORIDE 10 ML SYRINGE IV SCH ×3 (05:28→20:13)
[2020-09-23] MEDS ORDERED: FINASTERIDE 5 MG TABLET PO SCH (09:00)
[2020-09-23] MEDS ORDERED: TIOTROPIUM BROMIDE 18 MCG INHALANT INH SCH (09:00)
[2020-09-23] MEDS ORDERED: POLYETHYLENE GLYCOL 3350 17 GM PACKET PO SCH (09:00)
[2020-09-23] MEDS ORDERED: MULTIVIT,THER IRON,CA,FA & MIN 1 TABLET PO SCH (09:00)
[2020-09-23] MEDS ORDERED: PATIENTS OWN MEDICATION 1 DOSE MISCELL PO SCH (09:00)
[2020-09-23] MEDS ORDERED: DORZOLAMIDE TIMOLOL EYE LEFT EYE SCH (09:00)
[2020-09-23] MEDS ORDERED: SPIRONOLACTONE 25 MG TABLET PO SCH ×2 (09:00)
[2020-09-23] MEDS ORDERED: KETOROLAC TROMETHAMINE 3 ML DROPS OP SCH ×2 (09:00)
[2020-09-23] MEDS ORDERED: MAGNESIUM OXIDE 400 MG TABLET PO SCH (09:00)
--- NOTE | 2020-09-23 09:19 | Internal Med Progress Note ---
SUBJECTIVE Subjective Patient information: Note initiated : 09/23/20 at 9:15 am Service Date, if different from initiated Date: [] Patient: Abelardo Chambers 80 y/o M admitted on 09/20/20 for fall. Chief Complaint: [] Interval history: History of present illness: Mr. Chambers is a 80 year old M resident of [facility] with a history of chronic pain/neuropathy/lower extremity lymphedema/anxiety disorder/HTN who presents to the ER following a fall this morning while he was trying to transfer out of his lounge chair. He denies any precipitating events. Initial work-up in the ER was negative with head CT however patient was profoundly hypoxic on arrival. He was requiring 2- 3 L of oxygen to maintain sats over 90. Chest imaging was consistent with basilar pneumonia. COVID-19 test was performed. Hospitalist service was consulted in light of acute hypoxic respiratory failure/possible COVID-19/COPD exacerbation At the time of my evaluation patient is on 3 L oxygen. Able to answer some of the questions. He is appears fatigued lethargic was able to participate in review of systems. He could not recollect events before this morning. He also endorses to feeling weak and fatigued over the last 1 week. He denies diarrhea, dysuria, headache endorses to left lower extremity increasing redness without pain. He denies chest palpitation/headache or photophobia 09/20-patient clinically improving. On 2 L oxygen. Improved shortness of b reath. Denies fever chills, white count 7.6 potassium down to 3.9, creatinine down to 1.2. Blood pressures around 100. On crystalloids. 09/21-patient had a horrible night with increasing confusion agitation requiring antipsychotics. Remained agitated throughout the night. However much improved this morning. Restarted on home medications. On 2 L oxygen. Labs essentially unchanged. COVID-19 test negative. X-ray chest mild pulmonary congestion. Start diuretics. DC IV fluids 09/22-patient clinically deteriorating no hypoxia respiratory failure requiring 5 L oxygen. Febrile at 102.1. Confused encephalopathic agitated and delirious. White count up to 12.1. Antibiotic coverage extended to Zosyn. BiPAP as needed. Patient currently DNR. Negative interval chest imaging. Overnight very anxious agitated requiring antipsychotic. 09/23-patient remains intermittently confused however much improved agitation. On 8 to 10 L oxygen. Worsening hypoxic respiratory failure. Clinical deterioration noted. Remains high risk mortality Constitutional Vitals: Vital Signs Temp Pulse Resp BP Pulse Ox 98.2 F 86 20 109/70 94 09/23/20 04:00 09/23/20 07:35 09/23/20 07:35 09/23/20 04:00 09/23/20 04:00 Period Temp Pulse Resp BP Sys/Aaron Pulse Ox Last 24 Hr 98.2 F-100.3 F 80-108 -28 109-118/68-74 Intake and Output 09/22/20 09/23/20 09/23/20 22:59 05:59 13:59 Intake Total 50 Output Total Balance 50 Weight Confused and anxious Labored breathing On 5-10 l oxygen mask Intake & Output: Intake & Output 09/22/20 09/23/20 09/23/20 22:59 05:59 13:59 Intake Total 50 Output Total Balance 50 Weight Intake: IV 50 Zosyn 3.375 gm In Dextrose 5% 50 in Water 50 ml @ 100 mls/hr IV Q6H [facility] Rx#:[id number] Oral Output: Void Amount # of times incontinent of urine Other: Urine Appearance Urine Color Urine Odor # Voids OBJ DATA Labs CBC & Chem 7: 09/22/20 06:14 09/22/20 06:14 Labs: Abnormal Lab Results 09/22/20 09/22/20 09/21/20 06:14 06:14 05:13 WBC 12.1 H RBC Hgb Seg Neutrophils % 85 H Lymphocytes % 2 L BUN 35 H 34 H Creatinine 1.3 H Glucose 161 H 154 H Magnesium 2.6 H Lactate Dehydrogenase 333 H 278 H 09/21/20 05:13 WBC RBC 4.46 L Hgb 12.9 L Seg Neutrophils % 91 H Lymphocytes % 6 L BUN Creatinine Glucose Magnesium Lactate Dehydrogenase Meds: Medications Acetaminophen (Tylenol) 650 mg PO Q4-6HP PRN; Protocol PRN Reason: Per Pain Protocol/Fever > 101 Albuterol/Ipratropium (Duoneb) 3 ml NEB Q4HRT [facility] Last Admin: 09/23/20 07:19 Dose: 3 ml Documented by: Bisacodyl (Dulcolax) 10 mg IN Q2-3DAYS PRN PRN Reason: Constipation Brimonidine Tartrate (Alphagan P Ophth Drops) 1 gtt OU BID [facility] Budesonide (Pulmicort) 0.5 mg NEB BID [facility] Budesonide (Pulmicort) 2 puff INH BID [facility] Docusate Sodium (Colace) 100 mg PO BID [facility] Finasteride (Proscar) 5 mg PO QDAY [facility] Furosemide (Lasix) 80 mg PO BID [facility] Gabapentin (Neurontin) 100 mg PO BID [facility] Guaifenesin (Mucinex) 600 mg PO QHS [facility] Guaifenesin/Codeine Phosphate (Robitussin Ac) 10 ml PO Q4HP PRN PRN Reason: Cough Heparin Sodium (Porcine) (Heparin) 5,000 unit SQ Q12 [facility] Magnesium Sulfate (Magnesium Sulfate) 2 gm in 50 mls @ 50 mls/hr IV UD PRN PRN Reason: MG = or < 1.7 Acetaminophen (Ofirmev) 650 mg in 65 mls @ 130 mls/hr IV Q6HP PRN; Protocol PRN Reason: Per Pain Protocol/Fever > 101 Piperacillin Sod/Tazobactam (Sod 3.375 gm/ Dextrose) 50 mls @ 100 mls/hr IV Q6H [facility]; Protocol Last Infusion: 09/23/20 06:00 Dose: Infused Documented by: Iron Carb/Multivit/[place]/Folic Acid (Multivitamin W/Minerals) 1 tab PO DAILY [facility] Ketorolac Tromethamine (Ketorolac Tromethamine) 1 ml OP DAILY [facility] Loperamide HCl (Imodium) 2 mg PO DAILYP PRN PRN Reason: Diarrhea Magnesium Hydroxide (Milk Of Magnesia) 30 ml PO DAILYP PRN PRN Reason: Constipation Magnesium Oxide (Magnesium Oxide) 400 mg PO DAILY [facility] Melatonin (Melatonin 3mg Tablet) 3 mg PO HSP PRN PRN Reason: Insomnia Methylprednisolone Sodium Succinate (Solu-Medrol) 60 mg IV Q12 [facility] Metolazone (Zaroxolyn) 2.5 mg PO MoFr@0830 [facility] Ondansetron HCl (Zofran Odt) 4 mg SL Q4-6HP PRN; Protocol PRN Reason: Nausea And Vomiting Ondansetron HCl (Zofran) 4 mg IV Q4-6HP PRN; Protocol PRN Reason: Nausea And Vomiting Dorzolamide-Timolol (Eye Drops) 1 dose LEFT EYE DAILY [facility] Patient Own Medication () 1 dose PO DAILY [facility] Polyethylene Glycol (Miralax) 17 gm PO DAILY [facility] Potassium Chloride (Potassium Chloride) 20 meq PO 5XD [facility] Potassium Chloride (Klor-Con) 40 meq PO DAILYP PRN PRN Reason: K+ < 3.5 Pramipexole Dihydrochloride (Mirapex) 1.5 mg PO HS [facility] Senna/Docusate Sodium (Senna Plus Tablet) 1 tab PO HS [facility] Sertraline HCl (Zoloft) 100 mg PO HS [facility] Sodium Biphosphate/Sodium Phosphate (Fleets Adult) 1 dose IN DAILYP PRN PRN Reason: Constipation Sodium Chloride (Saline Flush) 10 ml IV Q8 [facility] Last Admin: 09/23/20 05:28 Dose: 10 ml Documented by: Spironolactone (Aldactone) 25 mg PO Q48@0900 [facility] Spironolactone (Aldactone) 50 mg PO Q48@0900 [facility] Tamsulosin HCl (Flomax) 0.4 mg PO BID [facility] Tiotropium [place] (Spiriva) 18 mcg INH DAILY [facility] A/P Narrative A/P Narrative: * Acute exacerbation of COPD-clinically deteriorating. Continue bronchodilators steroids/supplemental oxygen. Covid negative. * Acute hypoxic hypercapnic respiratory failure. On 5-10 L oxygen. Continue close monitoring. Pulmonary toilet/aspiration precautions * Sepsis with worsening white count/fever and endorgan dysfunction. Clinically improved. White count downtrending. * Hospital-acquired delirium-improving. Avoid sedatives and hypnotics. Frequent reorientation/as needed antipsychotic * Borderline CHF -responding to diuretics, euvolemic * Left lower extremity erythema, likely stasis change. Continue foot care * ADDIE improving-creatinine at baseline * Hyperkalemia improved down from 5.2-3.9 * History of glaucoma continue home dose n dorzolamide/brimonidine * Anxiety disorder on fluoxetine * Neuropathy start gabapentin * Chronic pain on morphine * Restless leg syndrome * Hypertension on spironolactone * BPH on Flomax/finasteride * Prophylaxis heparin Plan * Continue supplemental oxygen/bronchodilators/steroids and noninvasive ventilation * Delirium/fall watch * Pre-existing medical condition management on home meds * PT OT nutrition support * Poor prognosis overall Time Spent With Patient Time: Total time spent is greater than 50% in coordination of care (as documented) at patient's floor/unit and/or counseling patient:
[2020-09-23 09:35] LABS: ALT/SGPT 15 U/L (<40); AST/SGOT 16 U/L (<40); Albumin 3.3 gm/dL (3.2-5.2); Alkaline Phosphatase 58 U/L (39-117); Bilirubin,Direct < 0.2 mg/dL (<0.3); Bilirubin,Total 0.5 mg/dL (0.1-1.0); Blood Urea Nitrogen 35 mg/dL (8-23); Calcium 9.3 mg/dL (8.6-10.4); Carbon Dioxide 31 mmol/L (22-30); Chloride 106 mmol/L (96-108); Globulin 3.2 gm/dL (2.2-3.7); Glomerular Filtration Rate 43; Glucose 114 mg/dL (70-105); Lactate Dehydrogenase 251 U/L (135-225); Phosphorous 2.8 mg/dL (2.5-4.5); Triglycerides 109 mg/dL (<150); Uric Acid 6.6 mg/dL (2.5-8.0)
[2020-09-23] MEDS: FUROSEMIDE 20 MG TABLET PO SCH ×2 (10:01→20:16)
[2020-09-23] MEDS: SPIRONOLACTONE 25 MG TABLET PO SCH (10:03)
[2020-09-23] MEDS: FINASTERIDE 5 MG TABLET PO SCH (10:04)
[2020-09-23] MEDS: TAMSULOSIN 0.4 MG CAPSULE PO SCH ×2 (10:05→20:19)
[2020-09-23] MEDS: MAGNESIUM OXIDE 400 MG TABLET PO SCH (10:05)
[2020-09-23] MEDS: GABAPENTIN 100 MG CAPSULE PO SCH ×2 (10:05→20:15)
[2020-09-23] MEDS: MULTIVIT,THER IRON,CA,FA & MIN 1 TABLET PO SCH (10:06)
[2020-09-23] MEDS: DOCUSATE SODIUM 100 MG CAPSULE PO SCH ×2 (10:06→20:17)
[2020-09-23] MEDS: POTASSIUM CHLORIDE 20 MEQ/15 ML ML PO SCH ×5 (10:08→20:11)
[2020-09-23] MEDS: HEPARIN 5,000 UNIT/ML VIAL SQ SCH ×2 (10:09→20:13)
[2020-09-23] MEDS: methylPREDNISolone SOD SUCC 125 MG/2 ML VIAL IV SCH ×2 (10:09→20:12)
[2020-09-23] MEDS: POLYETHYLENE GLYCOL 3350 17 GM PACKET PO SCH (10:10)
[2020-09-23] MEDS: TIOTROPIUM BROMIDE 18 MCG INHALANT INH SCH (10:11)
[2020-09-23 10:25] LABS: Hematocrit 42.1 % (41.0-55.0); Hemoglobin 13.2 g/dL (13.5-16.5); Lymphocytes % 19 % (15-49); Mean Cell Volume 93.6 fL (80.0-100.0); Mean Corpuscular HGB Conc 31.4 g/dL (31.0-36.0); Mean Platelet Volume 9.7 fL (7.4-10.4); Monocytes % (Manual) 13 % (1-12); Platelet Count 226 K/mcL (140-440); Platelet Estimate NORMAL (Normal); RBC Morphology NORMAL (Normal); Reactive Lymphocytes 1 % (0-2); Red Cell Distribution Width 13.4 % (11.5-14.5); Segmented Neutrophils % 67 % (38-78); WBC 9.1 K/mcL (4.5-11.0)
[2020-09-23] MEDS: ACETAMINOPHEN 325 MG TABLET PO PRN (10:44)
[2020-09-23] MEDS: DORZOLAMIDE TIMOLOL EYE LEFT EYE SCH (12:14)
[2020-09-23] MEDS: VIT A,C & E/LUTEIN/MINERALS TABLET PO SCH (12:14)
[2020-09-23] MEDS: BRIMONIDINE OPHTH DROPS 1 GTT BOTTLE 5ML OU SCH ×2 (12:14→20:17)
[2020-09-23] MEDS: BUDESONIDE 1 PUFF INHALER INH SCH ×2 (12:15→20:26)
[2020-09-23] MEDS: BUDESONIDE 0.5 MG/2 ML AMPUL.NEB NEB SCH ×3 (12:15→22:35)
[2020-09-23] MEDS: guaiFENesin 600 MG TAB.SR.12H PO SCH (20:15)
[2020-09-23] MEDS: SENNOSIDES/DOCUSATE SODIUM 1 TAB TABLET PO SCH (20:16)
[2020-09-23] MEDS: PRAMIPEXOLE 1 MG TABLET PO SCH (20:16)
[2020-09-23] MEDS: SERTRALINE 100 MG TABLET PO SCH (20:17)
[2020-09-24] MEDS: IPRATROPIUM/ALBUTEROL 3 ML AMPUL.NEB NEB SCH ×6 (04:11→23:01)
[2020-09-24] MEDS: 0.9 % SODIUM CHLORIDE 10 ML SYRINGE IV SCH ×3 (06:12→20:39)
[2020-09-24] MEDS: PIPERACILLIN SODIUM/TAZOBACTAM 3.375 GM in DEXTROSE 5% IN WATER 50 ML IV SCH ×4 (06:12→23:57)
[2020-09-24] MEDS: BUDESONIDE 0.5 MG/2 ML AMPUL.NEB NEB SCH ×3 (06:55→19:48)
[2020-09-24] MEDS ORDERED: METOLAZONE 2.5 MG TABLET PO SCH ×4 (08:30)
[2020-09-24] MEDS: POTASSIUM CHLORIDE 20 MEQ/15 ML ML PO SCH ×5 (08:40→20:36)
[2020-09-24 08:56] LABS: ALT/SGPT 20 U/L (<40); AST/SGOT 19 U/L (<40); Albumin 3.6 gm/dL (3.2-5.2); Albumin/Globulin Ratio 1.1 (1.0-2.3); Alkaline Phosphatase 58 U/L (39-117); Bilirubin,Direct < 0.2 mg/dL (<0.3); Bilirubin,Total 0.5 mg/dL (0.1-1.0); Blood Urea Nitrogen 41 mg/dL (8-23); Calcium 9.4 mg/dL (8.6-10.4); Carbon Dioxide 29 mmol/L (22-30); Chloride 99 mmol/L (96-108); Globulin 3.4 gm/dL (2.2-3.7); Glomerular Filtration Rate 43; Glucose 169 mg/dL (70-105); Lactate Dehydrogenase 265 U/L (135-225); Phosphorous 4.4 mg/dL (2.5-4.5); Triglycerides 87 mg/dL (<150); Uric Acid 5.9 mg/dL (2.5-8.0)
--- NOTE | 2020-09-24 08:58 | Internal Med Progress Note ---
SUBJECTIVE Subjective Patient information: Note initiated : 09/24/20 at 8:55 am Service Date, if different from initiated Date: [] Patient: Abelardo Chambers 80 y/o M admitted on 09/20/20 for fall. Chief Complaint: [] Interval history: History of present illness: Mr. Chambers is a 80 year old M resident of [facility] with a history of chronic pain/neuropathy/lower extremity lymphedema/anxiety disorder/HTN who presents to the ER following a fall this morning while he was trying to transfer out of his lounge chair. He denies any precipitating events. Initial work-up in the ER was negative with head CT however patient was profoundly hypoxic on arrival. He was requiring 2- 3 L of oxygen to maintain sats over 90. Chest imaging was consistent with basilar pneumonia. COVID-19 test was performed. Hospitalist service was consulted in light of acute hypoxic respiratory failure/possible COVID-19/COPD exacerbation At the time of my evaluation patient is on 3 L oxygen. Able to answer some of the questions. He is appears fatigued lethargic was able to participate in review of systems. He could not recollect events before this morning. He also endorses to feeling weak and fatigued over the last 1 week. He denies diarrhea, dysuria, headache endorses to left lower extremity increasing redness without pain. He denies chest palpitation/headache or photophobia 09/20-patient clinically improving. On 2 L oxygen. Improved shortness of b reath. Denies fever chills, white count 7.6 potassium down to 3.9, creatinine down to 1.2. Blood pressures around 100. On crystalloids. 09/21-patient had a horrible night with increasing confusion agitation requiring antipsychotics. Remained agitated throughout the night. However much improved this morning. Restarted on home medications. On 2 L oxygen. Labs essentially unchanged. COVID-19 test negative. X-ray chest mild pulmonary congestion. Start diuretics. DC IV fluids 09/22-patient clinically deteriorating no hypoxia respiratory failure requiring 5 L oxygen. Febrile at 102.1. Confused encephalopathic agitated and delirious. White count up to 12.1. Antibiotic coverage extended to Zosyn. BiPAP as needed. Patient currently DNR. Negative interval chest imaging. Overnight very anxious agitated requiring antipsychotic. 09/23-patient remains intermittently confused however much improved agitation. On 8 to 10 L oxygen. Worsening hypoxic respiratory failure. Clinical deterioration noted. Remains high risk mortality 09/24-patient feels a lot better. On 3 L oxygen today. More alert lucid. Continue frequent orientation/bright light/aspiration precautions. No anxiety agitation. Tolerating therapies. Anticipate discharge in 24 hours to SNF on oxygen. Constitutional Vitals: ital Signs Temp Pulse Resp BP Pulse Ox 98.1 F 89 16 119/77 92 09/24/20 07:21 09/24/20 06:57 09/24/20 07:21 09/24/20 07:21 09/24/20 07:21 Period Temp Pulse Resp BP Sys/Aaron Pulse Ox Last 24 Hr 97.5 F-99.0 F 70-95 16-22 110-119/68-77 92-96 Intake and Output 09/23/20 09/24/20 09/24/20 21:59 05:59 13:59 Intake Total 1390 475 360 Output Total 154 551 Balance 1236 -76 360 Weight 101.968 kg Alert Pleasant demeanor Nonlabored breathing currently on 3 L oxygen No anxiety agitation Intake & Output: Intake & Output 09/23/20 09/24/20 09/24/20 21:59 05:59 13:59 Intake Total 1390 475 360 Output Total 154 551 Balance 1236 -76 360 Weight 101.968 kg Intake: IV 50 50 Zosyn 3.375 gm In Dextrose 5% 50 50 in Water 50 ml @ 100 mls/hr IV Q6H [facility] Rx#:[id number] Oral 1340 425 360 Output: Void Amount 150 550 # of times incontinent of urine 4 1 Other: Meal OJ Breakfast Percent of Meal Consumed 100% 100% Feeding Ability Total Assistance Independent Urine Appearance Clear Urine Color Bright Yellow # of times incontinent of 1 Bowels OBJ DATA Labs CBC & Chem 7: 09/23/20 06:38 09/23/20 06:38 Labs: Abnormal Lab Results 09/23/20 09/23/20 09/22/20 06:38 06:38 06:14 WBC RBC Hgb 13.2 L Seg Neutrophils % Lymphocytes % Monocytes % (Manual) 13 H Carbon Dioxide 31 H BUN 35 H 35 H Creatinine 1.5 H 1.3 H Glucose 114 H 161 H Magnesium 2.8 H Lactate Dehydrogenase 251 H 333 H 09/22/20 09/21/20 06:14 05:13 WBC 12.1 H RBC 4.46 L Hgb 12.9 L Seg Neutrophils % 85 H 91 H Lymphocytes % 2 L 6 L Monocytes % (Manual) Carbon Dioxide BUN Creatinine Glucose Magnesium Lactate Dehydrogenase Meds: Medications Acetaminophen (Tylenol) 650 mg PO Q4-6HP PRN; Protocol PRN Reason: Per Pain Protocol/Fever > 101 Last Admin: 09/23/20 10:44 Dose: 650 mg Documented by: Albuterol/Ipratropium (Duoneb) 3 ml NEB Q4HRT [facility] Last Admin: 09/24/20 06:54 Dose: 3 ml Documented by: Bisacodyl (Dulcolax) 10 mg [place] Q2-3DAYS PRN PRN Reason: Constipation Brimonidine Tartrate (Alphagan P Ophth Drops) 1 gtt OU BID [facility] Last Admin: 09/23/20 20:17 Dose: Not Given Documented by: Budesonide (Pulmicort) 0.5 mg NEB BID [facility] Last Admin: 09/24/20 06:55 Dose: 0.5 mg Documented by: Budesonide (Pulmicort) 2 puff INH BID [facility] Last Admin: 09/23/20 20:26 Dose: Not Given Documented by: Docusate Sodium (Colace) 100 mg PO BID [facility] Last Admin: 09/23/20 20:17 Dose: 100 mg Documented by: Finasteride (Proscar) 5 mg PO QDAY [facility] Last Admin: 09/23/20 10:04 Dose: 5 mg Documented by: Furosemide (Lasix) 80 mg PO BID [facility] Last Admin: 09/23/20 20:16 Dose: 80 mg Documented by: Gabapentin (Neurontin) 100 mg PO BID [facility] Last Admin: 09/23/20 20:15 Dose: 100 mg Documented by: Guaifenesin (Mucinex) 600 mg PO QHS [facility] Last Admin: 09/23/20 20:15 Dose: 600 mg Documented by: Guaifenesin/Codeine Phosphate (Robitussin Ac) 10 ml PO Q4HP PRN PRN Reason: Cough Heparin Sodium (Porcine) (Heparin) 5,000 unit SQ Q12 [facility] Last Admin: 09/23/20 20:13 Dose: 5,000 unit Documented by: Magnesium Sulfate (Magnesium Sulfate) 2 gm in 50 mls @ 50 mls/hr IV UD PRN PRN Reason: MG = or < 1.7 Acetaminophen (Ofirmev) 650 mg in 65 mls @ 130 mls/hr IV Q6HP PRN; Protocol PRN Reason: Per Pain Protocol/Fever > 101 Piperacillin Sod/Tazobactam (Sod 3.375 gm/ Dextrose) 50 mls @ 100 mls/hr IV Q6H [facility]; Protocol Last Admin: 09/24/20 06:12 Dose: 100 mls/hr Documented by: Iron Carb/Multivit/[place]/Folic Acid (Multivitamin W/Minerals) 1 tab PO DAILY [facility] Last Admin: 09/23/20 10:06 Dose: 1 tab Documented by: Loperamide HCl (Imodium) 2 mg PO DAILYP PRN PRN Reason: Diarrhea Magnesium Hydroxide (Milk Of Magnesia) 30 ml PO DAILYP PRN PRN Reason: Constipation Magnesium Oxide (Magnesium Oxide) 400 mg PO DAILY [facility] Last Admin: 09/23/20 10:05 Dose: 400 mg Documented by: Melatonin (Melatonin 3mg Tablet) 3 mg PO HSP PRN PRN Reason: Insomnia Last Admin: 09/23/20 20:15 Dose: 3 mg Documented by: Methylprednisolone Sodium Succinate (Solu-Medrol) 60 mg IV Q12 [facility] Last Admin: 09/23/20 20:12 Dose: 60 mg Documented by: Metolazone (Zaroxolyn) 2.5 mg PO MoFr@0830 [facility] Last Admin: 09/24/20 08:40 Dose: 2.5 mg Documented by: Multivitamins/Minerals (Ocuvite) 1 tab PO DAILY [facility] Last Admin: 09/23/20 12:14 Dose: Not Given Documented by: Ondansetron HCl (Zofran Odt) 4 mg SL Q4-6HP PRN; Protocol PRN Reason: Nausea And Vomiting Ondansetron HCl (Zofran) 4 mg IV Q4-6HP PRN; Protocol PRN Reason: Nausea And Vomiting Dorzolamide-Timolol (Eye Drops) 1 dose LEFT EYE DAILY [facility] Last Admin: 09/23/20 12:14 Dose: Not Given Documented by: Polyethylene Glycol (Miralax) 17 gm PO DAILY [facility] Last Admin: 09/23/20 10:10 Dose: 17 gm Documented by: Potassium Chloride (Potassium Chloride) 20 meq PO 5XD [facility] Last Admin: 09/24/20 08:40 Dose: 20 meq Documented by: Potassium Chloride (Klor-Con) 40 meq PO DAILYP PRN PRN Reason: K+ < 3.5 Pramipexole Dihydrochloride (Mirapex) 1.5 mg PO [facility] Last Admin: 09/23/20 20:16 Dose: 1.5 mg Documented by: Senna/Docusate Sodium (Senna Plus Tablet) 1 tab PO [facility] Last Admin: 09/23/20 20:16 Dose: 1 tab Documented by: Sertraline HCl (Zoloft) 100 mg PO [facility] Last Admin: 09/23/20 20:17 Dose: 100 mg Documented by: Sodium Biphosphate/Sodium Phosphate (Fleets Adult) 1 dose [place] DAILYP PRN PRN Reason: Constipation Sodium Chloride (Saline Flush) 10 ml IV Q8 [facility] Last Admin: 09/24/20 06:12 Dose: 10 ml Documented by: Spironolactone (Aldactone) 25 mg PO Q48@0900 [facility] Spironolactone (Aldactone) 50 mg PO Q48@0900 [facility] Last Admin: 09/23/20 10:03 Dose: 50 mg Documented by: Tamsulosin HCl (Flomax) 0.4 mg PO BID [facility] Last Admin: 09/23/20 20:19 Dose: 0.4 mg Documented by: Tiotropium [place] (Spiriva) 18 mcg INH DAILY [facility] Last Admin: 09/23/20 10:11 Dose: 1 puff Documented by: A/P Narrative A/P Narrative: * Acute exacerbation of COPD-clinical improvement noted. Continue bronchodilators steroids/supplemental oxygen. Covid negative. Anticipate discharge in 24 hours to SNF * Acute hypoxic hypercapnic respiratory failure. Oxygen weaned down to 3 L, continue to breathing exercises/pulmonary toilet/aspiration precautions * Sepsis with endorgan dysfunction. Clinically improved. WBC downtrending. Hemodynamic stable. * Hospital-acquired delirium-improving. Continue to avoid sedatives and hypnotics. Frequent reorientation/as needed antipsychotic * Borderline CHF -responding well to diuretics, currently euvolemic * Left lower extremity erythema, likely stasis change. Continue foot care * ADDIE improving-creatinine at baseline * Hyperkalemia improved down from 5.2-3.9 * History of glaucoma continue home dose n dorzolamide/brimonidine * Anxiety disorder on fluoxetine * Neuropathy start gabapentin * Chronic pain on morphine * Restless leg syndrome * Hypertension on spironolactone * BPH on Flomax/finasteride * Prophylaxis heparin Plan * Continue to wean oxygen/bronchodilators * Continue delirium/fall watch * Pre-existing medical condition management on home meds * PT OT nutrition support * discharge planning likely SNF in 24 hours Time Spent With Patient Time: Total time spent is greater than 50% in coordination of care (as documented) at patient's floor/unit and/or counseling patient:
[2020-09-24] MEDS ORDERED: SPIRONOLACTONE 25 MG TABLET PO SCH ×2 (09:00)
[2020-09-24 09:02] LABS: Hematocrit 44.7 % (41.0-55.0); Hemoglobin 13.9 g/dL (13.5-16.5); Lymphocytes % 14 % (15-49); Mean Cell Volume 93.1 fL (80.0-100.0); Mean Corpuscular HGB Conc 31.1 g/dL (31.0-36.0); Mean Platelet Volume 9.8 fL (7.4-10.4); Monocytes % (Manual) 3 % (1-12); Platelet Count 227 K/mcL (140-440); Platelet Estimate NORMAL (Normal); RBC Morphology NORMAL (Normal); Reactive Lymphocytes 1 % (0-2); Red Cell Distribution Width 13.1 % (11.5-14.5); Segmented Neutrophils % 82 % (38-78); WBC 8.3 K/mcL (4.5-11.0)
[2020-09-24] MEDS: FUROSEMIDE 20 MG TABLET PO SCH ×2 (10:37→20:37)
[2020-09-24] MEDS: MULTIVIT,THER IRON,CA,FA & MIN 1 TABLET PO SCH (10:39)
[2020-09-24] MEDS: TAMSULOSIN 0.4 MG CAPSULE PO SCH ×2 (10:39→20:38)
[2020-09-24] MEDS: DOCUSATE SODIUM 100 MG CAPSULE PO SCH ×2 (10:39→20:38)
[2020-09-24] MEDS: FINASTERIDE 5 MG TABLET PO SCH (10:40)
[2020-09-24] MEDS: MAGNESIUM OXIDE 400 MG TABLET PO SCH (10:40)
[2020-09-24] MEDS: GABAPENTIN 100 MG CAPSULE PO SCH ×2 (10:40→20:39)
[2020-09-24] MEDS: TIOTROPIUM BROMIDE 18 MCG INHALANT INH SCH (10:42)
[2020-09-24] MEDS: POLYETHYLENE GLYCOL 3350 17 GM PACKET PO SCH (10:43)
[2020-09-24] MEDS: methylPREDNISolone SOD SUCC 125 MG/2 ML VIAL IV SCH (10:43)
[2020-09-24] MEDS: BRIMONIDINE OPHTH DROPS 1 GTT BOTTLE 5ML OU SCH ×2 (10:44→20:39)
[2020-09-24] MEDS: HEPARIN 5,000 UNIT/ML VIAL SQ SCH ×2 (10:44→20:37)
[2020-09-24] MEDS: DORZOLAMIDE TIMOLOL EYE LEFT EYE SCH (10:45)
[2020-09-24] MEDS: BUDESONIDE 1 PUFF INHALER INH SCH ×2 (10:45→23:01)
[2020-09-24] MEDS: VIT A,C & E/LUTEIN/MINERALS TABLET PO SCH (10:45)
[2020-09-24] MEDS: ACETAMINOPHEN 325 MG TABLET PO PRN (12:24)
--- NOTE | 2020-09-24 13:28 | Discharge Summary ---
Discharge Provider Provider Patient information: Note initiated : 09/24/20 at 1:27 pm Service Date, if different from initiated Date: [] Patient: Abelardo Chambers 80 y/o M admitted on 09/20/20 for fall. Chief Complaint: [] Date of admission: 09/20/20 00:02 Discharge date: 09/25/20 Primary care physician: Conrad Matosn Consults: 09/19/20 Consult to Physician [CONS] Stat Comment: Consulting Provider: Reginaldo Cobian Reason For Exam: Physician to Consult Discharge Meds Discharge Medications Home Medications tamsulosin 0.4 mg capsule 0.4 mg PO BID #60 cap 10/15/15 [Rx Confirmed 09/20/20 Last Taken 07/09/19 17:35] finasteride 5 mg tablet 5 mg PO QDAY #30 tab 07/15/17 [Rx Confirmed 09/20/20 Last Taken 07/09/19 08:20] furosemide 20 mg tablet 80 mg PO BID tab 07/15/17 [History Confirmed 09/20/20 Last Taken 07/09/19 17:35] acetaminophen [Tylenol] 650 mg PO Q6HP PRN 11/08/18 [History Confirmed 09/20/20 Last Taken 06/06/19 04:00] dorzolamide-timolol [Cosopt] 1 gtt LEFT EYE DAILY 11/08/18 [History Confirmed 09/20/20 Last Taken 07/09/19 17:35] pramipexole 1.5 mg PO HS 11/08/18 [History Confirmed 09/20/20 Last Taken 07/09/19 17:35] gabapentin 100 mg PO BID 03/10/19 [History Confirmed 09/20/20 Last Taken 07/09/19 17:35] ondansetron 4 mg SL Q4HP PRN 03/10/19 [History Confirmed 09/20/20 Last Taken 05/11/19 09:23] budesonide 0.5 mg NEB BID 05/06/19 [History Confirmed 09/20/20 Last Taken 07/09/19 17:35] loperamide 4 mg PO Q15M PRN 05/06/19 [History Confirmed 09/20/20 Last Taken Unknown] magnesium hydroxide 30 ml PO PRN PRN 05/06/19 [History Confirmed 09/20/20 Last Taken Unknown] polyethylene glycol 3350 17 gm PO DAILY 05/06/19 [History Confirmed 09/20/20 Last Taken 07/09/19 08:20] spironolactone 25 mg PO QHS 05/06/19 [History Confirmed 09/20/20 Last Taken 07/09/19 08:20] brimonidine 1 gtt OU BID 07/10/19 [History Confirmed 09/20/20 Last Taken Unknown] ipratropium-albuterol 2.5 mg NEB Q4HP PRN 07/10/19 [History Confirmed 09/20/20 Last Taken Unknown] CeraVe 1 applic TOPICAL HS 09/20/20 [History Confirmed 09/20/20 Last Taken Unknown] Dulcolax (bisacodyl) 10 mg OK DAILY PRN 09/20/20 [History Confirmed 09/20/20 Last Taken Unknown] Fleet Enema 118 ml OK DAILY PRN 09/20/20 [History Confirmed 09/20/20 Last Taken Unknown] Glucagon Emergency Kit (human) 1 mg IM Q15MIN PRN 09/20/20 [History Confirmed 09/20/20 Last Taken Unknown] PreserVision AREDS 1 tab PO DAILY 09/20/20 [History Confirmed 09/20/20 Last T aken Unknown] ammonium lactate 1 applic TOPICAL BID 09/20/20 [History Confirmed 09/20/20 Last Taken Unknown] carboxymethylcellulose-glycern 1 drp OPHTHALMIC (EYE) PRN PRN 09/20/20 [History Confirmed 09/20/20 Last Taken Unknown] guaifenesin [Mucinex] 600 mg PO QHS 09/20/20 [History Confirmed 09/20/20 Last Taken Unknown] ketoconazole 1 applic TOPICAL DAILY PRN 09/20/20 [History Confirmed 09/20/[address] Taken Unknown] ketorolac [Acular] 1 drp OPHTHALMIC (EYE) DAILY 09/20/20 [History Confirmed 09/20/20 Last Taken Unknown] magnesium oxide 400 mg PO DAILY 09/20/20 [History Confirmed 09/20/20 Last Taken Unknown] melatonin 5 mg PO HS PRN 09/20/20 [History Confirmed 09/20/20 Last Taken Unknown] metolazone 2.5 mg PO 2-3XW 09/20/20 [History Confirmed 09/20/20 Last Taken Unknown] mometasone 1 applic TOPICAL QDAY PRN 09/20/20 [History Confirmed 09/20/20 Last Taken Unknown] potassium chloride 20 meq PO 5XD 09/20/20 [History Confirmed 09/20/20 Last Taken Unknown] sertraline 100 mg PO QHS 09/20/20 [History Confirmed 09/20/20 Last Taken Unknown] spironolactone 50 mg PO 2-3XW 09/20/20 [History Confirmed 09/20/20 Last Taken Unknown] prednisone 40 mg PO QDAY #1 tab 09/24/20 [Rx Last Taken Unknown] COURSE Hospital Course Hospital course: History of present illness: Mr. Chambers is a 80 year old M resident of [facility] with a history of chronic pain/neuropathy/lower extremity lymphedema/anxiety disorder/HTN who presents to the ER following a fall this morning while he was trying to transfer out of his lounge chair. He denies any precipitating events. Initial work-up in the ER was negative with head CT however patient was profoundly hypoxic on arrival. He was requiring 2- 3 L of oxygen to maintain sats over 90. Chest imaging was consistent with basilar pneumonia. COVID-19 test was performed. Hospitalist service was consulted in light of acute hypoxic respiratory failure/possible COVID-19/COPD exacerbation At the time of my evaluation patient is on 3 L oxygen. Able to answer some of the questions. He is appears fatigued lethargic was able to participate in review of systems. He could not recollect events before this morning. He also endorses to feeling weak and fatigued over the last 1 week. He denies diarrhea, dysuria, headache endorses to left lower extremity increasing redness without pain. He denies chest palpitation/headache or photophobia 09/20-patient clinically improving. On 2 L oxygen. Improved shortness of breath. Denies fever chills, white count 7.6 potassium down to 3.9, creatinine down to 1.2. Blood pressures around 100. On crystalloids. 09/21-patient had a horrible night with increasing confusion agitation requiring antipsychotics. Remained agitated throughout the night. However much improved this morning. Restarted on home medications. On 2 L oxygen. Labs essentially unchanged. COVID-19 test negative. X-ray chest mild pulmonary congestion. Start diuretics. DC IV fluids 09/22-patient clinically deteriorating no hypoxia respiratory failure requiring 5 L oxygen. Febrile at 102.1. Confused encephalopathic agitated and delirious. White count up to 12.1. Antibiotic coverage extended to Zosyn. BiPAP as needed. Patient currently DNR. Negative interval chest imaging. Overnight very anxious agitated requiring antipsychotic. 09/23-patient remains intermittently confused however much improved agitation. On 8 to 10 L oxygen. Worsening hypoxic respiratory failure. Clinical deterioration noted. Remains high risk mortality 09/24-patient feels a lot better. On 3 L oxygen today. More alert lucid. Continue frequent orientation/bright light/aspiration precautions. No anxiety agitation. Tolerating therapies. Anticipate discharge in 24 hours to SNF on oxygen. 09/25 Improving. Oxygen need decreasing. Stable for discharge. A/P Narrative: Acute exacerbation of COPD-clinical improvement noted. Continue bronchodilators steroids/supplemental oxygen. Covid negative. Anticipate discharge in 24 hours to SNF Acute hypoxic hypercapnic respiratory failure. Oxygen weaned down to 3 L, continue to breathing exercises/pulmonary toilet/aspiration precautions Sepsis with endorgan dysfunction. Clinically improved. WBC downtrending. Hemodynamic stable. Hospital-acquired delirium-improving. Continue to avoid sedatives and hypnotics. Frequent reorientation/as needed antipsychotic Borderline CHF -responding well to diuretics, currently euvolemic Left lower extremity erythema, likely stasis change. Continue foot care ADDIE improving-creatinine at baseline Hyperkalemia improved down from 5.2-3.9 History of glaucoma continue home dose n dorzolamide/brimonidine Anxiety disorder on fluoxetine Neuropathy start gabapentin Chronic pain on morphine Restless leg syndrome Hypertension on spironolactone BPH on Flomax/finasteride Discharge diagnosis: COPD exacerbation acute hypoxic hypercapnic respiratory failure Secondary discharge diagnosis: Delirium sepsis CHF ADDIE hyperkalemia glaucoma anxiety neuropathy chronic pain restless leg hypertension BPH Time Spent with Patient Time attestation: Total time spent providing and/or coordinating discharge services: Time spent: Greater than 30 minutes EXAM Constitutional Vitals: Temp Pulse Resp BP Pulse Ox 97.9 F 101 H 20 110/77 95 09/24/20 12:00 09/24/20 11:32 09/24/20 12:00 09/24/20 12:00 09/24/20 12:00 Discharge Data Data Completed and Pending Labs on day of discharge: Labs from last 24 hours 09/24/20 09/24/20 05:41 05:41 WBC 8.3 RBC 4.80 Hgb 13.9 Hct 44.7 MCV 93.1 MCH 29.0 MCHC 31.1 RDW 13.1 Plt Count 227 MPV 9.8 Seg Neutrophils % 82 H Lymphocytes % 14 L Monocytes % (Manual) 3 Reactive Lymphocytes 1 Platelet Estimate Normal RBC Morphology Normal Sodium 143 Potassium 4.4 Chloride 99 Carbon Dioxide 29 Anion Gap 15.0 BUN 41 H Creatinine 1.5 H GFR Calculation 43 Glucose 169 H Uric Acid 5.9 Calcium 9.4 Phosphorus 4.4 Magnesium 2.8 H Total Bilirubin 0.5 Direct Bilirubin < 0.2 GGT 18 AST 19 ALT 20 Alkaline Phosphatase 58 Lactate Dehydrogenase 265 H Total Protein 7.0 Albumin 3.6 Globulin 3.4 Albumin/Globulin Ratio 1.1 Triglycerides 87 Preliminary micro results at discharge 09/20/20 00:52 Blood Culture - Preliminary Blood 09/20/20 00:47 Blood Culture - Preliminary Blood Discharge Plan Patient/Caregiver Discharge Instructions Activity: increase activity as tolerated Diet: Regular Diet Prescriptions: New prednisone 10 mg tablet 40 mg PO QDAY Qty: 1 RF: 0 Continued furosemide 20 MG tablet 80 mg PO BID RF: 0 pramipexole 1 MG tablet 1.5 mg PO HS RF: 0 dorzolamide-timolol [Cosopt] 10 ML drops 1 gtt LEFT EYE DAILY RF: 0 acetaminophen [Tylenol] 325 MG tablet 650 mg PO Q6HP PRN (Reason: Fever) RF: 0 gabapentin 100 MG capsule 100 mg PO BID RF: 0 ondansetron 4 MG tablet 4 mg SL Q4HP PRN (Reason: Nausea And Vomiting) RF: 0 budesonide 0.5 MG/2 ML suspension for nebulization 0.5 mg NEB BID RF: 0 loperamide 2 MG tablet 4 mg PO Q15M PRN (Reason: Diarrhea) RF: 0 magnesium hydroxide 400 MG/5 ML suspension 30 ml PO PRN PRN (Reason: Constipation) RF: 0 spironolactone 25 MG tablet 25 mg PO QHS RF: 0 polyethylene glycol 3350 17 GM powder in packet 17 gm PO DAILY RF: 0 ipratropium-albuterol 3 ML solution for nebulization 2.5 mg NEB Q4HP PRN (Reason: Shortness Of Breath) RF: 0 brimonidine 1 GTT bottle 1 gtt OU BID RF: 0 metolazone 2.5 mg Tablet 2.5 mg PO 2-3XW RF: 0 sertraline 100 mg Tablet 100 mg PO QHS RF: 0 ketorolac [Acular] 0.5 % Drops 1 drp OPHTHALMIC (EYE) DAILY RF: 0 potassium chloride 40 mEq/15 mL Liquid 20 meq PO 5XD RF: 0 Fleet Enema 19-7 gram/118 mL Enema 118 ml OK DAILY PRN (Reason: Constipation) RF: 0 ammonium lactate 12 % Cream 1 applic TOPICAL BID RF: 0 mometasone 0.1 % Ointment 1 applic TOPICAL QDAY PRN (Reason: Ear Pain) RF: 0 ketoconazole 2 % Cream 1 applic TOPICAL DAILY PRN (Reason: Rash) RF: 0 spironolactone 50 mg Tablet 50 mg PO 2-3XW RF: 0 CeraVe Cream 1 applic TOPICAL HS RF: 0 carboxymethylcellulose-glycern 0.5-0.9 % Drops 1 drp OPHTHALMIC (EYE) PRN PRN (Reason: Eye Irritation) RF: 0 melatonin 5 mg Tablet 5 mg PO HS PRN (Reason: Insomnia) RF: 0 PreserVision AREDS [id number],[id number] Tablet 1 tab PO DAILY RF: 0 guaifenesin [Mucinex] 600 mg Tablet Extended Release 12hr 600 mg PO QHS RF: 0 magnesium oxide 400 mg magnesium Tablet 400 mg PO DAILY RF: 0 Dulcolax (bisacodyl) 10 mg suppository 10 mg OK DAILY PRN (Reason: Constipation) RF: 0 Glucagon Emergency Kit (human) 1 mg 1 mg IM Q15MIN PRN (Reason: Hypoglycemia) RF: 0 tamsulosin 0.4 mg capsule,extended release 24hr 0.4 mg PO BID Qty: 60 RF: 11 finasteride [Proscar] 5 mg tablet 5 mg PO QDAY Qty: 30 RF: 6 Follow Up Plan Follow up with: Conrad Matson MD [Primary Care Provider] - Patient Disposition: Xfer SNF Prognosis: Fair Rehab Potential: Fair I certify that the patient requires SNF services: Yes Overall status at discharge: patient is progressing back to baseline Discharge Orders: Discharge Order (Routine); Ordered 09/25/20 Ordered By: Daryl Paredes
[2020-09-24] MEDS: SENNOSIDES/DOCUSATE SODIUM 1 TAB TABLET PO SCH (20:37)
[2020-09-24] MEDS: guaiFENesin 600 MG TAB.SR.12H PO SCH (20:38)
[2020-09-24] MEDS: PRAMIPEXOLE 1 MG TABLET PO SCH (20:38)
[2020-09-24] MEDS: SERTRALINE 100 MG TABLET PO SCH (20:39)
[2020-09-25] MEDS: IPRATROPIUM/ALBUTEROL 3 ML AMPUL.NEB NEB SCH ×2 (02:48→08:05)
[2020-09-25] MEDS: PIPERACILLIN SODIUM/TAZOBACTAM 3.375 GM in DEXTROSE 5% IN WATER 50 ML IV SCH ×2 (05:35→11:20)
[2020-09-25] MEDS: 0.9 % SODIUM CHLORIDE 10 ML SYRINGE IV SCH (05:35)
[2020-09-25] MEDS: POTASSIUM CHLORIDE 20 MEQ/15 ML ML PO SCH ×2 (07:35→11:19)
[2020-09-25] MEDS ORDERED: predniSONE 20 MG TABLET PO SCH (08:00)
[2020-09-25] MEDS: BUDESONIDE 0.5 MG/2 ML AMPUL.NEB NEB SCH (08:06)
[2020-09-25] MEDS: HEPARIN 5,000 UNIT/ML VIAL SQ SCH (08:56)
[2020-09-25] MEDS: MULTIVIT,THER IRON,CA,FA & MIN 1 TABLET PO SCH (08:57)
[2020-09-25] MEDS: SPIRONOLACTONE 25 MG TABLET PO SCH (08:57)
[2020-09-25] MEDS: FUROSEMIDE 20 MG TABLET PO SCH (08:58)
[2020-09-25] MEDS: TAMSULOSIN 0.4 MG CAPSULE PO SCH (08:58)
[2020-09-25] MEDS: FINASTERIDE 5 MG TABLET PO SCH (08:59)
[2020-09-25] MEDS: GABAPENTIN 100 MG CAPSULE PO SCH (08:59)
[2020-09-25] MEDS: VIT A,C & E/LUTEIN/MINERALS TABLET PO SCH (08:59)
[2020-09-25] MEDS: DOCUSATE SODIUM 100 MG CAPSULE PO SCH (08:59)
[2020-09-25] MEDS: MAGNESIUM OXIDE 400 MG TABLET PO SCH (08:59)
[2020-09-25] MEDS: TIOTROPIUM BROMIDE 18 MCG INHALANT INH SCH (09:00)
[2020-09-25] MEDS: DORZOLAMIDE TIMOLOL EYE LEFT EYE SCH (09:00)
[2020-09-25] MEDS: POLYETHYLENE GLYCOL 3350 17 GM PACKET PO SCH (09:00)
[2020-09-25] MEDS: BUDESONIDE 1 PUFF INHALER INH SCH (09:00)
[2020-09-25] MEDS: BRIMONIDINE OPHTH DROPS 1 GTT BOTTLE 5ML OU SCH (09:01)
[2020-09-25] MEDS: ACETAMINOPHEN 325 MG TABLET PO PRN (11:20)
== END 2020-09-25 13:20 | DRG 871 ==
LOC: ED 15:51 → ICU 09-20 00:02 → MEDSUR 09-21 20:25
PROVIDERS: ADMIT Internal Medicine; ATTEND Internal Medicine